=== PATIENT | female | born 1955 | race Caucasian/White ===

== ENCOUNTER 2018-02-22 13:10 | Outpatient (CLI) | payer BC ==
[~2018-02-22 13:10] MED LIST: ASPIRIN EC81 MG ORAL; LEVOTHYROXINE25 MCG ORAL; LEXAPRO20 MG ORAL; VALACYCLOVIR500 MG ORAL
--- NOTE | 2018-02-22 15:19 | GI Progress Note ---
Assessment/Plan Problems: (1) Colonoscopy planned SNOMED: 508074053 (2) Depression ICD Codes: F32.9 - Major depressive disorder, single episode, unspecified SNOMED: 74488098 (3) Hypothyroid ICD Codes: E03.9 - Hypothyroidism, unspecified SNOMED: 30585570 (4) Elevated cholesterol ICD Codes: E78.0 - Pure hypercholesterolemia SNOMED: 94922385 Status: stable Status Narrative Seen with Dr. Michael. Assessment/Plan Colonoscopy to be scheduled pending PA, will contact patient. - CLD & (Nulytely/Suprep/Movi-Prep) prep instructions given and acknowledged by patient. - NPO @ ND day prior procedure explained. The patient was seen and examined at bedside and all new and available data was reviewed in the patients chart. I agree with the above findings, impression and plan. (Patient seen earlier today. Signature stamp does not reflect patient encounter time.). - Malcom Michael MD Subjective Gastrointestinal/Abdominal: Reports: no symptoms Objective T 98.7 BP 118/76 P 75 95 RA General Appearance: WD/WN, no apparent distress, alert Cardiovascular: normal rate Respiratory/Chest: normal breath sounds, no respiratory distress Abdominal Exam: normal bowel sounds, non tender, soft Extremities: normal range of motion, non-tender Yoandy Haley [employer] Feb 22, 2018 15:19
== END 2018-02-22 13:40 | disposition home or self-care (01) ==
LOC: PAN 13:10
DX: F32.9 Major depressive disorder, single episode, unspecified (principal); E03.9 Hypothyroidism, unspecified; E78.00 Pure hypercholesterolemia, unspecified
CPT/HCPCS: G0463

== ENCOUNTER 2019-10-10 14:51 | Inpatient (IN) | payer BC ==
[~2019-10-10] VITALS: Ht 165.1 cm; Wt 59.0 kg
[2019-10-10 15:32] VITALS: BP 104/73
--- NOTE | 2019-10-10 15:36 | NUR ---
ED Nurse Note:pt. came with general weakness andm weight loss over last month, VSS, pt. is ambulatory, A/Ox4, seen by ER MD , placed on electronic device monitor
--- NOTE | 2019-10-10 15:42 | Emergency Room Report ---
History of Present Illness General Chief Complaint: Generalized Weakness Source: Patient Present Illness HPI Disclaimer: Please note that this report is being documented using [employer] technology. This can lead to erroneous entry secondary to incorrect interpretation by the dictating instrument. HPI: 64-year-old female history of hypothyroidism depression presents for evaluation of rapid weight loss. Patient states over the last 1.5 months she has lost approximately 50 to 60 pounds. Reports decrease in appetite, persistent nausea and intermittent vomiting. She feels very dehydrated and despite drinking water as much as she can. Denies any recent fever, chills, chest pain, shortness of breath but does feel some epigastric discomfort. Denies excessive alcohol use. Her team automobile assembler, Dr. Yepez, has performed an EGD and colonoscopy consistent with gastritis. Biopsies were taken and multiple CTs were taken today. CT of the chest abdomen and pelvis performed today shows a large left upper quadrant mass arising from the pancreas extension into the lesser sac and evidence of peritoneal carcinomatosis multiple metastases. She was sent for hospital admission given her rapid weight loss and CT findings. Patient is currently in no distress but does feel weak and dehydrated. PMH: Hypothyroidism, depression PSH: Gastric biopsy, breast augmentation Allergies: Denies Social Hx: Denies tobacco, alcohol or drug use Allergies: Coded Allergies: No Known Allergies (Unverified , 03/24/16) COVID-19 Screening Contact w/high risk pt: No Recent Travel to affected area: No Experienced COVID-19 symptoms?: No COVID-19 symptoms experienced: Fever (T>100.4F or >38C) COVID-19 Testing performed ELECTRIC LIFT TRUCK DRIVER: No Nursing Documentation-PMH Past Medical History: No History, Except For Hx Cancer: No Hx Gastrointestinal Problems: Yes Hx Neurological Problems: No Review of Systems All Other Systems: negative except mentioned in HPI Physical Exam Vital Signs Date Time Temp Pulse Resp B/P (MAP) Pulse Ox O2 Delivery O2 Flow Rate FiO2 10/10/19 15:24 98.4 104 16 104/73 (83) 97 Room Air General: Awake and alert, no acute distress HEENT: NC/AT. EOMI. Cardiovascular: Mildly tachycardic. S1 and S2 normal. No murmur appreciated Resp: Normal work of breathing. No cough, wheezing or crackles appreciated Abdomen: Abdomen is soft, nondistended. Nontender Skin: Intact. No abrasions, laceration or rash over the exposed skin MSK: Normal tone and bulk. Moving all extremities. No obvious deformity. Neuro: Awake and alert. Mentating appropriately. Medical Decision Making Diagnostic Impression: Primary Impression: Metastasis Additional Impressions: Dehydration Pancreatic cancer ER Course 64-year-old female presents for evaluation of rapid weight loss. CT performed today concerning for metastatic cancer with multiple metastatic sites. Will obtain broad labs and admit the patient for further work-up. Laboratory Tests Test 10/10/19 15:40 White Blood Count 10.9 K/UL (4.8-10.8) H Red Blood Count 4.55 M/UL (4.20-5.40) Hemoglobin 13.2 G/DL (12.0-16.0) Hematocrit 42.1 % (37.0-47.0) Mean Corpuscular Volume 92 FL (80-99) Mean Corpuscular Hemoglobin 29.0 PG (27.0-31.0) Mean Corpuscular Hemoglobin Concent 31.3 G/DL (32.0-36.0) L Red Cell Distribution Width 12.5 % (11.6-14.8) Platelet Count 303 K/UL (150-450) Mean Platelet Volume 7.9 FL (6.5-10.1) Neutrophils (%) (Auto) 72.1 % (45.0-75.0) Lymphocytes (%) (Auto) 16.9 % (20.0-45.0) L Monocytes (%) (Auto) 8.4 % (1.0-10.0) Eosinophils (%) (Auto) 1.7 % (0.0-3.0) Basophils (%) (Auto) 0.9 % (0.0-2.0) Urine Color Yellow Urine Appearance Slightly cloudy Urine pH 5 (4.5-8.0) Urine Specific [place] 1.010 (1.005-1.035) Urine Protein 2+ (NEGATIVE) H Urine Glucose (UA) Negative (NEGATIVE) Urine Ketones 3+ (NEGATIVE) H Urine Blood 2+ (NEGATIVE) H Urine Nitrite Negative (NEGATIVE) Urine Bilirubin Negative (NEGATIVE) Urine Urobilinogen 4 MG/DL (0.0-1.0) H Urine Leukocyte Esterase 1+ (NEGATIVE) H Urine RBC 0-2 /HPF (0 - 2) Urine WBC 2-4 /HPF (0 - 2) Urine Squamous Epithelial Cells Few /LPF (NONE/OCC) Urine Bacteria Moderate /HPF (NONE) H Sodium Level 137 MMOL/L (136-145) Potassium Level 3.6 MMOL/L (3.5-5.1) Chloride Level 98 MMOL/L (98-107) Carbon Dioxide Level 30 MMOL/L (21-32) Anion Gap 9 mmol/L (5-15) Blood Urea Nitrogen 3 mg/dL (7-18) L Creatinine 0.5 MG/DL (0.55-1.30) L Estimated Glomerular Filtration Rate > 60 mL/min (>60) Glucose Level 109 MG/DL (74-106) H Calcium Level 9.4 MG/DL (8.5-10.1) Phosphorus Level 3.5 MG/DL (2.5-4.9) Magnesium Level 2.2 MG/DL (1.8-2.4) Total Bilirubin 0.5 MG/DL (0.2-1.0) Aspartate Amino Transferase (AST) 28 U/L (15-37) Alanine Aminotransferase (ALT) 26 U/L (12-78) Alkaline Phosphatase 72 U/L (46-116) Total Protein 7.3 G/DL (6.4-8.2) Albumin 3.4 G/DL (3.4-5.0) Globulin 3.9 g/dL Albumin/Globulin Ratio 0.9 (1.0-2.7) L Lipase 55 U/L (73-393) L Thyroid Stimulating Hormone (TSH) 11.524 uiU/mL (0.358-3.740) Reevaluation Time: 18:33 Last Vital Signs Date Time Temp Pulse Resp B/P (MAP) Pulse Ox O2 Delivery O2 Flow Rate FiO2 10/10/19 15:32 98.4 102 16 104/73 97 Room Air Reevaluation Impression Labs have returned largely within normal limits. No significant electrolyte derangements. TSH is elevated consistent with the patient's history. There are moderate bacteria and 1+ leukocyte esterase but no white cells and no nitrites on urinalysis. Will await culture results with the patient has no symptoms of a urinary tract infection. She is receiving IV fluids. Attempted to reach her PMD multiple times regarding admission. Does not admit to this facility. Will admit to panel physician. Disposition: ADMITTED INPATIENT Condition: Stable Darling,Alex MD October 10, 2019 15:42
[2019-10-10 16:05] LABS: BASOPHILS % (AUTO) 0.9 % (0.0-2.0); EOSINOPHILS % (AUTO) 1.7 % (0.0-3.0); HEMATOCRIT 42.1 % (37.0-47.0); HEMOGLOBIN 13.2 G/DL (12.0-16.0); LYMPHOCYTES % (AUTO) 16.9 % (20.0-45.0); MEAN CORPUSCULAR VOLUME 92 FL (80-99); MONOCYTES % (AUTO) 8.4 % (1.0-10.0); NEUTROPHILS % (AUTO) 72.1 % (45.0-75.0); PLATELET COUNT 303 K/UL (150-450); RED BLOOD COUNT 4.55 M/UL (4.20-5.40); RED CELL DISTRIBUTION WIDTH 12.5 % (11.6-14.8); WHITE BLOOD COUNT 10.9 K/UL (4.8-10.8)
--- NOTE | 2019-10-10 16:07 | NUR ---
ED Nurse Note:blood and urine sent tto labs
[2019-10-10 16:25] LABS: APPEARANCE,URINE SLIGHTLY CLOUDY; BILIRUBIN, URINE NEGATIVE (NEGATIVE); COLOR,URINE YELLOW; GLUCOSE, URINE (UA) NEGATIVE (NEGATIVE); KETONES,URINE 3+ (NEGATIVE); LEUKOCYTE ESTERASE ,URINE 1+ (NEGATIVE); NITRITE,URINE NEGATIVE (NEGATIVE); PH,URINE 5 (4.5-8.0); PROTEIN,URINE 2+ (NEGATIVE); UROBILINOGEN,URINE 4 MG/DL (0.0-1.0)
[2019-10-10 16:36] LABS: ANION GAP 9 mmol/L (5-15); BLOOD UREA NITROGEN 3 mg/dL (7-18); CALCIUM 9.4 MG/DL (8.5-10.1); CARBON DIOXIDE 30 MMOL/L (21-32); CHLORIDE 98 MMOL/L (98-107); CREATININE 0.5 MG/DL (0.55-1.30); POTASSIUM 3.6 MMOL/L (3.5-5.1); SODIUM 137 MMOL/L (136-145)
[2019-10-10 16:48] LABS: ALANINE AMINOTRANSFERASE 26 U/L (12-78); ALBUMIN 3.4 G/DL (3.4-5.0); ALBUMIN/GLOBULIN RATIO 0.9 (1.0-2.7); ALKALINE PHOSPHATASE 72 U/L (46-116); ASPARTATE AMINO TRANSFERASE 28 U/L (15-37); BILIRUBIN,TOTAL 0.5 MG/DL (0.2-1.0); PHOSPHORUS 3.5 MG/DL (2.5-4.9)
--- NOTE | 2019-10-10 18:00 | NUR ---
ED Nurse Note:called [facility]-given report to Jaya RN, pt. taken up stairs
[2019-10-10 18:45] VITALS: BP 110/76
--- NOTE | 2019-10-10 19:10 | NUR ---
ED Nurse Note: Report received from TRACEY Liriano. pt in stable condition, vss. no ss of distress noted. Pt appears to be aao x 3-4. Pt able to ambulate with 1 person assist d/t weakness. Pt resting in bed. will continue to monitor.
[2019-10-10 20:10] VITALS: BP 114/79
--- NOTE | 2019-10-10 20:35 | NUR ---
ER DISCHARGE NOTE: Patient is cleared to be discharged to [facility] unit per ERMD, pt is aox4, 99% on room air, with stable vital signs. pt is able to ambulate with 1 person assist. pt took all belongings. Pt transferred up with 1 RN.
[2019-10-10 21:45] VITALS: BP 136/81
--- NOTE | 2019-10-10 21:45 | NUR ---
NURSE NOTES: Received pt from ED via gurney. Pt in bed, a&ox4, in room air. VSS. No s/s of acute distress & no c/o pain at this time. Skin assessment done with another RN. Oriented pt to facility, all questions answered. IV site intact & S/L'd. Bedside commode provided. Pt belongings signed & accounted for. Dr. Porter called & gave admission orders. Plan of care discussed.
[2019-10-11] VITALS: BP 111/72
[2019-10-11] MEDS: Zolpidem 5mg tab ORAL PRN ×2 (01:51→23:54)
[2019-10-11 04:00] VITALS: BP 118/74
[2019-10-11] MEDS: Levothyroxine 25mcg tab ORAL SCH (05:39)
--- NOTE | 2019-10-11 06:21 | NUR ---
NURSE NOTES: Dr. Porter is here to see patient; reviewed CT A/P.
[2019-10-11] MEDS ORDERED: Lidocaine 1% Plain 30 ml INJ PRN (06:30)
[2019-10-11 06:46] LABS: ANION GAP 11 mmol/L (5-15); BLOOD UREA NITROGEN 4 mg/dL (7-18); CALCIUM 8.6 MG/DL (8.5-10.1); CARBON DIOXIDE 27 MMOL/L (21-32); CHLORIDE 103 MMOL/L (98-107); CREATININE 0.6 MG/DL (0.55-1.30); SODIUM 141 MMOL/L (136-145)
--- NOTE | 2019-10-11 07:30 | NUR ---
NURSE NOTES:bedside rounds with night rn(suzy)pt.eating breakfast,verbally responsive,a/o x4,no c/o pain.will continue plan of care.
--- NOTE | 2019-10-11 07:30 | NUR ---
HAND-OFF: Report given to TRACEY Hughes. Pt in stable condition. Updated about pt's CT A/P results. Family also wants to be updated thorughout the day, endorsed to Ellen to upldate pt's family.
[2019-10-11 07:36] LABS: BASOPHILS % (AUTO) 0.8 % (0.0-2.0); EOSINOPHILS % (AUTO) 3.1 % (0.0-3.0); HEMATOCRIT 36.3 % (37.0-47.0); HEMOGLOBIN 12.1 G/DL (12.0-16.0); LYMPHOCYTES % (AUTO) 20.8 % (20.0-45.0); MEAN CORPUSCULAR VOLUME 86 FL (80-99); MONOCYTES % (AUTO) 8.7 % (1.0-10.0); NEUTROPHILS % (AUTO) 66.7 % (45.0-75.0); PLATELET COUNT 238 K/UL (150-450); RED BLOOD COUNT 4.21 M/UL (4.20-5.40); RED CELL DISTRIBUTION WIDTH 10.9 % (11.6-14.8); WHITE BLOOD COUNT 8.3 K/UL (4.8-10.8)
[2019-10-11 08:01] VITALS: BP 107/71
[2019-10-11] MEDS ORDERED: Enoxaparin 30mg Inj SUBQ SCH (09:00)
--- NOTE | 2019-10-11 10:37 | Consultation ---
History of Present Illness General Chief Complaint: Generalized Weakness Present Illness Allergies: Coded Allergies: No Known Allergies (Unverified , 03/24/16) Medication History Scheduled Levothyroxine Sodium* (Levothyroxine Sodium*), 25 MCG ORAL DAILY, (Reported) Discontinued Medications Escitalopram Oxalate* (Lexapro*), 20 MG ORAL DAILY, (Reported) Discontinued Reason: MD discontinued med Sucralfate* (Carafate*), 1 GM ORAL FOUR TIMES A DAY, (Reported) Discontinued Reason: MD discontinued med Valacyclovir Hcl* (Valtrex*), 500 MG ORAL DAILY, (Reported) Discontinued Reason: MD discontinued med Patient History Healthcare decision maker Resuscitation status Advanced Directive on File Physical Exam Last 24 Hour Vital Signs Date Time Temp Pulse Resp B/P (MAP) Pulse Ox O2 Delivery O2 Flow Rate FiO2 10/11/19 08:01 Room Air 10/11/19 08:01 97.9 74 19 107/71 (83) 97 10/11/19 04:00 98.8 98 18 118/74 (89) 97 10/11/19 00:00 99.2 96 17 111/72 (85) 97 10/10/19 22:01 Room Air 10/10/19 21:45 97.9 99 18 136/81 (99) 99 10/10/19 20:10 98.4 90 18 114/79 98 Room Air 10/10/19 18:45 95 16 110/76 98 Room Air 10/10/19 17:58 98.4 102 16 104/73 97 Room Air 10/10/19 15:32 98.4 102 16 104/73 97 Room Air 10/10/19 15:32 104 16 Room Air 10/10/19 15:24 98.4 104 16 104/73 (83) 97 Room Air Intake and Output 10/10/19 10/11/19 19:00 07:00 Intake Total 720 ml Balance 720 ml Intake IV Total 720 ml # Voids 1 3 Laboratory Tests Test 10/10/19 15:40 10/11/19 05:10 White Blood Count 10.9 K/UL (4.8-10.8) H 8.3 K/UL (4.8-10.8) Red Blood Count 4.55 M/UL (4.20-5.40) 4.21 M/UL (4.20-5.40) Hemoglobin 13.2 G/DL (12.0-16.0) 12.1 G/DL (12.0-16.0) Hematocrit 42.1 % (37.0-47.0) 36.3 % (37.0-47.0) L Mean Corpuscular Volume 92 FL (80-99) 86 FL (80-99) Mean Corpuscular Hemoglobin 29.0 PG (27.0-31.0) 28.7 PG (27.0-31.0) Mean Corpuscular Hemoglobin Concent 31.3 G/DL (32.0-36.0) L 33.3 G/DL (32.0-36.0) Red Cell Distribution Width 12.5 % (11.6-14.8) 10.9 % (11.6-14.8) L Platelet Count 303 K/UL (150-450) 238 K/UL (150-450) Mean Platelet Volume 7.9 FL (6.5-10.1) 6.7 FL (6.5-10.1) Neutrophils (%) (Auto) 72.1 % (45.0-75.0) 66.7 % (45.0-75.0) Lymphocytes (%) (Auto) 16.9 % (20.0-45.0) L 20.8 % (20.0-45.0) Monocytes (%) (Auto) 8.4 % (1.0-10.0) 8.7 % (1.0-10.0) Eosinophils (%) (Auto) 1.7 % (0.0-3.0) 3.1 % (0.0-3.0) H Basophils (%) (Auto) 0.9 % (0.0-2.0) 0.8 % (0.0-2.0) Urine Color Yellow Urine Appearance Slightly cloudy Urine pH 5 (4.5-8.0) Urine Specific [place] 1.010 (1.005-1.035) Urine Protein 2+ (NEGATIVE) H Urine Glucose (UA) Negative (NEGATIVE) Urine Ketones 3+ (NEGATIVE) H Urine Blood 2+ (NEGATIVE) H Urine Nitrite Negative (NEGATIVE) Urine Bilirubin Negative (NEGATIVE) Urine Urobilinogen 4 MG/DL (0.0-1.0) H Urine Leukocyte Esterase 1+ (NEGATIVE) H Urine RBC 0-2 /HPF (0 - 2) Urine WBC 2-4 /HPF (0 - 2) Urine Squamous Epithelial Cells Few /LPF (NONE/OCC) Urine Bacteria Moderate /HPF (NONE) H Sodium Level 137 MMOL/L (136-145) 141 MMOL/L (136-145) Potassium Level 3.6 MMOL/L (3.5-5.1) 3.0 MMOL/L (3.5-5.1) L Chloride Level 98 MMOL/L (98-107) 103 MMOL/L (98-107) Carbon Dioxide Level 30 MMOL/L (21-32) 27 MMOL/L (21-32) Anion Gap 9 mmol/L (5-15) 11 mmol/L (5-15) Blood Urea Nitrogen 3 mg/dL (7-18) L 4 mg/dL (7-18) L Creatinine 0.5 MG/DL (0.55-1.30) L 0.6 MG/DL (0.55-1.30) Estimat Glomerular Filtration Rate > 60 mL/min (>60) > 60 mL/min (>60) Glucose Level 109 MG/DL (74-106) H 103 MG/DL (74-106) Calcium Level 9.4 MG/DL (8.5-10.1) 8.6 MG/DL (8.5-10.1) Phosphorus Level 3.5 MG/DL (2.5-4.9) Magnesium Level 2.2 MG/DL (1.8-2.4) Total Bilirubin 0.5 MG/DL (0.2-1.0) Aspartate Amino Transf (AST/SGOT) 28 U/L (15-37) Alanine Aminotransferase (ALT/SGPT) 26 U/L (12-78) Alkaline Phosphatase 72 U/L (46-116) Total Protein 7.3 G/DL (6.4-8.2) Albumin 3.4 G/DL (3.4-5.0) Globulin 3.9 g/dL Albumin/Globulin Ratio 0.9 (1.0-2.7) L Lipase 55 U/L (73-393) L Thyroid Stimulating Hormone (TSH) 11.524 uiU/mL (0.358-3.740) Height (Feet): 5 Height (Inches): 4.00 Weight (Pounds): 110 Medications Current Medications Medications (Trade) Dose Ordered Sig/Tiago Route PRN Reason Start Time Stop Time Status Last Admin Dose Admin Acetaminophen (Tylenol) 650 mg Q6H PRN ORAL 1-3 mild pain/fever > 100.4 10/10/19 21:00 11/09/19 20:59 Enoxaparin Sodium (Lovenox) 30 mg DAILY SUBQ 10/11/19 09:00 01/09/20 08:59 10/11/19 08:16 Levothyroxine Sodium (Synthroid) 25 mcg ACBREAKFAST ORAL 10/11/19 06:30 11/10/19 06:29 10/11/19 05:39 Lidocaine HCl (Xylocaine 1% 30ml) 30 ml NOW PRN INJ Radiology Procedure 10/11/19 06:30 10/13/19 06:30 Ondansetron HCl (Zofran) 4 mg Q4H PRN IVP Nausea & Vomiting 10/11/19 05:45 11/10/19 05:44 Sodium Chloride 1,000 ml @ 80 mls/hr [id number] IV 10/10/19 21:00 10/11/19 21:59 10/10/19 21:50 Zolpidem Tartrate (Ambien) 5 mg HSPRN PRN ORAL Insomnia 10/10/19 21:00 10/17/19 20:59 10/11/19 01:51 Assessment/Plan Assessment/Plan: Oncology Consultation note REQ MD Barry Olmedo C Pancreatic mass eval DOS 10/11/2019 HPI: 64-year-old female history of hypothyroidism depression presents for evaluation of rapid weight loss. Patient states over the last 1.5 months she has lost approximately 50 to 60 pounds. Reports decrease in appetite, persistent nausea and intermittent vomiting. She feels very dehydrated and despite drinking water as much as she can. Denies any recent fever, chills, chest pain, shortness of breath but does feel some epigastric discomfort. Denies excessive alcohol use. Her disability services coordinator, Dr. Yepez, has performed an EGD and colonoscopy consistent with gastritis. Biopsies were taken and multiple CTs were taken today. CT of the chest abdomen and pelvis performed today shows a large left upper quadrant mass arising from the pancreas extension into the lesser sac and evidence of peritoneal carcinomatosis multiple metastases. She was sent for hospital admission given her rapid weight loss and CT findings. Patient is currently in no distress but does feel weak and dehydrated. I talked to her at the bedside and she is aware the next step is to do a ct fuided biopsy. PMHx: Hypothyroidism, depression PSHx: Gastric biopsy, breast augmentation Allergies: Denies Social Hx: Denies tobacco, alcohol or drug use Allergies: No Known Allergies (Unverified , 03/24/16) COVID-19 Screening Contact w/high risk pt: No Recent Travel to affected area: No Experienced COVID-19 symptoms?: No COVID-19 symptoms experienced: Fever (T>100.4F or >38C) COVID-19 Testing performed CLOTHES DRIER REPAIRER: No Nursing Documentation-PM Past Medical History: No History, Except For Hx Cancer: No Hx Gastrointestinal Problems: Yes Hx Neurological Problems: No ROS (review of systems): Constitutional: ++ weght loss 60lbs Skin: No rashes, lumps, itchiness, dryness HEENT: No HUNTER, ear ache, visual changes, double vision, nosebleeds Breasts: No lumps, pain, discharge Pulmonary: No cough, sputum, shortness of breath, coughing up blood Cardiovascular: No chest pain, tightness, palpitations, syncope, PND GI: No nausea, vomiting, diarrhea, melena, hematochezia, change in appetite, : No dysuria, frequency, urgency, urinary incontinence, foamy urine Musculoskeletal: No joint swelling or muscle pain, trauma, back pain Neurologic: No dizziness, fainting, seizures, changes in smell or taste Psychiatric: No nervousness, stress, or depression, anxiety Endocrine: No weight change Physical Exam: Vitals: reviewed General: NAD HEENT: nc, at Neck: supple Chest: clear breath sounds bilaterally Cardiovascular: RRR, no s3, s4 Abdomen: soft, nontender, nd ++ abd pain Extremities: no cce, normal range of motion Back: back pain ttp Neuro: alert and oriented Labs: noted Assessment/Recs # Pancreatic mass with likely mets -- LARGE LEFT UPPER QUADRANT MASS LIKELY ARISING FROM THE PANCREAS WITH EXTENSION INTO THE LESSER SAC. 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 RETROPERITONEAL ADENOPATHY ENCASING THE SMA ARTERY AND ALONG THE LEFT PARA-AORTIC SPACE. LEFT ADRENAL METASTASIS. --> ct guided biopsy has been ordered --> ca 19.9, ca 125, cea all ordered --> weight loss noted --> consider mirtazpaine --> as per gi care, they are aware # Dehydration --> on ivfs as needed # LEFT ADRENAL METASTASIS. --> likely c/w panc primary cancer # Leukocytosis --> mild has improved # Weight loss --> related to ca The timing of this note does not necessarily reflect the time of the patient was seen. Greatly appreciate consultation. Ortiz Porter MD October 11, 2019 10:37
--- NOTE | 2019-10-11 10:48 | NUR ---
*-* NO INSURANCE INFORMATION IN THE BAR UNABLE TO SEND CLINICALS OR REVIEWS *-*
[2019-10-11 11:29] VITALS: BP 107/73
--- NOTE | 2019-10-11 11:30 | NUR ---
NURSE NOTES:DR. MARQUEZ NOTIFIED RE:K:3,ORDERS CARRIED OUT.
--- NOTE | 2019-10-11 12:19 | General Progress Note ---
Assessment/Plan Problem List: (1) Pancreatic cancer ICD Codes: C25.9 - Malignant neoplasm of pancreas, unspecified SNOMED: 777777993 (2) Elevated cholesterol ICD Codes: E78.0 - Pure hypercholesterolemia SNOMED: 07001988 (3) Hypothyroid ICD Codes: E03.9 - Hypothyroidism, unspecified SNOMED: 84798170 (4) Depression ICD Codes: F32.9 - Major depressive disorder, single episode, unspecified SNOMED: 61137976 Assessment/Plan: pending CT guided biopsy fu oncology plan EUS if CT guided biopsy is neg ivf pain control zofran prn Subjective ROS Limited/Unobtainable: Yes Allergies: Coded Allergies: No Known Allergies (Unverified , 03/24/16) Objective Last 24 Hour Vital Signs Date Time Temp Pulse Resp B/P (MAP) Pulse Ox O2 Delivery O2 Flow Rate FiO2 10/11/19 11:29 98.2 96 20 107/73 (84) 96 10/11/19 08:01 Room Air 10/11/19 08:01 97.9 74 19 107/71 (83) 97 10/11/19 04:00 98.8 98 18 118/74 (89) 97 10/11/19 00:00 99.2 96 17 111/72 (85) 97 10/10/19 22:01 Room Air 10/10/19 21:45 97.9 99 18 136/81 (99) 99 10/10/19 20:10 98.4 90 18 114/79 98 Room Air 10/10/19 18:45 95 16 110/76 98 Room Air 10/10/19 17:58 98.4 102 16 104/73 97 Room Air 10/10/19 15:32 98.4 102 16 104/73 97 Room Air 10/10/19 15:32 104 16 Room Air 10/10/19 15:24 98.4 104 16 104/73 (83) 97 Room Air Intake and Output 10/10/19 10/11/19 19:00 07:00 Intake Total 720 ml Balance 720 ml Intake IV Total 720 ml # Voids 1 3 Laboratory Tests 10/10/19 15:40: White Blood Count 10.9H, Red Blood Count 4.55, Hemoglobin 13.2, Hematocrit 42.1 , Mean Corpuscular Volume 92, Mean Corpuscular Hemoglobin 29.0, Mean Corpuscular Hemoglobin Concent 31.3L, Red Cell Distribution Width 12.5, Platelet Count 303, Mean Platelet Volume 7.9, Neutrophils (%) (Auto) 72.1, Lymphocytes (%) (Auto) 16.9L, Monocytes (%) (Auto) 8.4, Eosinophils (%) (Auto) 1.7, Basophils (%) (Auto) 0.9, Urine Color Yellow, Urine Appearance Slightly cloudy, Urine pH 5, Urine Specific [place] 1.010, Urine Protein 2+H, Urine Glucose (UA) Negative, Urine Ketones 3+H, Urine Blood 2+H, Urine Nitrite Negative, Urine Bilirubin Negative, Urine Urobilinogen 4H, Urine Leukocyte Esterase 1+H, Urine RBC 0-2, Urine WBC 2-4, Urine Squamous Epithelial Cells Few , Urine Bacteria ModerateH, Sodium Level 137, Potassium Level 3.6, Chloride Level 98, Carbon Dioxide Level 30, Anion Gap 9, Blood Urea Nitrogen 3L, Creatinine 0.5L, Estimat Glomerular Filtration Rate > 60, Glucose Level 109H, Calcium Level 9.4, Phosphorus Level 3.5, Magnesium Level 2.2, Total Bilirubin 0.5, Aspartate Amino Transf (AST/SGOT) 28, Alanine Aminotransferase (ALT/SGPT) 26, Alkaline Phosphatase 72, Total Protein 7.3, Albumin 3.4, Globulin 3.9, Albumin/Globulin Ratio 0.9L, Lipase 55L, Thyroid Stimulating Hormone (TSH) 11.524H 10/11/19 05:10: White Blood Count 8.3, Red Blood Count 4.21, Hemoglobin 12.1, Hematocrit 36.3L, Mean Corpuscular Volume 86, Mean Corpuscular Hemoglobin 28.7, Mean Corpuscular Hemoglobin Concent 33.3, Red Cell Distribution Width 10.9L, Platelet Count 238, Mean Platelet Volume 6.7, Neutrophils (%) (Auto) 66.7, Lymphocytes (%) (Auto) 20.8, Monocytes (%) (Auto) 8.7, Eosinophils (%) (Auto) 3.1H, Basophils (%) (Auto ) 0.8, Sodium Level 141, Potassium Level 3.0L, Chloride Level 103, Carbon Dioxide Level 27, Anion Gap 11, Blood Urea Nitrogen 4L, Creatinine 0.6, Estimat Glomerular Filtration Rate > 60, Glucose Level 103, Calcium Level 8.6 10/11/19 11:30: Carcinoembryonic Antigen [Pending], CA 15-3 Antigen [Pending], CA 19-9 Antigen [ Pending], CA 125 Antigen [Pending] Height (Feet): 5 Height (Inches): 4.00 Weight (Pounds): 110 General Appearance: no apparent distress EENT: normal ENT inspection Neck: supple Cardiovascular: normal rate Respiratory/Chest: decreased breath sounds Abdomen: normal bowel sounds, non tender, soft Extremities: non-tender Malcom Michael MD October 11, 2019 12:19
--- NOTE | 2019-10-11 13:07 | NUR ---
RD ASSESSMENT & RECOMMENDATIONS SEE CARE ACTIVITY FOR COMPLETE ASSESSMENT DAILY ESTIMATED NEEDS: Needs based on WT loss, CA 62.5kg 28-33 kcals/kg 0746-6311 total kcals 1-1.5 g protein/kg 63-94 g total protein 25-30 mL/kg 5959-3666 total fluid mLs NUTRITION DIAGNOSIS: Increase kcal needs r/t significant wt loss as evidenced by 22% wt change, w/ unintentional est 39 lbs wt loss in 7 weeks. CURRENT DIET: regular PO DIET RECOMMENDATIONS: Regular diet as tolerated ADDITIONAL RECOMMENDATIONS: 1) Weekly standing weights given wt loss on admission 2) Add snacks in b/w meal s 3) Add Ensure Enlive w/ meals; pt may have Ensure Clear if tolerated better 4) Replete lytes and monitor hydration
--- NOTE | 2019-10-11 13:38 | Consultation ---
History of Present Illness General Date patient seen: October 11, 2019 Chief Complaint: Generalized Weakness Present Illness HPI 64 y/o F with hx of hypothyroidism, MDD, sp breast augmentation presented to ED on 10/09 for evaluation of rapid weight loss; lost ~50-60 pounds in the last 1.5 months, decrease in appetite, persistent nausea, mild epigastric discomfort and intermittent vomiting. She feels thirsty despite adequate fluid intake. CT C/abd /p sowed large LUQ mass arising from pancreas and evidence of peritoneal carcinomatosis. Denied fever, chills, chest pain, SOB, dysuria, cough. Allergies: Coded Allergies: No Known Allergies (Unverified , 03/24/16) Medication History Scheduled Levothyroxine Sodium* (Levothyroxine Sodium*), 25 MCG ORAL DAILY, (Reported) Discontinued Medications Escitalopram Oxalate* (Lexapro*), 20 MG ORAL DAILY, (Reported) Discontinued Reason: MD discontinued med Sucralfate* (Carafate*), 1 GM ORAL FOUR TIMES A DAY, (Reported) Discontinued Reason: MD discontinued med Valacyclovir Hcl* (Valtrex*), 500 MG ORAL DAILY, (Reported) Discontinued Reason: MD discontinued med Patient History Healthcare decision maker Resuscitation status Advanced Directive on File Patient History Narrative Pmhx: as above SHx: Denies tobacco, alcohol or drug use Fhx: non contributory Review of Systems All Other Systems: negative except mentioned in HPI Physical Exam Physical Exam Narrative General: NAD HEENT: nc, at Neck: supple Chest: clear breath sounds bilaterally Cardiovascular: RRR, no s3, s4 Abdomen: soft, nontender, nd ++ abd pain Extremities: no cce, normal range of motion Back: back pain ttp Neuro: alert and oriented Last 24 Hour Vital Signs Date Time Temp Pulse Resp B/P (MAP) Pulse Ox O2 Delivery O2 Flow Rate FiO2 10/11/19 11:29 98.2 96 20 107/73 (84) 96 10/11/19 08:01 Room Air 10/11/19 08:01 97.9 74 19 107/71 (83) 97 10/11/19 04:00 98.8 98 18 118/74 (89) 97 10/11/19 00:00 99.2 96 17 111/72 (85) 97 10/10/19 22:01 Room Air 10/10/19 21:45 97.9 99 18 136/81 (99) 99 10/10/19 20:10 98.4 90 18 114/79 98 Room Air 10/10/19 18:45 95 16 110/76 98 Room Air 10/10/19 17:58 98.4 102 16 104/73 97 Room Air 10/10/19 15:32 98.4 102 16 104/73 97 Room Air 10/10/19 15:32 104 16 Room Air 10/10/19 15:24 98.4 104 16 104/73 (83) 97 Room Air Intake and Output 10/10/19 10/11/19 19:00 07:00 Intake Total 720 ml Balance 720 ml Intake IV Total 720 ml # Voids 1 3 Laboratory Tests Test 10/10/19 15:40 10/11/19 05:10 10/11/19 11:30 White Blood Count 10.9 K/UL (4.8-10.8) H 8.3 K/UL (4.8-10.8) Red Blood Count 4.55 M/UL (4.20-5.40) 4.21 M/UL (4.20-5.40) Hemoglobin 13.2 G/DL (12.0-16.0) 12.1 G/DL (12.0-16.0) Hematocrit 42.1 % (37.0-47.0) 36.3 % (37.0-47.0) L Mean Corpuscular Volume 92 FL (80-99) 86 FL (80-99) Mean Corpuscular Hemoglobin 29.0 PG (27.0-31.0) 28.7 PG (27.0-31.0) Mean Corpuscular Hemoglobin Concent 31.3 G/DL (32.0-36.0) L 33.3 G/DL (32.0-36.0) Red Cell Distribution Width 12.5 % (11.6-14.8) 10.9 % (11.6-14.8) L Platelet Count 303 K/UL (150-450) 238 K/UL (150-450) Mean Platelet Volume 7.9 FL (6.5-10.1) 6.7 FL (6.5-10.1) Neutrophils (%) (Auto) 72.1 % (45.0-75.0) 66.7 % (45.0-75.0) Lymphocytes (%) (Auto) 16.9 % (20.0-45.0) L 20.8 % (20.0-45.0) Monocytes (%) (Auto) 8.4 % (1.0-10.0) 8.7 % (1.0-10.0) Eosinophils (%) (Auto) 1.7 % (0.0-3.0) 3.1 % (0.0-3.0) H Basophils (%) (Auto) 0.9 % (0.0-2.0) 0.8 % (0.0-2.0) Urine Color Yellow Urine Appearance Slightly cloudy Urine pH 5 (4.5-8.0) Urine Specific [place] 1.010 (1.005-1.035) Urine Protein 2+ (NEGATIVE) H Urine Glucose (UA) Negative (NEGATIVE) Urine Ketones 3+ (NEGATIVE) H Urine Blood 2+ (NEGATIVE) H Urine Nitrite Negative (NEGATIVE) Urine Bilirubin Negative (NEGATIVE) Urine Urobilinogen 4 MG/DL (0.0-1.0) H Urine Leukocyte Esterase 1+ (NEGATIVE) H Urine RBC 0-2 /HPF (0 - 2) Urine WBC 2-4 /HPF (0 - 2) Urine Squamous Epithelial Cells Few /LPF (NONE/OCC) Urine Bacteria Moderate /HPF (NONE) H Sodium Level 137 MMOL/L (136-145) 141 MMOL/L (136-145) Potassium Level 3.6 MMOL/L (3.5-5.1) 3.0 MMOL/L (3.5-5.1) L Chloride Level 98 MMOL/L (98-107) 103 MMOL/L (98-107) Carbon Dioxide Level 30 MMOL/L (21-32) 27 MMOL/L (21-32) Anion Gap 9 mmol/L (5-15) 11 mmol/L (5-15) Blood Urea Nitrogen 3 mg/dL (7-18) L 4 mg/dL (7-18) L Creatinine 0.5 MG/DL (0.55-1.30) L 0.6 MG/DL (0.55-1.30) Estimat Glomerular Filtration Rate > 60 mL/min (>60) > 60 mL/min (>60) Glucose Level 109 MG/DL (74-106) H 103 MG/DL (74-106) Calcium Level 9.4 MG/DL (8.5-10.1) 8.6 MG/DL (8.5-10.1) Phosphorus Level 3.5 MG/DL (2.5-4.9) Magnesium Level 2.2 MG/DL (1.8-2.4) Total Bilirubin 0.5 MG/DL (0.2-1.0) Aspartate Amino Transf (AST/SGOT) 28 U/L (15-37) Alanine Aminotransferase (ALT/SGPT) 26 U/L (12-78) Alkaline Phosphatase 72 U/L (46-116) Total Protein 7.3 G/DL (6.4-8.2) Albumin 3.4 G/DL (3.4-5.0) Globulin 3.9 g/dL Albumin/Globulin Ratio 0.9 (1.0-2.7) L Lipase 55 U/L (73-393) L Thyroid Stimulating Hormone (TSH) 11.524 uiU/mL (0.358-3.740) Carcinoembryonic Antigen Pending CA 15-3 Antigen Pending CA 19-9 Antigen Pending CA 125 Antigen Pending Height (Feet): 5 Height (Inches): 4.00 Weight (Pounds): 110 Medications Current Medications Medications (Trade) Dose Ordered Sig/Tiago Route PRN Reason Start Time Stop Time Status Last Admin Dose Admin Acetaminophen (Tylenol) 650 mg Q6H PRN ORAL 1-3 mild pain/fever > 100.4 10/10/19 21:00 11/09/19 20:59 10/11/19 10:57 Enoxaparin Sodium (Lovenox) 40 mg DAILY SUBQ 10/12/19 09:00 01/10/20 08:59 Levothyroxine Sodium (Synthroid) 25 mcg ACBREAKFAST ORAL 10/11/19 06:30 11/10/19 06:29 10/11/19 05:39 Lidocaine HCl (Xylocaine 1% 30ml) 30 ml NOW PRN INJ Radiology Procedure 10/11/19 06:30 10/13/19 06:30 Ondansetron HCl (Zofran) 4 mg Q4H PRN IVP Nausea & Vomiting 10/11/19 05:45 11/10/19 05:44 Sodium Chloride 1,000 ml @ 80 mls/hr [id number] IV 10/10/19 21:00 10/11/19 21:59 10/10/19 21:50 Zolpidem Tartrate (Ambien) 5 mg HSPRN PRN ORAL Insomnia 10/10/19 21:00 10/17/19 20:59 10/11/19 01:51 Assessment/Plan Assessment/Plan: Abx: None Assessment: Unintentional weight loss Metastatic Pancreatic mass w/ peritoneal carcinomatosis (mets to adrenal, intraabdominal, lymph nodes) -10/09 CT abd/p: LARGE LEFT UPPER QUADRANT MASS LIKELY ARISING FROM THE PANCREAS WITH EXTENSION INTO THE LESSER SAC. 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 RETROPERITONEAL ADENOPATHY ENCASING THE SMA ARTERY AND ALONG THE LEFT PARA- AORTIC SPACE. LEFT ADRENAL METASTASIS. NO METASTATIC DISEASE TO THE CHEST PRESENTLY. INCIDENTAL FINDING OF BILATERAL MAMMARY PROSTHESIS IMPLANT INTRACAPSULAR RUPTURE. -10/02 SP EGD/COlo:: gastritis, hemorrhoids --of note, patient had negative COvid testing as an outpatient prior to the procedure Afebrile Mild leukocytosis, SP- -u/a no pyuria, nit neg, leuk +1- Patient with no UTI symptoms hypothyroidism MDD sp breast augmentation Plan: -Continue to monitor off abx -f/u cx -Monitor CBC/CMP, temperature -GI, heme/onc f/u- plan for CT guided biopsy Thank you for consulting [facility]. Will continue to follow along with you. Sabi Abbasi M.D. October 11, 2019 13:38
--- NOTE | 2019-10-11 14:36 | NUR ---
*-* INSURANCE *-* ALL AVAILABLE CLINICALS AND REVIEWS HAVE BEEN FAXED TO: [facility] [phone] ANTONIA Umana/ESTELLA Daigle HE PROVIDED REF#[id number] #[phone] FAX#[phone] REVIEWS/CLINICALS Addendum: 10/11/19 at 1437 by AUSTYN CARNES CM [facility] #[phone] FAX#[phone] REVIEWS/CLINICALS
[2019-10-11 16:00] VITALS: BP 100/70
--- NOTE | 2019-10-11 19:30 | NUR ---
NURSE NOTES: Received report & pt from TRACEY Hughes. pt lying in bed, a&ox4, in room air. No s/s of acute distress & no c/o pain at this time. IV site intact with IVF running as ordered. Plan of care discussed.
[2019-10-11 20:00] VITALS: BP 105/72
--- NOTE | 2019-10-11 21:30 | History and Physical Report ---
DATE OF ADMISSION: 10/10/2019 DATE AND TIME SEEN: 10/11/2019 at 1 p.m. CONSULTANTS: 1. Marcos Porter MD. 2. Malcom Micheal MD. 3. Chava Pepper MD. CHIEF COMPLAINT: Failure to thrive, pancreatic cancer with mets, UTI, dehydration. BRIEF HISTORY: This is a 64-year-old female, who lives at home, presented with increased lethargy and weakness. She was found to have failure to thrive, dehydration, UTI, and admitted to telemetry for further care. Currently, calm in bed, feeling little bit better. No complaints. REVIEW OF SYSTEMS: No chest pain. Slight short of breath. Slight nausea. No vomiting or diarrhea. PAST MEDICAL HISTORY: Includes pancreatic cancer with mets, hypothyroid. PAST SURGICAL HISTORY: None. MEDICATIONS: Include enoxaparin, potassium, levothyroxine, Zofran, zolpidem. ALLERGIES: Denies. SOCIAL HISTORY: No smoking. Occasional alcohol. No intravenous drug abuse. FAMILY HISTORY: Noncontributory. PHYSICAL EXAMINATION: GENERAL: Calm in bed, oriented x3, no acute distress. VITAL SIGNS: Temperature is 98 degrees, pulse 96, respirations 20, blood pressure 107/73. CARDIOVASCULAR: Distant without murmur. LUNGS: Distant and clear. ABDOMEN: Bowel sounds positive. Soft. No guarding. No rigidity. No rebound. EXTREMITIES: No cyanosis, clubbing, or edema. NEUROLOGIC: Patient moves all extremities, slightly weak. LABORATORY DATA: Show CBC is normal. BMP show potassium 3.0 and BUN 4, otherwise normal. Urinalysis is 1+ leukocyte esterase. ASSESSMENT: 1. Failure to thrive. 2. Pancreatic cancer with mets. 3. Dehydration. 4. UTI. 5. Hypothyroid. PLAN: 1. Resume home medications. 2. Pain control. 3. IV fluids. 4. Dietary followup. 5. Replace potassium. 6. CBC, BMP in the morning. Matt Olmedo D.O. DR: FRANCHESCA JOB#: [id number] CC:
[2019-10-12] VITALS: BP 108/74
[2019-10-12 04:00] VITALS: BP_SYST 109; BP_SYST 134; BP_DIAS 70; BP_DIAS 73
[2019-10-12] MEDS: Levothyroxine 25mcg tab ORAL SCH (05:44)
--- NOTE | 2019-10-12 06:00 | NUR ---
NURSE NOTES: Pt complaining of stomach acid. Left msg to Dr. Porter & received an order. Carried out.
[2019-10-12 06:02] LABS: HEMATOCRIT 34.6 % (37.0-47.0); HEMOGLOBIN 11.6 G/DL (12.0-16.0); LYMPHOCYTES % (AUTO) 21.3 % (20.0-45.0); MEAN CORPUSCULAR VOLUME 87 FL (80-99); MONOCYTES % (AUTO) 9.6 % (1.0-10.0); NEUTROPHILS % (AUTO) 64.2 % (45.0-75.0); PLATELET COUNT 224 K/UL (150-450); RED BLOOD COUNT 3.99 M/UL (4.20-5.40); RED CELL DISTRIBUTION WIDTH 11.3 % (11.6-14.8); WHITE BLOOD COUNT 8.7 K/UL (4.8-10.8)
--- NOTE | 2019-10-12 06:05 | NUR ---
NURSE NOTES: Dr. Porter seen the pt with new orders. Carried out.
[2019-10-12] MEDS ORDERED: LORazepam Inj 2mg/ml 1ml IV PRN (06:15)
[2019-10-12] MEDS: HYDROcodone/Acetamin 5/325 tab ORAL PRN ×3 (06:19→23:26)
[2019-10-12 06:48] LABS: ANION GAP 9 mmol/L (5-15); BLOOD UREA NITROGEN 6 mg/dL (7-18); CALCIUM 8.1 MG/DL (8.5-10.1); CARBON DIOXIDE 26 MMOL/L (21-32); CHLORIDE 107 MMOL/L (98-107); CREATININE 0.6 MG/DL (0.55-1.30); POTASSIUM 3.5 MMOL/L (3.5-5.1); SODIUM 141 MMOL/L (136-145)
--- NOTE | 2019-10-12 07:03 | NUR ---
HAND-OFF: Report given to TRACEY Wright. Pt in stable condition. Endorsed CT guided needle biopsy to be done today.
--- NOTE | 2019-10-12 07:40 | NUR ---
NURSE NOTES: PT AXOX4, CALM, RESTING IN BED. IN NO APPARENT DISTRESS AT THIS TIME. PT STATES HER PAIN IS 7/10 BUT MORE COMFORTABLE THAN LAST NIGHT. PT RECEIVED PRN NORCO 5/325MG AT 0620HRS. PT WAS EDUCATED ON PRN SCHEDULE OF NORCO AND VERBALIZED UNDERSTANDING. PT DENIES NAUSEA AT THIS TIME. PT EDUCATED ON PLAN FOR CT GUIDED BIOPSY TODAY AND FALL/SAFETY PRECAUTIONS. RN EDUCATED FOR PT TO CALL FOR ASSISTANCE BEFORE AMBULATING. PT VERBALIZED UNDERSTANDING. CALL LIGHT WITHIN REACH. WILL CONTINUE TO MONITOR.
[2019-10-12 08:00] VITALS: BP 104/71
--- NOTE | 2019-10-12 08:14 | General Progress Note ---
Assessment/Plan Problem List: (1) UTI (urinary tract infection) ICD Codes: N39.0 - Urinary tract infection, site not specified SNOMED: 86625658 (2) Dehydration ICD Codes: E86.0 - Dehydration SNOMED: 72703109 (3) Dehydration ICD Codes: E86.0 - Dehydration SNOMED: 14787010 (4) Pancreatic cancer ICD Codes: C25.9 - Malignant neoplasm of pancreas, unspecified SNOMED: 759595246 (5) Metastasis ICD Codes: C79.9 - Secondary malignant neoplasm of unspecified site SNOMED: 536469666 (6) Hypothyroid ICD Codes: E03.9 - Hypothyroidism, unspecified SNOMED: 71508628 Status: unchanged Assessment/Plan: pt diet abx iv fluid cbc bmp am Subjective Constitutional: Reports: weakness Allergies: Coded Allergies: No Known Allergies (Unverified , 03/24/16) All Systems: reviewed and negative except above Subjective sleepy calm Objective Last 24 Hour Vital Signs Date Time Temp Pulse Resp B/P (MAP) Pulse Ox O2 Delivery O2 Flow Rate FiO2 10/12/19 04:00 97.9 83 16 109/73 (85) 96 10/12/19 00:00 98.2 89 16 108/74 (85) 97 10/11/19 20:28 Room Air 10/11/19 20:00 97.9 90 18 105/72 (83) 96 10/11/19 16:00 97.7 98 20 100/70 (80) 97 10/11/19 11:29 98.2 96 20 107/73 (84) 96 Intake and Output 10/11/19 10/12/19 19:00 07:00 Intake Total 1000 ml 310 ml Output Total 500 ml Balance 1000 ml -190 ml Intake Oral 600 ml 150 ml IV Total 400 ml 160 ml Output Urine Total 500 ml # Voids 2 Laboratory Tests 10/11/19 11:30: Carcinoembryonic Antigen 741.0H, CA 15-3 Antigen 184.0H, CA 19-9 Antigen [ Pending], CA 125 Antigen 532.0H 10/12/19 04:40: White Blood Count 8.7, Red Blood Count 3.99L, Hemoglobin 11.6L, Hematocrit 34.6L , Mean Corpuscular Volume 87, Mean Corpuscular Hemoglobin 29.1, Mean Corpuscular Hemoglobin Concent 33.6, Red Cell Distribution Width 11.3L, Platelet Count 224, Mean Platelet Volume 6.7, Neutrophils (%) (Auto) 64.2, Lymphocytes (%) (Auto) 21.3, Monocytes (%) (Auto) 9.6, Eosinophils (%) (Auto) 4.0H, Basophils (%) (Auto) 1.0, Sodium Level 141, Potassium Level 3.5, Chloride Level 107, Carbon Dioxide Level 26, Anion Gap 9, Blood Urea Nitrogen 6L, Creatinine 0.6, Estimat Glomerular Filtration Rate > 60, Glucose Level 92, Calcium Level 8.1L Height (Feet): 5 Height (Inches): 4.00 Weight (Pounds): 108 General Appearance: lethargic EENT: normal ENT inspection Neck: normal alignment Cardiovascular: normal peripheral pulses, normal rate, regular rhythm Respiratory/Chest: chest wall non-tender, lungs clear, normal breath sounds Abdomen: normal bowel sounds, non tender, soft Extremities: normal inspection Edema: no edema noted Arm (L), no edema noted Arm (R), no edema noted Leg (L), no edema noted Leg (R), no edema noted Pedal (L), no edema noted Pedal (R), no edema noted Generalized Neurologic: motor weakness Skin: normal pigmentation, warm/dry Matt Olmedo DO October 12, 2019 08:14
[2019-10-12] MEDS: Enoxaparin 40mg Inj SUBQ SCH (08:15)
--- NOTE | 2019-10-12 08:31 | Hematology/Onc Progress Note ---
Assessment/Plan Assessment/Plan Assessment/Recs # Pancreatic mass with likely mets -- LARGE LEFT UPPER QUADRANT MASS LIKELY ARISING FROM THE PANCREAS WITH EXTENSION INTO THE LESSER SAC. 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 RETROPERITONEAL ADENOPATHY ENCASING THE SMA ARTERY AND ALONG THE LEFT PARA-AORTIC SPACE. LEFT ADRENAL METASTASIS. --> ct guided biopsy has been ordered --> ca 19.9, ca 125, cea all ordered --> weight loss noted --> consider mirtazpaine --> as per gi care, they are aware --> ct guided biop for 10/12/2019 # Dehydration --> on ivfs as needed # LEFT ADRENAL METASTASIS. --> likely c/w panc primary cancer # Leukocytosis --> mild has improved # Weight loss --> related to ca The timing of this note does not necessarily reflect the time of the patient was seen. Greatly appreciate consultation. Subjective Allergies: Coded Allergies: No Known Allergies (Unverified , 03/24/16) Subjective 10/11 med surg, awake and alert, ct guided biop for today Objective Objective Current Medications Medications (Trade) Dose Ordered Sig/Tiago Route PRN Reason Start Time Stop Time Status Last Admin Dose Admin Acetaminophen (Tylenol) 650 mg Q6H PRN ORAL 1-3 mild pain/fever > 100.4 10/10/19 21:00 11/09/19 20:59 10/12/19 03:23 Acetaminophen/ Hydrocodone Bitart ([place] 5/325) 1 tab Q4H PRN ORAL Pain (Pain Scale 4-10) 10/12/19 06:15 10/19/19 06:14 10/12/19 06:19 Enoxaparin Sodium (Lovenox) 40 mg DAILY SUBQ 10/12/19 09:00 01/10/20 08:59 Famotidine (Pepcid) 20 mg Q6H PRN ORAL acid reflux 10/12/19 06:03 01/10/20 06:02 10/12/19 06:18 Levothyroxine Sodium (Synthroid) 25 mcg ACBREAKFAST ORAL 10/11/19 06:30 11/10/19 06:29 10/12/19 05:44 Lidocaine HCl (Xylocaine 1% 30ml) 30 ml NOW PRN INJ Radiology Procedure 10/11/19 06:30 10/13/19 06:30 Lorazepam (Ativan 2mg/ml 1ml) 1 mg Q12HR PRN IV For Anxiety 10/12/19 06:15 10/19/19 06:14 Ondansetron HCl (Zofran) 4 mg Q4H PRN IVP Nausea & Vomiting 10/11/19 05:45 11/10/19 05:44 10/12/19 01:24 Zolpidem Tartrate (Ambien) 5 mg HSPRN PRN ORAL Insomnia 10/10/19 21:00 10/17/19 20:59 10/11/19 23:54 Last 24 Hour Vital Signs Date Time Temp Pulse Resp B/P (MAP) Pulse Ox O2 Delivery O2 Flow Rate FiO2 10/12/19 04:00 97.9 83 16 109/73 (85) 96 10/12/19 00:00 98.2 89 16 108/74 (85) 97 10/11/19 20:28 Room Air 10/11/19 20:00 97.9 90 18 105/72 (83) 96 10/11/19 16:00 97.7 98 20 100/70 (80) 97 10/11/19 11:29 98.2 96 20 107/73 (84) 96 10/11/19 08:01 Room Air 10/11/19 08:01 97.9 74 19 107/71 (83) 97 10/11/19 04:00 98.8 98 18 118/74 (89) 97 10/11/19 00:00 99.2 96 17 111/72 (85) 97 10/10/19 22:01 Room Air 10/10/19 21:45 97.9 99 18 136/81 (99) 99 10/10/19 20:10 98.4 90 18 114/79 98 Room Air 10/10/19 18:45 95 16 110/76 98 Room Air 10/10/19 17:58 98.4 102 16 104/73 97 Room Air 10/10/19 15:32 98.4 102 16 104/73 97 Room Air 10/10/19 15:32 104 16 Room Air 10/10/19 15:24 98.4 104 16 104/73 (83) 97 Room Air Intake and Output 10/11/19 10/12/19 19:00 07:00 Intake Total 1000 ml 310 ml Output Total 500 ml Balance 1000 ml -190 ml Intake Oral 600 ml 150 ml IV Total 400 ml 160 ml Output Urine Total 500 ml # Voids 2 Labs Test 10/10/19 15:40 10/11/19 05:10 10/11/19 11:30 10/12/19 04:40 White Blood Count 10.9 K/UL (4.8-10.8) 8.3 K/UL (4.8-10.8) 8.7 K/UL (4.8-10.8) Red Blood Count 4.55 M/UL (4.20-5.40) 4.21 M/UL (4.20-5.40) 3.99 M/UL (4.20-5.40) Hemoglobin 13.2 G/DL (12.0-16.0) 12.1 G/DL (12.0-16.0) 11.6 G/DL (12.0-16.0) Hematocrit 42.1 % (37.0-47.0) 36.3 % (37.0-47.0) 34.6 % (37.0-47.0) Mean Corpuscular Volume 92 FL (80-99) 86 FL (80-99) 87 FL (80-99) Mean Corpuscular Hemoglobin 29.0 PG (27.0-31.0) 28.7 PG (27.0-31.0) 29.1 PG (27.0-31.0) Mean Corpuscular Hemoglobin Concent 31.3 G/DL (32.0-36.0) 33.3 G/DL (32.0-36.0) 33.6 G/DL (32.0-36.0) Red Cell Distribution Width 12.5 % (11.6-14.8) 10.9 % (11.6-14.8) 11.3 % (11.6-14.8) Platelet Count 303 K/UL (150-450) 238 K/UL (150-450) 224 K/UL (150-450) Mean Platelet Volume 7.9 FL (6.5-10.1) 6.7 FL (6.5-10.1) 6.7 FL (6.5-10.1) Neutrophils (%) (Auto) 72.1 % (45.0-75.0) 66.7 % (45.0-75.0) 64.2 % (45.0-75.0) Lymphocytes (%) (Auto) 16.9 % (20.0-45.0) 20.8 % (20.0-45.0) 21.3 % (20.0-45.0) Monocytes (%) (Auto) 8.4 % (1.0-10.0) 8.7 % (1.0-10.0) 9.6 % (1.0-10.0) Eosinophils (%) (Auto) 1.7 % (0.0-3.0) 3.1 % (0.0-3.0) 4.0 % (0.0-3.0) Basophils (%) (Auto) 0.9 % (0.0-2.0) 0.8 % (0.0-2.0) 1.0 % (0.0-2.0) Urine Color Yellow Urine Appearance Slightly cloudy Urine pH 5 (4.5-8.0) Urine Specific [place] 1.010 (1.005-1.035) Urine Protein 2+ (NEGATIVE) Urine Glucose (UA) Negative (NEGATIVE) Urine Ketones 3+ (NEGATIVE) Urine Blood 2+ (NEGATIVE) Urine Nitrite Negative (NEGATIVE) Urine Bilirubin Negative (NEGATIVE) Urine Urobilinogen 4 MG/DL (0.0-1.0) Urine Leukocyte Esterase 1+ (NEGATIVE) Urine RBC 0-2 /HPF (0 - 2) Urine WBC 2-4 /HPF (0 - 2) Urine Squamous Epithelial Cells Few /LPF (NONE/OCC) Urine Bacteria Moderate /HPF (NONE) Sodium Level 137 MMOL/L (136-145) 141 MMOL/L (136-145) 141 MMOL/L (136-145) Potassium Level 3.6 MMOL/L (3.5-5.1) 3.0 MMOL/L (3.5-5.1) 3.5 MMOL/L (3.5-5.1) Chloride Level 98 MMOL/L (98-107) 103 MMOL/L (98-107) 107 MMOL/L (98-107) Carbon Dioxide Level 30 MMOL/L (21-32) 27 MMOL/L (21-32) 26 MMOL/L (21-32) Anion Gap 9 mmol/L (5-15) 11 mmol/L (5-15) 9 mmol/L (5-15) Blood Urea Nitrogen 3 mg/dL (7-18) 4 mg/dL (7-18) 6 mg/dL (7-18) Creatinine 0.5 MG/DL (0.55-1.30) 0.6 MG/DL (0.55-1.30) 0.6 MG/DL (0.55-1.30) Estimat Glomerular Filtration Rate > 60 mL/min (>60) > 60 mL/min (>60) > 60 mL/min (>60) Glucose Level 109 MG/DL (74-106) 103 MG/DL (74-106) 92 MG/DL (74-106) Calcium Level 9.4 MG/DL (8.5-10.1) 8.6 MG/DL (8.5-10.1) 8.1 MG/DL (8.5-10.1) Phosphorus Level 3.5 MG/DL (2.5-4.9) Magnesium Level 2.2 MG/DL (1.8-2.4) Total Bilirubin 0.5 MG/DL (0.2-1.0) Aspartate Amino Transf (AST/SGOT) 28 U/L (15-37) Alanine Aminotransferase (ALT/SGPT) 26 U/L (12-78) Alkaline Phosphatase 72 U/L (46-116) Total Protein 7.3 G/DL (6.4-8.2) Albumin 3.4 G/DL (3.4-5.0) Globulin 3.9 g/dL Albumin/Globulin Ratio 0.9 (1.0-2.7) Lipase 55 U/L (73-393) Thyroid Stimulating Hormone (TSH) 11.524 uiU/mL (0.358-3.740) Carcinoembryonic Antigen 741.0 ng/mL (0.0-4.7) CA 15-3 Antigen 184.0 U/mL (0.0-25.0) CA 125 Antigen 532.0 U/mL (0.0-38.1) Height (Feet): 5 Height (Inches): 4.00 Weight (Pounds): 108 Objective Physical Exam: Vitals: reviewed General: NAD HEENT: nc, at Neck: supple Chest: clear breath sounds bilaterally Cardiovascular: RRR, no s3, s4 Abdomen: soft, nontender, nd ++ abd pain Extremities: no cce, normal range of motion Back: back pain ttp Neuro: alert and oriented Ortiz Porter MD October 12, 2019 08:31
--- NOTE | 2019-10-12 09:51 | General Progress Note ---
Assessment/Plan Problem List: (1) Pancreatic cancer ICD Codes: C25.9 - Malignant neoplasm of pancreas, unspecified SNOMED: 748242505 (2) Elevated cholesterol ICD Codes: E78.0 - Pure hypercholesterolemia SNOMED: 97528164 (3) Hypothyroid ICD Codes: E03.9 - Hypothyroidism, unspecified SNOMED: 16817480 (4) Depression ICD Codes: F32.9 - Major depressive disorder, single episode, unspecified SNOMED: 14742009 Status: unchanged Assessment/Plan: pending CT guided biopsy fu oncology plan EUS if CT guided biopsy is neg ivf pain control zofran prn Subjective ROS Limited/Unobtainable: Yes Allergies: Coded Allergies: No Known Allergies (Unverified , 03/24/16) Objective Last 24 Hour Vital Signs Date Time Temp Pulse Resp B/P (MAP) Pulse Ox O2 Delivery O2 Flow Rate FiO2 10/12/19 09:00 Room Air 10/12/19 08:00 97.2 77 18 104/71 (82) 95 10/12/19 04:00 97.9 83 16 109/73 (85) 96 10/12/19 00:00 98.2 89 16 108/74 (85) 97 10/11/19 20:28 Room Air 10/11/19 20:00 97.9 90 18 105/72 (83) 96 10/11/19 16:00 97.7 98 20 100/70 (80) 97 10/11/19 11:29 98.2 96 20 107/73 (84) 96 Intake and Output 10/11/19 10/12/19 19:00 07:00 Intake Total 1000 ml 310 ml Output Total 500 ml Balance 1000 ml -190 ml Intake Oral 600 ml 150 ml IV Total 400 ml 160 ml Output Urine Total 500 ml # Voids 2 Laboratory Tests 10/11/19 11:30: Carcinoembryonic Antigen 741.0H, CA 15-3 Antigen 184.0H, CA 19-9 Antigen [ Pending], CA 125 Antigen 532.0H 10/12/19 04:40: White Blood Count 8.7, Red Blood Count 3.99L, Hemoglobin 11.6L, Hematocrit 34.6L , Mean Corpuscular Volume 87, Mean Corpuscular Hemoglobin 29.1, Mean Corpuscular Hemoglobin Concent 33.6, Red Cell Distribution Width 11.3L, Platelet Count 224, Mean Platelet Volume 6.7, Neutrophils (%) (Auto) 64.2, Lymphocytes (%) (Auto) 21.3, Monocytes (%) (Auto) 9.6, Eosinophils (%) (Auto) 4.0H, Basophils (%) (Auto) 1.0, Sodium Level 141, Potassium Level 3.5, Chloride Level 107, Carbon Dioxide Level 26, Anion Gap 9, Blood Urea Nitrogen 6L, Creatinine 0.6, Estimat Glomerular Filtration Rate > 60, Glucose Level 92, Calcium Level 8.1L Height (Feet): 5 Height (Inches): 4.00 Weight (Pounds): 108 General Appearance: no apparent distress EENT: normal ENT inspection Neck: supple Cardiovascular: normal rate Respiratory/Chest: decreased breath sounds Abdomen: normal bowel sounds, non tender, soft Extremities: non-tender Malcom Michael MD October 12, 2019 09:51
--- NOTE | 2019-10-12 10:50 | CDS Physician Query ---
Clarification is required for compliance, coding accuracy, and to reflect severity of illness for this patient Dear Dr. Matt Olmedo Date: 10/12/2019 [employer] Technician/CDS Name: Mignon Lo Clinical Documentation: CHIEF COMPLAINT: Failure to thrive, pancreatic cancer with mets, UTI, dehydration...BRIEF HISTORY: This is a 64-year-old female, who lives at home, presented with increased lethargy and weakness. RD note: Increase kcal needs r/t significant wt loss as evidenced by 22% wt change, w/ unintentional est 39 lbs wt loss in 7 weeks. BMI 18, Albumin: 3.4 Please select the most appropriate option: [] Protein/Calorie Malnutrition [] Mild [] Moderate [] Severe [] Hypoalbuminemia [] Cachexia [] Underweight [] Intestinal malabsorption [] Other [] Unable to determine [] Not Applicable Present on Admission: [] Yes [] No [] Clinically Undetermined Physician signature Date Please also document in your Progress Notes and/or Discharge Summary and indicate if the condition was present on admission. MTDD
--- NOTE | 2019-10-12 10:54 | NUR ---
CASE MANAGEMENT: INITIAL REVIEW 64YR OLD FEMALE FROM HOME CC: GENERALIZED WEAKNESS SI:METASTASIS . PANCREASE CANCER . DEHYDRATION 98.4 104 16 104/73 97% ON RA WBC 10.9 TSH 11.524 LIPASE 55 IS: IVF NS BOLUS X1 IV ZOFRAN CT ABD/PELV WITH CONTRAST- LARGE LEFT UPPER QUADRANT MASS LIKELY ARISING FROM THE PANCREAS WITH EXTENSION INTO THE LESSER SAC. 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 CASE MANAGEMENT:REVIEW 10/11/19 SI:METASTASIS . PANCREASE CANCER . DEHYDRATION 99.2 96 17 111/72 97% ON RA K+ 3.0 CEA 741.0 CA 15-3 184.0 CA 19-9 -PENDING CA 125 532.0 IS: IVF NS BOLUS X2 BAGS D-DUR PO X1 LOVENOX SQ QD SYNTHROID PO QAM \: 3E MED SURG UNIT DCP: HOME WHEN STABLE PLAN: NPO CT NEEDLE BIOPSY IN AM CASE MANAGEMENT:REVIEW 10/12/19 SI:METASTASIS . PANCREASE CANCER . DEHYDRATION 97.2 77 18 104/71 95% ON RA K+ 3.0 CEA 741.0 CA 15-3 184.0 CA 19-9 -PENDING CA 125 532.0 IS: SYNTHROID PO QAM NORCO PO Q4HR/PRN IV ZOFRAN Q4HR/PRN \: 3E MED SURG UNIT DCP: HOME WHEN STABLE PLAN: NPO CT NEEDLE BIOPSY THIS AFTERNOON CONTROL PAIN LABS IN AM
--- NOTE | 2019-10-12 10:58 | NUR ---
*-* INSURANCE *-* ALL AVAILABLE CLINICALS HAVE BEEN FAXED TO: [facility] P: [phone] F: [phone]
[2019-10-12 12:00] VITALS: BP 114/75
--- NOTE | 2019-10-12 15:27 | Infectious Diseases Prog Note ---
Assessment/Plan Assessment/Plan Assessment: Unintentional weight loss Metastatic Pancreatic mass w/ peritoneal carcinomatosis (mets to adrenal, intraabdominal, lymph nodes) -10/09 CT abd/p: LARGE LEFT UPPER QUADRANT MASS LIKELY ARISING FROM THE PANCREAS WITH EXTENSION INTO THE LESSER SAC. 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 RETROPERITONEAL ADENOPATHY ENCASING THE SMA ARTERY AND ALONG THE LEFT PARA- AORTIC SPACE. LEFT ADRENAL METASTASIS. NO METASTATIC DISEASE TO THE CHEST PRESENTLY. INCIDENTAL FINDING OF BILATERAL MAMMARY PROSTHESIS IMPLANT INTRACAPSULAR RUPTURE. -10/02 SP EGD/COlo:: gastritis, hemorrhoids --of note, patient had negative COvid testing as an outpatient prior to the procedure Afebrile Mild leukocytosis, SP- -u/a no pyuria, nit neg, leuk +1; ucx 40-50k mixed gram positive growth- Patient with no UTI symptoms hypothyroidism MDD sp breast augmentation Plan: -Continue to monitor off abx -f/u cx -Monitor CBC/CMP, temperature -GI, heme/onc f/u- plan for CT guided biopsy Thank you for consulting [facility]. Will continue to follow along with you. Subjective Allergies: Coded Allergies: No Known Allergies (Unverified , 03/24/16) Objective Vital Signs Last 24 Hour Vital Signs Date Time Temp Pulse Resp B/P (MAP) Pulse Ox O2 Delivery O2 Flow Rate FiO2 10/12/19 12:00 97.5 78 20 114/75 (88) 97 10/12/19 09:00 Room Air 10/12/19 08:00 97.2 77 18 104/71 (82) 95 10/12/19 04:00 97.9 83 16 109/73 (85) 96 10/12/19 00:00 98.2 89 16 108/74 (85) 97 10/11/19 20:28 Room Air 10/11/19 20:00 97.9 90 18 105/72 (83) 96 10/11/19 16:00 97.7 98 20 100/70 (80) 97 Height (Feet): 5 Height (Inches): 4.00 Weight (Pounds): 108 Objective General: NAD HEENT: nc, at Neck: supple Chest: clear breath sounds bilaterally Cardiovascular: RRR, no s3, s4 Abdomen: soft, nontender, nd ++ abd pain Extremities: no cce, normal range of motion Back: back pain ttp Neuro: alert and oriented Microbiology Date/Time Source Procedure Growth Status 10/10/19 15:40 Urine,Clean Catch Urine Culture - Preliminary Mixed Gram Positive Organism Resulted Laboratory Tests Test 10/12/19 04:40 10/12/19 12:20 White Blood Count 8.7 K/UL (4.8-10.8) Red Blood Count 3.99 M/UL (4.20-5.40) L Hemoglobin 11.6 G/DL (12.0-16.0) L Hematocrit 34.6 % (37.0-47.0) L Mean Corpuscular Volume 87 FL (80-99) Mean Corpuscular Hemoglobin 29.1 PG (27.0-31.0) Mean Corpuscular Hemoglobin Concent 33.6 G/DL (32.0-36.0) Red Cell Distribution Width 11.3 % (11.6-14.8) L Platelet Count 224 K/UL (150-450) Mean Platelet Volume 6.7 FL (6.5-10.1) Neutrophils (%) (Auto) 64.2 % (45.0-75.0) Lymphocytes (%) (Auto) 21.3 % (20.0-45.0) Monocytes (%) (Auto) 9.6 % (1.0-10.0) Eosinophils (%) (Auto) 4.0 % (0.0-3.0) H Basophils (%) (Auto) 1.0 % (0.0-2.0) Sodium Level 141 MMOL/L (136-145) Potassium Level 3.5 MMOL/L (3.5-5.1) Chloride Level 107 MMOL/L (98-107) Carbon Dioxide Level 26 MMOL/L (21-32) Anion Gap 9 mmol/L (5-15) Blood Urea Nitrogen 6 mg/dL (7-18) L Creatinine 0.6 MG/DL (0.55-1.30) Estimat Glomerular Filtration Rate > 60 mL/min (>60) Glucose Level 92 MG/DL (74-106) Calcium Level 8.1 MG/DL (8.5-10.1) L Prothrombin Time 11.5 SEC (9.30-11.50) Prothromb Time International Ratio 1.0 (0.9-1.1) Activated Partial Thromboplast Time 27 SEC (23-33) Current Medications Medications (Trade) Dose Ordered Sig/Tiago Route PRN Reason Start Time Stop Time Status Last Admin Dose Admin Acetaminophen (Tylenol) 650 mg Q6H PRN ORAL 1-3 mild pain/fever > 100.4 10/10/19 21:00 11/09/19 20:59 10/12/19 03:23 Acetaminophen/ Hydrocodone Bitart ([place] 5/325) 1 tab Q4H PRN ORAL Pain (Pain Scale 4-10) 10/12/19 06:15 10/19/19 06:14 10/12/19 06:19 Enoxaparin Sodium (Lovenox) 40 mg DAILY SUBQ 10/12/19 09:00 01/10/20 08:59 Famotidine (Pepcid) 20 mg Q6H PRN ORAL acid reflux 10/12/19 06:03 01/10/20 06:02 10/12/19 06:18 Levothyroxine Sodium (Synthroid) 25 mcg ACBREAKFAST ORAL 10/11/19 06:30 11/10/19 06:29 10/12/19 05:44 Lidocaine HCl (Xylocaine 1% 30ml) 30 ml NOW PRN INJ Radiology Procedure 10/11/19 06:30 10/13/19 06:30 Lorazepam (Ativan 2mg/ml 1ml) 1 mg Q12HR PRN IV For Anxiety 10/12/19 06:15 10/19/19 06:14 Ondansetron HCl (Zofran) 4 mg Q4H PRN IVP Nausea & Vomiting 10/11/19 05:45 11/10/19 05:44 10/12/19 01:24 Zolpidem Tartrate (Ambien) 5 mg HSPRN PRN ORAL Insomnia 10/10/19 21:00 10/17/19 20:59 10/11/19 23:54 Sabi Abbasi M.D. October 12, 2019 15:27
--- NOTE | 2019-10-12 15:52 | NUR ---
NURSE NOTES: PT BROUGHT BACK FROM RADIOLOGY. PER TECH, THEY DID NOT DO CT GUIDED BIOPSY. RN LEFT MESSAGE FOR DR BROWN.
[2019-10-12 16:00] VITALS: BP 110/74
--- NOTE | 2019-10-12 16:05 | Diagnostic Imaging Report ---
LIMITED NONCONTRAST CT SCAN OF THE ABDOMEN PERFORMED TO ASSESS FEASIBILITY OF PERCUTANEOUS BIOPSY OF PANCREATIC MASS. CT dose: Total DLP 82 mGycm; CTDI vol [address] scanner at [facility] is accredited by the [employer] and the scans are performed using protocols designed to limit radiation exposure to as low as reasonably achievable to attain images of sufficient resolution adequate for diagnostic evaluation. TECHNIQUE/FINDINGS: No suitable safe window for percutaneous biopsy of pancreatic mass identified. Cannot separate small bowel from inferior portions of the mass which were the planned biopsy target. The dominant mass is noted adherent to the posterior wall the stomach. Recommend EUS biopsy as this may provide a safer alternative. IMPRESSION: No safe window for percutaneous biopsy. Recommend EUS biopsy.
--- NOTE | 2019-10-12 18:30 | NUR ---
NURSE NOTES: PER DR BROWN, CONSULT DR JOLLEY FOR RECOMMENDATIONS. DR JOLLEY NOTIFIED, WITH NEW ORDER FOR ENDOSCOPIC ULTRASOUND. ORDER ENTERED AND PT SIGNED CONSENT. CONSENT PLACED IN PT'S CHART.
--- NOTE | 2019-10-12 19:23 | NUR ---
HAND-OFF: Report given to Arpita JEONG RN.
--- NOTE | 2019-10-12 19:47 | NUR ---
NURSE NOTES: Received patient awake, alert, verbal, complained of abdominal pain, subsequently given prn medication as ordered.
[2019-10-12 20:00] VITALS: BP 91/55
[2019-10-13 00:28] VITALS: BP 102/68
[2019-10-13 04:29] VITALS: BP 104/65
[2019-10-13 05:35] LABS: EOSINOPHILS % (AUTO) 3.6 % (0.0-3.0); HEMOGLOBIN 12.7 G/DL (12.0-16.0); LYMPHOCYTES % (AUTO) 23.5 % (20.0-45.0); MEAN CORPUSCULAR VOLUME 87 FL (80-99); MONOCYTES % (AUTO) 7.2 % (1.0-10.0); NEUTROPHILS % (AUTO) 64.7 % (45.0-75.0); PLATELET COUNT 230 K/UL (150-450); RED BLOOD COUNT 4.36 M/UL (4.20-5.40); RED CELL DISTRIBUTION WIDTH 11.3 % (11.6-14.8); WHITE BLOOD COUNT 7.8 K/UL (4.8-10.8)
[2019-10-13 05:56] LABS: ANION GAP 9 mmol/L (5-15); BLOOD UREA NITROGEN 7 mg/dL (7-18); CALCIUM 8.9 MG/DL (8.5-10.1); CARBON DIOXIDE 28 MMOL/L (21-32); CHLORIDE 104 MMOL/L (98-107); CREATININE 0.6 MG/DL (0.55-1.30); POTASSIUM 3.7 MMOL/L (3.5-5.1); SODIUM 141 MMOL/L (136-145)
[2019-10-13] MEDS: Levothyroxine 25mcg tab ORAL SCH (05:57)
--- NOTE | 2019-10-13 07:32 | NUR ---
HAND-OFF: Report given to Kamila Luna RN.
--- NOTE | 2019-10-13 07:45 | NUR ---
NURSE NOTES: Received report TRACEY Alvarez. pt lying in bed, a&ox4, in room air. No s/s of acute distress & no c/o pain at this time. IV site intact. Plan of care discussed.
--- NOTE | 2019-10-13 07:50 | Hematology/Onc Progress Note ---
Assessment/Plan Assessment/Plan Assessment/Recs # Pancreatic mass with likely mets -- LARGE LEFT UPPER QUADRANT MASS LIKELY ARISING FROM THE PANCREAS WITH EXTENSION INTO THE LESSER SAC. 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 RETROPERITONEAL ADENOPATHY ENCASING THE SMA ARTERY AND ALONG THE LEFT PARA-AORTIC SPACE. LEFT ADRENAL METASTASIS. --> ct guided biop for 10/12/2019 cancelled as could not get a good [place] --> endoscopic us ordered 10/12 --> ca 19.9, 39,393, ca 125 is 523, cea 731 --> weight loss noted --> consider mirtazpaine --> as per gi care, they are aware # Dehydration --> on ivfs as needed # LEFT ADRENAL METASTASIS. --> likely c/w panc primary cancer # Leukocytosis --> urine cx+ x2 --> wbc trend: 7.8 # Weight loss --> related to ca The timing of this note does not necessarily reflect the time of the patient was seen. Greatly appreciate consultation. Subjective Respiratory: Denies: no symptoms, cough, shortness of breath, SOB with excertion, SOB at rest, sputum, wheezing, other Gastrointestinal/Abdominal: Denies: no symptoms, abdomen distended, abdominal pain, black stools, tarry stools, blood in stool, constipated, diarrhea, difficulty swallowing, nausea, poor appetite, poor fluid intake, rectal bleeding , vomiting, other Genitourinary: Denies: no symptoms, burning, discharge, frequency, flank pain, hematuria, incontinence, pain, urgency, other Neurologic/Psychiatric: Denies: no symptoms, anxiety, depressed, emotional problems, headache, numbness, paresthesia, pre-existing deficit, seizure, tingling, tremors, weakness, other Endocrine: Denies: no symptoms, excessive sweating, flushing, intolerance to cold, intolerance to heat, increased hunger, increased thirst, increased urine, unexplained weight gain, unexplained weight loss, other Allergies: Coded Allergies: No Known Allergies (Unverified , 03/24/16) Subjective 10/11 med surg, awake and alert, ct guided biop for today 10/[address] guided needle, endoscopic us ordered Objective Objective Current Medications Medications (Trade) Dose Ordered Sig/Tiago Route PRN Reason Start Time Stop Time Status Last Admin Dose Admin Acetaminophen (Tylenol) 650 mg Q6H PRN ORAL 1-3 mild pain/fever > 100.4 10/10/19 21:00 11/09/19 20:59 10/12/19 03:23 Acetaminophen/ Hydrocodone Bitart ([place] 5/325) 1 tab Q4H PRN ORAL Pain (Pain Scale 4-10) 10/12/19 06:15 10/19/19 06:14 10/12/19 23:26 Enoxaparin Sodium (Lovenox) 40 mg DAILY SUBQ 10/12/19 09:00 01/10/20 08:59 Famotidine (Pepcid) 20 mg Q6H PRN ORAL acid reflux 10/12/19 06:03 01/10/20 06:02 10/12/19 06:18 Levothyroxine Sodium (Synthroid) 25 mcg ACBREAKFAST ORAL 10/11/19 06:30 11/10/19 06:29 10/13/19 05:57 Lorazepam (Ativan 2mg/ml 1ml) 1 mg Q12HR PRN IV For Anxiety 10/12/19 06:15 10/19/19 06:14 Ondansetron HCl (Zofran) 4 mg Q4H PRN IVP Nausea & Vomiting 10/11/19 05:45 11/10/19 05:44 10/12/19 01:24 Zolpidem Tartrate (Ambien) 5 mg HSPRN PRN ORAL Insomnia 10/10/19 21:00 10/17/19 20:59 10/11/19 23:54 Last 24 Hour Vital Signs Date Time Temp Pulse Resp B/P (MAP) Pulse Ox O2 Delivery O2 Flow Rate FiO2 10/13/19 04:29 97.8 93 17 104/65 (78) 96 10/13/19 00:28 98.1 86 17 102/68 (79) 96 10/13/19 00:00 97.7 10/12/19 20:24 Room Air 10/12/19 20:00 97.3 91 18 91/55 (67) 97 10/12/19 16:00 97.7 99 18 110/74 (86) 97 10/12/19 12:00 97.5 78 20 114/75 (88) 97 10/12/19 09:00 Room Air 10/12/19 08:00 97.2 77 18 104/71 (82) 95 10/12/19 04:00 97.9 83 16 109/73 (85) 96 10/12/19 00:00 98.2 89 16 108/74 (85) 97 10/11/19 20:28 Room Air 10/11/19 20:00 97.9 90 18 105/72 (83) 96 10/11/19 16:00 97.7 98 20 100/70 (80) 97 10/11/19 11:29 98.2 96 20 107/73 (84) 96 10/11/19 08:01 Room Air 10/11/19 08:01 97.9 74 19 107/71 (83) 97 Intake and Output 10/12/19 10/13/19 19:00 07:00 # Voids 2 4 # Bowel Movements 1 Labs Test 10/10/19 15:40 10/11/19 05:10 10/11/19 11:30 10/12/19 04:40 White Blood Count 10.9 K/UL (4.8-10.8) 8.3 K/UL (4.8-10.8) 8.7 K/UL (4.8-10.8) Red Blood Count 4.55 M/UL (4.20-5.40) 4.21 M/UL (4.20-5.40) 3.99 M/UL (4.20-5.40) Hemoglobin 13.2 G/DL (12.0-16.0) 12.1 G/DL (12.0-16.0) 11.6 G/DL (12.0-16.0) Hematocrit 42.1 % (37.0-47.0) 36.3 % (37.0-47.0) 34.6 % (37.0-47.0) Mean Corpuscular Volume 92 FL (80-99) 86 FL (80-99) 87 FL (80-99) Mean Corpuscular Hemoglobin 29.0 PG (27.0-31.0) 28.7 PG (27.0-31.0) 29.1 PG (27.0-31.0) Mean Corpuscular Hemoglobin Concent 31.3 G/DL (32.0-36.0) 33.3 G/DL (32.0-36.0) 33.6 G/DL (32.0-36.0) Red Cell Distribution Width 12.5 % (11.6-14.8) 10.9 % (11.6-14.8) 11.3 % (11.6-14.8) Platelet Count 303 K/UL (150-450) 238 K/UL (150-450) 224 K/UL (150-450) Mean Platelet Volume 7.9 FL (6.5-10.1) 6.7 FL (6.5-10.1) 6.7 FL (6.5-10.1) Neutrophils (%) (Auto) 72.1 % (45.0-75.0) 66.7 % (45.0-75.0) 64.2 % (45.0-75.0) Lymphocytes (%) (Auto) 16.9 % (20.0-45.0) 20.8 % (20.0-45.0) 21.3 % (20.0-45.0) Monocytes (%) (Auto) 8.4 % (1.0-10.0) 8.7 % (1.0-10.0) 9.6 % (1.0-10.0) Eosinophils (%) (Auto) 1.7 % (0.0-3.0) 3.1 % (0.0-3.0) 4.0 % (0.0-3.0) Basophils (%) (Auto) 0.9 % (0.0-2.0) 0.8 % (0.0-2.0) 1.0 % (0.0-2.0) Urine Color Yellow Urine Appearance Slightly cloudy Urine pH 5 (4.5-8.0) Urine Specific [place] 1.010 (1.005-1.035) Urine Protein 2+ (NEGATIVE) Urine Glucose (UA) Negative (NEGATIVE) Urine Ketones 3+ (NEGATIVE) Urine Blood 2+ (NEGATIVE) Urine Nitrite Negative (NEGATIVE) Urine Bilirubin Negative (NEGATIVE) Urine Urobilinogen 4 MG/DL (0.0-1.0) Urine Leukocyte Esterase 1+ (NEGATIVE) Urine RBC 0-2 /HPF (0 - 2) Urine WBC 2-4 /HPF (0 - 2) Urine Squamous Epithelial Cells Few /LPF (NONE/OCC) Urine Bacteria Moderate /HPF (NONE) Sodium Level 137 MMOL/L (136-145) 141 MMOL/L (136-145) 141 MMOL/L (136-145) Potassium Level 3.6 MMOL/L (3.5-5.1) 3.0 MMOL/L (3.5-5.1) 3.5 MMOL/L (3.5-5.1) Chloride Level 98 MMOL/L (98-107) 103 MMOL/L (98-107) 107 MMOL/L (98-107) Carbon Dioxide Level 30 MMOL/L (21-32) 27 MMOL/L (21-32) 26 MMOL/L (21-32) Anion Gap 9 mmol/L (5-15) 11 mmol/L (5-15) 9 mmol/L (5-15) Blood Urea Nitrogen 3 mg/dL (7-18) 4 mg/dL (7-18) 6 mg/dL (7-18) Creatinine 0.5 MG/DL (0.55-1.30) 0.6 MG/DL (0.55-1.30) 0.6 MG/DL (0.55-1.30) Estimat Glomerular Filtration Rate > 60 mL/min (>60) > 60 mL/min (>60) > 60 mL/min (>60) Glucose Level 109 MG/DL (74-106) 103 MG/DL (74-106) 92 MG/DL (74-106) Calcium Level 9.4 MG/DL (8.5-10.1) 8.6 MG/DL (8.5-10.1) 8.1 MG/DL (8.5-10.1) Phosphorus Level 3.5 MG/DL (2.5-4.9) Magnesium Level 2.2 MG/DL (1.8-2.4) Total Bilirubin 0.5 MG/DL (0.2-1.0) Aspartate Amino Transf (AST/SGOT) 28 U/L (15-37) Alanine Aminotransferase (ALT/SGPT) 26 U/L (12-78) Alkaline Phosphatase 72 U/L (46-116) Total Protein 7.3 G/DL (6.4-8.2) Albumin 3.4 G/DL (3.4-5.0) Globulin 3.9 g/dL Albumin/Globulin Ratio 0.9 (1.0-2.7) Lipase 55 U/L (73-393) Thyroid Stimulating Hormone (TSH) 11.524 uiU/mL (0.358-3.740) Carcinoembryonic Antigen 741.0 ng/mL (0.0-4.7) CA 15-3 Antigen 184.0 U/mL (0.0-25.0) CA 19-9 Antigen 55789 U/mL (0-35) CA 125 Antigen 532.0 U/mL (0.0-38.1) Test 10/12/19 12:20 10/13/19 04:40 Prothrombin Time 11.5 SEC (9.30-11.50) Prothromb Time International Ratio 1.0 (0.9-1.1) Activated Partial Thromboplast Time 27 SEC (23-33) White Blood Count 7.8 K/UL (4.8-10.8) Red Blood Count 4.36 M/UL (4.20-5.40) Hemoglobin 12.7 G/DL (12.0-16.0) Hematocrit 38.0 % (37.0-47.0) Mean Corpuscular Volume 87 FL (80-99) Mean Corpuscular Hemoglobin 29.1 PG (27.0-31.0) Mean Corpuscular Hemoglobin Concent 33.3 G/DL (32.0-36.0) Red Cell Distribution Width 11.3 % (11.6-14.8) Platelet Count 230 K/UL (150-450) Mean Platelet Volume 6.3 FL (6.5-10.1) Neutrophils (%) (Auto) 64.7 % (45.0-75.0) Lymphocytes (%) (Auto) 23.5 % (20.0-45.0) Monocytes (%) (Auto) 7.2 % (1.0-10.0) Eosinophils (%) (Auto) 3.6 % (0.0-3.0) Basophils (%) (Auto) 1.0 % (0.0-2.0) Sodium Level 141 MMOL/L (136-145) Potassium Level 3.7 MMOL/L (3.5-5.1) Chloride Level 104 MMOL/L (98-107) Carbon Dioxide Level 28 MMOL/L (21-32) Anion Gap 9 mmol/L (5-15) Blood Urea Nitrogen 7 mg/dL (7-18) Creatinine 0.6 MG/DL (0.55-1.30) Estimat Glomerular Filtration Rate > 60 mL/min (>60) Glucose Level 80 MG/DL (74-106) Calcium Level 8.9 MG/DL (8.5-10.1) Height (Feet): 5 Height (Inches): 4.00 Weight (Pounds): 108 Objective Physical Exam: Vitals: reviewed General: NAD HEENT: nc, at Neck: supple Chest: clear breath sounds bilaterally Cardiovascular: RRR, no s3, s4 Abdomen: soft, nontender, nd ++ abd pain Extremities: no cce, normal range of motion Back: back pain ttp Neuro: alert and oriented Ortiz Porter MD October 13, 2019 07:50
[2019-10-13 08:00] VITALS: BP 85/57
--- NOTE | 2019-10-13 08:50 | NUR ---
NURSE NOTES: Noted bp is 85/57. Pt denies dizziness but feels tired and weakness. Dr. Olmedo and Dr. Godoy aware. Pt has Cardio consult with Dr. Godoy.
--- NOTE | 2019-10-13 09:57 | Diagnostic Imaging Report ---
EXAM: US Pelvic Transabdominal CLINICAL HISTORY: Pelvic pain. COMPARISON: None TECHNIQUE: Ultrasound examination of the pelvis includes grayscale images, and color and spectral doppler analysis. FINDINGS: Transabdominal and transvaginal technique utilized. There is a small uterus estimated at 4.4 x 2.2 x 1.8 cm. Myometrium is heterogeneous. Endometrial stripe is poorly defined. The ovaries are not visualized bilaterally. There is moderate amount of free fluid in the pelvis. Note is made of an amorphous hypoechoic masslike structure identified adjacent to the urinary bladder with some peripheral vascularity. Exact etiology is undetermined but a focal mass needs to be excluded. Size is estimated at 6 x 2.9 cm. IMPRESSION: SMALL POSTMENOPAUSAL UTERUS. ENDOMETRIAL STRIPE NOT WELL SEEN. OVARIES ALSO NOT VISUALIZED. APPARENT AMORPHOUS HYPOECHOIC MASSLIKE STRUCTURE SEEN ADJACENT TO THE URINARY BLADDER OF UNDETERMINED ORIGIN. SINCE THE OVARIES ARE NOT DISTINCTLY SEEN, AN OVARIAN MASS IS CONSIDERED.
--- NOTE | 2019-10-13 10:08 | General Progress Note ---
Assessment/Plan Problem List: (1) Pancreatic cancer ICD Codes: C25.9 - Malignant neoplasm of pancreas, unspecified SNOMED: 640303231 (2) Elevated cholesterol ICD Codes: E78.0 - Pure hypercholesterolemia SNOMED: 32488335 (3) Hypothyroid ICD Codes: E03.9 - Hypothyroidism, unspecified SNOMED: 14182982 (4) Depression ICD Codes: F32.9 - Major depressive disorder, single episode, unspecified SNOMED: 74362738 Status: unchanged Assessment/Plan: fu oncology plan EUS and biopsy tomorrow ivf pain control zofran prn Subjective ROS Limited/Unobtainable: No Allergies: Coded Allergies: No Known Allergies (Unverified , 03/24/16) Objective Last 24 Hour Vital Signs Date Time Temp Pulse Resp B/P (MAP) Pulse Ox O2 Delivery O2 Flow Rate FiO2 10/13/19 08:00 98.6 99 20 85/57 (66) 95 10/13/19 04:29 97.8 93 17 104/65 (78) 96 10/13/19 00:28 98.1 86 17 102/68 (79) 96 10/13/19 00:00 97.7 10/12/19 20:24 Room Air 10/12/19 20:00 97.3 91 18 91/55 (67) 97 10/12/19 16:00 97.7 99 18 110/74 (86) 97 10/12/19 12:00 97.5 78 20 114/75 (88) 97 Intake and Output 10/12/19 10/13/19 19:00 07:00 # Voids 2 4 # Bowel Movements 1 Laboratory Tests 10/12/19 12:20: Prothrombin Time 11.5, Prothromb Time International Ratio 1.0, Activated Partial Thromboplast Time 27 10/13/19 04:40: White Blood Count 7.8, Red Blood Count 4.36, Hemoglobin 12.7, Hematocrit 38.0, Mean Corpuscular Volume 87, Mean Corpuscular Hemoglobin 29.1, Mean Corpuscular Hemoglobin Concent 33.3, Red Cell Distribution Width 11.3L, Platelet Count 230, Mean Platelet Volume 6.3L, Neutrophils (%) (Auto) 64.7, Lymphocytes (%) (Auto) 23.5, Monocytes (%) (Auto) 7.2, Eosinophils (%) (Auto) 3.6H, Basophils (%) (Auto ) 1.0, Sodium Level 141, Potassium Level 3.7, Chloride Level 104, Carbon Dioxide Level 28, Anion Gap 9, Blood Urea Nitrogen 7, Creatinine 0.6, Estimat Glomerular Filtration Rate > 60, Glucose Level 80, Calcium Level 8.9 Height (Feet): 5 Height (Inches): 4.00 Weight (Pounds): 108 General Appearance: no apparent distress EENT: PERRL/EOMI Neck: normal alignment Cardiovascular: normal rate Respiratory/Chest: decreased breath sounds Abdomen: normal bowel sounds, non tender, soft Extremities: non-tender Malcom Michael MD October 13, 2019 10:08
[2019-10-13] MEDS: Enoxaparin 40mg Inj SUBQ SCH (10:28)
--- NOTE | 2019-10-13 10:51 | NUR ---
*-* INSURANCE *-* UPDATED CLINICALS HAVE BEEN FAXED TO: [facility] P: [phone] F: [phone]
[2019-10-13 12:00] VITALS: BP 108/74
--- NOTE | 2019-10-13 12:12 | General Progress Note ---
Assessment/Plan Problem List: (1) UTI (urinary tract infection) ICD Codes: N39.0 - Urinary tract infection, site not specified SNOMED: 02820849 (2) Dehydration ICD Codes: E86.0 - Dehydration SNOMED: 72400974 (3) Dehydration ICD Codes: E86.0 - Dehydration SNOMED: 32425834 (4) Pancreatic cancer ICD Codes: C25.9 - Malignant neoplasm of pancreas, unspecified SNOMED: 459578831 (5) Metastasis ICD Codes: C79.9 - Secondary malignant neoplasm of unspecified site SNOMED: 804619253 (6) Hypothyroid ICD Codes: E03.9 - Hypothyroidism, unspecified SNOMED: 38485118 Status: stable, progressing Assessment/Plan: pt diet abx iv fluid cbc bmp am egd Subjective Constitutional: Reports: weakness Allergies: Coded Allergies: No Known Allergies (Unverified , 03/24/16) All Systems: reviewed and negative except above Subjective sleepy calm pending egd Objective Last 24 Hour Vital Signs Date Time Temp Pulse Resp B/P (MAP) Pulse Ox O2 Delivery O2 Flow Rate FiO2 10/13/19 08:00 98.6 99 20 85/57 (66) 95 10/13/19 04:29 97.8 93 17 104/65 (78) 96 10/13/19 00:28 98.1 86 17 102/68 (79) 96 10/13/19 00:00 97.7 10/12/19 20:24 Room Air 10/12/19 20:00 97.3 91 18 91/55 (67) 97 10/12/19 16:00 97.7 99 18 110/74 (86) 97 Intake and Output 10/12/19 10/13/19 19:00 07:00 # Voids 2 4 # Bowel Movements 1 Laboratory Tests 10/12/19 12:20: Prothrombin Time 11.5, Prothromb Time International Ratio 1.0, Activated Partial Thromboplast Time 27 10/13/19 04:40: White Blood Count 7.8, Red Blood Count 4.36, Hemoglobin 12.7, Hematocrit 38.0, Mean Corpuscular Volume 87, Mean Corpuscular Hemoglobin 29.1, Mean Corpuscular Hemoglobin Concent 33.3, Red Cell Distribution Width 11.3L, Platelet Count 230, Mean Platelet Volume 6.3L, Neutrophils (%) (Auto) 64.7, Lymphocytes (%) (Auto) 23.5, Monocytes (%) (Auto) 7.2, Eosinophils (%) (Auto) 3.6H, Basophils (%) (Auto ) 1.0, Sodium Level 141, Potassium Level 3.7, Chloride Level 104, Carbon Dioxide Level 28, Anion Gap 9, Blood Urea Nitrogen 7, Creatinine 0.6, Estimat Glomerular Filtration Rate > 60, Glucose Level 80, Calcium Level 8.9 Height (Feet): 5 Height (Inches): 4.00 Weight (Pounds): 108 General Appearance: lethargic EENT: normal ENT inspection Neck: normal alignment Cardiovascular: normal peripheral pulses, normal rate, regular rhythm Respiratory/Chest: chest wall non-tender, lungs clear, normal breath sounds Abdomen: normal bowel sounds, non tender, soft Extremities: normal inspection Edema: no edema noted Arm (L), no edema noted Arm (R), no edema noted Leg (L), no edema noted Leg (R), no edema noted Pedal (L), no edema noted Pedal (R), no edema noted Generalized Neurologic: responsive, motor weakness Skin: normal pigmentation, warm/dry Matt Olmedo DO October 13, 2019 12:12
--- NOTE | 2019-10-13 13:15 | Infectious Diseases Prog Note ---
Assessment/Plan Assessment/Plan Assessment: Unintentional weight loss Metastatic Pancreatic mass w/ peritoneal carcinomatosis (mets to adrenal, intraabdominal, lymph nodes) -Pelvic US: SMALL POSTMENOPAUSAL UTERUS. ENDOMETRIAL STRIPE NOT WELL SEEN. OVARIES ALSO NOT VISUALIZED. APPARENT AMORPHOUS HYPOECHOIC MASSLIKE STRUCTURE SEEN ADJACENT TO THE URINARY BLADDER OF UNDETERMINED ORIGIN. SINCE THE OVARIES ARE NOT DISTINCTLY SEEN, AN OVARIAN MASS ISCONSIDERED. -10/09 CT abd/p: LARGE LEFT UPPER QUADRANT MASS LIKELY ARISING FROM THE PANCREAS WITH EXTENSION INTO THE LESSER SAC. 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 RETROPERITONEAL ADENOPATHY ENCASING THE SMA ARTERY AND ALONG THE LEFT PARA- AORTIC SPACE. LEFT ADRENAL METASTASIS. NO METASTATIC DISEASE TO THE CHEST PRESENTLY. INCIDENTAL FINDING OF BILATERAL MAMMARY PROSTHESIS IMPLANT INTRACAPSULAR RUPTURE. -10/02 SP EGD/COlo:: gastritis, hemorrhoids --of note, patient had negative COvid testing as an outpatient prior to the procedure Afebrile Mild leukocytosis, SP- -u/a no pyuria, nit neg, leuk +1; ucx 40-50k mixed gram positive growth- Patient with no UTI symptoms hypothyroidism MDD sp breast augmentation Plan: -Continue to monitor off abx -f/u cx -Monitor CBC/CMP, temperature -GI, heme/onc f/u -CT guided biopsy not done as not safe window; was recommend EUS biopsy instead Thank you for consulting [facility]. Will continue to follow along with you. Subjective Allergies: Coded Allergies: No Known Allergies (Unverified , 03/24/16) Objective Vital Signs Last 24 Hour Vital Signs Date Time Temp Pulse Resp B/P (MAP) Pulse Ox O2 Delivery O2 Flow Rate FiO2 10/13/19 12:00 98.2 88 20 108/74 (85) 95 10/13/19 09:00 Room Air 10/13/19 08:00 98.6 99 20 85/57 (66) 95 10/13/19 04:29 97.8 93 17 104/65 (78) 96 10/13/19 00:28 98.1 86 17 102/68 (79) 96 10/13/19 00:00 97.7 10/12/19 20:24 Room Air 10/12/19 20:00 97.3 91 18 91/55 (67) 97 10/12/19 16:00 97.7 99 18 110/74 (86) 97 Height (Feet): 5 Height (Inches): 4.00 Weight (Pounds): 108 Objective General: NAD HEENT: nc, at Neck: supple Chest: clear breath sounds bilaterally Cardiovascular: RRR, no s3, s4 Abdomen: soft, nontender, nd ++ abd pain Extremities: no cce, normal range of motion Back: back pain ttp Neuro: alert and oriented Microbiology Date/Time Source Procedure Growth Status 10/10/19 15:40 Urine,Clean Catch Urine Culture - Final Mixed Gram Positive Organism Complete Laboratory Tests Test 10/13/19 04:40 White Blood Count 7.8 K/UL (4.8-10.8) Red Blood Count 4.36 M/UL (4.20-5.40) Hemoglobin 12.7 G/DL (12.0-16.0) Hematocrit 38.0 % (37.0-47.0) Mean Corpuscular Volume 87 FL (80-99) Mean Corpuscular Hemoglobin 29.1 PG (27.0-31.0) Mean Corpuscular Hemoglobin Concent 33.3 G/DL (32.0-36.0) Red Cell Distribution Width 11.3 % (11.6-14.8) L Platelet Count 230 K/UL (150-450) Mean Platelet Volume 6.3 FL (6.5-10.1) L Neutrophils (%) (Auto) 64.7 % (45.0-75.0) Lymphocytes (%) (Auto) 23.5 % (20.0-45.0) Monocytes (%) (Auto) 7.2 % (1.0-10.0) Eosinophils (%) (Auto) 3.6 % (0.0-3.0) H Basophils (%) (Auto) 1.0 % (0.0-2.0) Sodium Level 141 MMOL/L (136-145) Potassium Level 3.7 MMOL/L (3.5-5.1) Chloride Level 104 MMOL/L (98-107) Carbon Dioxide Level 28 MMOL/L (21-32) Anion Gap 9 mmol/L (5-15) Blood Urea Nitrogen 7 mg/dL (7-18) Creatinine 0.6 MG/DL (0.55-1.30) Estimat Glomerular Filtration Rate > 60 mL/min (>60) Glucose Level 80 MG/DL (74-106) Calcium Level 8.9 MG/DL (8.5-10.1) Current Medications Medications (Trade) Dose Ordered Sig/Tiago Route PRN Reason Start Time Stop Time Status Last Admin Dose Admin Acetaminophen (Tylenol) 650 mg Q6H PRN ORAL 1-3 mild pain/fever > 100.4 10/10/19 21:00 11/09/19 20:59 10/12/19 03:23 Acetaminophen/ Hydrocodone Bitart ([place] 5/325) 1 tab Q4H PRN ORAL Pain (Pain Scale 4-10) 10/12/19 06:15 10/19/19 06:14 10/12/19 23:26 Enoxaparin Sodium (Lovenox) 40 mg DAILY SUBQ 10/12/19 09:00 01/10/20 08:59 10/13/19 10:28 Famotidine (Pepcid) 20 mg Q6H PRN ORAL acid reflux 10/12/19 06:03 01/10/20 06:02 10/12/19 06:18 Levothyroxine Sodium (Synthroid) 25 mcg ACBREAKFAST ORAL 10/11/19 06:30 11/10/19 06:29 10/13/19 05:57 Lorazepam (Ativan 2mg/ml 1ml) 1 mg Q12HR PRN IV For Anxiety 10/12/19 06:15 10/19/19 06:14 Ondansetron HCl (Zofran) 4 mg Q4H PRN IVP Nausea & Vomiting 10/11/19 05:45 11/10/19 05:44 10/12/19 01:24 Zolpidem Tartrate (Ambien) 5 mg HSPRN PRN ORAL Insomnia 10/10/19 21:00 10/17/19 20:59 10/11/19 23:54 Sabi Abbasi M.D. October 13, 2019 13:15
--- NOTE | 2019-10-13 14:10 | NUR ---
CASE MANAGEMENT:REVIEW 10/13/19 SI:METASTASIS . PANCREASE CANCER . DEHYDRATION 98.6 99 20 85/57 95% ON RA CA 19-9 -[id number] IS: SYNTHROID PO QAM LOVENOX SQ QD NORCO PO Q4HR/PRN IV ZOFRAN Q4HR/PRN \: 3E MED SURG UNIT DCP: HOME WHEN STABLE PLAN: NPO CT NEEDLE BIOPSY NOT SUCCESSFUL US GUIDED NEEDLE BIOPSY IN AM AM LABS
[2019-10-13 16:00] VITALS: BP 101/65
--- NOTE | 2019-10-13 17:28 | Cardiac Electrophysiology PN ---
Subjective Subjective [id number] Objective Last 24 Hour Vital Signs Date Time Temp Pulse Resp B/P (MAP) Pulse Ox O2 Delivery O2 Flow Rate FiO2 10/13/19 16:00 98.5 83 19 101/65 (77) 95 10/13/19 12:00 98.2 88 20 108/74 (85) 95 10/13/19 09:00 Room Air 10/13/19 08:00 98.6 99 20 85/57 (66) 95 10/13/19 04:29 97.8 93 17 104/65 (78) 96 10/13/19 00:28 98.1 86 17 102/68 (79) 96 10/13/19 00:00 97.7 10/12/19 20:24 Room Air 10/12/19 20:00 97.3 91 18 91/55 (67) 97 Intake and Output 10/12/19 10/13/19 19:00 07:00 # Voids 2 4 # Bowel Movements 1 Laboratory Tests Test 10/13/19 04:40 White Blood Count 7.8 K/UL (4.8-10.8) Red Blood Count 4.36 M/UL (4.20-5.40) Hemoglobin 12.7 G/DL (12.0-16.0) Hematocrit 38.0 % (37.0-47.0) Mean Corpuscular Volume 87 FL (80-99) Mean Corpuscular Hemoglobin 29.1 PG (27.0-31.0) Mean Corpuscular Hemoglobin Concent 33.3 G/DL (32.0-36.0) Red Cell Distribution Width 11.3 % (11.6-14.8) L Platelet Count 230 K/UL (150-450) Mean Platelet Volume 6.3 FL (6.5-10.1) L Neutrophils (%) (Auto) 64.7 % (45.0-75.0) Lymphocytes (%) (Auto) 23.5 % (20.0-45.0) Monocytes (%) (Auto) 7.2 % (1.0-10.0) Eosinophils (%) (Auto) 3.6 % (0.0-3.0) H Basophils (%) (Auto) 1.0 % (0.0-2.0) Sodium Level 141 MMOL/L (136-145) Potassium Level 3.7 MMOL/L (3.5-5.1) Chloride Level 104 MMOL/L (98-107) Carbon Dioxide Level 28 MMOL/L (21-32) Anion Gap 9 mmol/L (5-15) Blood Urea Nitrogen 7 mg/dL (7-18) Creatinine 0.6 MG/DL (0.55-1.30) Estimat Glomerular Filtration Rate > 60 mL/min (>60) Glucose Level 80 MG/DL (74-106) Calcium Level 8.9 MG/DL (8.5-10.1) Trevor Bardales MD October 13, 2019 17:28
--- NOTE | 2019-10-13 19:40 | NUR ---
HAND-OFF: Report given to TRACEY Logan.
[2019-10-13 20:00] VITALS: BP 109/72
--- NOTE | 2019-10-13 20:00 | NUR ---
NURSE NOTES: Patient received in bed, aaox4, c/o pain 12/01 pain, offered pain medication but patient refused and stated that she will wait until later for the pain medication. Educated regarding medication, verbalized understanding. Patient aware of procedure tomorrow AM. Encouraged to ask for assistance and use call light. Will continue plan of care.
--- NOTE | 2019-10-13 23:45 | NUR ---
NURSE NOTES: Patient requested for zofran prior to norco. Patient was having dry heaving. Upon giving zofran, noted IV was leaking. Reinserted new IV access on left hand. zofran given as prescribed.
[2019-10-13] MEDS: HYDROcodone/Acetamin 5/325 tab ORAL PRN (23:58)
[2019-10-14] VITALS (10 sets, daily range): BP systolic 96–121; BP diastolic 63–85
--- NOTE | 2019-10-14 | Consultation ---
DATE OF CONSULTATION: 10/13/2019 CARDIOLOGY CONSULTATION CONSULTING PHYSICIAN: Trevor Bardales MD. REFERRING PHYSICIAN: Matt Olmedo DO. REASON FOR CONSULTATION: Hypotension and tachycardia. HISTORY OF PRESENT ILLNESS: Patient is a 64-year-old lady with history of hypothyroidism as well as history of breast augmentation and myelodysplastic syndrome who was brought to the emergency room on 10/10/2019 for evaluation of rapid weight loss of about 50 to 60 pounds in last 1-1/2 month. Patient has persistent nausea and epigastric discomfort. A CT of abdomen showed large left upper quadrant mass originating from pancreas and evidence for peritoneal carcinomatosis. Patient's blood pressure today was low in the 80s and 85/57. Patient was also tachycardic. A Cardiology consultation was obtained for further evaluation and management. REVIEW OF SYSTEMS: Negative other than what was mentioned in the history of present illness. PAST MEDICAL HISTORY: As mentioned above. FAMILY HISTORY: Noncontributory. SOCIAL HISTORY: She lives at home. Does not smoke or drink alcohol. PHYSICAL EXAMINATION: VITAL SIGNS: Blood pressure was 85/57, currently is 101/65, pulse 83, respirations 18, temperature 98.5. HEAD AND NECK: Showed no JVD. LUNGS: Clear. CARDIOVASCULAR: Shows regular S1 and S2 with no gallop or murmur. ABDOMEN: Soft. EXTREMITIES: No pitting edema. LABORATORY DATA: Labs show white count 7.9, hemoglobin 12.7, hematocrit of 38, and platelet count is 230. Sodium 141, potassium 3.7, BUN of 7, creatinine 0.6. CA-125 is 532, CA 19-9 is 39,000, CA 15-3 is 184, and CEA is 741. ASSESSMENT AND PLAN: 1. Hypotension. Blood pressure is improved. Patient is off any blood pressure lowering agent. I will start patient on midodrine 5 mg t.i.d. I will get an echocardiogram for further evaluation. 2. Hypothyroidism, on Synthroid. 3. Significant weight loss due to pancreatic cancer. Patient is going for EUS and biopsy tomorrow by Dr. Michael. Follow up Oncology. 4. Depression. Thank you very much for allowing me to participate in the care of this patient. Please do not hesitate to contact me for any questions regarding my evaluation. Trevor Bardales M.D. DR: MIRIAN JOB#: [id number] CC:
[2019-10-14] MEDS: Levothyroxine 25mcg tab ORAL SCH (05:06)
[2019-10-14 05:56] LABS: BASOPHILS % (AUTO) 0.7 % (0.0-2.0); EOSINOPHILS % (AUTO) 3.1 % (0.0-3.0); HEMATOCRIT 34.9 % (37.0-47.0); HEMOGLOBIN 11.6 G/DL (12.0-16.0); LYMPHOCYTES % (AUTO) 19.4 % (20.0-45.0); MEAN CORPUSCULAR VOLUME 87 FL (80-99); MONOCYTES % (AUTO) 8.4 % (1.0-10.0); NEUTROPHILS % (AUTO) 68.4 % (45.0-75.0); PLATELET COUNT 221 K/UL (150-450); RED BLOOD COUNT 4.01 M/UL (4.20-5.40); RED CELL DISTRIBUTION WIDTH 11.5 % (11.6-14.8); WHITE BLOOD COUNT 8.8 K/UL (4.8-10.8)
[2019-10-14 06:11] LABS: ANION GAP 9 mmol/L (5-15); BLOOD UREA NITROGEN 6 mg/dL (7-18); CALCIUM 8.1 MG/DL (8.5-10.1); CARBON DIOXIDE 26 MMOL/L (21-32); CHLORIDE 105 MMOL/L (98-107); CREATININE 0.6 MG/DL (0.55-1.30); POTASSIUM 3.7 MMOL/L (3.5-5.1); SODIUM 140 MMOL/L (136-145)
--- NOTE | 2019-10-14 06:33 | NUR ---
NURSE NOTES: Spoke with GI lab. patient will be picked up for procedure around [id number]. Patient aware.
[2019-10-14] MEDS ORDERED: Heplock Flush 100 units/ml 3 ml syr ONE (06:40)
--- NOTE | 2019-10-14 07:30 | NUR ---
HAND-OFF: Report given to Jeremy Bullock RN.
--- NOTE | 2019-10-14 07:43 | Anethesia Preoperative Eval ---
Anesthesia Pre-op PMH/ROS General Date of Evaluation: October 14, 2019 Time of Evaluation: 07:38 Anesthesiologist: Nicko ASA Score: ASA 4 Mallampati Score Class I : Soft palate, uvula, fauces, pillars visible Class II: Soft palate, uvula, fauces visible Class III: Soft palate, base of uvula visible Class IV: Only hard plate visible Mallampati Classification: Class II Surgeon: Fernanda Diagnosis: EUS Surgical Procedure: Pancreatic CA Anesthesia History: none Family History: no anesthesia problems Allergies: Coded Allergies: No Known Allergies (Unverified , 03/24/16) Medications: see eMAR Patient NPO?: Yes Past Medical History Cardiovascular: Denies: HTN, CAD, VA, valve dz, arrhythmia, other Pulmonary: Denies: asthma, COPD, [place], other Gastrointestinal/Genitourinary: Reports: GERD, other - Pancreatic CA; Denies: CRI, ESRD Neurologic/Psychiatric: Reports: depression/anxiety; Denies: dementia, CVA, TIA, other Endocrine: Reports: hypothyroidism HEENT: Denies: cataract (L), cataract (R), glaucoma, [place] (L), [place] (R), other Hematology/Immune: Reports: anemia - mild; Denies: DVT, bleeding disorder, other Musculoskeletal/Integumentary: Denies: OA, RA, DJD, DDD, edema, other Other: other - malnourished, recent weight loss Anesthesia Pre-op Phys. Exam Physician Exam Last Vital Signs Date Time Temp Pulse Resp B/P (MAP) Pulse Ox O2 Delivery O2 Flow Rate FiO2 10/14/19 04:00 97.2 79 19 98/66 (77) 95 10/13/19 23:02 Room Air Constitutional: NAD Neurologic: CN 2-12 intact Cardiovascular: RRR Respiratory: CTA Gastrointestinal: S/NT/ND Airway Exam Mallampati Score: Class II MO: limited Neck: stiff ROM: limited Teeth: missing Dentures: no upper, no lower Anesthesia Pre-op A/P Labs Hematology Test 10/14/19 05:20 White Blood Count 8.8 K/UL (4.8-10.8) Red Blood Count 4.01 M/UL (4.20-5.40) L Hemoglobin 11.6 G/DL (12.0-16.0) L Hematocrit 34.9 % (37.0-47.0) L Mean Corpuscular Volume 87 FL (80-99) Mean Corpuscular Hemoglobin 29.0 PG (27.0-31.0) Mean Corpuscular Hemoglobin Concent 33.4 G/DL (32.0-36.0) Red Cell Distribution Width 11.5 % (11.6-14.8) L Platelet Count 221 K/UL (150-450) Mean Platelet Volume 7.0 FL (6.5-10.1) Neutrophils (%) (Auto) 68.4 % (45.0-75.0) Lymphocytes (%) (Auto) 19.4 % (20.0-45.0) L Monocytes (%) (Auto) 8.4 % (1.0-10.0) Eosinophils (%) (Auto) 3.1 % (0.0-3.0) H Basophils (%) (Auto) 0.7 % (0.0-2.0) Chemistry Test 10/14/19 05:20 Sodium Level 140 MMOL/L (136-145) Potassium Level 3.7 MMOL/L (3.5-5.1) Chloride Level 105 MMOL/L (98-107) Carbon Dioxide Level 26 MMOL/L (21-32) Anion Gap 9 mmol/L (5-15) Blood Urea Nitrogen 6 mg/dL (7-18) L Creatinine 0.6 MG/DL (0.55-1.30) Estimat Glomerular Filtration Rate > 60 mL/min (>60) Glucose Level 93 MG/DL (74-106) Calcium Level 8.1 MG/DL (8.5-10.1) L Pro-B-Type Natriuretic Peptide 225 pg/mL (0-125) H Risk Assessment & Plan Assessment: ASA 4 Plan: MAC Status Change Before Surgery: Sim Mcginnis MD October 14, 2019 07:43
--- NOTE | 2019-10-14 08:20 | NUR ---
NURSE NOTES: Pt is off the unit for EUS with stable condition.
[2019-10-14] MEDS ORDERED: NS 500ML IVPB ONE (08:26)
--- NOTE | 2019-10-14 08:28 | Pre-Procedure Note/Attestation ---
Pre-Procedure Note/Attestation Complete Prior to Procedure Planned Procedure: not applicable Procedure Narrative: EUS Indications for Procedure Pre-Operative Diagnosis: pancreatic mass Attestation I attest that I discussed the nature of the procedure; its benefits; risks and complications; and alternatives (and the risks and benefits of such alternatives ), prior to the procedure, with the patient (or the patient's legal client care representative). I attest that, if there was a reasonable possibility of needing a blood transfusion, the patient (or the patient's legal client care representative) was given the [facility] standardized written summary, pursuant to the Issac Jessika Blood Safety Act ([place] Health and Safety Code # 1645, as amended). I attest that I re-evaluated the patient just prior to the surgery and that there has been no change in the patient's H&P, except as documented below: Malcom Michael MD October 14, 2019 08:28
[2019-10-14] MEDS: Enoxaparin 40mg Inj SUBQ SCH (08:29)
[2019-10-14] MEDS ORDERED: fentaNYL 100 mcg/2 mL IV ONE (08:30)
--- NOTE | 2019-10-14 08:51 | Hematology/Onc Progress Note ---
Assessment/Plan Assessment/Plan Assessment/Recs # Pancreatic mass with likely mets -- LARGE LEFT UPPER QUADRANT MASS LIKELY ARISING FROM THE PANCREAS WITH EXTENSION INTO THE LESSER SAC. 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 RETROPERITONEAL ADENOPATHY ENCASING THE SMA ARTERY AND ALONG THE LEFT PARA-AORTIC SPACE. LEFT ADRENAL METASTASIS. --> ct guided biop for 10/12/2019 cancelled as could not get a good [place] --> endoscopic us ordered 10/13-->pending --> us of the ovaries --> APPARENT AMORPHOUS HYPOECHOIC MASSLIKE STRUCTURE SEEN ADJACENT TO THE URINARY BLADDER OF UNDETERMINED ORIGIN. SINCE THE OVARIES ARE NOT DISTINCTLY SEEN, AN OVARIAN MASS IS CONSIDERED. --> ca 19.9, 39,393, ca 125 is 523, cea 731 --> weight loss noted --> consider mirtazpaine --> as per gi care, they are aware # Dehydration --> on ivfs as needed # LEFT ADRENAL METASTASIS. --> likely c/w panc primary cancer # Leukocytosis --> urine cx+ x2 --> wbc trend: 7.8-->11.6 # Weight loss --> related to ca The timing of this note does not necessarily reflect the time of the patient was seen. Greatly appreciate consultation. Subjective Allergies: Coded Allergies: No Known Allergies (Unverified , 03/24/16) Subjective 10/11 med surg, awake and alert, ct guided biop for today 10/[address] guided needle, endoscopic us ordered 10/13 us pelvis reviewed, no acute distress, room air Objective Objective Current Medications Medications (Trade) Dose Ordered Sig/Tiago Route PRN Reason Start Time Stop Time Status Last Admin Dose Admin Acetaminophen (Tylenol) 650 mg Q6H PRN ORAL 1-3 mild pain/fever > 100.4 10/10/19 21:00 11/09/19 20:59 10/12/19 03:23 Acetaminophen/ Hydrocodone Bitart ([place] 5/325) 1 tab Q4H PRN ORAL Pain (Pain Scale 4-10) 10/12/19 06:15 10/19/19 06:14 10/13/19 23:58 Enoxaparin Sodium (Lovenox) 40 mg DAILY SUBQ 10/12/19 09:00 01/10/20 08:59 10/13/19 10:28 Famotidine (Pepcid) 20 mg Q6H PRN ORAL acid reflux 10/12/19 06:03 01/10/20 06:02 10/12/19 06:18 Levothyroxine Sodium (Synthroid) 25 mcg ACBREAKFAST ORAL 10/11/19 06:30 11/10/19 06:29 10/13/19 05:57 Lorazepam (Ativan 2mg/ml 1ml) 1 mg Q12HR PRN IV For Anxiety 10/12/19 06:15 10/19/19 06:14 Midodrine (Pro-Amatine) 5 mg TID ORAL 10/13/19 18:00 01/11/20 17:59 10/13/19 18:13 Ondansetron HCl (Zofran) 4 mg Q4H PRN IVP Nausea & Vomiting 10/11/19 05:45 11/10/19 05:44 10/13/19 23:45 Zolpidem Tartrate (Ambien) 5 mg HSPRN PRN ORAL Insomnia 10/10/19 21:00 10/17/19 20:59 10/11/19 23:54 Last 24 Hour Vital Signs Date Time Temp Pulse Resp B/P (MAP) Pulse Ox O2 Delivery O2 Flow Rate FiO2 10/14/19 04:00 97.2 79 19 98/66 (77) 95 10/14/19 00:00 97.2 95 19 96/63 (74) 98 10/13/19 23:02 Room Air 10/13/19 20:00 99.0 85 19 109/72 (84) 97 10/13/19 16:00 98.5 83 19 101/65 (77) 95 10/13/19 12:00 98.2 88 20 108/74 (85) 95 10/13/19 09:00 Room Air 10/13/19 08:00 98.6 99 20 85/57 (66) 95 10/13/19 04:29 97.8 93 17 104/65 (78) 96 10/13/19 00:28 98.1 86 17 102/68 (79) 96 10/13/19 00:00 97.7 10/12/19 20:24 Room Air 10/12/19 20:00 97.3 91 18 91/55 (67) 97 10/12/19 16:00 97.7 99 18 110/74 (86) 97 10/12/19 12:00 97.5 78 20 114/75 (88) 97 10/12/19 09:00 Room Air Intake and Output 10/13/19 10/14/19 19:00 07:00 # Voids 3 3 Labs Test 10/11/19 11:30 10/12/19 04:40 10/12/19 12:20 10/13/19 04:40 Carcinoembryonic Antigen 741.0 ng/mL (0.0-4.7) CA 15-3 Antigen 184.0 U/mL (0.0-25.0) CA 19-9 Antigen 89539 U/mL (0-35) CA 125 Antigen 532.0 U/mL (0.0-38.1) White Blood Count 8.7 K/UL (4.8-10.8) 7.8 K/UL (4.8-10.8) Red Blood Count 3.99 M/UL (4.20-5.40) 4.36 M/UL (4.20-5.40) Hemoglobin 11.6 G/DL (12.0-16.0) 12.7 G/DL (12.0-16.0) Hematocrit 34.6 % (37.0-47.0) 38.0 % (37.0-47.0) Mean Corpuscular Volume 87 FL (80-99) 87 FL (80-99) Mean Corpuscular Hemoglobin 29.1 PG (27.0-31.0) 29.1 PG (27.0-31.0) Mean Corpuscular Hemoglobin Concent 33.6 G/DL (32.0-36.0) 33.3 G/DL (32.0-36.0) Red Cell Distribution Width 11.3 % (11.6-14.8) 11.3 % (11.6-14.8) Platelet Count 224 K/UL (150-450) 230 K/UL (150-450) Mean Platelet Volume 6.7 FL (6.5-10.1) 6.3 FL (6.5-10.1) Neutrophils (%) (Auto) 64.2 % (45.0-75.0) 64.7 % (45.0-75.0) Lymphocytes (%) (Auto) 21.3 % (20.0-45.0) 23.5 % (20.0-45.0) Monocytes (%) (Auto) 9.6 % (1.0-10.0) 7.2 % (1.0-10.0) Eosinophils (%) (Auto) 4.0 % (0.0-3.0) 3.6 % (0.0-3.0) Basophils (%) (Auto) 1.0 % (0.0-2.0) 1.0 % (0.0-2.0) Sodium Level 141 MMOL/L (136-145) 141 MMOL/L (136-145) Potassium Level 3.5 MMOL/L (3.5-5.1) 3.7 MMOL/L (3.5-5.1) Chloride Level 107 MMOL/L (98-107) 104 MMOL/L (98-107) Carbon Dioxide Level 26 MMOL/L (21-32) 28 MMOL/L (21-32) Anion Gap 9 mmol/L (5-15) 9 mmol/L (5-15) Blood Urea Nitrogen 6 mg/dL (7-18) 7 mg/dL (7-18) Creatinine 0.6 MG/DL (0.55-1.30) 0.6 MG/DL (0.55-1.30) Estimat Glomerular Filtration Rate > 60 mL/min (>60) > 60 mL/min (>60) Glucose Level 92 MG/DL (74-106) 80 MG/DL (74-106) Calcium Level 8.1 MG/DL (8.5-10.1) 8.9 MG/DL (8.5-10.1) Prothrombin Time 11.5 SEC (9.30-11.50) Prothromb Time International Ratio 1.0 (0.9-1.1) Activated Partial Thromboplast Time 27 SEC (23-33) Test 10/14/19 05:20 White Blood Count 8.8 K/UL (4.8-10.8) Red Blood Count 4.01 M/UL (4.20-5.40) Hemoglobin 11.6 G/DL (12.0-16.0) Hematocrit 34.9 % (37.0-47.0) Mean Corpuscular Volume 87 FL (80-99) Mean Corpuscular Hemoglobin 29.0 PG (27.0-31.0) Mean Corpuscular Hemoglobin Concent 33.4 G/DL (32.0-36.0) Red Cell Distribution Width 11.5 % (11.6-14.8) Platelet Count 221 K/UL (150-450) Mean Platelet Volume 7.0 FL (6.5-10.1) Neutrophils (%) (Auto) 68.4 % (45.0-75.0) Lymphocytes (%) (Auto) 19.4 % (20.0-45.0) Monocytes (%) (Auto) 8.4 % (1.0-10.0) Eosinophils (%) (Auto) 3.1 % (0.0-3.0) Basophils (%) (Auto) 0.7 % (0.0-2.0) Sodium Level 140 MMOL/L (136-145) Potassium Level 3.7 MMOL/L (3.5-5.1) Chloride Level 105 MMOL/L (98-107) Carbon Dioxide Level 26 MMOL/L (21-32) Anion Gap 9 mmol/L (5-15) Blood Urea Nitrogen 6 mg/dL (7-18) Creatinine 0.6 MG/DL (0.55-1.30) Estimat Glomerular Filtration Rate > 60 mL/min (>60) Glucose Level 93 MG/DL (74-106) Calcium Level 8.1 MG/DL (8.5-10.1) Pro-B-Type Natriuretic Peptide 225 pg/mL (0-125) Height (Feet): 5 Height (Inches): 5.00 Weight (Pounds): 108 Objective Physical Exam: Vitals: reviewed General: NAD HEENT: nc, at Neck: supple Chest: clear breath sounds bilaterally Cardiovascular: RRR, no s3, s4 Abdomen: soft, nontender, nd ++ abd pain Extremities: no cce, normal range of motion Back: back pain ttp Neuro: alert and oriented Ortiz Porter MD October 14, 2019 08:51
--- NOTE | 2019-10-14 09:12 | NUR ---
PT NOTE Received MD order for PT evaluation. Patient off floor for procedure. Will re-attempt later as schedule permits. Kamila WEBB notified.
--- NOTE | 2019-10-14 09:15 | Endoscopy Procedure Note ---
Endoscopy Procedure Note General Indication for Procedure: panc mass Procedures Performed: other - EUS Operative Findings/Diagnosis: same Specimen: yes Pt Tolerated Procedure Well: Yes Estimated Blood Loss: none Anesthesia Anesthesiologist: jordyn Anesthesia: MAC Inserted Devices Implant(s) used?: No GI Core Measures 50 yrs or older w/o bx or poly: Not Applicable 10yrs. F/U recommended: Not Applicable Malcom Michael MD October 14, 2019 09:15
--- NOTE | 2019-10-14 09:23 | Immediate Post-Op Evaluation ---
Immediate Post-Op Evalulation Immediate Post-Op Evalulation Procedure: EUD with pancreatic mass Bx Date of Evaluation: October 14, 2019 Time of Evaluation: 09:22 IV Fluids: 300 Blood Products: none Estimated Blood Loss: none Urinary Output: none Blood Pressure Systolic: 108 Blood Pressure Diastolic: 56 Pulse Rate: 72 Respiratory Rate: 20 O2 Sat by Pulse Oximetry: 97 Temperature (Fahrenheit): 97.5 Pain Score (1-10): 2 Nausea: No Vomiting: No Complications none Patient Status: reacts, patent, none Hydration Status: adequate Sim Maharaj MD October 14, 2019 09:23
[2019-10-14] MEDS ORDERED: fentaNYL 100 mcg/2 mL IV PRN (09:30)
--- NOTE | 2019-10-14 09:33 | Cardiac Electrophysiology PN ---
Assessment/Plan Assessment/Plan 1. Hypotension. Blood pressure is improved. Patient is off any blood pressure lowering agent. On midodrine 5 mg t.i.d. Echocardiogram pending 2. Hypothyroidism, on Synthroid. 3. Significant weight loss due to pancreatic cancer. Patient is going for EUS and biopsy by Dr. Michael. Follow up Oncology. 4. Depression. Subjective Subjective Alert in NAD.NPO for EUS today Objective Last 24 Hour Vital Signs Date Time Temp Pulse Resp B/P (MAP) Pulse Ox O2 Delivery O2 Flow Rate FiO2 10/14/19 09:25 80 15 103/69 96 Nasal Cannula 3 10/14/19 09:23 72 20 97 10/14/19 09:20 84 15 100/69 96 Nasal Cannula 3 10/14/19 09:15 97.5 82 16 102/70 94 Nasal Cannula 3 10/14/19 04:00 97.2 79 19 98/66 (77) 95 10/14/19 00:00 97.2 95 19 96/63 (74) 98 10/13/19 23:02 Room Air 10/13/19 20:00 99.0 85 19 109/72 (84) 97 10/13/19 16:00 98.5 83 19 101/65 (77) 95 10/13/19 12:00 98.2 88 20 108/74 (85) 95 Intake and Output 10/13/19 10/14/19 19:00 07:00 # Voids 3 3 Laboratory Tests Test 10/14/19 05:20 White Blood Count 8.8 K/UL (4.8-10.8) Red Blood Count 4.01 M/UL (4.20-5.40) L Hemoglobin 11.6 G/DL (12.0-16.0) L Hematocrit 34.9 % (37.0-47.0) L Mean Corpuscular Volume 87 FL (80-99) Mean Corpuscular Hemoglobin 29.0 PG (27.0-31.0) Mean Corpuscular Hemoglobin Concent 33.4 G/DL (32.0-36.0) Red Cell Distribution Width 11.5 % (11.6-14.8) L Platelet Count 221 K/UL (150-450) Mean Platelet Volume 7.0 FL (6.5-10.1) Neutrophils (%) (Auto) 68.4 % (45.0-75.0) Lymphocytes (%) (Auto) 19.4 % (20.0-45.0) L Monocytes (%) (Auto) 8.4 % (1.0-10.0) Eosinophils (%) (Auto) 3.1 % (0.0-3.0) H Basophils (%) (Auto) 0.7 % (0.0-2.0) Sodium Level 140 MMOL/L (136-145) Potassium Level 3.7 MMOL/L (3.5-5.1) Chloride Level 105 MMOL/L (98-107) Carbon Dioxide Level 26 MMOL/L (21-32) Anion Gap 9 mmol/L (5-15) Blood Urea Nitrogen 6 mg/dL (7-18) L Creatinine 0.6 MG/DL (0.55-1.30) Estimat Glomerular Filtration Rate > 60 mL/min (>60) Glucose Level 93 MG/DL (74-106) Calcium Level 8.1 MG/DL (8.5-10.1) L Pro-B-Type Natriuretic Peptide 225 pg/mL (0-125) H Objective HEAD AND NECK: No JVD. LUNGS: Clear. CARDIOVASCULAR: Regular S1 and S2 with no gallop or murmur. ABDOMEN: Soft. EXTREMITIES: No pitting edema. Trevor Bardales MD October 14, 2019 09:33
--- NOTE | 2019-10-14 09:56 | General Progress Note ---
Assessment/Plan Problem List: (1) UTI (urinary tract infection) ICD Codes: N39.0 - Urinary tract infection, site not specified SNOMED: 31480880 (2) Dehydration ICD Codes: E86.0 - Dehydration SNOMED: 14252825 (3) Dehydration ICD Codes: E86.0 - Dehydration SNOMED: 20575900 (4) Pancreatic cancer ICD Codes: C25.9 - Malignant neoplasm of pancreas, unspecified SNOMED: 681171854 (5) Metastasis ICD Codes: C79.9 - Secondary malignant neoplasm of unspecified site SNOMED: 035435593 (6) Hypothyroid ICD Codes: E03.9 - Hypothyroidism, unspecified SNOMED: 99833190 Status: stable, progressing Assessment/Plan: pt diet abx iv fluid cbc bmp am egd Subjective Constitutional: Reports: weakness Allergies: Coded Allergies: No Known Allergies (Unverified , 03/24/16) All Systems: reviewed and negative except above Subjective sleepy calm pending egd Objective Last 24 Hour Vital Signs Date Time Temp Pulse Resp B/P (MAP) Pulse Ox O2 Delivery O2 Flow Rate FiO2 10/14/19 09:25 80 15 103/69 96 Nasal Cannula 3 10/14/19 09:23 72 20 97 10/14/19 09:20 84 15 100/69 96 Nasal Cannula 3 10/14/19 09:15 97.5 82 16 102/70 94 Nasal Cannula 3 10/14/19 04:00 97.2 79 19 98/66 (77) 95 10/14/19 00:00 97.2 95 19 96/63 (74) 98 10/13/19 23:02 Room Air 10/13/19 20:00 99.0 85 19 109/72 (84) 97 10/13/19 16:00 98.5 83 19 101/65 (77) 95 10/13/19 12:00 98.2 88 20 108/74 (85) 95 Intake and Output 10/13/19 10/14/19 19:00 07:00 # Voids 3 3 Laboratory Tests 10/14/19 05:20: White Blood Count 8.8, Red Blood Count 4.01L, Hemoglobin 11.6L, Hematocrit 34.9L , Mean Corpuscular Volume 87, Mean Corpuscular Hemoglobin 29.0, Mean Corpuscular Hemoglobin Concent 33.4, Red Cell Distribution Width 11.5L, Platelet Count 221, Mean Platelet Volume 7.0, Neutrophils (%) (Auto) 68.4, Lymphocytes (%) (Auto) 19.4L, Monocytes (%) (Auto) 8.4, Eosinophils (%) (Auto) 3.1H, Basophils (%) (Auto) 0.7, Sodium Level 140, Potassium Level 3.7, Chloride Level 105, Carbon Dioxide Level 26, Anion Gap 9, Blood Urea Nitrogen 6L, Creatinine 0.6, Estimat Glomerular Filtration Rate > 60, Glucose Level 93, Calcium Level 8.1L, Pro-B-Type Natriuretic Peptide 225H Height (Feet): 5 Height (Inches): 5.00 Weight (Pounds): 108 General Appearance: lethargic EENT: normal ENT inspection Neck: normal alignment Cardiovascular: normal peripheral pulses, normal rate, regular rhythm Respiratory/Chest: chest wall non-tender, lungs clear, normal breath sounds Abdomen: soft, decreased bowel sounds Extremities: normal inspection Edema: no edema noted Arm (L), no edema noted Arm (R), no edema noted Leg (L), no edema noted Leg (R), no edema noted Pedal (L), no edema noted Pedal (R), no edema noted Generalized Neurologic: motor weakness Skin: normal pigmentation, warm/dry Matt Olmedo DO October 14, 2019 09:56
--- NOTE | 2019-10-14 11:44 | NUR ---
RD ASSESSMENT & RECOMMENDATIONS SEE CARE ACTIVITY FOR COMPLETE ASSESSMENT DAILY ESTIMATED NEEDS: Needs based on WT loss, CA 62.5kg 28-33 kcals/kg 8809-2131 total kcals 1-2 g protein/kg 63-125 g total protein 25-30 mL/kg 6286-6393 total fluid mLs NUTRITION DIAGNOSIS: Increase kcal needs r/t significant wt loss as evidenced by 22% wt change, w/ unintentional est 39 lbs wt loss in 7 weeks. PO DIET RECOMMENDATIONS: Regular diet as tolerated ADDITIONAL RECOMMENDATIONS: 1) Weekly standing weights given wt loss on admission 2) Add snacks in b/w meals 3) Add Ensure Enlive w/ meals; pt may have Ensure Clear if tolerated better 4) Replete lytes and monitor hydration
--- NOTE | 2019-10-14 12:32 | NUR ---
CASE MANAGEMENT:REVIEW 10/14/19 SI:METASTASIS . PANCREASE CANCER . DEHYDRATION 97.2 79 19 98/66 95% ON RA BNP 225 CA+ 8.1 BUN 6 IS: US GUIDED NEEDLE BIOPSY NOW SYNTHROID PO QAM NORCO PO Q4HR/PRN IV ZOFRAN Q4HR/PRN CHEST Z-ECN-ASTLYVF PENDING \: 3E MED SURG UNIT DCP: HOME WHEN STABLE PLAN: LABS IN AM
--- NOTE | 2019-10-14 12:34 | Infectious Diseases Prog Note ---
Assessment/Plan Assessment/Plan Assessment: Unintentional weight loss Metastatic Pancreatic mass w/ peritoneal carcinomatosis (mets to adrenal, intraabdominal, lymph nodes) -10/13 SP EUS with pancreatic mass Bx -Pelvic US: SMALL POSTMENOPAUSAL UTERUS. ENDOMETRIAL STRIPE NOT WELL SEEN. OVARIES ALSO NOT VISUALIZED. APPARENT AMORPHOUS HYPOECHOIC MASSLIKE STRUCTURE SEEN ADJACENT TO THE URINARY BLADDER OF UNDETERMINED ORIGIN. SINCE THE OVARIES ARE NOT DISTINCTLY SEEN, AN OVARIAN MASS ISCONSIDERED. -10/09 CT abd/p: LARGE LEFT UPPER QUADRANT MASS LIKELY ARISING FROM THE PANCREAS WITH EXTENSION INTO THE LESSER SAC. 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 RETROPERITONEAL ADENOPATHY ENCASING THE SMA ARTERY AND ALONG THE LEFT PARA- AORTIC SPACE. LEFT ADRENAL METASTASIS. NO METASTATIC DISEASE TO THE CHEST PRESENTLY. INCIDENTAL FINDING OF BILATERAL MAMMARY PROSTHESIS IMPLANT INTRACAPSULAR RUPTURE. -10/02 SP EGD/COlo:: gastritis, hemorrhoids --of note, patient had negative COvid testing as an outpatient prior to the procedure Afebrile Mild leukocytosis, SP- -u/a no pyuria, nit neg, leuk +1; ucx 40-50k mixed gram positive growth- Patient with no UTI symptoms hypothyroidism MDD sp breast augmentation Plan: -Continue to monitor off abx -f/u cx -Monitor CBC/CMP, temperature -GI, heme/onc f/u -f/u biopsy -CXR Thank you for consulting [facility]. Will continue to follow along with you. Subjective Allergies: Coded Allergies: No Known Allergies (Unverified , 03/24/16) Subjective afebrile no leukocytosis s/p EUS w biopsy this am, on 3L after procedure Objective Vital Signs Last 24 Hour Vital Signs Date Time Temp Pulse Resp B/P (MAP) Pulse Ox O2 Delivery O2 Flow Rate FiO2 10/14/19 09:45 97.9 75 19 105/72 96 Nasal Cannula 3 10/14/19 09:35 77 18 104/70 96 Nasal Cannula 3 10/14/19 09:25 80 15 103/69 96 Nasal Cannula 3 10/14/19 09:23 72 20 97 10/14/19 09:20 84 15 100/69 96 Nasal Cannula 3 10/14/19 09:15 97.5 82 16 102/70 94 Nasal Cannula 3 10/14/19 09:00 Room Air 10/14/19 04:00 97.2 79 19 98/66 (77) 95 10/14/19 00:00 97.2 95 19 96/63 (74) 98 10/13/19 23:02 Room Air 10/13/19 20:00 99.0 85 19 109/72 (84) 97 10/13/19 16:00 98.5 83 19 101/65 (77) 95 Height (Feet): 5 Height (Inches): 5.00 Weight (Pounds): 108 Objective General: NAD HEENT: nc, at Neck: supple Chest: clear breath sounds bilaterally Cardiovascular: RRR, no s3, s4 Abdomen: soft, nontender, nd ++ abd pain Extremities: no cce, normal range of motion Back: back pain ttp Neuro: alert and oriented Laboratory Tests Test 10/14/19 05:20 White Blood Count 8.8 K/UL (4.8-10.8) Red Blood Count 4.01 M/UL (4.20-5.40) L Hemoglobin 11.6 G/DL (12.0-16.0) L Hematocrit 34.9 % (37.0-47.0) L Mean Corpuscular Volume 87 FL (80-99) Mean Corpuscular Hemoglobin 29.0 PG (27.0-31.0) Mean Corpuscular Hemoglobin Concent 33.4 G/DL (32.0-36.0) Red Cell Distribution Width 11.5 % (11.6-14.8) L Platelet Count 221 K/UL (150-450) Mean Platelet Volume 7.0 FL (6.5-10.1) Neutrophils (%) (Auto) 68.4 % (45.0-75.0) Lymphocytes (%) (Auto) 19.4 % (20.0-45.0) L Monocytes (%) (Auto) 8.4 % (1.0-10.0) Eosinophils (%) (Auto) 3.1 % (0.0-3.0) H Basophils (%) (Auto) 0.7 % (0.0-2.0) Sodium Level 140 MMOL/L (136-145) Potassium Level 3.7 MMOL/L (3.5-5.1) Chloride Level 105 MMOL/L (98-107) Carbon Dioxide Level 26 MMOL/L (21-32) Anion Gap 9 mmol/L (5-15) Blood Urea Nitrogen 6 mg/dL (7-18) L Creatinine 0.6 MG/DL (0.55-1.30) Estimat Glomerular Filtration Rate > 60 mL/min (>60) Glucose Level 93 MG/DL (74-106) Calcium Level 8.1 MG/DL (8.5-10.1) L Pro-B-Type Natriuretic Peptide 225 pg/mL (0-125) H Current Medications Medications (Trade) Dose Ordered Sig/Tiago Route PRN Reason Start Time Stop Time Status Last Admin Dose Admin Acetaminophen (Tylenol) 650 mg Q6H PRN ORAL 1-3 mild pain/fever > 100.4 10/10/19 21:00 11/09/19 20:59 10/12/19 03:23 Acetaminophen/ Hydrocodone Bitart ([place] 5/325) 1 tab Q4H PRN ORAL Pain (Pain Scale 4-10) 10/12/19 06:15 10/19/19 06:14 10/13/19 23:58 Enoxaparin Sodium (Lovenox) 40 mg DAILY SUBQ 10/12/19 09:00 01/10/20 08:59 10/13/19 10:28 Famotidine (Pepcid) 20 mg Q6H PRN ORAL acid reflux 10/12/19 06:03 01/10/20 06:02 10/12/19 06:18 Levothyroxine Sodium (Synthroid) 25 mcg ACBREAKFAST ORAL 10/11/19 06:30 11/10/19 06:29 10/13/19 05:57 Lorazepam (Ativan 2mg/ml 1ml) 1 mg Q12HR PRN IV For Anxiety 10/12/19 06:15 10/19/19 06:14 Midodrine (Pro-Amatine) 5 mg TID ORAL 10/13/19 18:00 01/11/20 17:59 10/13/19 18:13 Ondansetron HCl (Zofran) 4 mg Q4H PRN IVP Nausea & Vomiting 10/11/19 05:45 11/10/19 05:44 10/13/19 23:45 Zolpidem Tartrate (Ambien) 5 mg HSPRN PRN ORAL Insomnia 10/10/19 21:00 10/17/19 20:59 10/11/19 23:54 Sabi Abbasi M.D. October 14, 2019 12:34
--- NOTE | 2019-10-14 12:47 | NUR ---
*-* INSURANCE *-* UPDATED CLINICALS HAVE BEEN FAXED TO: [facility] P: [phone] F: [phone]
--- NOTE | 2019-10-14 14:31 | Diagnostic Imaging Report ---
Indication: Cough Technique: XRAY Chest 1v Comparison: Correlation made to images of the lower chest on CT of the abdomen and pelvis 10/10/2019 Findings: There is been interval development of trace bilateral pleural effusions and streaky opacities in the bilateral bases favored to be related to subsegmental atelectasis. No evidence of pneumothorax. Heart size and mediastinal contours within normal limits. No acute osseous abnormality. IMPRESSION: Trace bilateral pleural effusions with adjacent streaky opacities in the lung bases which may be related to subsegmental atelectasis. Possibility of developing infiltrate however is not excluded given history of cough. Correlation with clinical findings and follow-up recommended.
--- NOTE | 2019-10-14 14:32 | 48 Hour Post Anesthesia Eval ---
Post Anesthesia Evaluation Procedure: EUD with pancreatic mass Bx Date of Evaluation: October 14, 2019 Time of Evaluation: 14:29 Blood Pressure Systolic: 108 0: 64 Pulse Rate: 68 Respiratory Rate: 20 Temperature (Fahrenheit): 97.4 O2 Sat by Pulse Oximetry: 98 Airway: patent Nausea: No Vomiting: No Pain Intensity: 2 Hydration Status: adequate Cardiopulmonary Status: stable Mental Status/LOC: patient returned to baseline Follow-up Care/Observations: n/a Post-Anesthesia Complications: none Follow-up care needed: N/A Sim Maharaj MD October 14, 2019 14:32
--- NOTE | 2019-10-14 19:20 | NUR ---
NURSE NOTES: Report received from Adri Luna RN. Patient in stable condition.
--- NOTE | 2019-10-14 19:30 | Procedure Note ---
DATE OF PROCEDURE: 10/14/2019 SURGEON: Malcom Michael MD PROCEDURE: EUS with FNA. ANESTHESIA: Dr. Sim Maharaj. INSTRUMENT: Olympus EUS scope. INDICATION: Pancreatic mass. REASON FOR PROCEDURE: The procedure, risks, benefits, and possible consequences, including hemorrhage, aspiration, perforation and infection, and alternative treatments, were explained to the patient/legal guardian by Dr. Malcom Michael and the patient/legal guardian understood and accepted these risks. PROCEDURE IN DETAIL: After informed consent was obtained and the patient was adequately sedated, the Olympus EUS scope was introduced. There was a large pancreatic mass starting below the GE junction. This tumor was large invading almost the adjacent organs. There were a lot of lymph nodes also around it, ascites with carcinomatosis. Then, we introduced the FNA scope. We did four passes of 22-gauge needle and adequate tissue was obtained. This tissue was sent to the pathology for evaluation. SUMMARY OF FINDINGS: Large pancreatic mass with carcinomatosis, ascites, lymphadenopathy, highly suspicious for malignancy, status post FNA x4. RECOMMENDATIONS: Follow FNA results and treat accordingly. Malcom Michael M.D. DR: BAILEY JOB#: [id number] CC: HERNANDEZ
--- NOTE | 2019-10-14 19:57 | NUR ---
HAND-OFF: Report given to TRACEY Guerra.
[2019-10-15] VITALS: BP 98/85
[2019-10-15] MEDS: Zolpidem 5mg tab ORAL PRN (02:33)
[2019-10-15 03:49] VITALS: BP 99/66
[2019-10-15] MEDS: Levothyroxine 25mcg tab ORAL SCH (05:49)
[2019-10-15 06:15] LABS: BASOPHILS % (AUTO) 0.6 % (0.0-2.0); EOSINOPHILS % (AUTO) 2.5 % (0.0-3.0); HEMATOCRIT 35.8 % (37.0-47.0); LYMPHOCYTES % (AUTO) 16.9 % (20.0-45.0); MEAN CORPUSCULAR VOLUME 87 FL (80-99); MONOCYTES % (AUTO) 7.5 % (1.0-10.0); NEUTROPHILS % (AUTO) 72.5 % (45.0-75.0); PLATELET COUNT 238 K/UL (150-450); RED BLOOD COUNT 4.13 M/UL (4.20-5.40); RED CELL DISTRIBUTION WIDTH 11.4 % (11.6-14.8); WHITE BLOOD COUNT 9.5 K/UL (4.8-10.8)
[2019-10-15 06:31] LABS: ANION GAP 8 mmol/L (5-15); BLOOD UREA NITROGEN 7 mg/dL (7-18); CALCIUM 8.1 MG/DL (8.5-10.1); CARBON DIOXIDE 28 MMOL/L (21-32); CHLORIDE 104 MMOL/L (98-107); CREATININE 0.4 MG/DL (0.55-1.30); POTASSIUM 3.7 MMOL/L (3.5-5.1); SODIUM 139 MMOL/L (136-145)
--- NOTE | 2019-10-15 06:39 | NUR ---
NURSE NOTES: Patient seen by Dr. Porter, Doctor said okay to discharge from a hematology standpoint. Patient will need to follow up as an outpatient in Dr. Porter's clinic.
--- NOTE | 2019-10-15 07:17 | NUR ---
HAND-OFF: Report given to TRACEY Marcano. Patient in stable condition. .
[2019-10-15 08:00] VITALS: BP 95/67
--- NOTE | 2019-10-15 08:00 | NUR ---
NURSE NOTES: received pt from TRACEY Mobley, pt was resting no acute distress, call light w/in reach
[2019-10-15] MEDS: Enoxaparin 40mg Inj SUBQ SCH (09:15)
--- NOTE | 2019-10-15 09:46 | General Progress Note ---
Assessment/Plan Problem List: (1) Dehydration ICD Codes: E86.0 - Dehydration SNOMED: 88807288 (2) Pancreatic cancer ICD Codes: C25.9 - Malignant neoplasm of pancreas, unspecified SNOMED: 793706211 (3) Metastasis ICD Codes: C79.9 - Secondary malignant neoplasm of unspecified site SNOMED: 674308627 (4) Depression ICD Codes: F32.9 - Major depressive disorder, single episode, unspecified SNOMED: 15607863 (5) Hypothyroid ICD Codes: E03.9 - Hypothyroidism, unspecified SNOMED: 98724047 (6) Elevated cholesterol ICD Codes: E78.0 - Pure hypercholesterolemia SNOMED: 92727783 (7) UTI (urinary tract infection) ICD Codes: N39.0 - Urinary tract infection, site not specified SNOMED: 55317105 (8) Dehydration ICD Codes: E86.0 - Dehydration SNOMED: 20608654 Status: stable, progressing Assessment/Plan: afebrile dehydration malnutrtion reviewed chart and labs Subjective ROS Limited/Unobtainable: Yes Allergies: Coded Allergies: No Known Allergies (Unverified , 03/24/16) Objective Last 24 Hour Vital Signs Date Time Temp Pulse Resp B/P (MAP) Pulse Ox O2 Delivery O2 Flow Rate FiO2 10/15/19 08:15 Room Air 10/15/19 08:00 98.0 99 18 95/67 (76) 97 10/15/19 03:49 98.1 84 99/66 (77) 19 10/15/19 00:00 98.4 90 98/85 (89) 20 10/14/19 21:00 Room Air 10/14/19 20:00 98.2 85 110/81 (91) 21 10/14/19 16:00 98.3 89 121/83 (96) 18 10/14/19 14:32 68 20 98 10/14/19 12:00 98.2 90 112/85 (94) 20 Intake and Output 10/14/19 10/15/19 19:00 07:00 Intake Total 400 ml 300 ml Balance 400 ml 300 ml Intake Oral 300 ml IV Total 400 ml # Voids 4 3 Laboratory Tests 10/15/19 05:35: White Blood Count 9.5, Red Blood Count 4.13L, Hemoglobin 12.0, Hematocrit 35.8L , Mean Corpuscular Volume 87, Mean Corpuscular Hemoglobin 29.0, Mean Corpuscular Hemoglobin Concent 33.4, Red Cell Distribution Width 11.4L, Platelet Count 238, Mean Platelet Volume 6.7, Neutrophils (%) (Auto) 72.5, Lymphocytes (%) (Auto) 16.9L, Monocytes (%) (Auto) 7.5, Eosinophils (%) (Auto) 2.5, Basophils (%) (Auto) 0.6, Sodium Level 139, Potassium Level 3.7, Chloride Level 104, Carbon Dioxide Level 28, Anion Gap 8, Blood Urea Nitrogen 7, Creatinine 0.4L, Estimat Glomerular Filtration Rate > 60, Glucose Level 93, Calcium Level 8.1L Height (Feet): 5 Height (Inches): 5.00 Weight (Pounds): 108 Saeid Magallanes MD October 15, 2019 09:46
--- NOTE | 2019-10-15 10:12 | Hematology/Onc Progress Note ---
Assessment/Plan Assessment/Plan Assessment/Recs # Pancreatic mass with likely mets -- LARGE LEFT UPPER QUADRANT MASS LIKELY ARISING FROM THE PANCREAS WITH EXTENSION INTO THE LESSER SAC. 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 RETROPERITONEAL ADENOPATHY ENCASING THE SMA ARTERY AND ALONG THE LEFT PARA-AORTIC SPACE. LEFT ADRENAL METASTASIS. --> ct guided biop for 10/12/2019 cancelled as could not get a good [place] --> endoscopic us ordered 10/13-->pending --> us of the ovaries --> APPARENT AMORPHOUS HYPOECHOIC MASSLIKE STRUCTURE SEEN ADJACENT TO THE URINARY BLADDER OF UNDETERMINED ORIGIN. SINCE THE OVARIES ARE NOT DISTINCTLY SEEN, AN OVARIAN MASS IS CONSIDERED. --> ca 19.9, 39,393, ca 125 is 523, cea 731 --> weight loss noted --> consider mirtazpaine --> as per gi care, they are aware --> to f/u as outpatient # Dehydration --> on ivfs as needed # LEFT ADRENAL METASTASIS. --> likely c/w panc primary cancer # Leukocytosis --> urine cx+ x2 --> wbc trend: 7.8-->11.6 -->9.5 --> 10/13 cxr: Trace bilateral pleural effusions # Weight loss --> related to ca The timing of this note does not necessarily reflect the time of the patient was seen. Greatly appreciate consultation. Subjective Allergies: Coded Allergies: No Known Allergies (Unverified , 03/24/16) Subjective 10/11 med surg, awake and alert, ct guided biop for today 10/[address] guided needle, endoscopic us ordered 10/13 us pelvis reviewed, no acute distress, room air 10/14 cxr abd labs reviewed, stable for dc Objective Objective Current Medications Medications (Trade) Dose Ordered Sig/Tiago Route PRN Reason Start Time Stop Time Status Last Admin Dose Admin Acetaminophen (Tylenol) 650 mg Q6H PRN ORAL 1-3 mild pain/fever > 100.4 10/10/19 21:00 11/09/19 20:59 10/12/19 03:23 Acetaminophen/ Hydrocodone Bitart ([place] 5/325) 1 tab Q4H PRN ORAL Pain (Pain Scale 4-10) 10/12/19 06:15 10/19/19 06:14 10/13/19 23:58 Enoxaparin Sodium (Lovenox) 40 mg DAILY SUBQ 10/12/19 09:00 01/10/20 08:59 10/15/19 09:15 Famotidine (Pepcid) 20 mg Q6H PRN ORAL acid reflux 10/12/19 06:03 01/10/20 06:02 10/12/19 06:18 Levothyroxine Sodium (Synthroid) 25 mcg ACBREAKFAST ORAL 10/11/19 06:30 11/10/19 06:29 10/15/19 05:49 Lorazepam (Ativan 2mg/ml 1ml) 1 mg Q12HR PRN IV For Anxiety 10/12/19 06:15 10/19/19 06:14 Midodrine (Pro-Amatine) 5 mg TID ORAL 10/13/19 18:00 01/11/20 17:59 10/15/19 09:15 Ondansetron HCl (Zofran) 4 mg Q4H PRN IVP Nausea & Vomiting 10/11/19 05:45 11/10/19 05:44 10/13/19 23:45 Zolpidem Tartrate (Ambien) 5 mg HSPRN PRN ORAL Insomnia 10/10/19 21:00 10/17/19 20:59 10/15/19 02:33 Last 24 Hour Vital Signs Date Time Temp Pulse Resp B/P (MAP) Pulse Ox O2 Delivery O2 Flow Rate FiO2 10/15/19 08:15 Room Air 10/15/19 08:00 98.0 99 18 95/67 (76) 97 10/15/19 03:49 98.1 84 99/66 (77) 10/15/19 00:00 98.4 90 98/85 (89) 20 10/14/19 21:00 Room Air 10/14/19 20:00 98.2 85 110/81 (91) 10/14/19 16:00 98.3 89 121/83 (96) 18 10/14/19 14:32 68 20 98 10/14/19 12:00 98.2 90 112/85 (94) 10/14/19 09:45 97.9 75 19 105/72 96 Nasal Cannula 3 10/14/19 09:35 77 18 104/70 96 Nasal Cannula 3 10/14/19 09:25 80 15 103/69 96 Nasal Cannula 3 10/14/19 09:23 72 20 97 10/14/19 09:20 84 15 100/69 96 Nasal Cannula 3 10/14/19 09:15 97.5 82 16 102/70 94 Nasal Cannula 3 10/14/19 09:00 Room Air 10/14/19 04:00 97.2 79 19 98/66 (77) 95 10/14/19 00:00 97.2 95 19 96/63 (74) 98 10/13/19 23:02 Room Air 10/13/19 20:00 99.0 85 19 109/72 (84) 97 10/13/19 16:00 98.5 83 19 101/65 (77) 95 10/13/19 12:00 98.2 88 20 108/74 (85) 95 Intake and Output 10/14/19 10/15/19 19:00 07:00 Intake Total 400 ml 300 ml Balance 400 ml 300 ml Intake Oral 300 ml IV Total 400 ml # Voids 4 3 Labs Test 10/12/19 12:20 10/13/19 04:40 10/14/19 05:20 10/15/19 05:35 Prothrombin Time 11.5 SEC (9.30-11.50) Prothromb Time International Ratio 1.0 (0.9-1.1) Activated Partial Thromboplast Time 27 SEC (23-33) White Blood Count 7.8 K/UL (4.8-10.8) 8.8 K/UL (4.8-10.8) 9.5 K/UL (4.8-10.8) Red Blood Count 4.36 M/UL (4.20-5.40) 4.01 M/UL (4.20-5.40) 4.13 M/UL (4.20-5.40) Hemoglobin 12.7 G/DL (12.0-16.0) 11.6 G/DL (12.0-16.0) 12.0 G/DL (12.0-16.0) Hematocrit 38.0 % (37.0-47.0) 34.9 % (37.0-47.0) 35.8 % (37.0-47.0) Mean Corpuscular Volume 87 FL (80-99) 87 FL (80-99) 87 FL (80-99) Mean Corpuscular Hemoglobin 29.1 PG (27.0-31.0) 29.0 PG (27.0-31.0) 29.0 PG (27.0-31.0) Mean Corpuscular Hemoglobin Concent 33.3 G/DL (32.0-36.0) 33.4 G/DL (32.0-36.0) 33.4 G/DL (32.0-36.0) Red Cell Distribution Width 11.3 % (11.6-14.8) 11.5 % (11.6-14.8) 11.4 % (11.6-14.8) Platelet Count 230 K/UL (150-450) 221 K/UL (150-450) 238 K/UL (150-450) Mean Platelet Volume 6.3 FL (6.5-10.1) 7.0 FL (6.5-10.1) 6.7 FL (6.5-10.1) Neutrophils (%) (Auto) 64.7 % (45.0-75.0) 68.4 % (45.0-75.0) 72.5 % (45.0-75.0) Lymphocytes (%) (Auto) 23.5 % (20.0-45.0) 19.4 % (20.0-45.0) 16.9 % (20.0-45.0) Monocytes (%) (Auto) 7.2 % (1.0-10.0) 8.4 % (1.0-10.0) 7.5 % (1.0-10.0) Eosinophils (%) (Auto) 3.6 % (0.0-3.0) 3.1 % (0.0-3.0) 2.5 % (0.0-3.0) Basophils (%) (Auto) 1.0 % (0.0-2.0) 0.7 % (0.0-2.0) 0.6 % (0.0-2.0) Sodium Level 141 MMOL/L (136-145) 140 MMOL/L (136-145) 139 MMOL/L (136-145) Potassium Level 3.7 MMOL/L (3.5-5.1) 3.7 MMOL/L (3.5-5.1) 3.7 MMOL/L (3.5-5.1) Chloride Level 104 MMOL/L (98-107) 105 MMOL/L (98-107) 104 MMOL/L (98-107) Carbon Dioxide Level 28 MMOL/L (21-32) 26 MMOL/L (21-32) 28 MMOL/L (21-32) Anion Gap 9 mmol/L (5-15) 9 mmol/L (5-15) 8 mmol/L (5-15) Blood Urea Nitrogen 7 mg/dL (7-18) 6 mg/dL (7-18) 7 mg/dL (7-18) Creatinine 0.6 MG/DL (0.55-1.30) 0.6 MG/DL (0.55-1.30) 0.4 MG/DL (0.55-1.30) Estimat Glomerular Filtration Rate > 60 mL/min (>60) > 60 mL/min (>60) > 60 mL/min (>60) Glucose Level 80 MG/DL (74-106) 93 MG/DL (74-106) 93 MG/DL (74-106) Calcium Level 8.9 MG/DL (8.5-10.1) 8.1 MG/DL (8.5-10.1) 8.1 MG/DL (8.5-10.1) Pro-B-Type Natriuretic Peptide 225 pg/mL (0-125) Height (Feet): 5 Height (Inches): 5.00 Weight (Pounds): 108 Objective Physical Exam: Vitals: reviewed General: NAD HEENT: nc, at Neck: supple Chest: clear breath sounds bilaterally Cardiovascular: RRR, no s3, s4 Abdomen: soft, nontender, nd ++ abd pain Extremities: no cce, normal range of motion Back: back pain ttp Neuro: alert and oriented Ortiz Porter MD October 15, 2019 10:12
[2019-10-15 12:05] VITALS: BP 92/63
[2019-10-15] MEDS: Docusate 100mg cap ORAL SCH ×2 (12:27→17:32)
[2019-10-15] MEDS: HYDROcodone/Acetamin 5/325 tab ORAL PRN ×2 (12:30→20:50)
--- NOTE | 2019-10-15 13:22 | NUR ---
CASE MANAGEMENT:REVIEW 10/15/19 SI:S/P EUS WITH BIOPSY METASTASIS . PANCREASE CANCER . DEHYDRATION 98.2 101 20 92/63 95% ON RA BNP 225 CA+ 8.1 BUN 6 IS: SYNTHROID PO QAM NORCO PO Q4HR/PRN IV ZOFRAN Q4HR/PRN CHEST X-RAY-Trace bilateral pleural effusions with adjacent streaky opacities in the lung bases which may be related to subsegmental atelectasis. Possibility of developing infiltrate however is not excluded given history of cough. Correlation with clinical findings and follow-up recommended. \: 3E MED SURG UNIT DCP: HOME WHEN STABLE PLAN: MONITOR LOW BP
--- NOTE | 2019-10-15 13:57 | Cardiac Electrophysiology PN ---
Assessment/Plan Assessment/Plan 1. Hypotension. Blood pressure is improved. Patient is off any blood pressure lowering agent. On midodrine 5 mg t.i.d. Echocardiogram pending 2. Hypothyroidism, on Synthroid. 3. Significant weight loss due to pancreatic cancer. S/P EUS and biopsy by Dr. Michael. Follow up Oncology. 4. Depression. Subjective Subjective Alert in NAD.S/P EUS yesterday. Knows that has pancreatic ca. Objective Last 24 Hour Vital Signs Date Time Temp Pulse Resp B/P (MAP) Pulse Ox O2 Delivery O2 Flow Rate FiO2 10/15/19 12:05 98.2 101 20 92/63 (73) 95 10/15/19 08:15 Room Air 10/15/19 08:00 98.0 99 18 95/67 (76) 97 10/15/19 03:49 98.1 84 99/66 (77) 19 10/15/19 00:00 98.4 90 98/85 (89) 20 10/14/19 21:00 Room Air 10/14/19 20:00 98.2 85 110/81 (91) 21 10/14/19 16:00 98.3 89 121/83 (96) 18 10/14/19 14:32 68 20 98 Intake and Output 10/14/19 10/15/19 19:00 07:00 Intake Total 400 ml 300 ml Balance 400 ml 300 ml Intake Oral 300 ml IV Total 400 ml # Voids 4 3 Laboratory Tests Test 10/15/19 05:35 White Blood Count 9.5 K/UL (4.8-10.8) Red Blood Count 4.13 M/UL (4.20-5.40) L Hemoglobin 12.0 G/DL (12.0-16.0) Hematocrit 35.8 % (37.0-47.0) L Mean Corpuscular Volume 87 FL (80-99) Mean Corpuscular Hemoglobin 29.0 PG (27.0-31.0) Mean Corpuscular Hemoglobin Concent 33.4 G/DL (32.0-36.0) Red Cell Distribution Width 11.4 % (11.6-14.8) L Platelet Count 238 K/UL (150-450) Mean Platelet Volume 6.7 FL (6.5-10.1) Neutrophils (%) (Auto) 72.5 % (45.0-75.0) Lymphocytes (%) (Auto) 16.9 % (20.0-45.0) L Monocytes (%) (Auto) 7.5 % (1.0-10.0) Eosinophils (%) (Auto) 2.5 % (0.0-3.0) Basophils (%) (Auto) 0.6 % (0.0-2.0) Sodium Level 139 MMOL/L (136-145) Potassium Level 3.7 MMOL/L (3.5-5.1) Chloride Level 104 MMOL/L (98-107) Carbon Dioxide Level 28 MMOL/L (21-32) Anion Gap 8 mmol/L (5-15) Blood Urea Nitrogen 7 mg/dL (7-18) Creatinine 0.4 MG/DL (0.55-1.30) L Estimat Glomerular Filtration Rate > 60 mL/min (>60) Glucose Level 93 MG/DL (74-106) Calcium Level 8.1 MG/DL (8.5-10.1) L Objective HEAD AND NECK: No JVD. LUNGS: Clear. CARDIOVASCULAR: Regular S1 and S2 with no gallop or murmur. ABDOMEN: Soft. EXTREMITIES: No pitting edema. Trevor Bardales MD October 15, 2019 13:57
--- NOTE | 2019-10-15 14:48 | Infectious Diseases Prog Note ---
Assessment/Plan Assessment/Plan Assessment: Unintentional weight loss Metastatic Pancreatic mass w/ peritoneal carcinomatosis (mets to adrenal, intraabdominal, lymph nodes) -10/13 SP EUS with pancreatic mass Bx -Pelvic US: SMALL POSTMENOPAUSAL UTERUS. ENDOMETRIAL STRIPE NOT WELL SEEN. OVARIES ALSO NOT VISUALIZED. APPARENT AMORPHOUS HYPOECHOIC MASSLIKE STRUCTURE SEEN ADJACENT TO THE URINARY BLADDER OF UNDETERMINED ORIGIN. SINCE THE OVARIES ARE NOT DISTINCTLY SEEN, AN OVARIAN MASS ISCONSIDERED. -10/09 CT abd/p: LARGE LEFT UPPER QUADRANT MASS LIKELY ARISING FROM THE PANCREAS WITH EXTENSION INTO THE LESSER SAC. 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 RETROPERITONEAL ADENOPATHY ENCASING THE SMA ARTERY AND ALONG THE LEFT PARA- AORTIC SPACE. LEFT ADRENAL METASTASIS. NO METASTATIC DISEASE TO THE CHEST PRESENTLY. INCIDENTAL FINDING OF BILATERAL MAMMARY PROSTHESIS IMPLANT INTRACAPSULAR RUPTURE. -10/02 SP EGD/COlo:: gastritis, hemorrhoids --of note, patient had negative COvid testing as an outpatient prior to the procedure Afebrile Mild leukocytosis, SP- -10/13 CXR: Trace bilateral pleural effusions with adjacent streaky opacities in the lung bases which may be related to subsegmental atelectasis. Possibility of developing infiltrate however is not excluded given history of cough. Correlation with clinical findings and follow-up recommended. -u/a no pyuria, nit neg, leuk +1; ucx 40-50k mixed gram positive growth- Patient with no UTI symptoms hypothyroidism MDD sp breast augmentation Plan: -Continue to monitor off abx -f/u cx -Monitor CBC/CMP, temperature -GI, heme/onc f/u -f/u biopsy Thank you for consulting [facility]. Will continue to follow along with you. Subjective Allergies: Coded Allergies: No Known Allergies (Unverified , 03/24/16) Subjective afebrile no leukocytosis at RA Objective Vital Signs Last 24 Hour Vital Signs Date Time Temp Pulse Resp B/P (MAP) Pulse Ox O2 Delivery O2 Flow Rate FiO2 10/15/19 12:05 98.2 101 20 92/63 (73) 95 10/15/19 08:15 Room Air 10/15/19 08:00 98.0 99 18 95/67 (76) 97 10/15/19 03:49 98.1 84 99/66 (77) 19 10/15/19 00:00 98.4 90 98/85 (89) 20 10/14/19 21:00 Room Air 10/14/19 20:00 98.2 85 110/81 (91) 21 10/14/19 16:00 98.3 89 121/83 (96) 18 Height (Feet): 5 Height (Inches): 5.00 Weight (Pounds): 108 Objective General: NAD HEENT: nc, at Neck: supple Chest: clear breath sounds bilaterally Cardiovascular: RRR, no s3, s4 Abdomen: soft, nontender, nd ++ abd pain Extremities: no cce, normal range of motion Back: back pain ttp Neuro: alert and oriented Laboratory Tests Test 10/15/19 05:35 White Blood Count 9.5 K/UL (4.8-10.8) Red Blood Count 4.13 M/UL (4.20-5.40) L Hemoglobin 12.0 G/DL (12.0-16.0) Hematocrit 35.8 % (37.0-47.0) L Mean Corpuscular Volume 87 FL (80-99) Mean Corpuscular Hemoglobin 29.0 PG (27.0-31.0) Mean Corpuscular Hemoglobin Concent 33.4 G/DL (32.0-36.0) Red Cell Distribution Width 11.4 % (11.6-14.8) L Platelet Count 238 K/UL (150-450) Mean Platelet Volume 6.7 FL (6.5-10.1) Neutrophils (%) (Auto) 72.5 % (45.0-75.0) Lymphocytes (%) (Auto) 16.9 % (20.0-45.0) L Monocytes (%) (Auto) 7.5 % (1.0-10.0) Eosinophils (%) (Auto) 2.5 % (0.0-3.0) Basophils (%) (Auto) 0.6 % (0.0-2.0) Sodium Level 139 MMOL/L (136-145) Potassium Level 3.7 MMOL/L (3.5-5.1) Chloride Level 104 MMOL/L (98-107) Carbon Dioxide Level 28 MMOL/L (21-32) Anion Gap 8 mmol/L (5-15) Blood Urea Nitrogen 7 mg/dL (7-18) Creatinine 0.4 MG/DL (0.55-1.30) L Estimat Glomerular Filtration Rate > 60 mL/min (>60) Glucose Level 93 MG/DL (74-106) Calcium Level 8.1 MG/DL (8.5-10.1) L Current Medications Medications (Trade) Dose Ordered Sig/Tiaog Route PRN Reason Start Time Stop Time Status Last Admin Dose Admin Acetaminophen (Tylenol) 650 mg Q6H PRN ORAL 1-3 mild pain/fever > 100.4 10/10/19 21:00 11/09/19 20:59 10/12/19 03:23 Acetaminophen/ Hydrocodone Bitart ([place] 5/325) 1 tab Q4H PRN ORAL Pain (Pain Scale 4-10) 10/12/19 06:15 10/19/19 06:14 10/15/19 12:30 Docusate Sodium (Colace) 100 mg TID ORAL 10/15/19 13:00 11/14/19 12:59 10/15/19 12:27 Enoxaparin Sodium (Lovenox) 40 mg DAILY SUBQ 10/12/19 09:00 01/10/20 08:59 10/15/19 09:15 Famotidine (Pepcid) 20 mg Q6H PRN ORAL acid reflux 10/12/19 06:03 01/10/20 06:02 10/12/19 06:18 Levothyroxine Sodium (Synthroid) 25 mcg ACBREAKFAST ORAL 10/11/19 06:30 11/10/19 06:29 10/15/19 05:49 Lorazepam (Ativan 2mg/ml 1ml) 1 mg Q12HR PRN IV For Anxiety 10/12/19 06:15 10/19/19 06:14 Midodrine (Pro-Amatine) 5 mg TID ORAL 10/13/19 18:00 01/11/20 17:59 10/15/19 12:28 Ondansetron HCl (Zofran) 4 mg Q4H PRN IVP Nausea & Vomiting 10/11/19 05:45 11/10/19 05:44 10/13/19 23:45 Pantoprazole (Protonix) 40 mg DAILY ORAL 10/15/19 11:45 11/14/19 11:44 10/15/19 12:27 Zolpidem Tartrate (Ambien) 5 mg HSPRN PRN ORAL Insomnia 10/10/19 21:00 10/17/19 20:59 10/15/19 02:33 Sabi Abbasi M.D. October 15, 2019 14:48
[2019-10-15 16:00] VITALS: BP 94/66
--- NOTE | 2019-10-15 16:32 | NUR ---
PT Note PT rosanne completed, treatment initiated. Patient has muscle weakness, decreased balance, pain on the left knee and abdominal area with c/o dizziness during gait training. Patient needs PT to increase her muscle strength and balance and decrease pain to improve her safety in mobility and gait to enable her to return home. Addendum: 10/15/19 at 1633 by FABIENNE ROYAL PT Amended: Links added.
--- NOTE | 2019-10-15 18:25 | NUR ---
HAND-OFF: Report given to TRACEY Hutchins. pt is in stable condition.
--- NOTE | 2019-10-15 19:53 | NUR ---
NURSE NOTES: RECEIVED PATIENT LYING IN BED, AWAKE, ALERT/ORIENTED X4, DENIES PAIN, NO SIGNS AND SYMPTOMS OF ACUTE CARDIO RESPIRATORY DISTRESS/SHORTNESS OF BREATH, DENIES CHEST PAIN, NO PERIPHERAL EDEMA NOTED. ABDOMEN SOFT/NON DISTENDED/NON TENDER, AUDIBLE BOWEL SOUNDS, NOTED WITH POOR APPETITE, NO REPORT OF N/V/D, REQUIRE ASSISTANCE TO BEDSIDE COMMODE SECONDARY TO WEAKNESS. SIDE RAILS UP X2 FOR MOBILITY, BED IN LOWEST POSITION FOR SAFETY, ENCOURAGED PATIENT TO UTILIZE CALL LIGHT FOR ASSISTANCE, VERBALIZED UNDERSTANDING. CONTINUE WITH CURRENT PLAN OF CARE. NAD.
[2019-10-15 20:00] VITALS: BP 104/70
--- NOTE | 2019-10-15 20:08 | General Progress Note ---
Assessment/Plan Status: stable, progressing Assessment/Plan: Assessment - pancreatic CA - constipation - weight loss - hypothyroid - Depression Recommendations - laxative - push po - f/u path from EUS / FNA Dk Martinez Subjective Allergies: Coded Allergies: No Known Allergies (Unverified , 03/24/16) Subjective Above noted called by RN re abd pain c/o constipation s/p EUS and FNA for panc mass Objective Last 24 Hour Vital Signs Date Time Temp Pulse Resp B/P (MAP) Pulse Ox O2 Delivery O2 Flow Rate FiO2 10/15/19 16:00 98.1 80 18 94/66 (75) 97 10/15/19 12:05 98.2 101 20 92/63 (73) 95 10/15/19 08:15 Room Air 10/15/19 08:00 98.0 99 18 95/67 (76) 97 10/15/19 03:49 98.1 84 99/66 (77) 19 10/15/19 00:00 98.4 90 98/85 (89) 20 10/14/19 21:00 Room Air Intake and Output 10/14/19 10/15/19 19:00 07:00 Intake Total 400 ml 300 ml Balance 400 ml 300 ml Intake Oral 300 ml IV Total 400 ml # Voids 4 3 Laboratory Tests 10/15/19 05:35: White Blood Count 9.5, Red Blood Count 4.13L, Hemoglobin 12.0, Hematocrit 35.8L , Mean Corpuscular Volume 87, Mean Corpuscular Hemoglobin 29.0, Mean Corpuscular Hemoglobin Concent 33.4, Red Cell Distribution Width 11.4L, Platelet Count 238, Mean Platelet Volume 6.7, Neutrophils (%) (Auto) 72.5, Lymphocytes (%) (Auto) 16.9L, Monocytes (%) (Auto) 7.5, Eosinophils (%) (Auto) 2.5, Basophils (%) (Auto) 0.6, Sodium Level 139, Potassium Level 3.7, Chloride Level 104, Carbon Dioxide Level 28, Anion Gap 8, Blood Urea Nitrogen 7, Creatinine 0.4L, Estimat Glomerular Filtration Rate > 60, Glucose Level 93, Calcium Level 8.1L Height (Feet): 5 Height (Inches): 5.00 Weight (Pounds): 108 Objective Thin WW NCAT supple CTA RRR abd firm , mildly distended, mild TTP no edema Dk Contreras MD October 15, 2019 20:08
[2019-10-16] VITALS (7 sets, daily range): BP systolic 84–115; BP diastolic 58–76
[2019-10-16] MEDS: Zolpidem 5mg tab ORAL PRN ×2 (00:21→22:16)
--- NOTE | 2019-10-16 00:32 | NUR ---
NURSE NOTES: RESTING WELL ON ROUNDS. NAD.
[2019-10-16] MEDS: Levothyroxine 25mcg tab ORAL SCH (05:43)
--- NOTE | 2019-10-16 06:04 | NUR ---
NURSE NOTES: RESTED WELL, NO SIGNIFICANT CHANGE OF CONDITION NOTED THROUGHOUT THE NIGHT. SAFETY MAINTAINED. NAD.
--- NOTE | 2019-10-16 07:25 | NUR ---
HAND-OFF: Report given to TRACEY MCHUGH.
--- NOTE | 2019-10-16 08:15 | NUR ---
NURSE NOTES: Received patient in bed, in room air, no sign of respiratory distress, complains of abdominal pain 09/01, nurse will give pain medication on due time. Bedside commode by patient's bedside, right hand IV access saline locked. Call light within easy reach, siderails up x3, bed locked at the lowest position possible. Will continue to monitor patient and follow up with the plan of care.
[2019-10-16] MEDS: Docusate 100mg cap ORAL SCH ×3 (09:07→19:09)
[2019-10-16] MEDS: Sorbitol Solution UD 30ml ORAL PRN (09:08)
[2019-10-16] MEDS: HYDROcodone/Acetamin 5/325 tab ORAL PRN (09:08)
[2019-10-16] MEDS: Enoxaparin 40mg Inj SUBQ SCH (09:15)
--- NOTE | 2019-10-16 10:38 | Hematology/Onc Progress Note ---
Assessment/Plan Assessment/Plan Assessment/Recs # Pancreatic mass with likely mets -- LARGE LEFT UPPER QUADRANT MASS LIKELY ARISING FROM THE PANCREAS WITH EXTENSION INTO THE LESSER SAC. 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 RETROPERITONEAL ADENOPATHY ENCASING THE SMA ARTERY AND ALONG THE LEFT PARA-AORTIC SPACE. LEFT ADRENAL METASTASIS. --> ct guided biop for 10/12/2019 cancelled as could not get a good [place] --> endoscopic us ordered 10/13-->pending --> us of the ovaries --> APPARENT AMORPHOUS HYPOECHOIC MASSLIKE STRUCTURE SEEN ADJACENT TO THE URINARY BLADDER OF UNDETERMINED ORIGIN. SINCE THE OVARIES ARE NOT DISTINCTLY SEEN, AN OVARIAN MASS IS CONSIDERED. --> ca 19.9, 39,393, ca 125 is 523, cea 731 --> weight loss noted --> consider mirtazpaine --> as per gi care, they are aware --> to f/u as outpatient --> at this time very depressed, will consider psych eval # Dehydration --> on ivfs as needed # LEFT ADRENAL METASTASIS. --> likely c/w panc primary cancer # Leukocytosis --> urine cx+ x2 --> wbc trend: 7.8-->11.6 -->9.5 --> 10/13 cxr: Trace bilateral pleural effusions # Weight loss --> related to ca # Dvt ppx ambulation The timing of this note does not necessarily reflect the time of the patient was seen. Greatly appreciate consultation. Subjective Constitutional: Denies: no symptoms, chills, fever, malaise, weakness, other HEENT: Denies: no symptoms, eye pain, blurred vision, tearing, double vision, ear pain, ear discharge, nose pain, nose congestion, throat pain, throat swelling, mouth pain, mouth swelling, other Cardiovascular: Denies: no symptoms, chest pain, edema, irregular heart rate, lightheadedness, palpitations, syncope, other Respiratory: Denies: no symptoms, cough, shortness of breath, SOB with excertion, SOB at rest, sputum, wheezing, other Genitourinary: Denies: no symptoms, burning, discharge, frequency, flank pain, hematuria, incontinence, pain, urgency, other Neurologic/Psychiatric: Denies: no symptoms, anxiety, depressed, emotional problems, headache, numbness, paresthesia, pre-existing deficit, seizure, tingling, tremors, weakness, other Endocrine: Denies: no symptoms, excessive sweating, flushing, intolerance to cold, intolerance to heat, increased hunger, increased thirst, increased urine, unexplained weight gain, unexplained weight loss, other Allergies: Coded Allergies: No Known Allergies (Unverified , 03/24/16) Subjective 10/11 med surg, awake and alert, ct guided biop for today 10/[address] guided needle, endoscopic us ordered 10/13 us pelvis reviewed, no acute distress, room air 10/14 cxr abd labs reviewed, stable for dc 10/15 long discussion, feels depressed, no bleeding, meds noted Objective Objective Current Medications Medications (Trade) Dose Ordered Sig/Tiago Route PRN Reason Start Time Stop Time Status Last Admin Dose Admin Acetaminophen (Tylenol) 650 mg Q6H PRN ORAL 1-3 mild pain/fever > 100.4 10/10/19 21:00 11/09/19 20:59 10/12/19 03:23 Acetaminophen/ Hydrocodone Bitart ([place] 5/325) 1 tab Q4H PRN ORAL Pain (Pain Scale 4-10) 10/12/19 06:15 10/19/19 06:14 10/16/19 09:08 Docusate Sodium (Colace) 100 mg TID ORAL 10/15/19 13:00 11/14/19 12:59 10/16/19 09:07 Enoxaparin Sodium (Lovenox) 40 mg DAILY SUBQ 10/12/19 09:00 01/10/20 08:59 10/16/19 09:15 Famotidine (Pepcid) 20 mg Q6H PRN ORAL acid reflux 10/12/19 06:03 01/10/20 06:02 10/12/19 06:18 Levothyroxine Sodium (Synthroid) 25 mcg ACBREAKFAST ORAL 10/11/19 06:30 11/10/19 06:29 10/16/19 05:43 Lorazepam (Ativan 2mg/ml 1ml) 1 mg Q12HR PRN IV For Anxiety 10/12/19 06:15 10/19/19 06:14 Midodrine (Pro-Amatine) 5 mg TID ORAL 10/13/19 18:00 01/11/20 17:59 10/16/19 09:08 Ondansetron HCl (Zofran) 4 mg Q4H PRN IVP Nausea & Vomiting 10/11/19 05:45 11/10/19 05:44 10/16/19 09:28 Pantoprazole (Protonix) 40 mg DAILY ORAL 10/15/19 11:45 11/14/19 11:44 10/16/19 09:07 Sorbitol (sorbitoL) 45 ml BIDPRN PRN ORAL Constipation 10/15/19 20:15 11/14/19 20:14 10/16/19 09:08 Zolpidem Tartrate (Ambien) 5 mg HSPRN PRN ORAL Insomnia 10/10/19 21:00 10/17/19 20:59 10/16/19 00:21 Last 24 Hour Vital Signs Date Time Temp Pulse Resp B/P (MAP) Pulse Ox O2 Delivery O2 Flow Rate FiO2 10/16/19 09:38 98.4 10/16/19 08:00 98.4 65 18 84/58 (67) 100 10/16/19 04:00 98.3 77 18 97/67 (77) 95 10/16/19 00:00 98.9 70 18 99/62 (74) 95 10/15/19 21:00 Room Air 10/15/19 20:00 98.5 74 18 104/70 (81) 94 10/15/19 16:00 98.1 80 18 94/66 (75) 97 10/15/19 12:05 98.2 101 20 92/63 (73) 95 10/15/19 08:15 Room Air 10/15/19 08:00 98.0 99 18 95/67 (76) 97 10/15/19 03:49 98.1 84 99/66 (77) 19 10/15/19 00:00 98.4 90 98/85 (89) 20 10/14/19 21:00 Room Air 10/14/19 20:00 98.2 85 110/81 (91) 21 10/14/19 16:00 98.3 89 121/83 (96) 18 10/14/19 14:32 68 20 98 10/14/19 12:00 98.2 90 112/85 (94) 20 Intake and Output 10/15/19 10/16/19 19:00 07:00 Intake Total 700 ml 300 ml Balance 700 ml 300 ml Intake Oral 700 ml 300 ml # Voids 3 2 Labs Test 10/14/19 05:20 10/15/19 05:35 White Blood Count 8.8 K/UL (4.8-10.8) 9.5 K/UL (4.8-10.8) Red Blood Count 4.01 M/UL (4.20-5.40) 4.13 M/UL (4.20-5.40) Hemoglobin 11.6 G/DL (12.0-16.0) 12.0 G/DL (12.0-16.0) Hematocrit 34.9 % (37.0-47.0) 35.8 % (37.0-47.0) Mean Corpuscular Volume 87 FL (80-99) 87 FL (80-99) Mean Corpuscular Hemoglobin 29.0 PG (27.0-31.0) 29.0 PG (27.0-31.0) Mean Corpuscular Hemoglobin Concent 33.4 G/DL (32.0-36.0) 33.4 G/DL (32.0-36.0) Red Cell Distribution Width 11.5 % (11.6-14.8) 11.4 % (11.6-14.8) Platelet Count 221 K/UL (150-450) 238 K/UL (150-450) Mean Platelet Volume 7.0 FL (6.5-10.1) 6.7 FL (6.5-10.1) Neutrophils (%) (Auto) 68.4 % (45.0-75.0) 72.5 % (45.0-75.0) Lymphocytes (%) (Auto) 19.4 % (20.0-45.0) 16.9 % (20.0-45.0) Monocytes (%) (Auto) 8.4 % (1.0-10.0) 7.5 % (1.0-10.0) Eosinophils (%) (Auto) 3.1 % (0.0-3.0) 2.5 % (0.0-3.0) Basophils (%) (Auto) 0.7 % (0.0-2.0) 0.6 % (0.0-2.0) Sodium Level 140 MMOL/L (136-145) 139 MMOL/L (136-145) Potassium Level 3.7 MMOL/L (3.5-5.1) 3.7 MMOL/L (3.5-5.1) Chloride Level 105 MMOL/L (98-107) 104 MMOL/L (98-107) Carbon Dioxide Level 26 MMOL/L (21-32) 28 MMOL/L (21-32) Anion Gap 9 mmol/L (5-15) 8 mmol/L (5-15) Blood Urea Nitrogen 6 mg/dL (7-18) 7 mg/dL (7-18) Creatinine 0.6 MG/DL (0.55-1.30) 0.4 MG/DL (0.55-1.30) Estimat Glomerular Filtration Rate > 60 mL/min (>60) > 60 mL/min (>60) Glucose Level 93 MG/DL (74-106) 93 MG/DL (74-106) Calcium Level 8.1 MG/DL (8.5-10.1) 8.1 MG/DL (8.5-10.1) Pro-B-Type Natriuretic Peptide 225 pg/mL (0-125) Height (Feet): 5 Height (Inches): 5.00 Weight (Pounds): 108 Objective Physical Exam: Vitals: reviewed General: NAD HEENT: nc, at Neck: supple Chest: clear breath sounds bilaterally Cardiovascular: RRR, no s3, s4 Abdomen: soft, nontender, nd ++ abd pain Extremities: no cce, normal range of motion Back: back pain ttp Neuro: alert and oriented Ortiz Porter MD October 16, 2019 10:38
--- NOTE | 2019-10-16 15:35 | General Progress Note ---
Assessment/Plan Problem List: (1) Dehydration ICD Codes: E86.0 - Dehydration SNOMED: 99952118 (2) Pancreatic cancer ICD Codes: C25.9 - Malignant neoplasm of pancreas, unspecified SNOMED: 010827303 (3) Metastasis ICD Codes: C79.9 - Secondary malignant neoplasm of unspecified site SNOMED: 834182520 (4) Depression ICD Codes: F32.9 - Major depressive disorder, single episode, unspecified SNOMED: 98186976 (5) Hypothyroid ICD Codes: E03.9 - Hypothyroidism, unspecified SNOMED: 80799150 (6) Elevated cholesterol ICD Codes: E78.0 - Pure hypercholesterolemia SNOMED: 73802390 (7) UTI (urinary tract infection) ICD Codes: N39.0 - Urinary tract infection, site not specified SNOMED: 42040254 (8) Dehydration ICD Codes: E86.0 - Dehydration SNOMED: 32185974 Status: stable, progressing Assessment/Plan: resp insuff supportive therapy dehydration malnutrtion Subjective ROS Limited/Unobtainable: Yes Allergies: Coded Allergies: No Known Allergies (Unverified , 03/24/16) Objective Last 24 Hour Vital Signs Date Time Temp Pulse Resp B/P (MAP) Pulse Ox O2 Delivery O2 Flow Rate FiO2 10/16/19 12:00 98.2 85 18 97/69 (78) 96 10/16/19 09:38 98.4 10/16/19 09:00 Room Air 10/16/19 08:00 98.4 65 18 84/58 (67) 100 10/16/19 04:00 98.3 77 18 97/67 (77) 95 10/16/19 00:00 98.9 70 18 99/62 (74) 95 10/15/19 21:00 Room Air 10/15/19 20:00 98.5 74 18 104/70 (81) 94 10/15/19 16:00 98.1 80 18 94/66 (75) 97 Intake and Output 10/15/19 10/16/19 19:00 07:00 Intake Total 700 ml 300 ml Balance 700 ml 300 ml Intake Oral 700 ml 300 ml # Voids 3 2 Height (Feet): 5 Height (Inches): 5.00 Weight (Pounds): 108 Saeid Magallanes MD October 16, 2019 15:35
--- NOTE | 2019-10-16 16:45 | Cardiac Electrophysiology PN ---
Assessment/Plan Assessment/Plan 1. Hypotension. Blood pressure is improved off any blood pressure lowering agent. On midodrine 5 mg t.i.d. Echocardiogram pending 2. Hypothyroidism, on Synthroid. 3. Significant weight loss due to pancreatic cancer. S/P EUS and biopsy by Dr. Michael. Follow up Oncology. 4. Depression. Subjective Subjective Alert in NAD. No CP or SOB. Objective Last 24 Hour Vital Signs Date Time Temp Pulse Resp B/P (MAP) Pulse Ox O2 Delivery O2 Flow Rate FiO2 10/16/19 12:00 98.2 85 18 97/69 (78) 96 10/16/19 09:38 98.4 10/16/19 09:00 Room Air 10/16/19 08:00 98.4 65 18 84/58 (67) 100 10/16/19 04:00 98.3 77 18 97/67 (77) 95 10/16/19 00:00 98.9 70 18 99/62 (74) 95 10/15/19 21:00 Room Air 10/15/19 20:00 98.5 74 18 104/70 (81) 94 Intake and Output 10/15/19 10/16/19 19:00 07:00 Intake Total 700 ml 300 ml Balance 700 ml 300 ml Intake Oral 700 ml 300 ml # Voids 3 2 Objective HEAD AND NECK: No JVD. LUNGS: Clear. CARDIOVASCULAR: Regular S1 and S2 with no gallop or murmur. ABDOMEN: Soft. EXTREMITIES: No pitting edema. Trevor Bardales MD October 16, 2019 16:45
--- NOTE | 2019-10-16 19:23 | General Progress Note ---
Assessment/Plan Status: stable, progressing Assessment/Plan: Assessment - pancreatic CA - constipation - weight loss - hypothyroid - Depression Recommendations - laxative - push po - f/u path from EUS / FNA Subjective Allergies: Coded Allergies: No Known Allergies (Unverified , 03/24/16) Subjective Above noted just took laxative no BM yet Objective Last 24 Hour Vital Signs Date Time Temp Pulse Resp B/P (MAP) Pulse Ox O2 Delivery O2 Flow Rate FiO2 10/16/19 16:00 98.3 85 18 111/76 (88) 97 10/16/19 12:00 98.2 85 18 97/69 (78) 96 10/16/19 09:38 98.4 10/16/19 09:00 Room Air 10/16/19 08:00 98.4 65 18 84/58 (67) 100 10/16/19 04:00 98.3 77 18 97/67 (77) 95 10/16/19 00:00 98.9 70 18 99/62 (74) 95 10/15/19 21:00 Room Air 10/15/19 20:00 98.5 74 18 104/70 (81) 94 Intake and Output 10/15/19 10/16/19 19:00 07:00 Intake Total 700 ml 300 ml Balance 700 ml 300 ml Intake Oral 700 ml 300 ml # Voids 3 2 Height (Feet): 5 Height (Inches): 5.00 Weight (Pounds): 108 Objective Thin WW NCAT supple CTA RRR abd firm , mildly distended, mild TTP no edema Dk Contreras MD October 16, 2019 19:23
--- NOTE | 2019-10-16 19:41 | NUR ---
HAND-OFF: Report given to TRACEY Shi.
--- NOTE | 2019-10-16 19:42 | NUR ---
NURSE NOTES: Received report from TRACEY Khoury. Pt is awake, lying semi-sesay's; comfortably resting. No signs of acute distress noted. Pt denies any pain at this time. AOx4; able to make needs known. Checked IV site; patent and flushed. No erythema, bleeding, or infiltration noted. Bed at lowest position. Brakes on. Siderails up x3. Call light within reach. Will continue to monitor.
[2019-10-17 03:51] VITALS: BP 99/68
[2019-10-17] MEDS: Levothyroxine 25mcg tab ORAL SCH (05:46)
--- NOTE | 2019-10-17 07:16 | NUR ---
HAND-OFF: Report given to TRACEY Griffith. Pt is awake and in stable condition. Plan of care endorsed.
--- NOTE | 2019-10-17 07:24 | NUR ---
NURSE NOTES: WALKING ROUNDS DONE WITH OUTGOING RN. PATIENT AWAKE IN BED HAVING BREAKFAST. QUESTIONS ANSWERED NEEDS MET AT THIS TIME. DISCUSSED PLAN OF CARE FOR THE DAY. VERBALIZED UNDERSTANDING. BED IN LOW AND LOCKED POSITION.
--- NOTE | 2019-10-17 07:27 | General Progress Note ---
Assessment/Plan Problem List: (1) Pancreatic cancer ICD Codes: C25.9 - Malignant neoplasm of pancreas, unspecified SNOMED: 451874515 (2) Elevated cholesterol ICD Codes: E78.0 - Pure hypercholesterolemia SNOMED: 47474482 (3) Hypothyroid ICD Codes: E03.9 - Hypothyroidism, unspecified SNOMED: 16028076 (4) Depression ICD Codes: F32.9 - Major depressive disorder, single episode, unspecified SNOMED: 97607833 Status: stable, progressing Assessment/Plan: fu oncology s/p EUS and biopsy fu path ivf pain control zofran prn Subjective ROS Limited/Unobtainable: Yes Allergies: Coded Allergies: No Known Allergies (Unverified , 03/24/16) Objective Last 24 Hour Vital Signs Date Time Temp Pulse Resp B/P (MAP) Pulse Ox O2 Delivery O2 Flow Rate FiO2 10/17/19 03:51 98.7 96 20 99/68 (78) 96 10/16/19 21:00 Room Air 10/16/19 20:00 98.8 90 18 115/76 (89) 94 10/16/19 16:00 98.3 85 18 111/76 (88) 97 10/16/19 12:00 98.2 85 18 97/69 (78) 96 10/16/19 09:38 98.4 10/16/19 09:00 Room Air 10/16/19 08:00 98.4 65 18 84/58 (67) 100 Intake and Output 10/16/19 10/17/19 19:00 07:00 Intake Total 100 ml 300 ml Balance 100 ml 300 ml Intake Oral 100 ml 300 ml # Voids 2 4 # Bowel Movements 1 Height (Feet): 5 Height (Inches): 5.00 Weight (Pounds): 108 General Appearance: no apparent distress EENT: normal ENT inspection Neck: supple Cardiovascular: normal rate Respiratory/Chest: decreased breath sounds Abdomen: normal bowel sounds, non tender, soft Extremities: non-tender Malcom Michael MD October 17, 2019 07:27
[2019-10-17 08:00] VITALS: BP 90/61
[2019-10-17] MEDS: Docusate 100mg cap ORAL SCH ×3 (08:56→17:43)
[2019-10-17] MEDS: Sorbitol Solution UD 30ml ORAL PRN ×2 (08:56→22:37)
[2019-10-17] MEDS: Enoxaparin 40mg Inj SUBQ SCH (09:00)
--- NOTE | 2019-10-17 09:59 | Hematology/Onc Progress Note ---
Assessment/Plan Assessment/Plan Assessment/Recs # Pancreatic mass with likely mets -- LARGE LEFT UPPER QUADRANT MASS LIKELY ARISING FROM THE PANCREAS WITH EXTENSION INTO THE LESSER SAC. 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 RETROPERITONEAL ADENOPATHY ENCASING THE SMA ARTERY AND ALONG THE LEFT PARA-AORTIC SPACE. LEFT ADRENAL METASTASIS. --> ct guided biop for 10/12/2019 cancelled as could not get a good [place] --> endoscopic us ordered 10/13-->RESULTS pending --> us of the ovaries --> APPARENT AMORPHOUS HYPOECHOIC MASSLIKE STRUCTURE SEEN ADJACENT TO THE URINARY BLADDER OF UNDETERMINED ORIGIN. SINCE THE OVARIES ARE NOT DISTINCTLY SEEN, AN OVARIAN MASS IS CONSIDERED. --> ca 19.9, 39,393, ca 125 is 523, cea 731 --> weight loss noted --> consider mirtazpaine --> as per gi care, they are aware --> to f/u as outpatient --> at this time very depressed, may consider psych eval # Dehydration --> on ivfs as needed # LEFT ADRENAL METASTASIS. --> likely c/w panc primary cancer # Leukocytosis --> urine cx+ x2 --> wbc trend: 7.8-->11.6 -->9.5 --> 10/13 cxr: Trace bilateral pleural effusions # Weight loss --> related to ca # Dvt ppx ambulation The timing of this note does not necessarily reflect the time of the patient was seen. Greatly appreciate consultation. Subjective Constitutional: Denies: no symptoms, chills, fever, malaise, weakness, other HEENT: Denies: no symptoms, eye pain, blurred vision, tearing, double vision, ear pain, ear discharge, nose pain, nose congestion, throat pain, throat swelling, mouth pain, mouth swelling, other Respiratory: Denies: no symptoms, cough, shortness of breath, SOB with excertion, SOB at rest, sputum, wheezing, other Genitourinary: Denies: no symptoms, burning, discharge, frequency, flank pain, hematuria, incontinence, pain, urgency, other Neurologic/Psychiatric: Denies: no symptoms, anxiety, depressed, emotional problems, headache, numbness, paresthesia, pre-existing deficit, seizure, tingling, tremors, weakness, other Endocrine: Denies: no symptoms, excessive sweating, flushing, intolerance to cold, intolerance to heat, increased hunger, increased thirst, increased urine, unexplained weight gain, unexplained weight loss, other Allergies: Coded Allergies: No Known Allergies (Unverified , 03/24/16) Subjective 10/11 med surg, awake and alert, ct guided biop for today 10/[address] guided needle, endoscopic us ordered 10/13 us pelvis reviewed, no acute distress, room air 10/14 cxr abd labs reviewed, stable for dc 10/15 long discussion, feels depressed, no bleeding, meds noted 10/16 pending pathology report, no bleeding, meds reviewed Objective Objective Current Medications Medications (Trade) Dose Ordered Sig/Tiago Route PRN Reason Start Time Stop Time Status Last Admin Dose Admin Acetaminophen (Tylenol) 650 mg Q6H PRN ORAL 1-3 mild pain/fever > 100.4 10/10/19 21:00 11/09/19 20:59 10/17/19 04:24 Acetaminophen/ Hydrocodone Bitart ([place] 5/325) 1 tab Q4H PRN ORAL Pain (Pain Scale 4-10) 10/12/19 06:15 10/19/19 06:14 10/16/19 09:08 Docusate Sodium (Colace) 100 mg TID ORAL 10/15/19 13:00 11/14/19 12:59 10/17/19 08:56 Enoxaparin Sodium (Lovenox) 40 mg DAILY SUBQ 10/12/19 09:00 01/10/20 08:59 10/17/19 09:00 Famotidine (Pepcid) 20 mg Q6H PRN ORAL acid reflux 10/12/19 06:03 01/10/20 06:02 10/12/19 06:18 Levothyroxine Sodium (Synthroid) 25 mcg ACBREAKFAST ORAL 10/11/19 06:30 11/10/19 06:29 10/17/19 05:46 Lorazepam (Ativan 2mg/ml 1ml) 1 mg Q12HR PRN IV For Anxiety 10/12/19 06:15 10/19/19 06:14 Midodrine (Pro-Amatine) 5 mg TID ORAL 10/13/19 18:00 01/11/20 17:59 10/17/19 08:56 Ondansetron HCl (Zofran) 4 mg Q4H PRN IVP Nausea & Vomiting 10/11/19 05:45 11/10/19 05:44 10/17/19 09:35 Pantoprazole (Protonix) 40 mg DAILY ORAL 10/15/19 11:45 11/14/19 11:44 10/17/19 08:56 Sorbitol (sorbitoL) 45 ml BIDPRN PRN ORAL Constipation 10/15/19 20:15 11/14/19 20:14 10/17/19 08:56 Zolpidem Tartrate (Ambien) 5 mg HSPRN PRN ORAL Insomnia 10/10/19 21:00 10/17/19 20:59 10/16/19 22:16 Last 24 Hour Vital Signs Date Time Temp Pulse Resp B/P (MAP) Pulse Ox O2 Delivery O2 Flow Rate FiO2 10/17/19 08:00 98.0 90 20 90/61 (71) 98 10/17/19 03:51 98.7 96 20 99/68 (78) 96 10/16/19 21:00 Room Air 10/16/19 20:00 98.8 90 18 115/76 (89) 94 10/16/19 16:00 98.3 85 18 111/76 (88) 97 10/16/19 12:00 98.2 85 18 97/69 (78) 96 10/16/19 09:38 98.4 10/16/19 09:00 Room Air 10/16/19 08:00 98.4 65 18 84/58 (67) 100 10/16/19 04:00 98.3 77 18 97/67 (77) 95 10/16/19 00:00 98.9 70 18 99/62 (74) 95 10/15/19 21:00 Room Air 10/15/19 20:00 98.5 74 18 104/70 (81) 94 10/15/19 16:00 98.1 80 18 94/66 (75) 97 10/15/19 12:05 98.2 101 20 92/63 (73) 95 Intake and Output 10/16/19 10/17/19 19:00 07:00 Intake Total 100 ml 300 ml Balance 100 ml 300 ml Intake Oral 100 ml 300 ml # Voids 2 4 # Bowel Movements 1 Labs Test 10/15/19 05:35 White Blood Count 9.5 K/UL (4.8-10.8) Red Blood Count 4.13 M/UL (4.20-5.40) Hemoglobin 12.0 G/DL (12.0-16.0) Hematocrit 35.8 % (37.0-47.0) Mean Corpuscular Volume 87 FL (80-99) Mean Corpuscular Hemoglobin 29.0 PG (27.0-31.0) Mean Corpuscular Hemoglobin Concent 33.4 G/DL (32.0-36.0) Red Cell Distribution Width 11.4 % (11.6-14.8) Platelet Count 238 K/UL (150-450) Mean Platelet Volume 6.7 FL (6.5-10.1) Neutrophils (%) (Auto) 72.5 % (45.0-75.0) Lymphocytes (%) (Auto) 16.9 % (20.0-45.0) Monocytes (%) (Auto) 7.5 % (1.0-10.0) Eosinophils (%) (Auto) 2.5 % (0.0-3.0) Basophils (%) (Auto) 0.6 % (0.0-2.0) Sodium Level 139 MMOL/L (136-145) Potassium Level 3.7 MMOL/L (3.5-5.1) Chloride Level 104 MMOL/L (98-107) Carbon Dioxide Level 28 MMOL/L (21-32) Anion Gap 8 mmol/L (5-15) Blood Urea Nitrogen 7 mg/dL (7-18) Creatinine 0.4 MG/DL (0.55-1.30) Estimat Glomerular Filtration Rate > 60 mL/min (>60) Glucose Level 93 MG/DL (74-106) Calcium Level 8.1 MG/DL (8.5-10.1) Height (Feet): 5 Height (Inches): 5.00 Weight (Pounds): 108 Objective Physical Exam: Vitals: reviewed General: NAD HEENT: nc, at Neck: supple Chest: clear breath sounds bilaterally Cardiovascular: RRR, no s3, s4 Abdomen: soft, nontender, nd ++ abd pain Extremities: no cce, normal range of motion Back: back pain ttp Neuro: alert and oriented Ortiz Porter MD October 17, 2019 09:59
[2019-10-17 12:00] VITALS: BP 99/68
--- NOTE | 2019-10-17 13:37 | Cardiac Electrophysiology PN ---
Assessment/Plan Assessment/Plan 1. Hypotension. On midodrine 5 mg t.i.d. Echocardiogram pending 2. Hypothyroidism, on Synthroid. 3. Significant weight loss due to pancreatic cancer. S/P EUS and biopsy by Dr. Michael. Follow up Oncology. 4. Depression. Subjective Subjective Alert in NAD. No CP or SOB.BP and HR stable Objective Last 24 Hour Vital Signs Date Time Temp Pulse Resp B/P (MAP) Pulse Ox O2 Delivery O2 Flow Rate FiO2 10/17/19 12:00 98.5 82 20 99/68 (78) 95 10/17/19 09:00 Room Air 10/17/19 08:00 98.0 90 20 90/61 (71) 98 10/17/19 03:51 98.7 96 20 99/68 (78) 96 10/16/19 21:00 Room Air 10/16/19 20:00 98.8 90 18 115/76 (89) 94 10/16/19 16:00 98.3 85 18 111/76 (88) 97 Intake and Output 10/16/19 10/17/19 19:00 07:00 Intake Total 100 ml 300 ml Balance 100 ml 300 ml Intake Oral 100 ml 300 ml # Voids 2 4 # Bowel Movements 1 Objective HEAD AND NECK: No JVD. LUNGS: Clear. CARDIOVASCULAR: Regular S1 and S2 with no gallop or murmur. ABDOMEN: Soft. EXTREMITIES: No pitting edema. Trevor Bardales MD October 17, 2019 13:37
--- NOTE | 2019-10-17 15:36 | General Progress Note ---
Assessment/Plan Problem List: (1) UTI (urinary tract infection) ICD Codes: N39.0 - Urinary tract infection, site not specified SNOMED: 99753526 (2) Dehydration ICD Codes: E86.0 - Dehydration SNOMED: 61137722 (3) Dehydration ICD Codes: E86.0 - Dehydration SNOMED: 95787822 (4) Pancreatic cancer ICD Codes: C25.9 - Malignant neoplasm of pancreas, unspecified SNOMED: 310509944 (5) Metastasis ICD Codes: C79.9 - Secondary malignant neoplasm of unspecified site SNOMED: 920742929 (6) Hypothyroid ICD Codes: E03.9 - Hypothyroidism, unspecified SNOMED: 00545997 Status: stable, progressing Assessment/Plan: pt diet abx iv fluid cbc bmp am aru eval Subjective Constitutional: Reports: weakness Allergies: Coded Allergies: No Known Allergies (Unverified , 03/24/16) All Systems: reviewed and negative except above Subjective sleepy calm Objective Last 24 Hour Vital Signs Date Time Temp Pulse Resp B/P (MAP) Pulse Ox O2 Delivery O2 Flow Rate FiO2 10/17/19 12:00 98.5 82 20 99/68 (78) 95 10/17/19 09:00 Room Air 10/17/19 08:00 98.0 90 20 90/61 (71) 98 10/17/19 03:51 98.7 96 20 99/68 (78) 96 10/16/19 21:00 Room Air 10/16/19 20:00 98.8 90 18 115/76 (89) 94 10/16/19 16:00 98.3 85 18 111/76 (88) 97 Intake and Output 10/16/19 10/17/19 18:59 06:59 Intake Total 100 ml 300 ml Balance 100 ml 300 ml Intake Oral 100 ml 300 ml # Voids 2 4 # Bowel Movements 1 Height (Feet): 5 Height (Inches): 5.00 Weight (Pounds): 108 General Appearance: lethargic EENT: normal ENT inspection Neck: normal alignment Cardiovascular: normal peripheral pulses, normal rate, regular rhythm Respiratory/Chest: chest wall non-tender, lungs clear, normal breath sounds Abdomen: non tender, soft, hypoactive bowel sounds Extremities: normal inspection Edema: no edema noted Arm (L), no edema noted Arm (R), no edema noted Leg (L), no edema noted Leg (R), no edema noted Pedal (L), no edema noted Pedal (R), no edema noted Generalized Neurologic: responsive, motor weakness Skin: normal pigmentation, warm/dry Matt Olmedo October 17, 2019 15:36
[2019-10-17 15:48] VITALS: BP 104/70
--- NOTE | 2019-10-17 16:53 | Infectious Diseases Prog Note ---
Assessment/Plan Assessment/Plan Assessment: Unintentional weight loss Metastatic Pancreatic mass w/ peritoneal carcinomatosis (mets to adrenal, intraabdominal, lymph nodes) -10/13 SP EUS with pancreatic mass Bx -Pelvic US: SMALL POSTMENOPAUSAL UTERUS. ENDOMETRIAL STRIPE NOT WELL SEEN. OVARIES ALSO NOT VISUALIZED. APPARENT AMORPHOUS HYPOECHOIC MASSLIKE STRUCTURE SEEN ADJACENT TO THE URINARY BLADDER OF UNDETERMINED ORIGIN. SINCE THE OVARIES ARE NOT DISTINCTLY SEEN, AN OVARIAN MASS ISCONSIDERED. -10/09 CT abd/p: LARGE LEFT UPPER QUADRANT MASS LIKELY ARISING FROM THE PANCREAS WITH EXTENSION INTO THE LESSER SAC. 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 RETROPERITONEAL ADENOPATHY ENCASING THE SMA ARTERY AND ALONG THE LEFT PARA- AORTIC SPACE. LEFT ADRENAL METASTASIS. NO METASTATIC DISEASE TO THE CHEST PRESENTLY. INCIDENTAL FINDING OF BILATERAL MAMMARY PROSTHESIS IMPLANT INTRACAPSULAR RUPTURE. -10/02 SP EGD/COlo:: gastritis, hemorrhoids --of note, patient had negative COvid testing as an outpatient prior to the procedure Afebrile Mild leukocytosis, SP- -10/13 CXR: Trace bilateral pleural effusions with adjacent streaky opacities in the lung bases which may be related to subsegmental atelectasis. Possibility of developing infiltrate however is not excluded given history of cough. Correlation with clinical findings and follow-up recommended. -u/a no pyuria, nit neg, leuk +1; ucx 40-50k mixed gram positive growth- Patient with no UTI symptoms hypothyroidism MDD sp breast augmentation Plan: -Continue to monitor off abx -f/u cx -Monitor CBC/CMP, temperature -GI, heme/onc f/u -f/u biopsy Thank you for consulting [facility]. Will continue to follow along with you. Subjective Allergies: Coded Allergies: No Known Allergies (Unverified , 03/24/16) Subjective afebrile no leukocytosis at RA Objective Vital Signs Last 24 Hour Vital Signs Date Time Temp Pulse Resp B/P (MAP) Pulse Ox O2 Delivery O2 Flow Rate FiO2 10/17/19 15:48 98.9 82 20 104/70 (81) 96 10/17/19 12:00 98.5 82 20 99/68 (78) 95 10/17/19 09:00 Room Air 10/17/19 08:00 98.0 90 20 90/61 (71) 98 10/17/19 03:51 98.7 96 20 99/68 (78) 96 10/16/19 21:00 Room Air 10/16/19 20:00 98.8 90 18 115/76 (89) 94 Height (Feet): 5 Height (Inches): 5.00 Weight (Pounds): 108 Objective General: NAD HEENT: nc, at Neck: supple Chest: clear breath sounds bilaterally Cardiovascular: RRR, no s3, s4 Abdomen: soft, nontender, nd ++ abd pain Extremities: no cce, normal range of motion Back: back pain ttp Neuro: alert and oriented Current Medications Medications (Trade) Dose Ordered Sig/Tiago Route PRN Reason Start Time Stop Time Status Last Admin Dose Admin Acetaminophen (Tylenol) 650 mg Q6H PRN ORAL 1-3 mild pain/fever > 100.4 10/10/19 21:00 11/09/19 20:59 10/17/19 04:24 Acetaminophen/ Hydrocodone Bitart ([place] 5/325) 1 tab Q4H PRN ORAL Pain (Pain Scale 4-10) 10/12/19 06:15 10/19/19 06:14 10/16/19 09:08 Docusate Sodium (Colace) 100 mg TID ORAL 10/15/19 13:00 11/14/19 12:59 10/17/19 13:14 Enoxaparin Sodium (Lovenox) 40 mg DAILY SUBQ 10/12/19 09:00 01/10/20 08:59 10/17/19 09:00 Famotidine (Pepcid) 20 mg Q6H PRN ORAL acid reflux 10/12/19 06:03 01/10/20 06:02 10/12/19 06:18 Levothyroxine Sodium (Synthroid) 25 mcg ACBREAKFAST ORAL 10/11/19 06:30 11/10/19 06:29 10/17/19 05:46 Lorazepam (Ativan 2mg/ml 1ml) 1 mg Q12HR PRN IV For Anxiety 10/12/19 06:15 10/19/19 06:14 Midodrine (Pro-Amatine) 5 mg TID ORAL 10/13/19 18:00 01/11/20 17:59 10/17/19 13:14 Ondansetron HCl (Zofran) 4 mg Q4H PRN IVP Nausea & Vomiting 10/11/19 05:45 11/10/19 05:44 10/17/19 09:35 Pantoprazole (Protonix) 40 mg DAILY ORAL 10/15/19 11:45 11/14/19 11:44 10/17/19 08:56 Sorbitol (sorbitoL) 45 ml BIDPRN PRN ORAL Constipation 10/15/19 20:15 11/14/19 20:14 10/17/19 08:56 Zolpidem Tartrate (Ambien) 5 mg HSPRN PRN ORAL Insomnia 10/17/19 21:00 10/24/19 20:59 Sabi Abbasi M.D. October 17, 2019 16:53
--- NOTE | 2019-10-17 18:00 | NUR ---
NURSE NOTES: PATIENT HAD LARGE BROWN BM AFTER TAKING PO LAXATIVE PRN. APPETITE SLIGHTLY IMPROVED. ENCOURAGED TO DRINK MORE WATER.BP IMPROVING WITH MIDODRINE MEDICATION. UP TO BATHROOM AND CHAIR USING WALKER. GAIT MOBILITY IMPROVED.
--- NOTE | 2019-10-17 19:57 | NUR ---
HAND-OFF: Report given to GILBERT WEBB.
--- NOTE | 2019-10-17 19:58 | NUR ---
NURSE NOTES: Received report from Gladis WEBB. Rounding is done with outgoing nurse. Patient a/ox4. Denied any pain or distress at this time. IV site is intact and patient. Bed is on alarm, locked, and lowest position. Call light within reach. Will continue to monitor.
[2019-10-17 20:00] VITALS: BP_SYST 102; BP_SYST 95; BP_DIAS 66; BP_DIAS 68
[2019-10-17] MEDS: Zolpidem 5mg tab ORAL PRN (22:42)
[2019-10-18] VITALS: BP 95/66
[2019-10-18 04:00] VITALS: BP 101/64
[2019-10-18 05:18] LABS: BASOPHILS % (AUTO) 0.4 % (0.0-2.0); EOSINOPHILS % (AUTO) 2.7 % (0.0-3.0); HEMATOCRIT 35.7 % (37.0-47.0); LYMPHOCYTES % (AUTO) 14.9 % (20.0-45.0); MEAN CORPUSCULAR VOLUME 87 FL (80-99); MONOCYTES % (AUTO) 6.8 % (1.0-10.0); NEUTROPHILS % (AUTO) 75.2 % (45.0-75.0); PLATELET COUNT 312 K/UL (150-450); RED BLOOD COUNT 4.12 M/UL (4.20-5.40); RED CELL DISTRIBUTION WIDTH 11.7 % (11.6-14.8)
[2019-10-18 05:46] LABS: ANION GAP 9 mmol/L (5-15); BLOOD UREA NITROGEN 4 mg/dL (7-18); CALCIUM 8.4 MG/DL (8.5-10.1); CARBON DIOXIDE 27 MMOL/L (21-32); CHLORIDE 103 MMOL/L (98-107); CREATININE 0.7 MG/DL (0.55-1.30); POTASSIUM 3.5 MMOL/L (3.5-5.1); SODIUM 139 MMOL/L (136-145)
[2019-10-18] MEDS: Levothyroxine 25mcg tab ORAL SCH (06:03)
--- NOTE | 2019-10-18 06:30 | NUR ---
NURSE NOTES: Receive a report from TRACEY Torres. Pt is awake and alert. No acute distress noted. Abdominal pain is tolerating and does not want to take pain medication. No BM overnight. Still noted general weakness. Using BSC with assist. Call light within reach. Will continue to monitor.
--- NOTE | 2019-10-18 07:15 | NUR ---
HAND-OFF: Report given to TRACEY Griffith.
[2019-10-18 08:00] VITALS: BP 99/69
[2019-10-18] MEDS: Docusate 100mg cap ORAL SCH ×3 (09:10→17:54)
[2019-10-18] MEDS: Enoxaparin 40mg Inj SUBQ SCH (09:13)
--- NOTE | 2019-10-18 09:52 | General Progress Note ---
Assessment/Plan Problem List: (1) Pancreatic cancer ICD Codes: C25.9 - Malignant neoplasm of pancreas, unspecified SNOMED: 553463948 (2) Elevated cholesterol ICD Codes: E78.0 - Pure hypercholesterolemia SNOMED: 70753826 (3) Hypothyroid ICD Codes: E03.9 - Hypothyroidism, unspecified SNOMED: 66138333 (4) Depression ICD Codes: F32.9 - Major depressive disorder, single episode, unspecified SNOMED: 80754775 Status: stable, progressing Assessment/Plan: fu oncology s/p EUS and biopsy fu path ivf pain control zofran prn push po's Subjective ROS Limited/Unobtainable: Yes Allergies: Coded Allergies: No Known Allergies (Unverified , 03/24/16) Objective Last 24 Hour Vital Signs Date Time Temp Pulse Resp B/P (MAP) Pulse Ox O2 Delivery O2 Flow Rate FiO2 10/18/19 08:00 97.9 84 18 99/69 (79) 98 10/18/19 04:00 98.6 77 18 101/64 (76) 95 10/18/19 00:00 99.0 91 18 95/66 (76) 95 10/17/19 21:00 Room Air 10/17/19 20:00 99.1 82 18 102/68 (79) 96 10/17/19 15:48 98.9 82 20 104/70 (81) 96 10/17/19 12:00 98.5 82 20 99/68 (78) 95 Intake and Output 10/17/19 10/18/19 18:59 06:59 Intake Total 480 ml 240 ml Balance 480 ml 240 ml Intake Oral 480 ml 240 ml # Voids 3 3 # Bowel Movements 1 Laboratory Tests 10/18/19 04:40: White Blood Count 11.0H, Red Blood Count 4.12L, Hemoglobin 12.0, Hematocrit 35.7L, Mean Corpuscular Volume 87, Mean Corpuscular Hemoglobin 29.0, Mean Corpuscular Hemoglobin Concent 33.5, Red Cell Distribution Width 11.7, Platelet Count 312, Mean Platelet Volume 6.1L, Neutrophils (%) (Auto) 75.2H, Lymphocytes (%) (Auto) 14.9L, Monocytes (%) (Auto) 6.8, Eosinophils (%) (Auto) 2.7, Basophils (%) (Auto) 0.4, Sodium Level 139, Potassium Level 3.5, Chloride Level 103, Carbon Dioxide Level 27, Anion Gap 9, Blood Urea Nitrogen 4L, Creatinine 0.7, Estimat Glomerular Filtration Rate > 60, Glucose Level 105, Calcium Level 8.4L Height (Feet): 5 Height (Inches): 5.00 Weight (Pounds): 108 General Appearance: alert EENT: normal ENT inspection Neck: supple Cardiovascular: normal rate Respiratory/Chest: decreased breath sounds Abdomen: soft, hypoactive bowel sounds Extremities: non-tender Malcom Michael MD October 18, 2019 09:52
--- NOTE | 2019-10-18 10:29 | NUR ---
RD ASSESSMENT & RECOMMENDATIONS SEE CARE ACTIVITY FOR COMPLETE ASSESSMENT DAILY ESTIMATED NEEDS: Needs based on WT loss, CA 62.5kg 28-33 kcals/kg 2280-4925 total kcals 1-2 g protein/kg 63-125 g total protein 25-30 mL/kg 5278-1704 total fluid mLs NUTRITION DIAGNOSIS: Increase kcal needs r/t significant wt loss as evidenced by 22% wt change, w/ unintentional est 39 lbs wt loss in 7 weeks, w/ poor and variable intake at this time. CURRENT DIET: regular PO DIET RECOMMENDATIONS: Regular diet as tolerated ADDITIONAL RECOMMENDATIONS: 1) Weekly standing weights given wt loss on admission 2) Add snacks in b/w meals 3) Add Ensure Enlive w/ meals; pt may have Ensure Clear if tolerated better 4) Replete lytes and monitor hydration 5) Consider appetite stimulant w/ continued poor and variable PO
--- NOTE | 2019-10-18 10:45 | Hematology/Onc Progress Note ---
Assessment/Plan Assessment/Plan Assessment/Recs # Pancreatic mass with likely mets -- LARGE LEFT UPPER QUADRANT MASS LIKELY ARISING FROM THE PANCREAS WITH EXTENSION INTO THE LESSER SAC. 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 RETROPERITONEAL ADENOPATHY ENCASING THE SMA ARTERY AND ALONG THE LEFT PARA-AORTIC SPACE. LEFT ADRENAL METASTASIS. --> ct guided biop for 10/12/2019 cancelled as could not get a good [place] --> endoscopic us ordered 10/13-->RESULTS pending --> us of the ovaries --> APPARENT AMORPHOUS HYPOECHOIC MASSLIKE STRUCTURE SEEN ADJACENT TO THE URINARY BLADDER OF UNDETERMINED ORIGIN. SINCE THE OVARIES ARE NOT DISTINCTLY SEEN, AN OVARIAN MASS IS CONSIDERED. --> ca 19.9, 39,393, ca 125 is 523, cea 731 --> weight loss noted --> consider mirtazpaine --> as per gi care, they are aware --> to f/u as outpatient --> at this time very depressed, may consider psych eval # Dehydration --> on ivfs as needed # LEFT ADRENAL METASTASIS. --> likely c/w panc primary cancer # Leukocytosis --> urine cx+ x2 --> wbc trend: 7.8-->11.6 -->9.5 --> 10/13 cxr: Trace bilateral pleural effusions # Weight loss --> related to ca # Dvt ppx ambulation The timing of this note does not necessarily reflect the time of the patient was seen. Greatly appreciate consultation. Subjective Constitutional: Denies: no symptoms, chills, fever, malaise, weakness, other HEENT: Denies: no symptoms, eye pain, blurred vision, tearing, double vision, ear pain, ear discharge, nose pain, nose congestion, throat pain, throat swelling, mouth pain, mouth swelling, other Gastrointestinal/Abdominal: Denies: no symptoms, abdomen distended, abdominal pain, black stools, tarry stools, blood in stool, constipated, diarrhea, difficulty swallowing, nausea, poor appetite, poor fluid intake, rectal bleeding , vomiting, other Genitourinary: Denies: no symptoms, burning, discharge, frequency, flank pain, hematuria, incontinence, pain, urgency, other Hematologic/Lymphatic: Denies: no symptoms, anemia, easy bleeding, easy bruising, adenopathy, other Allergies: Coded Allergies: No Known Allergies (Unverified , 03/24/16) Subjective 10/11 med surg, awake and alert, ct guided biop for today 10/[address] guided needle, endoscopic us ordered 10/13 us pelvis reviewed, no acute distress, room air 10/14 cxr abd labs reviewed, stable for dc 10/15 long discussion, feels depressed, no bleeding, meds noted 10/16 pending pathology report, no bleeding, meds reviewed 10/17 s/p eus with biopsy, report pending, dw gi Objective Objective Current Medications Medications (Trade) Dose Ordered Sig/Tiago Route PRN Reason Start Time Stop Time Status Last Admin Dose Admin Acetaminophen (Tylenol) 650 mg Q6H PRN ORAL 1-3 mild pain/fever > 100.4 10/10/19 21:00 11/09/19 20:59 10/17/19 22:42 Acetaminophen/ Hydrocodone Bitart ([place] 5/325) 1 tab Q4H PRN ORAL Pain (Pain Scale 4-10) 10/12/19 06:15 10/19/19 06:14 10/16/19 09:08 Docusate Sodium (Colace) 100 mg TID ORAL 10/15/19 13:00 11/14/19 12:59 10/18/19 09:10 Enoxaparin Sodium (Lovenox) 40 mg DAILY SUBQ 10/12/19 09:00 01/10/20 08:59 10/18/19 09:13 Famotidine (Pepcid) 20 mg Q6H PRN ORAL acid reflux 10/12/19 06:03 01/10/20 06:02 10/12/19 06:18 Levothyroxine Sodium (Synthroid) 25 mcg ACBREAKFAST ORAL 10/11/19 06:30 11/10/19 06:29 10/18/19 06:03 Lorazepam (Ativan 2mg/ml 1ml) 1 mg Q12HR PRN IV For Anxiety 10/12/19 06:15 10/19/19 06:14 Midodrine (Pro-Amatine) 5 mg TID ORAL 10/13/19 18:00 01/11/20 17:59 10/18/19 09:10 Ondansetron HCl (Zofran) 4 mg Q4H PRN IVP Nausea & Vomiting 10/11/19 05:45 11/10/19 05:44 10/17/19 09:35 Pantoprazole (Protonix) 40 mg DAILY ORAL 10/15/19 11:45 11/14/19 11:44 10/18/19 09:10 Sorbitol (sorbitoL) 45 ml BIDPRN PRN ORAL Constipation 10/15/19 20:15 11/14/19 20:14 10/17/19 22:37 Zolpidem Tartrate (Ambien) 5 mg HSPRN PRN ORAL Insomnia 10/17/19 21:00 10/24/19 20:59 10/17/19 22:42 Last 24 Hour Vital Signs Date Time Temp Pulse Resp B/P (MAP) Pulse Ox O2 Delivery O2 Flow Rate FiO2 10/18/19 08:00 97.9 84 18 99/69 (79) 98 10/18/19 04:00 98.6 77 18 101/64 (76) 95 10/18/19 00:00 99.0 91 18 95/66 (76) 95 10/17/19 21:00 Room Air 10/17/19 20:00 99.1 82 18 102/68 (79) 96 10/17/19 15:48 98.9 82 20 104/70 (81) 96 10/17/19 12:00 98.5 82 20 99/68 (78) 95 10/17/19 09:00 Room Air 10/17/19 08:00 98.0 90 20 90/61 (71) 98 10/17/19 03:51 98.7 96 20 99/68 (78) 96 10/16/19 21:00 Room Air 10/16/19 20:00 98.8 90 18 115/76 (89) 94 10/16/19 16:00 98.3 85 18 111/76 (88) 97 10/16/19 12:00 98.2 85 18 97/69 (78) 96 Intake and Output 10/17/19 10/18/19 19:00 07:00 Intake Total 480 ml 240 ml Balance 480 ml 240 ml Intake Oral 480 ml 240 ml # Voids 3 3 # Bowel Movements 1 Labs Test 10/18/19 04:40 White Blood Count 11.0 K/UL (4.8-10.8) Red Blood Count 4.12 M/UL (4.20-5.40) Hemoglobin 12.0 G/DL (12.0-16.0) Hematocrit 35.7 % (37.0-47.0) Mean Corpuscular Volume 87 FL (80-99) Mean Corpuscular Hemoglobin 29.0 PG (27.0-31.0) Mean Corpuscular Hemoglobin Concent 33.5 G/DL (32.0-36.0) Red Cell Distribution Width 11.7 % (11.6-14.8) Platelet Count 312 K/UL (150-450) Mean Platelet Volume 6.1 FL (6.5-10.1) Neutrophils (%) (Auto) 75.2 % (45.0-75.0) Lymphocytes (%) (Auto) 14.9 % (20.0-45.0) Monocytes (%) (Auto) 6.8 % (1.0-10.0) Eosinophils (%) (Auto) 2.7 % (0.0-3.0) Basophils (%) (Auto) 0.4 % (0.0-2.0) Sodium Level 139 MMOL/L (136-145) Potassium Level 3.5 MMOL/L (3.5-5.1) Chloride Level 103 MMOL/L (98-107) Carbon Dioxide Level 27 MMOL/L (21-32) Anion Gap 9 mmol/L (5-15) Blood Urea Nitrogen 4 mg/dL (7-18) Creatinine 0.7 MG/DL (0.55-1.30) Estimat Glomerular Filtration Rate > 60 mL/min (>60) Glucose Level 105 MG/DL (74-106) Calcium Level 8.4 MG/DL (8.5-10.1) Height (Feet): 5 Height (Inches): 5.00 Weight (Pounds): 108 Objective Physical Exam: Vitals: reviewed General: NAD HEENT: nc, at Neck: supple Chest: clear breath sounds bilaterally Cardiovascular: RRR, no s3, s4 Abdomen: soft, nontender, nd ++ abd pain Extremities: no cce, normal range of motion Back: back pain ttp Neuro: alert and oriented Ortiz Porter MD October 18, 2019 10:45
--- NOTE | 2019-10-18 10:53 | NUR ---
DISCHARGE PLANNING: PATIENT IS FROM HOME PER DR MARQUEZ REFERRED TO : BEV WAGNER NEED COVID PRIOR TO ADMISSION PRIMARY MD ASK CM TO ASK ID FOR COVID ORDER CM ASKED DR TONG
[2019-10-18 11:54] VITALS: BP 96/66
--- NOTE | 2019-10-18 13:18 | General Progress Note ---
Assessment/Plan Problem List: (1) UTI (urinary tract infection) ICD Codes: N39.0 - Urinary tract infection, site not specified SNOMED: 24039656 (2) Dehydration ICD Codes: E86.0 - Dehydration SNOMED: 70857204 (3) Dehydration ICD Codes: E86.0 - Dehydration SNOMED: 27415842 (4) Pancreatic cancer ICD Codes: C25.9 - Malignant neoplasm of pancreas, unspecified SNOMED: 160462334 (5) Metastasis ICD Codes: C79.9 - Secondary malignant neoplasm of unspecified site SNOMED: 176419415 (6) Hypothyroid ICD Codes: E03.9 - Hypothyroidism, unspecified SNOMED: 02440220 Status: stable, progressing Assessment/Plan: pt diet abx iv fluid cbc bmp am aru eval Subjective Constitutional: Reports: weakness Allergies: Coded Allergies: No Known Allergies (Unverified , 03/24/16) All Systems: reviewed and negative except above Subjective slightly nauseaus Objective Last 24 Hour Vital Signs Date Time Temp Pulse Resp B/P (MAP) Pulse Ox O2 Delivery O2 Flow Rate FiO2 10/18/19 11:54 97.9 81 19 96/66 (76) 99 10/18/19 09:00 Room Air 10/18/19 08:00 97.9 84 18 99/69 (79) 98 10/18/19 04:00 98.6 77 18 101/64 (76) 95 10/18/19 00:00 99.0 91 18 95/66 (76) 95 10/17/19 21:00 Room Air 10/17/19 20:00 99.1 82 18 102/68 (79) 96 10/17/19 15:48 98.9 82 20 104/70 (81) 96 Intake and Output 10/17/19 10/18/19 19:00 07:00 Intake Total 480 ml 240 ml Balance 480 ml 240 ml Intake Oral 480 ml 240 ml # Voids 3 3 # Bowel Movements 1 Laboratory Tests 10/18/19 04:40: White Blood Count 11.0H, Red Blood Count 4.12L, Hemoglobin 12.0, Hematocrit 35.7L, Mean Corpuscular Volume 87, Mean Corpuscular Hemoglobin 29.0, Mean Corpuscular Hemoglobin Concent 33.5, Red Cell Distribution Width 11.7, Platelet Count 312, Mean Platelet Volume 6.1L, Neutrophils (%) (Auto) 75.2H, Lymphocytes (%) (Auto) 14.9L, Monocytes (%) (Auto) 6.8, Eosinophils (%) (Auto) 2.7, Basophils (%) (Auto) 0.4, Sodium Level 139, Potassium Level 3.5, Chloride Level 103, Carbon Dioxide Level 27, Anion Gap 9, Blood Urea Nitrogen 4L, Creatinine 0.7, Estimat Glomerular Filtration Rate > 60, Glucose Level 105, Calcium Level 8.4L Height (Feet): 5 Height (Inches): 5.00 Weight (Pounds): 108 General Appearance: lethargic EENT: normal ENT inspection Neck: normal alignment Cardiovascular: normal rate, regular rhythm Respiratory/Chest: no respiratory distress, no accessory muscle use Abdomen: soft, hypoactive bowel sounds Extremities: normal inspection Edema: no edema noted Arm (L), no edema noted Arm (R), no edema noted Leg (L), no edema noted Leg (R), no edema noted Pedal (L), no edema noted Pedal (R), no edema noted Generalized Neurologic: responsive, motor weakness Skin: normal pigmentation, warm/dry Matt Olmedo DO October 18, 2019 13:18
--- NOTE | 2019-10-18 13:27 | Cardiac Electrophysiology PN ---
Assessment/Plan Assessment/Plan 1. Hypotension. On midodrine 5 mg t.i.d. Echocardiogram pending 2. Hypothyroidism, on Synthroid. 3. Significant weight loss due to pancreatic cancer. S/P EUS and biopsy by Dr. Michael. Follow up Oncology. 4. Depression. 5. Debility. ARU pending Subjective Subjective Alert in NAD. No CP or SOB.BP and HR stable. Awaiting Covid negativity anastasiya Esteban [facility]U Objective Last 24 Hour Vital Signs Date Time Temp Pulse Resp B/P (MAP) Pulse Ox O2 Delivery O2 Flow Rate FiO2 10/18/19 11:54 97.9 81 19 96/66 (76) 99 10/18/19 09:00 Room Air 10/18/19 08:00 97.9 84 18 99/69 (79) 98 10/18/19 04:00 98.6 77 18 101/64 (76) 95 10/18/19 00:00 99.0 91 18 95/66 (76) 95 10/17/19 21:00 Room Air 10/17/19 20:00 99.1 82 18 102/68 (79) 96 10/17/19 15:48 98.9 82 20 104/70 (81) 96 Intake and Output 10/17/19 10/18/19 19:00 07:00 Intake Total 480 ml 240 ml Balance 480 ml 240 ml Intake Oral 480 ml 240 ml # Voids 3 3 # Bowel Movements 1 Laboratory Tests Test 10/18/19 04:40 White Blood Count 11.0 K/UL (4.8-10.8) H Red Blood Count 4.12 M/UL (4.20-5.40) L Hemoglobin 12.0 G/DL (12.0-16.0) Hematocrit 35.7 % (37.0-47.0) L Mean Corpuscular Volume 87 FL (80-99) Mean Corpuscular Hemoglobin 29.0 PG (27.0-31.0) Mean Corpuscular Hemoglobin Concent 33.5 G/DL (32.0-36.0) Red Cell Distribution Width 11.7 % (11.6-14.8) Platelet Count 312 K/UL (150-450) Mean Platelet Volume 6.1 FL (6.5-10.1) L Neutrophils (%) (Auto) 75.2 % (45.0-75.0) H Lymphocytes (%) (Auto) 14.9 % (20.0-45.0) L Monocytes (%) (Auto) 6.8 % (1.0-10.0) Eosinophils (%) (Auto) 2.7 % (0.0-3.0) Basophils (%) (Auto) 0.4 % (0.0-2.0) Sodium Level 139 MMOL/L (136-145) Potassium Level 3.5 MMOL/L (3.5-5.1) Chloride Level 103 MMOL/L (98-107) Carbon Dioxide Level 27 MMOL/L (21-32) Anion Gap 9 mmol/L (5-15) Blood Urea Nitrogen 4 mg/dL (7-18) L Creatinine 0.7 MG/DL (0.55-1.30) Estimat Glomerular Filtration Rate > 60 mL/min (>60) Glucose Level 105 MG/DL (74-106) Calcium Level 8.4 MG/DL (8.5-10.1) L Objective HEAD AND NECK: No JVD. LUNGS: Clear. CARDIOVASCULAR: Regular S1 and S2 with no gallop or murmur. ABDOMEN: Soft. EXTREMITIES: No pitting edema. Trevor Bardales MD October 18, 2019 13:27
--- NOTE | 2019-10-18 13:40 | NUR ---
*-* INSURANCE *-* UPDATED CLINICALS AND REVIEWS HAVE BEEN FAXED TO: [facility] P: [phone] F: [phone]
--- NOTE | 2019-10-18 14:37 | NUR ---
CASE MANAGEMENT:REVIEW 10/16/19 SI:S/P EUS WITH BIOPSY . HYPOTENSIVE METASTASIS . PANCREASE CANCER . DEHYDRATION 98.4 65 18 84/58 100% ON RA IS: SYNTHROID PO QAM NORCO PO Q4HR/PRN IV ZOFRAN Q4HR/PRN PROTONIX PO QD PRO-AMATINE PO TID LOVENOX SQ QD \: 3E MED SURG UNIT DCP: HOME WHEN STABLE PLAN: MONITOR LOW BP CASE MANAGEMENT:REVIEW 10/17/19 SI:S/P EUS WITH BIOPSY . HYPOTENSIVE METASTASIS . PANCREASE CANCER . DEHYDRATION 99.1 82 18 102/68 96% ON RA IS: SYNTHROID PO QAM NORCO PO Q4HR/PRN IV ZOFRAN Q4HR/PRN PROTONIX PO QD PRO-AMATINE PO TID LOVENOX SQ QD \: 3E MED SURG UNIT DCP: HOME WHEN STABLE PLAN: MONITOR LOW BP NO BM- GIVE LAXATIVE CASE MANAGEMENT:REVIEW 10/18/19 SI:S/P EUS WITH BIOPSY . HYPOTENSIVE METASTASIS . PANCREASE CANCER . DEHYDRATION 97.9 81 19 96/66 99% ON RA WBC 11.0 BUN 4 CA+8.4 IS: SYNTHROID PO QAM NORCO PO Q4HR/PRN IV ZOFRAN Q4HR/PRN PROTONIX PO QD PRO-AMATINE PO TID LOVENOX SQ QD \: 3E MED SURG UNIT DCP: HOME WHEN STABLE PLAN: BROPATRICAAN EVAL - NEED COVID CLEARANCE MONITOR LOW BP
--- NOTE | 2019-10-18 15:00 | NUR ---
NURSE NOTES: COVID SCREEN COVID SCREENING OBTAINED VIA LEFT NARE. TOLERATED WELL.WALKED DOWN TO LAB AND LOGGED IN.
[2019-10-18 16:00] VITALS: BP 108/73
--- NOTE | 2019-10-18 16:37 | NUR ---
NURSE NOTES: PATIENT REMAINS STABLE. ABDOMINAL AREA LESS FIRM BUT HAS DULL PAIN UPON PALPATION. BS HYPERACTIVE. NO BM TODAY THUS FAR. PASSING FLATUS.APPETITE POOR TODAY. BP IMPROVING. BED IN LOW AND LOCKED POSITION. CALL LIGHT WITHIN REACH.
--- NOTE | 2019-10-18 19:17 | NUR ---
HAND-OFF: Report given to CESIA BALL RN.
--- NOTE | 2019-10-18 19:20 | NUR ---
NURSE NOTES: Receive a report from TRACEY Griffith. Pt is awake and alert. No acute distress noted. Pain is tolerating at this time. Will be followed up. Still noted gas distension. Encourage for PRON in bed. Persist general weakness. Pt had PT. Call light within reach. Will continue to monitor.
[2019-10-18 20:00] VITALS: BP 110/57
--- NOTE | 2019-10-18 22:15 | NUR ---
NURSE NOTES: After drinking a sip of water, pt had about 50ml vomiting with nausea. Given Zofran IV. Will continue to monitor.
[2019-10-18] MEDS: Zolpidem 5mg tab ORAL PRN (22:19)
[2019-10-19 04:00] VITALS: BP 100/69
--- NOTE | 2019-10-19 06:00 | NUR ---
NURSE NOTES: Pt is asleep after Tylenol po without acute distress. Will continue to monitor.
[2019-10-19] MEDS: Levothyroxine 25mcg tab ORAL SCH (06:43)
[2019-10-19 06:56] LABS: BASOPHILS % (AUTO) 0.8 % (0.0-2.0); EOSINOPHILS % (AUTO) 3.6 % (0.0-3.0); HEMATOCRIT 35.8 % (37.0-47.0); LYMPHOCYTES % (AUTO) 20.5 % (20.0-45.0); MEAN CORPUSCULAR VOLUME 86 FL (80-99); MONOCYTES % (AUTO) 6.8 % (1.0-10.0); NEUTROPHILS % (AUTO) 68.2 % (45.0-75.0); PLATELET COUNT 324 K/UL (150-450); RED BLOOD COUNT 4.14 M/UL (4.20-5.40); RED CELL DISTRIBUTION WIDTH 11.7 % (11.6-14.8); WHITE BLOOD COUNT 10.2 K/UL (4.8-10.8)
[2019-10-19 07:19] LABS: ANION GAP 8 mmol/L (5-15); BLOOD UREA NITROGEN 5 mg/dL (7-18); CALCIUM 8.2 MG/DL (8.5-10.1); CARBON DIOXIDE 28 MMOL/L (21-32); CHLORIDE 103 MMOL/L (98-107); CREATININE 0.6 MG/DL (0.55-1.30); POTASSIUM 3.3 MMOL/L (3.5-5.1); SODIUM 139 MMOL/L (136-145)
--- NOTE | 2019-10-19 07:35 | NUR ---
NURSE NOTES: Received patient in bed. Awake, A/O x4. On room air, respirations unlabored. Patient denies pain at this time. IV in the Right hand, site intact. Call light within reach.
--- NOTE | 2019-10-19 07:40 | NUR ---
HAND-OFF: Report given to TRACEY Issa. Round is done.
[2019-10-19 08:00] VITALS: BP 97/66
[2019-10-19] MEDS: Docusate 100mg cap ORAL SCH ×3 (08:22→18:08)
[2019-10-19] MEDS: Enoxaparin 40mg Inj SUBQ SCH (08:27)
--- NOTE | 2019-10-19 08:46 | General Progress Note ---
Assessment/Plan Problem List: (1) UTI (urinary tract infection) ICD Codes: N39.0 - Urinary tract infection, site not specified SNOMED: 16724366 (2) Dehydration ICD Codes: E86.0 - Dehydration SNOMED: 94942411 (3) Dehydration ICD Codes: E86.0 - Dehydration SNOMED: 79193814 (4) Pancreatic cancer ICD Codes: C25.9 - Malignant neoplasm of pancreas, unspecified SNOMED: 856806157 (5) Metastasis ICD Codes: C79.9 - Secondary malignant neoplasm of unspecified site SNOMED: 240215561 (6) Hypothyroid ICD Codes: E03.9 - Hypothyroidism, unspecified SNOMED: 92175241 Status: stable, progressing Assessment/Plan: pt diet abx iv fluid cbc bmp am aru eval Subjective Constitutional: Reports: weakness Allergies: Coded Allergies: No Known Allergies (Unverified , 03/24/16) All Systems: reviewed and negative except above Subjective slightly nauseaus Objective Last 24 Hour Vital Signs Date Time Temp Pulse Resp B/P (MAP) Pulse Ox O2 Delivery O2 Flow Rate FiO2 10/19/19 04:00 98.6 80 18 100/69 (79) 95 10/18/19 21:00 Room Air 10/18/19 20:00 98.1 80 18 110/57 (74) 93 10/18/19 16:00 98.4 82 19 108/73 (85) 99 10/18/19 11:54 97.9 81 19 96/66 (76) 99 10/18/19 09:00 Room Air Intake and Output 10/18/19 10/19/19 19:00 07:00 Intake Total 480 ml 250 ml Balance 480 ml 250 ml Intake Oral 480 ml 250 ml # Voids 2 4 Laboratory Tests 10/19/19 05:40: White Blood Count 10.2, Red Blood Count 4.14L, Hemoglobin 12.0, Hematocrit 35.8L , Mean Corpuscular Volume 86, Mean Corpuscular Hemoglobin 28.9, Mean Corpuscular Hemoglobin Concent 33.4, Red Cell Distribution Width 11.7, Platelet Count 324, Mean Platelet Volume 6.0L, Neutrophils (%) (Auto) 68.2, Lymphocytes ( %) (Auto) 20.5, Monocytes (%) (Auto) 6.8, Eosinophils (%) (Auto) 3.6H, Basophils (%) (Auto) 0.8, Sodium Level 139, Potassium Level 3.3L, Chloride Level 103, Carbon Dioxide Level 28, Anion Gap 8, Blood Urea Nitrogen 5L, Creatinine 0.6, Estimat Glomerular Filtration Rate > 60, Glucose Level 90, Calcium Level 8.2L Height (Feet): 5 Height (Inches): 5.00 Weight (Pounds): 130 General Appearance: lethargic EENT: normal ENT inspection Neck: normal alignment Cardiovascular: normal peripheral pulses, normal rate, regular rhythm Respiratory/Chest: chest wall non-tender, lungs clear, normal breath sounds Abdomen: soft, hypoactive bowel sounds Extremities: normal inspection Edema: no edema noted Arm (L), no edema noted Arm (R), no edema noted Leg (L), no edema noted Leg (R), no edema noted Pedal (L), no edema noted Pedal (R), no edema noted Generalized Neurologic: motor weakness Skin: normal pigmentation, warm/dry Matt Olmedo DO October 19, 2019 08:45
--- NOTE | 2019-10-19 09:47 | General Progress Note ---
Assessment/Plan Problem List: (1) Pancreatic cancer ICD Codes: C25.9 - Malignant neoplasm of pancreas, unspecified SNOMED: 924211840 (2) Elevated cholesterol ICD Codes: E78.0 - Pure hypercholesterolemia SNOMED: 60199172 (3) Hypothyroid ICD Codes: E03.9 - Hypothyroidism, unspecified SNOMED: 35032163 (4) Depression ICD Codes: F32.9 - Major depressive disorder, single episode, unspecified SNOMED: 21849185 Status: stable, progressing Assessment/Plan: fu oncology s/p EUS and biopsy fu path ivf pain control zofran prn add marinol detitian consult push po's Subjective ROS Limited/Unobtainable: No Allergies: Coded Allergies: No Known Allergies (Unverified , 03/24/16) Objective Last 24 Hour Vital Signs Date Time Temp Pulse Resp B/P (MAP) Pulse Ox O2 Delivery O2 Flow Rate FiO2 10/19/19 04:00 98.6 80 18 100/69 (79) 95 10/18/19 21:00 Room Air 10/18/19 20:00 98.1 80 18 110/57 (74) 93 10/18/19 16:00 98.4 82 19 108/73 (85) 99 10/18/19 11:54 97.9 81 19 96/66 (76) 99 Intake and Output 10/18/19 10/19/19 19:00 07:00 Intake Total 480 ml 250 ml Balance 480 ml 250 ml Intake Oral 480 ml 250 ml # Voids 2 4 Laboratory Tests 10/19/19 05:40: White Blood Count 10.2, Red Blood Count 4.14L, Hemoglobin 12.0, Hematocrit 35.8L , Mean Corpuscular Volume 86, Mean Corpuscular Hemoglobin 28.9, Mean Corpuscular Hemoglobin Concent 33.4, Red Cell Distribution Width 11.7, Platelet Count 324, Mean Platelet Volume 6.0L, Neutrophils (%) (Auto) 68.2, Lymphocytes ( %) (Auto) 20.5, Monocytes (%) (Auto) 6.8, Eosinophils (%) (Auto) 3.6H, Basophils (%) (Auto) 0.8, Sodium Level 139, Potassium Level 3.3L, Chloride Level 103, Carbon Dioxide Level 28, Anion Gap 8, Blood Urea Nitrogen 5L, Creatinine 0.6, Estimat Glomerular Filtration Rate > 60, Glucose Level 90, Calcium Level 8.2L Height (Feet): 5 Height (Inches): 5.00 Weight (Pounds): 130 General Appearance: alert EENT: PERRL/EOMI Neck: normal alignment Cardiovascular: normal rate Respiratory/Chest: lungs clear Abdomen: soft, hypoactive bowel sounds, tender Extremities: non-tender Malcom Michael MD October 19, 2019 09:47
[2019-10-19] MEDS: Dronabinol 2.5mg Cap ORAL SCH ×2 (10:39→18:00)
[2019-10-19 12:00] VITALS: BP 105/68
--- NOTE | 2019-10-19 12:26 | NUR ---
CASE MANAGEMENT:REVIEW 10/19/19 SI:S/P EUS WITH BIOPSY . HYPOTENSIVE METASTASIS . PANCREASE CANCER . DEHYDRATION 98.1 77 19 97/66 97% ON RA K+3.3 BUN 45 IS: SYNTHROID PO QAM NORCO PO Q4HR/PRN IV ZOFRAN Q4HR/PRN PROTONIX PO QD PRO-AMATINE PO TID LOVENOX SQ QD MARINOL PO BID \: 3E MED SURG UNIT DCP: HOME WHEN STABLE PLAN: BEV EVAL - NEED COVID-19 CLEARANCE NUTRITION CONSULT PATIENT WANTS TO CONSULT FRIEND PRIOR TO TRANSFERRING TO [facility]
--- NOTE | 2019-10-19 13:03 | NUR ---
*-* INSURANCE *-* UPDATED AVAILABLE CLINICALS AND REVIEWS HAVE BEEN FAXED TO: [facility] tracking# [id number] ; Leona moses# [phone] ext [phone] fax# [phone] Addendum: 10/21/19 at 1450 by AUSTYN CARNES CM *-* DISREGARD THIS NOTE WRONG PATIENT *-*
--- NOTE | 2019-10-19 14:50 | NUR ---
*-* INSURANCE *-* UPDATED CLINICALS AND REVIEWS HAVE BEEN FAXED TO: [facility] P: [phone] F: [phone]
[2019-10-19 16:00] VITALS: BP 104/69
--- NOTE | 2019-10-19 16:21 | Cardiac Electrophysiology PN ---
Assessment/Plan Assessment/Plan 1. Hypotension. On midodrine 5 mg t.i.d. Echocardiogram pending 2. Hypothyroidism, on Synthroid. 3. Significant weight loss due to pancreatic cancer. S/P EUS and biopsy by Dr. Michael. Follow up Oncology. 4. Depression. 5. Debility. ARU pending Subjective Subjective Alert in NAD. No CP or SOB.BP and HR stable. [facility] Last 24 Hour Vital Signs Date Time Temp Pulse Resp B/P (MAP) Pulse Ox O2 Delivery O2 Flow Rate FiO2 10/19/19 12:00 98.0 73 20 105/68 (80) 98 10/19/19 09:00 Room Air 10/19/19 08:00 98.1 77 19 97/66 (76) 97 10/19/19 04:00 98.6 80 18 100/69 (79) 95 10/18/19 21:00 Room Air 10/18/19 20:00 98.1 80 18 110/57 (74) 93 Intake and Output 10/18/19 10/19/19 19:00 07:00 Intake Total 480 ml 250 ml Balance 480 ml 250 ml Intake Oral 480 ml 250 ml # Voids 2 4 Laboratory Tests Test 10/19/19 05:40 White Blood Count 10.2 K/UL (4.8-10.8) Red Blood Count 4.14 M/UL (4.20-5.40) L Hemoglobin 12.0 G/DL (12.0-16.0) Hematocrit 35.8 % (37.0-47.0) L Mean Corpuscular Volume 86 FL (80-99) Mean Corpuscular Hemoglobin 28.9 PG (27.0-31.0) Mean Corpuscular Hemoglobin Concent 33.4 G/DL (32.0-36.0) Red Cell Distribution Width 11.7 % (11.6-14.8) Platelet Count 324 K/UL (150-450) Mean Platelet Volume 6.0 FL (6.5-10.1) L Neutrophils (%) (Auto) 68.2 % (45.0-75.0) Lymphocytes (%) (Auto) 20.5 % (20.0-45.0) Monocytes (%) (Auto) 6.8 % (1.0-10.0) Eosinophils (%) (Auto) 3.6 % (0.0-3.0) H Basophils (%) (Auto) 0.8 % (0.0-2.0) Sodium Level 139 MMOL/L (136-145) Potassium Level 3.3 MMOL/L (3.5-5.1) L Chloride Level 103 MMOL/L (98-107) Carbon Dioxide Level 28 MMOL/L (21-32) Anion Gap 8 mmol/L (5-15) Blood Urea Nitrogen 5 mg/dL (7-18) L Creatinine 0.6 MG/DL (0.55-1.30) Estimat Glomerular Filtration Rate > 60 mL/min (>60) Glucose Level 90 MG/DL (74-106) Calcium Level 8.2 MG/DL (8.5-10.1) L Objective HEAD AND NECK: No JVD. LUNGS: Clear. CARDIOVASCULAR: Regular S1 and S2 with no gallop or murmur. ABDOMEN: Soft. EXTREMITIES: No pitting edema. Trevor Bardales MD October 19, 2019 16:21
--- NOTE | 2019-10-19 17:31 | Infectious Diseases Prog Note ---
Assessment/Plan Assessment/Plan Assessment: Unintentional weight loss Metastatic Pancreatic mass w/ peritoneal carcinomatosis (mets to adrenal, intraabdominal, lymph nodes) -10/13 SP EUS with pancreatic mass Bx -Pelvic US: SMALL POSTMENOPAUSAL UTERUS. ENDOMETRIAL STRIPE NOT WELL SEEN. OVARIES ALSO NOT VISUALIZED. APPARENT AMORPHOUS HYPOECHOIC MASSLIKE STRUCTURE SEEN ADJACENT TO THE URINARY BLADDER OF UNDETERMINED ORIGIN. SINCE THE OVARIES ARE NOT DISTINCTLY SEEN, AN OVARIAN MASS ISCONSIDERED. -10/09 CT abd/p: LARGE LEFT UPPER QUADRANT MASS LIKELY ARISING FROM THE PANCREAS WITH EXTENSION INTO THE LESSER SAC. 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 RETROPERITONEAL ADENOPATHY ENCASING THE SMA ARTERY AND ALONG THE LEFT PARA- AORTIC SPACE. LEFT ADRENAL METASTASIS. NO METASTATIC DISEASE TO THE CHEST PRESENTLY. INCIDENTAL FINDING OF BILATERAL MAMMARY PROSTHESIS IMPLANT INTRACAPSULAR RUPTURE. -10/02 SP EGD/COlo:: gastritis, hemorrhoids --of note, patient had negative COvid testing as an outpatient prior to the procedure Afebrile Mild leukocytosis, SP- -10/13 CXR: Trace bilateral pleural effusions with adjacent streaky opacities in the lung bases which may be related to subsegmental atelectasis. Possibility of developing infiltrate however is not excluded given history of cough. Correlation with clinical findings and follow-up recommended. -u/a no pyuria, nit neg, leuk +1; ucx 40-50k mixed gram positive growth- Patient with no UTI symptoms hypothyroidism MDD sp breast augmentation Plan: -Continue to monitor off abx -f/u cx -Monitor CBC/CMP, temperature -GI, heme/onc f/u -f/u biopsy Thank you for consulting [facility]. Will continue to follow along with you. Subjective Allergies: Coded Allergies: No Known Allergies (Unverified , 03/24/16) Subjective afebrile mild leukocytosis resolved at RA Objective Vital Signs Last 24 Hour Vital Signs Date Time Temp Pulse Resp B/P (MAP) Pulse Ox O2 Delivery O2 Flow Rate FiO2 10/19/19 16:00 98.0 75 19 104/69 (81) 97 10/19/19 12:00 98.0 73 20 105/68 (80) 98 10/19/19 09:00 Room Air 5/27/20 08:00 98.1 77 19 97/66 (76) 97 10/19/19 04:00 98.6 80 18 100/69 (79) 95 10/18/19 21:00 Room Air 10/18/19 20:00 98.1 80 18 110/57 (74) 93 Height (Feet): 5 Height (Inches): 5.00 Weight (Pounds): 130 Objective General: NAD HEENT: nc, at Neck: supple Chest: clear breath sounds bilaterally Cardiovascular: RRR, no s3, s4 Abdomen: soft, nontender, nd ++ abd pain Extremities: no cce, normal range of motion Back: back pain ttp Neuro: alert and oriented Laboratory Tests Test 10/19/19 05:40 White Blood Count 10.2 K/UL (4.8-10.8) Red Blood Count 4.14 M/UL (4.20-5.40) L Hemoglobin 12.0 G/DL (12.0-16.0) Hematocrit 35.8 % (37.0-47.0) L Mean Corpuscular Volume 86 FL (80-99) Mean Corpuscular Hemoglobin 28.9 PG (27.0-31.0) Mean Corpuscular Hemoglobin Concent 33.4 G/DL (32.0-36.0) Red Cell Distribution Width 11.7 % (11.6-14.8) Platelet Count 324 K/UL (150-450) Mean Platelet Volume 6.0 FL (6.5-10.1) L Neutrophils (%) (Auto) 68.2 % (45.0-75.0) Lymphocytes (%) (Auto) 20.5 % (20.0-45.0) Monocytes (%) (Auto) 6.8 % (1.0-10.0) Eosinophils (%) (Auto) 3.6 % (0.0-3.0) H Basophils (%) (Auto) 0.8 % (0.0-2.0) Sodium Level 139 MMOL/L (136-145) Potassium Level 3.3 MMOL/L (3.5-5.1) L Chloride Level 103 MMOL/L (98-107) Carbon Dioxide Level 28 MMOL/L (21-32) Anion Gap 8 mmol/L (5-15) Blood Urea Nitrogen 5 mg/dL (7-18) L Creatinine 0.6 MG/DL (0.55-1.30) Estimat Glomerular Filtration Rate > 60 mL/min (>60) Glucose Level 90 MG/DL (74-106) Calcium Level 8.2 MG/DL (8.5-10.1) L Current Medications Medications (Trade) Dose Ordered Sig/Tiago Route PRN Reason Start Time Stop Time Status Last Admin Dose Admin Acetaminophen (Tylenol) 650 mg Q6H PRN ORAL 1-3 mild pain/fever > 100.4 10/10/19 21:00 11/09/19 20:59 10/19/19 05:12 Docusate Sodium (Colace) 100 mg TID ORAL 10/15/19 13:00 11/14/19 12:59 10/19/19 13:20 Dronabinol (Marinol) 2.5 mg BID ORAL 10/19/19 10:00 01/17/20 09:59 10/19/19 10:39 Enoxaparin Sodium (Lovenox) 40 mg DAILY SUBQ 10/12/19 09:00 01/10/20 08:59 10/19/19 08:27 Famotidine (Pepcid) 20 mg Q6H PRN ORAL acid reflux 10/12/19 06:03 01/10/20 06:02 10/12/19 06:18 Levothyroxine Sodium (Synthroid) 25 mcg ACBREAKFAST ORAL 10/11/19 06:30 11/10/19 06:29 10/19/19 06:43 Midodrine (Pro-Amatine) 5 mg TID ORAL 10/13/19 18:00 01/11/20 17:59 10/19/19 13:20 Ondansetron HCl (Zofran) 4 mg Q4H PRN IVP Nausea & Vomiting 10/11/19 05:45 11/10/19 05:44 10/18/19 22:18 Pantoprazole (Protonix) 40 mg DAILY ORAL 10/15/19 11:45 11/14/19 11:44 10/19/19 08:22 Sorbitol (sorbitoL) 45 ml BIDPRN PRN ORAL Constipation 10/15/19 20:15 11/14/19 20:14 10/17/19 22:37 Zolpidem Tartrate (Ambien) 5 mg HSPRN PRN ORAL Insomnia 10/17/19 21:00 10/24/19 20:59 10/18/19 22:19 Sabi Abbasi M.D. October 19, 2019 17:31
--- NOTE | 2019-10-19 18:24 | NUR ---
NURSE NOTES: Patient refused PO marinol. Patient states it makes her feel loopy. Patient educated on use, risks and benefits. Refused x3.
--- NOTE | 2019-10-19 19:25 | NUR ---
HAND-OFF: Report given to Leandra WEBB.
--- NOTE | 2019-10-19 19:30 | NUR ---
NURSE NOTES: Report received from TRACEY Issa. Patient in stable condition. Seen in bed and in no apparent distress. Patient complaining of some discomfort around the abdomen and back pain, but refuses to take pain medication except Tylenol. Will continue to monitor patient.
[2019-10-19 20:00] VITALS: BP 92/66
[2019-10-20] VITALS (7 sets, daily range): BP systolic 99–113; BP diastolic 63–83
[2019-10-20] MEDS: Levothyroxine 25mcg tab ORAL SCH (06:27)
[2019-10-20 06:41] LABS: BASOPHILS % (AUTO) 0.8 % (0.0-2.0); EOSINOPHILS % (AUTO) 3.2 % (0.0-3.0); HEMATOCRIT 34.5 % (37.0-47.0); HEMOGLOBIN 11.6 G/DL (12.0-16.0); LYMPHOCYTES % (AUTO) 17.8 % (20.0-45.0); MEAN CORPUSCULAR VOLUME 87 FL (80-99); MONOCYTES % (AUTO) 6.1 % (1.0-10.0); NEUTROPHILS % (AUTO) 72.2 % (45.0-75.0); PLATELET COUNT 334 K/UL (150-450); RED BLOOD COUNT 3.97 M/UL (4.20-5.40); RED CELL DISTRIBUTION WIDTH 11.8 % (11.6-14.8); WHITE BLOOD COUNT 10.9 K/UL (4.8-10.8)
[2019-10-20 06:50] LABS: ANION GAP 10 mmol/L (5-15); BLOOD UREA NITROGEN 7 mg/dL (7-18); CALCIUM 8.5 MG/DL (8.5-10.1); CARBON DIOXIDE 28 MMOL/L (21-32); CHLORIDE 101 MMOL/L (98-107); CREATININE 0.7 MG/DL (0.55-1.30); POTASSIUM 3.4 MMOL/L (3.5-5.1); SODIUM 139 MMOL/L (136-145)
--- NOTE | 2019-10-20 07:40 | NUR ---
NURSE NOTES: Report received from Charlie WEBB, rounds made. Patient sleeping in semi-fowlers position in bed. RH heplock intact. Call light in reach, bed in lowest position, will continue to monitor.
--- NOTE | 2019-10-20 07:52 | NUR ---
HAND-OFF: Report given to TRACEY Jackson. Patient in stable condition. Seen sleeping in bed and in no apparent distress.
--- NOTE | 2019-10-20 08:51 | NUR ---
RD ASSESSMENT & RECOMMENDATIONS SEE CARE ACTIVITY FOR COMPLETE ASSESSMENT DAILY ESTIMATED NEEDS: Needs based on WT loss, CA 62.5kg 28-33 kcals/kg 9686-4416 total kcals 1-2 g protein/kg 63-125 g total protein 25-30 mL/kg 5803-3393 total fluid mLs NUTRITION DIAGNOSIS: Increase kcal needs r/t significant wt loss as evidenced by 22% wt change, w/ unintentional est 39 lbs wt loss in 7 weeks, w/ variable intake. CURRENT DIET: regular PO DIET RECOMMENDATIONS: Maintain liberalized REGULAR diet ADDITIONAL RECOMMENDATIONS: 1) Weekly standing or calibrated bedscale wts -> close wt monitoring given admitted w/ wt loss 2) Snacks in b/w meals as tolerated 3) Ensure Enlive added- chocolate flavor, BID per pt request -> refuses Ensure CLEAR: makes her "gag" 4) Allow outside foods of pt's preference: pt reports got [place] food delivered from friend on 10/18 for dinner, which she "ate a lot of". Pt states, "it was so good!" 5) Consider appetite stimulant: Marinol BID added 10/18
[2019-10-20] MEDS: Dronabinol 2.5mg Cap ORAL SCH ×2 (09:00→17:41)
[2019-10-20] MEDS: Docusate 100mg cap ORAL SCH ×4 (09:00→17:41)
--- NOTE | 2019-10-20 09:49 | General Progress Note ---
Assessment/Plan Problem List: (1) Pancreatic cancer ICD Codes: C25.9 - Malignant neoplasm of pancreas, unspecified SNOMED: 887764128 (2) Elevated cholesterol ICD Codes: E78.0 - Pure hypercholesterolemia SNOMED: 42291966 (3) Hypothyroid ICD Codes: E03.9 - Hypothyroidism, unspecified SNOMED: 69868158 (4) Depression ICD Codes: F32.9 - Major depressive disorder, single episode, unspecified SNOMED: 61729979 Status: stable, progressing Assessment/Plan: fu oncology s/p EUS and biopsy fu path>>> adeno ca ivf pain control zofran prn marinol add creon detitian consult push po's Subjective ROS Limited/Unobtainable: Yes Allergies: Coded Allergies: No Known Allergies (Unverified , 03/24/16) Objective Last 24 Hour Vital Signs Date Time Temp Pulse Resp B/P (MAP) Pulse Ox O2 Delivery O2 Flow Rate FiO2 10/20/19 04:00 97.9 81 18 108/70 (83) 94 10/20/19 00:00 97.4 84 20 113/73 (86) 99 10/19/19 21:00 Room Air 10/19/19 20:00 97.2 79 19 92/66 (75) 99 10/19/19 16:00 98.0 75 19 104/69 (81) 97 10/19/19 12:00 98.0 73 20 105/68 (80) 98 Intake and Output 10/19/19 10/20/19 19:00 07:00 # Voids 4 3 Laboratory Tests 10/20/19 05:40: White Blood Count 10.9H, Red Blood Count 3.97L, Hemoglobin 11.6L, Hematocrit 34.5L, Mean Corpuscular Volume 87, Mean Corpuscular Hemoglobin 29.3, Mean Corpuscular Hemoglobin Concent 33.6, Red Cell Distribution Width 11.8, Platelet Count 334, Mean Platelet Volume 5.9L, Neutrophils (%) (Auto) 72.2, Lymphocytes ( %) (Auto) 17.8L, Monocytes (%) (Auto) 6.1, Eosinophils (%) (Auto) 3.2H, Basophils (%) (Auto) 0.8, Sodium Level 139, Potassium Level 3.4L, Chloride Level 101, Carbon Dioxide Level 28, Anion Gap 10, Blood Urea Nitrogen 7, Creatinine 0.7, Estimat Glomerular Filtration Rate > 60, Glucose Level 94, Calcium Level 8.5 Height (Feet): 5 Height (Inches): 5.00 Weight (Pounds): 130 General Appearance: alert EENT: normal ENT inspection Neck: supple Cardiovascular: normal rate Respiratory/Chest: decreased breath sounds Abdomen: soft, hypoactive bowel sounds, tender Extremities: non-tender Malcom Michael MD October 20, 2019 09:49
[2019-10-20] MEDS: Enoxaparin 40mg Inj SUBQ SCH (10:22)
--- NOTE | 2019-10-20 10:45 | NUR ---
NURSE NOTES: Dr. Olmedo notified of K3.4, orders received for KCL 40 meq x1 and CBC/BMP in AM. Patient updated, verbalized understanding.
--- NOTE | 2019-10-20 12:26 | General Progress Note ---
Assessment/Plan Problem List: (1) UTI (urinary tract infection) ICD Codes: N39.0 - Urinary tract infection, site not specified SNOMED: 40403758 (2) Dehydration ICD Codes: E86.0 - Dehydration SNOMED: 68883963 (3) Dehydration ICD Codes: E86.0 - Dehydration SNOMED: 62615943 (4) Pancreatic cancer ICD Codes: C25.9 - Malignant neoplasm of pancreas, unspecified SNOMED: 114760373 (5) Metastasis ICD Codes: C79.9 - Secondary malignant neoplasm of unspecified site SNOMED: 270371410 (6) Hypothyroid ICD Codes: E03.9 - Hypothyroidism, unspecified SNOMED: 41124983 Status: stable, progressing Assessment/Plan: pt diet abx iv fluid cbc bmp am dc to [facility] if clear Subjective Constitutional: Reports: weakness Allergies: Coded Allergies: No Known Allergies (Unverified , 03/24/16) All Systems: reviewed and negative except above Subjective slightly nauseaus Objective Last 24 Hour Vital Signs Date Time Temp Pulse Resp B/P (MAP) Pulse Ox O2 Delivery O2 Flow Rate FiO2 10/20/19 08:00 98.7 82 19 99/68 (78) 95 10/20/19 04:00 97.9 81 18 108/70 (83) 94 10/20/19 00:00 97.4 84 20 113/73 (86) 99 10/19/19 21:00 Room Air 10/19/19 20:00 97.2 79 19 92/66 (75) 99 10/19/19 16:00 98.0 75 19 104/69 (81) 97 Intake and Output 10/19/19 10/20/19 19:00 07:00 # Voids 4 3 Laboratory Tests 10/20/19 05:40: White Blood Count 10.9H, Red Blood Count 3.97L, Hemoglobin 11.6L, Hematocrit 34.5L, Mean Corpuscular Volume 87, Mean Corpuscular Hemoglobin 29.3, Mean Corpuscular Hemoglobin Concent 33.6, Red Cell Distribution Width 11.8, Platelet Count 334, Mean Platelet Volume 5.9L, Neutrophils (%) (Auto) 72.2, Lymphocytes ( %) (Auto) 17.8L, Monocytes (%) (Auto) 6.1, Eosinophils (%) (Auto) 3.2H, Basophils (%) (Auto) 0.8, Sodium Level 139, Potassium Level 3.4L, Chloride Level 101, Carbon Dioxide Level 28, Anion Gap 10, Blood Urea Nitrogen 7, Creatinine 0.7, Estimat Glomerular Filtration Rate > 60, Glucose Level 94, Calcium Level 8.5 Height (Feet): 5 Height (Inches): 5.00 Weight (Pounds): 130 General Appearance: lethargic EENT: normal ENT inspection Neck: normal alignment Cardiovascular: normal peripheral pulses, normal rate, regular rhythm Respiratory/Chest: chest wall non-tender, lungs clear, normal breath sounds Abdomen: soft, hypoactive bowel sounds Extremities: normal inspection Edema: no edema noted Arm (L), no edema noted Arm (R), no edema noted Leg (L), no edema noted Leg (R), no edema noted Pedal (L), no edema noted Pedal (R), no edema noted Generalized Neurologic: responsive, motor weakness Skin: normal pigmentation, warm/dry Matt Olmedo DO October 20, 2019 12:26
[2019-10-20] MEDS: Pancrelipase Dr Cap ORAL SCH ×3 (13:12→20:48)
--- NOTE | 2019-10-20 14:51 | NUR ---
*-* INSURANCE *-* UPDATED CLINICALS AND REVIEWS HAVE BEEN FAXED TO: [facility] P: [phone] F: [phone]
--- NOTE | 2019-10-20 15:36 | Cardiac Electrophysiology PN ---
Assessment/Plan Assessment/Plan 1. Hypotension. On midodrine 5 mg t.i.d. Echo pending 2. Hypothyroidism, on Synthroid. 3. Significant weight loss due to pancreatic cancer. S/P EUS and biopsy by Dr. Michael. Oncology. 4. Depression. 5. Debility. ARU pending Subjective Subjective Alert in NAD. No CP or SOB. BP and HR stable. [facility] Objective Last 24 Hour Vital Signs Date Time Temp Pulse Resp B/P (MAP) Pulse Ox O2 Delivery O2 Flow Rate FiO2 10/20/19 12:00 98.4 90 19 102/83 (89) 95 10/20/19 08:00 98.7 82 19 99/68 (78) 95 10/20/19 04:00 97.9 81 18 108/70 (83) 94 10/20/19 00:00 97.4 84 20 113/73 (86) 99 10/19/19 21:00 Room Air 10/19/19 20:00 97.2 79 19 92/66 (75) 99 10/19/19 16:00 98.0 75 19 104/69 (81) 97 Intake and Output 10/19/19 10/20/19 19:00 07:00 # Voids 4 3 Laboratory Tests Test 10/20/19 05:40 White Blood Count 10.9 K/UL (4.8-10.8) H Red Blood Count 3.97 M/UL (4.20-5.40) L Hemoglobin 11.6 G/DL (12.0-16.0) L Hematocrit 34.5 % (37.0-47.0) L Mean Corpuscular Volume 87 FL (80-99) Mean Corpuscular Hemoglobin 29.3 PG (27.0-31.0) Mean Corpuscular Hemoglobin Concent 33.6 G/DL (32.0-36.0) Red Cell Distribution Width 11.8 % (11.6-14.8) Platelet Count 334 K/UL (150-450) Mean Platelet Volume 5.9 FL (6.5-10.1) L Neutrophils (%) (Auto) 72.2 % (45.0-75.0) Lymphocytes (%) (Auto) 17.8 % (20.0-45.0) L Monocytes (%) (Auto) 6.1 % (1.0-10.0) Eosinophils (%) (Auto) 3.2 % (0.0-3.0) H Basophils (%) (Auto) 0.8 % (0.0-2.0) Sodium Level 139 MMOL/L (136-145) Potassium Level 3.4 MMOL/L (3.5-5.1) L Chloride Level 101 MMOL/L (98-107) Carbon Dioxide Level 28 MMOL/L (21-32) Anion Gap 10 mmol/L (5-15) Blood Urea Nitrogen 7 mg/dL (7-18) Creatinine 0.7 MG/DL (0.55-1.30) Estimat Glomerular Filtration Rate > 60 mL/min (>60) Glucose Level 94 MG/DL (74-106) Calcium Level 8.5 MG/DL (8.5-10.1) Objective HEAD AND NECK: No JVD. LUNGS: Clear. CARDIOVASCULAR: Regular S1 and S2 with no gallop or murmur. ABDOMEN: Soft. EXTREMITIES: No pitting edema. Trevor Bardales MD October 20, 2019 15:36
--- NOTE | 2019-10-20 15:40 | NUR ---
NURSE NOTES: Dr. Olmedo notified that patient recently found out her biopsy results from Dr. Michael's office, patient states she has advanced cancer and will need to start chemotherapy with Dr. Cardenas as outpatient. Patient tearful. Requested medication to help patient keep calm/for anxiety. No orders. Dr. Roberts placed on consult.
--- NOTE | 2019-10-20 16:17 | NUR ---
*-* INSURANCE *-* UPDATED AVAILABLE CLINICALS AND REVIEWS HAVE BEEN FAXED TO: [facility] tracking# [id number] ; Leona # [phone] ext [phone] fax# [phone] Addendum: 10/21/19 at 1100 by AUSTYN CARNES CM TEJINDER F: [phone] (NEED DISCHARGE SUMMARY OR DISCHARGE DATE Addendum: 10/21/19 at 1450 by AUSTYN CARNES CM *-* DOCUMENTED IN WRONG INFORMATION
--- NOTE | 2019-10-20 16:20 | NUR ---
CASE MANAGEMENT:REVIEW 10/20/19 SI:S/P EUS WITH BIOPSY . HYPOTENSIVE METASTASIS . PANCREASE CANCER . DEHYDRATION 98.4 90 19 102/83 95% ON RA WBC 10.9 K+3.4 IS: SYNTHROID PO QAM NORCO PO Q4HR/PRN IV ZOFRAN Q4HR/PRN PROTONIX PO QD PRO-AMATINE PO TID LOVENOX SQ QD MARINOL PO BID \: 3E MED SURG UNIT DCP: HOME WHEN STABLE PLAN: [facility]S - NEED COVID-19 -STILL PENDING NUTRITION CONSULT PATIENT AGREEABLE TO [facility] WAGNER
--- NOTE | 2019-10-20 19:47 | NUR ---
HAND-OFF: Report given to Doretha WEBB, rounds made, patient stable.
--- NOTE | 2019-10-20 19:59 | NUR ---
NURSE NOTES: Patient is in bed, awake and alert x4. On room air with no signs of distress or SOB. Patient reports abdominal discomfort but refused pain med due to constipation. IV intact and patent. Bed locked and in lowest position. Instructed pt to call for assist when getting out of bed. Call light in easy reach. Will continue to follow plan of care.
[2019-10-20] MEDS: Zolpidem 5mg tab ORAL PRN (23:23)
[2019-10-20] MEDS ORDERED: LORazepam 0.5mg tab ORAL PRN (23:45)
--- NOTE | 2019-10-21 01:30 | Consultation ---
DATE OF CONSULTATION: 10/20/2019 HISTORY OF PRESENT ILLNESS: The patient is a 64-year-old female with a history of multiple medical issues including depression, pancreatic cancer, dehydration, urinary tract infection who has been admitted to the hospital for medical stabilization. The patient is presenting with depressed mood, anxiety, difficulty coping with her current stressors. The patient is in pain and has difficulty with side effects. The patient is not suicidal or homicidal, compliant with medication. PAST PSYCHIATRIC HISTORY: Significant for anxiety, depression. PAST MEDICAL HISTORY: As above. ALLERGIES: No known drug allergies. SUBSTANCE ABUSE HISTORY: No known history of illicit drug use or alcohol. MENTAL STATUS EXAMINATION: Alert and oriented times self, place, situation, and date. Mood is depressed. Affect is constricted. Congruent with mood. Thought process is concrete. Thought content, no suicidal or homicidal ideation. Cognition is intact. Insight and judgment is fair. ASSESSMENT: Jessie I Anxiety disorder. . Jessie II Deferred. Jessie III Pancreatic cancer. Jessie IV Low. Jessie V . PLAN: 1. Ativan as needed. 2. Discussed with primary care physician. Nelson Roberts M.D. DR: Shelly JOB#: [id number] CC:
[2019-10-21 04:00] VITALS: BP 107/72
[2019-10-21 06:00] LABS: BASOPHILS % (AUTO) 1.1 % (0.0-2.0); HEMOGLOBIN 12.2 G/DL (12.0-16.0); LYMPHOCYTES % (AUTO) 17.3 % (20.0-45.0); MEAN CORPUSCULAR VOLUME 87 FL (80-99); NEUTROPHILS % (AUTO) 71.6 % (45.0-75.0); PLATELET COUNT 353 K/UL (150-450); RED BLOOD COUNT 4.28 M/UL (4.20-5.40); RED CELL DISTRIBUTION WIDTH 11.8 % (11.6-14.8); WHITE BLOOD COUNT 10.7 K/UL (4.8-10.8)
[2019-10-21 06:27] LABS: ANION GAP 9 mmol/L (5-15); BLOOD UREA NITROGEN 6 mg/dL (7-18); CALCIUM 8.3 MG/DL (8.5-10.1); CARBON DIOXIDE 26 MMOL/L (21-32); CHLORIDE 102 MMOL/L (98-107); CREATININE 0.7 MG/DL (0.55-1.30); POTASSIUM 3.9 MMOL/L (3.5-5.1); SODIUM 137 MMOL/L (136-145)
[2019-10-21] MEDS: Levothyroxine 25mcg tab ORAL SCH (06:39)
[2019-10-21] MEDS: Pancrelipase Dr Cap ORAL SCH ×4 (06:40→20:49)
--- NOTE | 2019-10-21 07:27 | NUR ---
HAND-OFF: Report given to TRACEY Sagastume.
--- NOTE | 2019-10-21 07:45 | NUR ---
NURSE NOTES: Received report from TRACEY Coyne. Patient asleep in bed, with no signs of distress or SOB. IV intact and patent. Received result Covid negative. Bed locked and in lowest position. Call light within reach. Will continue to follow plan of care.
[2019-10-21 08:00] VITALS: BP 100/69
[2019-10-21] MEDS: Docusate 100mg cap ORAL SCH ×3 (08:33→18:22)
[2019-10-21] MEDS: Dronabinol 2.5mg Cap ORAL SCH ×2 (08:33→18:23)
[2019-10-21] MEDS: Enoxaparin 40mg Inj SUBQ SCH (08:40)
--- NOTE | 2019-10-21 09:04 | General Progress Note ---
Assessment/Plan Problem List: (1) Pancreatic cancer ICD Codes: C25.9 - Malignant neoplasm of pancreas, unspecified SNOMED: 537991136 (2) Elevated cholesterol ICD Codes: E78.0 - Pure hypercholesterolemia SNOMED: 62772491 (3) Hypothyroid ICD Codes: E03.9 - Hypothyroidism, unspecified SNOMED: 76815083 (4) Depression ICD Codes: F32.9 - Major depressive disorder, single episode, unspecified SNOMED: 41977334 Status: stable, progressing Assessment/Plan: fu oncology s/p EUS and biopsy fu path>>> adeno ca ivf pain control zofran prn marinol creon push po's dc planning per primary team Subjective ROS Limited/Unobtainable: Yes Allergies: Coded Allergies: No Known Allergies (Unverified , 03/24/16) Objective Last 24 Hour Vital Signs Date Time Temp Pulse Resp B/P (MAP) Pulse Ox O2 Delivery O2 Flow Rate FiO2 10/21/19 04:00 98.2 78 18 107/72 (84) 96 10/20/19 23:56 98.3 80 18 101/63 (76) 95 10/20/19 20:16 Room Air 10/20/19 20:00 98.6 76 18 113/72 (86) 94 10/20/19 16:00 98.4 94 20 106/78 (87) 95 10/20/19 12:45 Room Air 10/20/19 12:00 98.4 90 19 102/83 (89) 95 Intake and Output 10/20/19 10/21/19 19:00 07:00 Intake Total 400 ml 240 ml Balance 400 ml 240 ml Intake Oral 400 ml 240 ml # Voids 4 3 # Bowel Movements 4 1 Laboratory Tests 10/21/19 05:30: White Blood Count 10.7, Red Blood Count 4.28, Hemoglobin 12.2, Hematocrit 37.0, Mean Corpuscular Volume 87, Mean Corpuscular Hemoglobin 28.5, Mean Corpuscular Hemoglobin Concent 32.9, Red Cell Distribution Width 11.8, Platelet Count 353, Mean Platelet Volume 5.5L, Neutrophils (%) (Auto) 71.6, Lymphocytes (%) (Auto) 17.3L, Monocytes (%) (Auto) 7.0, Eosinophils (%) (Auto) 3.0, Basophils (%) (Auto ) 1.1, Sodium Level 137, Potassium Level 3.9, Chloride Level 102, Carbon Dioxide Level 26, Anion Gap 9, Blood Urea Nitrogen 6L, Creatinine 0.7, Estimat Glomerular Filtration Rate > 60, Glucose Level 85, Calcium Level 8.3L Height (Feet): 5 Height (Inches): 5.00 Weight (Pounds): 130 General Appearance: no apparent distress EENT: normal ENT inspection Neck: supple Cardiovascular: normal rate Respiratory/Chest: decreased breath sounds Abdomen: normal bowel sounds, non tender, soft Extremities: non-tender Malcom Michael MD October 21, 2019 09:04
--- NOTE | 2019-10-21 09:26 | General Progress Note ---
Assessment/Plan Problem List: (1) UTI (urinary tract infection) ICD Codes: N39.0 - Urinary tract infection, site not specified SNOMED: 74414103 (2) Dehydration ICD Codes: E86.0 - Dehydration SNOMED: 89642190 (3) Dehydration ICD Codes: E86.0 - Dehydration SNOMED: 30264203 (4) Pancreatic cancer ICD Codes: C25.9 - Malignant neoplasm of pancreas, unspecified SNOMED: 829961417 (5) Metastasis ICD Codes: C79.9 - Secondary malignant neoplasm of unspecified site SNOMED: 616926046 (6) Hypothyroid ICD Codes: E03.9 - Hypothyroidism, unspecified SNOMED: 53498240 Status: stable, progressing Assessment/Plan: pt diet abx iv fluid cbc bmp am dc to [facility] if clear Subjective Constitutional: Reports: weakness Allergies: Coded Allergies: No Known Allergies (Unverified , 03/24/16) All Systems: reviewed and negative except above Subjective sleepy calm Objective Last 24 Hour Vital Signs Date Time Temp Pulse Resp B/P (MAP) Pulse Ox O2 Delivery O2 Flow Rate FiO2 10/21/19 04:00 98.2 78 18 107/72 (84) 96 10/20/19 23:56 98.3 80 18 101/63 (76) 95 10/20/19 20:16 Room Air 10/20/19 20:00 98.6 76 18 113/72 (86) 94 10/20/19 16:00 98.4 94 20 106/78 (87) 95 10/20/19 12:45 Room Air 10/20/19 12:00 98.4 90 19 102/83 (89) 95 Intake and Output 10/20/19 10/21/19 19:00 07:00 Intake Total 400 ml 240 ml Balance 400 ml 240 ml Intake Oral 400 ml 240 ml # Voids 4 3 # Bowel Movements 4 1 Laboratory Tests 10/21/19 05:30: White Blood Count 10.7, Red Blood Count 4.28, Hemoglobin 12.2, Hematocrit 37.0, Mean Corpuscular Volume 87, Mean Corpuscular Hemoglobin 28.5, Mean Corpuscular Hemoglobin Concent 32.9, Red Cell Distribution Width 11.8, Platelet Count 353, Mean Platelet Volume 5.5L, Neutrophils (%) (Auto) 71.6, Lymphocytes (%) (Auto) 17.3L, Monocytes (%) (Auto) 7.0, Eosinophils (%) (Auto) 3.0, Basophils (%) (Auto ) 1.1, Sodium Level 137, Potassium Level 3.9, Chloride Level 102, Carbon Dioxide Level 26, Anion Gap 9, Blood Urea Nitrogen 6L, Creatinine 0.7, Estimat Glomerular Filtration Rate > 60, Glucose Level 85, Calcium Level 8.3L Height (Feet): 5 Height (Inches): 5.00 Weight (Pounds): 130 General Appearance: lethargic EENT: normal ENT inspection Neck: normal alignment, abnormal alignment Cardiovascular: normal peripheral pulses, regular rhythm Respiratory/Chest: chest wall non-tender, lungs clear, normal breath sounds Abdomen: soft, hypoactive bowel sounds Extremities: normal inspection Neurologic: motor weakness Skin: normal pigmentation, warm/dry Matt Olmedo October 21, 2019 09:26
--- NOTE | 2019-10-21 11:42 | NUR ---
CASE MANAGEMENT:REVIEW 10/21/19 SI:S/P EUS WITH BIOPSY . HYPOTENSIVE METASTASIS . PANCREASE CANCER . DEHYDRATION 98.6 82 20 100/69 96% ON RA CA+8.3 IS: SYNTHROID PO QAM NORCO PO Q4HR/PRN IV ZOFRAN Q4HR/PRN PROTONIX PO QD PRO-AMATINE PO TID LOVENOX SQ QD MARINOL PO BID \: 3E MED SURG UNIT DCP: HOME WHEN STABLE PLAN: FAXED COVID NEGATIVE TO [facility] WAGNER PATIENT AGREEABLE PER MD OLSON TO OBTAIN DC ORDER FROM PHOTOENGRAVER APPRENTICE
[2019-10-21 12:00] VITALS: BP 97/78
--- NOTE | 2019-10-21 12:12 | Hematology/Onc Progress Note ---
Assessment/Plan Assessment/Plan Assessment/Recs # Stage IV pancreatic cacner - LARGE LEFT UPPER QUADRANT MASS LIKELY ARISING FROM THE PANCREAS WITH EXTENSION INTO THE LESSER SAC. 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 RETROPERITONEAL ADENOPATHY ENCASING THE SMA ARTERY AND ALONG THE LEFT PARA- AORTIC SPACE. LEFT ADRENAL METASTASIS. --> ct guided biop for 10/12/2019 cancelled as could not get a good [place] --> endoscopic us ordered 10/13-->RESULTS pending --> us of the ovaries --> APPARENT AMORPHOUS HYPOECHOIC MASSLIKE STRUCTURE SEEN ADJACENT TO THE URINARY BLADDER OF UNDETERMINED ORIGIN. SINCE THE OVARIES ARE NOT DISTINCTLY SEEN, AN OVARIAN MASS IS CONSIDERED. --> ca 19.9, 39,393, ca 125 is 523, cea 731 --> weight loss noted --> started on marinol --> as per gi care, they are aware --> to f/u as outpatient --> at this time very depressed, may consider psych eval --> outpatient chemo to consider v transfer to rehab unit at this time # Dehydration --> on ivfs as needed --> per renal # LEFT ADRENAL METASTASIS. --> likely c/w panc primary cancer # Leukocytosis --> urine cx+ x2 --> wbc trend: 7.8-->11.6 -->9.5 --> 10/13 cxr: Trace bilateral pleural effusions # Weight loss --> related to ca # Dvt ppx ambulation The timing of this note does not necessarily reflect the time of the patient was seen. Greatly appreciate consultation. Subjective Cardiovascular: Denies: no symptoms, chest pain, edema, irregular heart rate, lightheadedness, palpitations, syncope, other Respiratory: Denies: no symptoms, cough, shortness of breath, SOB with excertion, SOB at rest, sputum, wheezing, other Gastrointestinal/Abdominal: Denies: no symptoms, abdomen distended, abdominal pain, black stools, tarry stools, blood in stool, constipated, diarrhea, difficulty swallowing, nausea, poor appetite, poor fluid intake, rectal bleeding , vomiting, other Genitourinary: Denies: no symptoms, burning, discharge, frequency, flank pain, hematuria, incontinence, pain, urgency, other Neurologic/Psychiatric: Denies: no symptoms, anxiety, depressed, emotional problems, headache, numbness, paresthesia, pre-existing deficit, seizure, tingling, tremors, weakness, other Allergies: Coded Allergies: No Known Allergies (Unverified , 03/24/16) Subjective 10/11 med surg, awake and alert, ct guided biop for today 10/[address] guided needle, endoscopic us ordered 10/13 us pelvis reviewed, no acute distress, room air 10/14 cxr abd labs reviewed, stable for dc 10/15 long discussion, feels depressed, no bleeding, meds noted 10/16 pending pathology report, no bleeding, meds reviewed 10/17 s/p eus with biopsy, report pending, dw gi 10/20 labs noted, no bleeding, with pancreatic cancer stage iv Objective Objective Current Medications Medications (Trade) Dose Ordered Sig/Tiago Route PRN Reason Start Time Stop Time Status Last Admin Dose Admin Acetaminophen (Tylenol) 650 mg Q6H PRN ORAL 1-3 mild pain/fever > 100.4 10/10/19 21:00 11/09/19 20:59 10/19/19 05:12 Amylase/Lipase/ Protease (Zenpep) 2 ea PCHS ORAL 10/20/19 12:30 01/18/20 12:29 10/21/19 11:58 Docusate Sodium (Colace) 100 mg TID ORAL 10/15/19 13:00 11/14/19 12:59 10/21/19 08:33 Dronabinol (Marinol) 2.5 mg BID ORAL 10/19/19 10:00 01/17/20 09:59 10/21/19 08:33 Enoxaparin Sodium (Lovenox) 40 mg DAILY SUBQ 10/12/19 09:00 01/10/20 08:59 10/21/19 08:40 Famotidine (Pepcid) 20 mg Q6H PRN ORAL acid reflux 10/12/19 06:03 01/10/20 06:02 10/12/19 06:18 Levothyroxine Sodium (Synthroid) 25 mcg ACBREAKFAST ORAL 10/11/19 06:30 11/10/19 06:29 10/21/19 06:39 Lorazepam (Ativan) 2 mg Q6H PRN ORAL For Anxiety 10/20/19 23:45 10/27/19 23:44 Midodrine (Pro-Amatine) 5 mg TID ORAL 10/13/19 18:00 01/11/20 17:59 10/21/19 08:33 Ondansetron HCl (Zofran) 4 mg Q4H PRN IVP Nausea & Vomiting 10/11/19 05:45 11/10/19 05:44 10/18/19 22:18 Pantoprazole (Protonix) 40 mg DAILY ORAL 10/15/19 11:45 11/14/19 11:44 10/21/19 08:33 Sorbitol (sorbitoL) 45 ml BIDPRN PRN ORAL Constipation 10/15/19 20:15 11/14/19 20:14 10/17/19 22:37 Zolpidem Tartrate (Ambien) 5 mg HSPRN PRN ORAL Insomnia 10/17/19 21:00 10/24/19 20:59 10/20/19 23:23 Last 24 Hour Vital Signs Date Time Temp Pulse Resp B/P (MAP) Pulse Ox O2 Delivery O2 Flow Rate FiO2 10/21/19 09:00 Room Air 10/21/19 08:00 98.6 82 20 100/69 (79) 96 10/21/19 04:00 98.2 78 18 107/72 (84) 96 10/20/19 23:56 98.3 80 18 101/63 (76) 95 10/20/19 20:16 Room Air 10/20/19 20:00 98.6 76 18 113/72 (86) 94 10/20/19 16:00 98.4 94 20 106/78 (87) 95 10/20/19 12:45 Room Air 10/20/19 12:00 98.4 90 19 102/83 (89) 95 10/20/19 09:00 Room Air 10/20/19 08:00 98.7 82 19 99/68 (78) 95 10/20/19 04:00 97.9 81 18 108/70 (83) 94 10/20/19 00:00 97.4 84 20 113/73 (86) 99 10/19/19 21:00 Room Air 10/19/19 20:00 97.2 79 19 92/66 (75) 99 10/19/19 16:00 98.0 75 19 104/69 (81) 97 Intake and Output 10/20/19 10/21/19 19:00 07:00 Intake Total 400 ml 240 ml Balance 400 ml 240 ml Intake Oral 400 ml 240 ml # Voids 4 3 # Bowel Movements 4 1 Labs Test 10/19/19 05:40 10/20/19 05:40 10/21/19 05:30 White Blood Count 10.2 K/UL (4.8-10.8) 10.9 K/UL (4.8-10.8) 10.7 K/UL (4.8-10.8) Red Blood Count 4.14 M/UL (4.20-5.40) 3.97 M/UL (4.20-5.40) 4.28 M/UL (4.20-5.40) Hemoglobin 12.0 G/DL (12.0-16.0) 11.6 G/DL (12.0-16.0) 12.2 G/DL (12.0-16.0) Hematocrit 35.8 % (37.0-47.0) 34.5 % (37.0-47.0) 37.0 % (37.0-47.0) Mean Corpuscular Volume 86 FL (80-99) 87 FL (80-99) 87 FL (80-99) Mean Corpuscular Hemoglobin 28.9 PG (27.0-31.0) 29.3 PG (27.0-31.0) 28.5 PG (27.0-31.0) Mean Corpuscular Hemoglobin Concent 33.4 G/DL (32.0-36.0) 33.6 G/DL (32.0-36.0) 32.9 G/DL (32.0-36.0) Red Cell Distribution Width 11.7 % (11.6-14.8) 11.8 % (11.6-14.8) 11.8 % (11.6-14.8) Platelet Count 324 K/UL (150-450) 334 K/UL (150-450) 353 K/UL (150-450) Mean Platelet Volume 6.0 FL (6.5-10.1) 5.9 FL (6.5-10.1) 5.5 FL (6.5-10.1) Neutrophils (%) (Auto) 68.2 % (45.0-75.0) 72.2 % (45.0-75.0) 71.6 % (45.0-75.0) Lymphocytes (%) (Auto) 20.5 % (20.0-45.0) 17.8 % (20.0-45.0) 17.3 % (20.0-45.0) Monocytes (%) (Auto) 6.8 % (1.0-10.0) 6.1 % (1.0-10.0) 7.0 % (1.0-10.0) Eosinophils (%) (Auto) 3.6 % (0.0-3.0) 3.2 % (0.0-3.0) 3.0 % (0.0-3.0) Basophils (%) (Auto) 0.8 % (0.0-2.0) 0.8 % (0.0-2.0) 1.1 % (0.0-2.0) Sodium Level 139 MMOL/L (136-145) 139 MMOL/L (136-145) 137 MMOL/L (136-145) Potassium Level 3.3 MMOL/L (3.5-5.1) 3.4 MMOL/L (3.5-5.1) 3.9 MMOL/L (3.5-5.1) Chloride Level 103 MMOL/L (98-107) 101 MMOL/L (98-107) 102 MMOL/L (98-107) Carbon Dioxide Level 28 MMOL/L (21-32) 28 MMOL/L (21-32) 26 MMOL/L (21-32) Anion Gap 8 mmol/L (5-15) 10 mmol/L (5-15) 9 mmol/L (5-15) Blood Urea Nitrogen 5 mg/dL (7-18) 7 mg/dL (7-18) 6 mg/dL (7-18) Creatinine 0.6 MG/DL (0.55-1.30) 0.7 MG/DL (0.55-1.30) 0.7 MG/DL (0.55-1.30) Estimat Glomerular Filtration Rate > 60 mL/min (>60) > 60 mL/min (>60) > 60 mL/min (>60) Glucose Level 90 MG/DL (74-106) 94 MG/DL (74-106) 85 MG/DL (74-106) Calcium Level 8.2 MG/DL (8.5-10.1) 8.5 MG/DL (8.5-10.1) 8.3 MG/DL (8.5-10.1) Height (Feet): 5 Height (Inches): 5.00 Weight (Pounds): 130 Objective Physical Exam: Vitals: reviewed General: NAD HEENT: nc, at Neck: supple Chest: clear breath sounds bilaterally Cardiovascular: RRR, no s3, s4 Abdomen: soft, nontender, nd ++ abd pain Extremities: no cce, normal range of motion Back: back pain ttp Neuro: alert and oriented Ortiz Porter MD October 21, 2019 12:12
--- NOTE | 2019-10-21 12:59 | Cardiac Electrophysiology PN ---
Assessment/Plan Assessment/Plan 1. Hypotension. On midodrine 5 mg t.i.d. Echo pending 2. Hypothyroidism, on Synthroid. 3. Significant weight loss due to pancreatic cancer. S/P EUS and biopsy by Dr. Michael. Oncology. 4. Depression. 5. Debility. ARU pending Subjective Subjective Alert in NAD. No CP or SOB. BP and HR stable. Covid now negative and awaiting transfer to [facility] ARU Objective Last 24 Hour Vital Signs Date Time Temp Pulse Resp B/P (MAP) Pulse Ox O2 Delivery O2 Flow Rate FiO2 10/21/19 09:00 Room Air 10/21/19 08:00 98.6 82 20 100/69 (79) 96 10/21/19 04:00 98.2 78 18 107/72 (84) 96 10/20/19 23:56 98.3 80 18 101/63 (76) 95 10/20/19 20:16 Room Air 10/20/19 20:00 98.6 76 18 113/72 (86) 94 10/20/19 16:00 98.4 94 20 106/78 (87) 95 Intake and Output 10/20/19 10/21/19 19:00 07:00 Intake Total 400 ml 240 ml Balance 400 ml 240 ml Intake Oral 400 ml 240 ml # Voids 4 3 # Bowel Movements 4 1 Laboratory Tests Test 10/21/19 05:30 White Blood Count 10.7 K/UL (4.8-10.8) Red Blood Count 4.28 M/UL (4.20-5.40) Hemoglobin 12.2 G/DL (12.0-16.0) Hematocrit 37.0 % (37.0-47.0) Mean Corpuscular Volume 87 FL (80-99) Mean Corpuscular Hemoglobin 28.5 PG (27.0-31.0) Mean Corpuscular Hemoglobin Concent 32.9 G/DL (32.0-36.0) Red Cell Distribution Width 11.8 % (11.6-14.8) Platelet Count 353 K/UL (150-450) Mean Platelet Volume 5.5 FL (6.5-10.1) L Neutrophils (%) (Auto) 71.6 % (45.0-75.0) Lymphocytes (%) (Auto) 17.3 % (20.0-45.0) L Monocytes (%) (Auto) 7.0 % (1.0-10.0) Eosinophils (%) (Auto) 3.0 % (0.0-3.0) Basophils (%) (Auto) 1.1 % (0.0-2.0) Sodium Level 137 MMOL/L (136-145) Potassium Level 3.9 MMOL/L (3.5-5.1) Chloride Level 102 MMOL/L (98-107) Carbon Dioxide Level 26 MMOL/L (21-32) Anion Gap 9 mmol/L (5-15) Blood Urea Nitrogen 6 mg/dL (7-18) L Creatinine 0.7 MG/DL (0.55-1.30) Estimat Glomerular Filtration Rate > 60 mL/min (>60) Glucose Level 85 MG/DL (74-106) Calcium Level 8.3 MG/DL (8.5-10.1) L Microbiology Date/Time Source Procedure Growth Status 10/18/19 13:59 Nasopharynx Coronavirus COVID-19 PCR ([facility]) - Final Complete Objective HEAD AND NECK: No JVD. LUNGS: Clear. CARDIOVASCULAR: Regular S1 and S2 with no gallop or murmur. ABDOMEN: Soft. EXTREMITIES: No pitting edema. Trevor Bardales MD October 21, 2019 12:58
--- NOTE | 2019-10-21 14:15 | NUR ---
*-* INSURANCE *-* UPDATED AVAILABLE CLINICALS AND REVIEWS HAVE BEEN FAXED TO: [facility] tracking# [id number] ; Leona # [phone] ext [phone] fax# [phone] & TEJINDER F: [phone] (NEED DISCHARGE SUMMARY OR DISCHARGE DATE
--- NOTE | 2019-10-21 14:50 | NUR ---
*-* INSURANCE *-* UPDATED CLINICALS AND REVIEWS HAVE BEEN FAXED TO: [facility] P: [phone] F: [phone]
[2019-10-21 16:00] VITALS: BP 117/67
--- NOTE | 2019-10-21 16:32 | NUR ---
DISCHARGE PLANNING: PATIENT HAS BEEN ACCEPTED TO [facility] AT THIS TIME AUTHORIZATION NEEDS TO BE OBTAINED FROM INSURANCE ACCORDING TO [facility] AUTHORIZATION WILL BE IN AM TRANSFER PATIENT WHEN AUTHORIZATION OBTAINED PLEASE COORDINATE WITH FACILITY T:[phone] F:[phone]
--- NOTE | 2019-10-21 17:48 | Infectious Diseases Prog Note ---
Assessment/Plan Assessment/Plan Assessment: Unintentional weight loss Metastatic Pancreatic mass w/ peritoneal carcinomatosis (mets to adrenal, intraabdominal, lymph nodes) -10/13 SP EUS with pancreatic mass Bx --pathology adenocarcinoma likely of pancreatic origin -Pelvic US: SMALL POSTMENOPAUSAL UTERUS. ENDOMETRIAL STRIPE NOT WELL SEEN. OVARIES ALSO NOT VISUALIZED. APPARENT AMORPHOUS HYPOECHOIC MASSLIKE STRUCTURE SEEN ADJACENT TO THE URINARY BLADDER OF UNDETERMINED ORIGIN. SINCE THE OVARIES ARE NOT DISTINCTLY SEEN, AN OVARIAN MASS ISCONSIDERED. -10/09 CT abd/p: LARGE LEFT UPPER QUADRANT MASS LIKELY ARISING FROM THE PANCREAS WITH EXTENSION INTO THE LESSER SAC. 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 RETROPERITONEAL ADENOPATHY ENCASING THE SMA ARTERY AND ALONG THE LEFT PARA- AORTIC SPACE. LEFT ADRENAL METASTASIS. NO METASTATIC DISEASE TO THE CHEST PRESENTLY. INCIDENTAL FINDING OF BILATERAL MAMMARY PROSTHESIS IMPLANT INTRACAPSULAR RUPTURE. -10/02 SP EGD/COlo:: gastritis, hemorrhoids --of note, patient had negative COvid testing as an outpatient prior to the procedure Afebrile Mild leukocytosis, SP- -10/13 CXR: Trace bilateral pleural effusions with adjacent streaky opacities in the lung bases which may be related to subsegmental atelectasis. Possibility of developing infiltrate however is not excluded given history of cough. Correlation with clinical findings and follow-up recommended. -u/a no pyuria, nit neg, leuk +1; ucx 40-50k mixed gram positive growth- Patient with no UTI symptoms hypothyroidism MDD sp breast augmentation Plan: -Continue to monitor off abx -f/u cx -Monitor CBC/CMP, temperature -GI, heme/onc f/u -COVID neg x1 -discharge planning to Rehab Thank you for consulting [facility]. Will continue to follow along with you. Subjective Allergies: Coded Allergies: No Known Allergies (Unverified , 03/24/16) Subjective afebrile no leukocytosis at RA discharge planning COVID neg Objective Vital Signs Last 24 Hour Vital Signs Date Time Temp Pulse Resp B/P (MAP) Pulse Ox O2 Delivery O2 Flow Rate FiO2 10/21/19 16:00 98.9 87 20 117/67 (84) 98 10/21/19 12:00 98.5 90 20 97/78 (84) 98 10/21/19 09:00 Room Air 10/21/19 08:00 98.6 82 20 100/69 (79) 96 10/21/19 04:00 98.2 78 18 107/72 (84) 96 10/20/19 23:56 98.3 80 18 101/63 (76) 95 10/20/19 20:16 Room Air 10/20/19 20:00 98.6 76 18 113/72 (86) 94 Height (Feet): 5 Height (Inches): 5.00 Weight (Pounds): 130 Objective General: NAD HEENT: nc, at Neck: supple Chest: clear breath sounds bilaterally Cardiovascular: RRR, no s3, s4 Abdomen: soft, nontender, nd ++ abd pain Extremities: no cce, normal range of motion Back: back pain ttp Neuro: alert and oriented Laboratory Tests Test 10/21/19 05:30 White Blood Count 10.7 K/UL (4.8-10.8) Red Blood Count 4.28 M/UL (4.20-5.40) Hemoglobin 12.2 G/DL (12.0-16.0) Hematocrit 37.0 % (37.0-47.0) Mean Corpuscular Volume 87 FL (80-99) Mean Corpuscular Hemoglobin 28.5 PG (27.0-31.0) Mean Corpuscular Hemoglobin Concent 32.9 G/DL (32.0-36.0) Red Cell Distribution Width 11.8 % (11.6-14.8) Platelet Count 353 K/UL (150-450) Mean Platelet Volume 5.5 FL (6.5-10.1) L Neutrophils (%) (Auto) 71.6 % (45.0-75.0) Lymphocytes (%) (Auto) 17.3 % (20.0-45.0) L Monocytes (%) (Auto) 7.0 % (1.0-10.0) Eosinophils (%) (Auto) 3.0 % (0.0-3.0) Basophils (%) (Auto) 1.1 % (0.0-2.0) Sodium Level 137 MMOL/L (136-145) Potassium Level 3.9 MMOL/L (3.5-5.1) Chloride Level 102 MMOL/L (98-107) Carbon Dioxide Level 26 MMOL/L (21-32) Anion Gap 9 mmol/L (5-15) Blood Urea Nitrogen 6 mg/dL (7-18) L Creatinine 0.7 MG/DL (0.55-1.30) Estimat Glomerular Filtration Rate > 60 mL/min (>60) Glucose Level 85 MG/DL (74-106) Calcium Level 8.3 MG/DL (8.5-10.1) L Current Medications Medications (Trade) Dose Ordered Sig/Tiago Route PRN Reason Start Time Stop Time Status Last Admin Dose Admin Acetaminophen (Tylenol) 650 mg Q6H PRN ORAL 1-3 mild pain/fever > 100.4 10/10/19 21:00 11/09/19 20:59 10/19/19 05:12 Amylase/Lipase/ Protease (Zenpep) 2 ea PCHS ORAL 10/20/19 12:30 01/18/20 12:29 10/21/19 11:58 Docusate Sodium (Colace) 100 mg TID ORAL 10/15/19 13:00 11/14/19 12:59 10/21/19 13:13 Dronabinol (Marinol) 2.5 mg BID ORAL 10/19/19 10:00 01/17/20 09:59 10/21/19 08:33 Enoxaparin Sodium (Lovenox) 40 mg DAILY SUBQ 10/12/19 09:00 01/10/20 08:59 10/21/19 08:40 Famotidine (Pepcid) 20 mg Q6H PRN ORAL acid reflux 10/12/19 06:03 01/10/20 06:02 10/12/19 06:18 Levothyroxine Sodium (Synthroid) 25 mcg ACBREAKFAST ORAL 10/11/19 06:30 11/10/19 06:29 10/21/19 06:39 Lorazepam (Ativan) 2 mg Q6H PRN ORAL For Anxiety 10/20/19 23:45 10/27/19 23:44 Midodrine (Pro-Amatine) 5 mg TID ORAL 10/13/19 18:00 01/11/20 17:59 10/21/19 13:14 Ondansetron HCl (Zofran) 4 mg Q4H PRN IVP Nausea & Vomiting 10/11/19 05:45 11/10/19 05:44 10/18/19 22:18 Pantoprazole (Protonix) 40 mg DAILY ORAL 10/15/19 11:45 11/14/19 11:44 10/21/19 08:33 Sorbitol (sorbitoL) 45 ml BIDPRN PRN ORAL Constipation 10/15/19 20:15 11/14/19 20:14 10/17/19 22:37 Zolpidem Tartrate (Ambien) 5 mg HSPRN PRN ORAL Insomnia 10/17/19 21:00 10/24/19 20:59 10/20/19 23:23 Sabi Abbasi M.D. October 21, 2019 17:48
--- NOTE | 2019-10-21 19:30 | NUR ---
HAND-OFF: Report given to TRACEY Dupree.
--- NOTE | 2019-10-21 19:35 | NUR ---
NURSE NOTES: Pt. received from TRACEY Treviño. Pt. AAOx4, on room air, no indications of respiratory distress, no complaints of pain. IV right hand 22g intact and patent, saline locked. Bed is low and locked, side rails x2 up, bed alarm active, and call light in reach.
[2019-10-21 20:00] VITALS: BP 110/72
[2019-10-21] MEDS: Zolpidem 5mg tab ORAL PRN (22:48)
--- NOTE | 2019-10-21 23:45 | Progress Note ---
DATE: 10/21/2019 SUBJECTIVE: The patient is doing better. He is being transferred to the rehab for physical therapy. The patient has been on Ativan as needed. The patient is reluctant to take any other SSRI, compliant with medication. He is more pleasant. MENTAL STATUS EXAMINATION: The patient is alert and oriented times self, place, situation. Mood is depressed. Affect is constricted. Congruent with mood. Thought process is concrete. Thought content, no suicidal or homicidal ideation. Cognition is intact. Insight and judgment is fair. ASSESSMENT: Stable. PLAN: 1. Continue current psychotropic medications. 2. Provide the patient with reality orientation and supportive therapy. Nelson Roberts M.D. DR: Shelly JOB#: [id number] CC: HERNANDEZ
[2019-10-22] VITALS: BP 104/68
--- NOTE | 2019-10-22 01:47 | NUR ---
NURSE NOTES: Pt. assisted to bedside commode to void twice. Tolerated transfer to commode with assist; pt. still presents with generalized weakness in lower extremities.
[2019-10-22 04:00] VITALS: BP 97/63
[2019-10-22 05:44] LABS: BASOPHILS % (AUTO) 1.1 % (0.0-2.0); EOSINOPHILS % (AUTO) 3.7 % (0.0-3.0); HEMATOCRIT 37.8 % (37.0-47.0); HEMOGLOBIN 12.7 G/DL (12.0-16.0); LYMPHOCYTES % (AUTO) 15.7 % (20.0-45.0); MEAN CORPUSCULAR VOLUME 86 FL (80-99); MONOCYTES % (AUTO) 6.5 % (1.0-10.0); NEUTROPHILS % (AUTO) 73.1 % (45.0-75.0); PLATELET COUNT 362 K/UL (150-450); RED BLOOD COUNT 4.41 M/UL (4.20-5.40); RED CELL DISTRIBUTION WIDTH 11.5 % (11.6-14.8); WHITE BLOOD COUNT 10.7 K/UL (4.8-10.8)
[2019-10-22] MEDS: Levothyroxine 25mcg tab ORAL SCH (05:46)
[2019-10-22 06:12] LABS: ANION GAP 7 mmol/L (5-15); BLOOD UREA NITROGEN 5 mg/dL (7-18); CALCIUM 8.5 MG/DL (8.5-10.1); CARBON DIOXIDE 29 MMOL/L (21-32); CHLORIDE 101 MMOL/L (98-107); CREATININE 0.7 MG/DL (0.55-1.30); POTASSIUM 3.7 MMOL/L (3.5-5.1); SODIUM 137 MMOL/L (136-145)
[2019-10-22] MEDS: Pancrelipase Dr Cap ORAL SCH ×4 (06:43→22:29)
--- NOTE | 2019-10-22 07:41 | NUR ---
HAND-OFF: Report given to TRACEY Treviño.
--- NOTE | 2019-10-22 07:42 | General Progress Note ---
Assessment/Plan Problem List: (1) Pancreatic cancer ICD Codes: C25.9 - Malignant neoplasm of pancreas, unspecified SNOMED: 153506311 (2) Elevated cholesterol ICD Codes: E78.0 - Pure hypercholesterolemia SNOMED: 62823384 (3) Hypothyroid ICD Codes: E03.9 - Hypothyroidism, unspecified SNOMED: 21762877 (4) Depression ICD Codes: F32.9 - Major depressive disorder, single episode, unspecified SNOMED: 93362797 Status: stable, progressing Assessment/Plan: fu oncology s/p EUS and biopsy fu path>>> adeno ca confirmed ivf pain control zofran prn marinol creon push po's dc planning per primary team Subjective ROS Limited/Unobtainable: Yes Allergies: Coded Allergies: No Known Allergies (Unverified , 03/24/16) Objective Last 24 Hour Vital Signs Date Time Temp Pulse Resp B/P (MAP) Pulse Ox O2 Delivery O2 Flow Rate FiO2 10/22/19 04:00 97.3 78 20 97/63 (74) 94 10/22/19 00:00 97.9 83 14 104/68 (80) 95 10/21/19 21:00 Room Air 10/21/19 20:00 97.7 82 16 110/72 (85) 93 10/21/19 16:00 98.9 87 20 117/67 (84) 98 10/21/19 12:00 98.5 90 20 97/78 (84) 98 10/21/19 09:00 Room Air 10/21/19 08:00 98.6 82 20 100/69 (79) 96 Intake and Output 10/21/19 10/22/19 19:00 07:00 Intake Total 350 ml Output Total 920 ml Balance -570 ml Intake Oral 350 ml Output Urine Total 920 ml # Voids 3 4 # Bowel Movements 1 Laboratory Tests 10/22/19 04:40: White Blood Count 10.7, Red Blood Count 4.41, Hemoglobin 12.7, Hematocrit 37.8, Mean Corpuscular Volume 86, Mean Corpuscular Hemoglobin 28.8, Mean Corpuscular Hemoglobin Concent 33.6, Red Cell Distribution Width 11.5L, Platelet Count 362, Mean Platelet Volume 5.6L, Neutrophils (%) (Auto) 73.1, Lymphocytes (%) (Auto) 15.7L, Monocytes (%) (Auto) 6.5, Eosinophils (%) (Auto) 3.7H, Basophils (%) ( Auto) 1.1, Sodium Level 137, Potassium Level 3.7, Chloride Level 101, Carbon Dioxide Level 29, Anion Gap 7, Blood Urea Nitrogen 5L, Creatinine 0.7, Estimat Glomerular Filtration Rate > 60, Glucose Level 94, Calcium Level 8.5 Height (Feet): 5 Height (Inches): 5.00 Weight (Pounds): 130 General Appearance: no apparent distress EENT: normal ENT inspection Neck: supple Cardiovascular: normal rate Respiratory/Chest: decreased breath sounds Abdomen: normal bowel sounds, non tender, soft Extremities: non-tender Malcom Michael MD October 22, 2019 07:42
--- NOTE | 2019-10-22 07:45 | NUR ---
NURSE NOTES: Received report from Joon WEBB. Pt asleep in bed. No s/s acute distress noted. IV site intact. Bed in low position, locked. Call light within reach. Will continue to monitor.
[2019-10-22 08:00] VITALS: BP 99/83
[2019-10-22] MEDS: Dronabinol 2.5mg Cap ORAL SCH ×2 (08:26→18:26)
[2019-10-22] MEDS: Docusate 100mg cap ORAL SCH ×3 (08:26→18:00)
[2019-10-22] MEDS: Enoxaparin 40mg Inj SUBQ SCH (08:27)
--- NOTE | 2019-10-22 08:36 | Hematology/Onc Progress Note ---
Assessment/Plan Assessment/Plan Assessment/Recs # Stage IV pancreatic cacner - LARGE LEFT UPPER QUADRANT MASS LIKELY ARISING FROM THE PANCREAS WITH EXTENSION INTO THE LESSER SAC. 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 RETROPERITONEAL ADENOPATHY ENCASING THE SMA ARTERY AND ALONG THE LEFT PARA- AORTIC SPACE. LEFT ADRENAL METASTASIS. --> ct guided biop for 10/12/2019 cancelled as could not get a good [place] --> endoscopic us ordered 10/13-->RESULTS pending --> us of the ovaries --> APPARENT AMORPHOUS HYPOECHOIC MASSLIKE STRUCTURE SEEN ADJACENT TO THE URINARY BLADDER OF UNDETERMINED ORIGIN. SINCE THE OVARIES ARE NOT DISTINCTLY SEEN, AN OVARIAN MASS IS CONSIDERED. --> ca 19.9, 39,393, ca 125 is 523, cea 731 --> weight loss noted --> started on marinol --> as per gi care, they are aware --> to f/u as outpatient --> at this time very depressed, may consider psych eval --> outpatient chemo to consider v transfer to rehab unit at this time # Dehydration --> on ivfs as needed --> per renal # LEFT ADRENAL METASTASIS. --> likely c/w panc primary cancer # Leukocytosis --> urine cx+ x2 --> wbc trend: 7.8-->11.6 -->9.5-->10.7 --> 10/13 cxr: Trace bilateral pleural effusions # Weight loss --> related to ca # Dvt ppx ambulation The timing of this note does not necessarily reflect the time of the patient was seen. Greatly appreciate consultation. Subjective Allergies: Coded Allergies: No Known Allergies (Unverified , 03/24/16) Subjective 10/11 med surg, awake and alert, ct guided biop for today 10/[address] guided needle, endoscopic us ordered 10/13 us pelvis reviewed, no acute distress, room air 10/14 cxr abd labs reviewed, stable for dc 10/15 long discussion, feels depressed, no bleeding, meds noted 10/16 pending pathology report, no bleeding, meds reviewed 10/17 s/p eus with biopsy, report pending, dw gi 10/20 labs noted, no bleeding, with pancreatic cancer stage iv 10/21 no overnight events reported, dc planning per primary Objective Objective Current Medications Medications (Trade) Dose Ordered Sig/Tiago Route PRN Reason Start Time Stop Time Status Last Admin Dose Admin Acetaminophen (Tylenol) 650 mg Q6H PRN ORAL 1-3 mild pain/fever > 100.4 10/10/19 21:00 11/09/19 20:59 10/19/19 05:12 Amylase/Lipase/ Protease (Zenpep) 2 ea PCHS ORAL 10/20/19 12:30 01/18/20 12:29 10/22/19 06:43 Docusate Sodium (Colace) 100 mg TID ORAL 10/15/19 13:00 11/14/19 12:59 10/22/19 08:26 Dronabinol (Marinol) 2.5 mg BID ORAL 10/19/19 10:00 01/17/20 09:59 10/22/19 08:26 Enoxaparin Sodium (Lovenox) 40 mg DAILY SUBQ 10/12/19 09:00 01/10/20 08:59 10/22/19 08:27 Famotidine (Pepcid) 20 mg Q6H PRN ORAL acid reflux 10/12/19 06:03 01/10/20 06:02 10/12/19 06:18 Levothyroxine Sodium (Synthroid) 25 mcg ACBREAKFAST ORAL 10/11/19 06:30 11/10/19 06:29 10/22/19 05:46 Lorazepam (Ativan) 2 mg Q6H PRN ORAL For Anxiety 10/20/19 23:45 10/27/19 23:44 Midodrine (Pro-Amatine) 5 mg TID ORAL 10/13/19 18:00 01/11/20 17:59 10/22/19 08:26 Ondansetron HCl (Zofran) 4 mg Q4H PRN IVP Nausea & Vomiting 10/11/19 05:45 11/10/19 05:44 10/18/19 22:18 Pantoprazole (Protonix) 40 mg DAILY ORAL 10/15/19 11:45 11/14/19 11:44 10/22/19 08:26 Sorbitol (sorbitoL) 45 ml BIDPRN PRN ORAL Constipation 10/15/19 20:15 11/14/19 20:14 10/17/19 22:37 Zolpidem Tartrate (Ambien) 5 mg HSPRN PRN ORAL Insomnia 10/17/19 21:00 10/24/19 20:59 10/21/19 22:48 Last 24 Hour Vital Signs Date Time Temp Pulse Resp B/P (MAP) Pulse Ox O2 Delivery O2 Flow Rate FiO2 10/22/19 04:00 97.3 78 20 97/63 (74) 94 10/22/19 00:00 97.9 83 14 104/68 (80) 95 10/21/19 21:00 Room Air 10/21/19 20:00 97.7 82 16 110/72 (85) 93 10/21/19 16:00 98.9 87 20 117/67 (84) 98 10/21/19 12:00 98.5 90 20 97/78 (84) 98 10/21/19 09:00 Room Air 10/21/19 08:00 98.6 82 20 100/69 (79) 96 10/21/19 04:00 98.2 78 18 107/72 (84) 96 10/20/19 23:56 98.3 80 18 101/63 (76) 95 10/20/19 20:16 Room Air 10/20/19 20:00 98.6 76 18 113/72 (86) 94 10/20/19 16:00 98.4 94 20 106/78 (87) 95 10/20/19 12:45 Room Air 10/20/19 12:00 98.4 90 19 102/83 (89) 95 10/20/19 09:00 Room Air Intake and Output 10/21/19 10/22/19 19:00 07:00 Intake Total 350 ml Output Total 920 ml Balance -570 ml Intake Oral 350 ml Output Urine Total 920 ml # Voids 3 4 # Bowel Movements 1 Labs Test 10/20/19 05:40 10/21/19 05:30 10/22/19 04:40 White Blood Count 10.9 K/UL (4.8-10.8) 10.7 K/UL (4.8-10.8) 10.7 K/UL (4.8-10.8) Red Blood Count 3.97 M/UL (4.20-5.40) 4.28 M/UL (4.20-5.40) 4.41 M/UL (4.20-5.40) Hemoglobin 11.6 G/DL (12.0-16.0) 12.2 G/DL (12.0-16.0) 12.7 G/DL (12.0-16.0) Hematocrit 34.5 % (37.0-47.0) 37.0 % (37.0-47.0) 37.8 % (37.0-47.0) Mean Corpuscular Volume 87 FL (80-99) 87 FL (80-99) 86 FL (80-99) Mean Corpuscular Hemoglobin 29.3 PG (27.0-31.0) 28.5 PG (27.0-31.0) 28.8 PG (27.0-31.0) Mean Corpuscular Hemoglobin Concent 33.6 G/DL (32.0-36.0) 32.9 G/DL (32.0-36.0) 33.6 G/DL (32.0-36.0) Red Cell Distribution Width 11.8 % (11.6-14.8) 11.8 % (11.6-14.8) 11.5 % (11.6-14.8) Platelet Count 334 K/UL (150-450) 353 K/UL (150-450) 362 K/UL (150-450) Mean Platelet Volume 5.9 FL (6.5-10.1) 5.5 FL (6.5-10.1) 5.6 FL (6.5-10.1) Neutrophils (%) (Auto) 72.2 % (45.0-75.0) 71.6 % (45.0-75.0) 73.1 % (45.0-75.0) Lymphocytes (%) (Auto) 17.8 % (20.0-45.0) 17.3 % (20.0-45.0) 15.7 % (20.0-45.0) Monocytes (%) (Auto) 6.1 % (1.0-10.0) 7.0 % (1.0-10.0) 6.5 % (1.0-10.0) Eosinophils (%) (Auto) 3.2 % (0.0-3.0) 3.0 % (0.0-3.0) 3.7 % (0.0-3.0) Basophils (%) (Auto) 0.8 % (0.0-2.0) 1.1 % (0.0-2.0) 1.1 % (0.0-2.0) Sodium Level 139 MMOL/L (136-145) 137 MMOL/L (136-145) 137 MMOL/L (136-145) Potassium Level 3.4 MMOL/L (3.5-5.1) 3.9 MMOL/L (3.5-5.1) 3.7 MMOL/L (3.5-5.1) Chloride Level 101 MMOL/L (98-107) 102 MMOL/L (98-107) 101 MMOL/L (98-107) Carbon Dioxide Level 28 MMOL/L (21-32) 26 MMOL/L (21-32) 29 MMOL/L (21-32) Anion Gap 10 mmol/L (5-15) 9 mmol/L (5-15) 7 mmol/L (5-15) Blood Urea Nitrogen 7 mg/dL (7-18) 6 mg/dL (7-18) 5 mg/dL (7-18) Creatinine 0.7 MG/DL (0.55-1.30) 0.7 MG/DL (0.55-1.30) 0.7 MG/DL (0.55-1.30) Estimat Glomerular Filtration Rate > 60 mL/min (>60) > 60 mL/min (>60) > 60 mL/min (>60) Glucose Level 94 MG/DL (74-106) 85 MG/DL (74-106) 94 MG/DL (74-106) Calcium Level 8.5 MG/DL (8.5-10.1) 8.3 MG/DL (8.5-10.1) 8.5 MG/DL (8.5-10.1) Height (Feet): 5 Height (Inches): 5.00 Weight (Pounds): 130 Objective Physical Exam: Vitals: reviewed General: NAD HEENT: nc, at Neck: supple Chest: clear breath sounds bilaterally Cardiovascular: RRR, no s3, s4 Abdomen: soft, nontender, nd ++ abd pain Extremities: no cce, normal range of motion Back: back pain ttp Neuro: alert and oriented Ortiz Porter MD October 22, 2019 08:36
--- NOTE | 2019-10-22 09:44 | General Progress Note ---
Assessment/Plan Problem List: (1) UTI (urinary tract infection) ICD Codes: N39.0 - Urinary tract infection, site not specified SNOMED: 02299045 (2) Dehydration ICD Codes: E86.0 - Dehydration SNOMED: 46301943 (3) Dehydration ICD Codes: E86.0 - Dehydration SNOMED: 24547143 (4) Pancreatic cancer ICD Codes: C25.9 - Malignant neoplasm of pancreas, unspecified SNOMED: 974567670 (5) Metastasis ICD Codes: C79.9 - Secondary malignant neoplasm of unspecified site SNOMED: 461956175 (6) Hypothyroid ICD Codes: E03.9 - Hypothyroidism, unspecified SNOMED: 10399910 Status: stable, progressing Assessment/Plan: pt diet abx iv fluid cbc bmp am dc to [place] [facility] if clear Subjective Constitutional: Reports: weakness Allergies: Coded Allergies: No Known Allergies (Unverified , 03/24/16) All Systems: reviewed and negative except above Subjective sleepy calm Objective Last 24 Hour Vital Signs Date Time Temp Pulse Resp B/P (MAP) Pulse Ox O2 Delivery O2 Flow Rate FiO2 10/22/19 04:00 97.3 78 20 97/63 (74) 94 10/22/19 00:00 97.9 83 14 104/68 (80) 95 10/21/19 21:00 Room Air 10/21/19 20:00 97.7 82 16 110/72 (85) 93 10/21/19 16:00 98.9 87 20 117/67 (84) 98 10/21/19 12:00 98.5 90 20 97/78 (84) 98 Intake and Output 10/21/19 10/22/19 18:59 06:59 Intake Total 350 ml Output Total 920 ml Balance -570 ml Intake Oral 350 ml Output Urine Total 920 ml # Voids 3 4 # Bowel Movements 1 Laboratory Tests 10/22/19 04:40: White Blood Count 10.7, Red Blood Count 4.41, Hemoglobin 12.7, Hematocrit 37.8, Mean Corpuscular Volume 86, Mean Corpuscular Hemoglobin 28.8, Mean Corpuscular Hemoglobin Concent 33.6, Red Cell Distribution Width 11.5L, Platelet Count 362, Mean Platelet Volume 5.6L, Neutrophils (%) (Auto) 73.1, Lymphocytes (%) (Auto) 15.7L, Monocytes (%) (Auto) 6.5, Eosinophils (%) (Auto) 3.7H, Basophils (%) ( Auto) 1.1, Sodium Level 137, Potassium Level 3.7, Chloride Level 101, Carbon Dioxide Level 29, Anion Gap 7, Blood Urea Nitrogen 5L, Creatinine 0.7, Estimat Glomerular Filtration Rate > 60, Glucose Level 94, Calcium Level 8.5 Height (Feet): 5 Height (Inches): 5.00 Weight (Pounds): 130 General Appearance: lethargic EENT: normal ENT inspection Neck: normal alignment Cardiovascular: normal peripheral pulses, normal rate, regular rhythm Respiratory/Chest: chest wall non-tender, lungs clear, normal breath sounds Abdomen: soft, hypoactive bowel sounds Extremities: normal inspection Edema: no edema noted Arm (L), no edema noted Arm (R), no edema noted Leg (L), no edema noted Leg (R), no edema noted Pedal (L), no edema noted Pedal (R), no edema noted Generalized Neurologic: motor weakness Skin: normal pigmentation, warm/dry Matt Olmedo DO October 22, 2019 09:44
--- NOTE | 2019-10-22 11:00 | NUR ---
PT note Attempted to see patient for treatment but patient c/o fatigue; was not able to sleep well last night. Will check again later if time permits.
[2019-10-22 12:00] VITALS: BP 102/78
[2019-10-22 16:00] VITALS: BP 99/67
--- NOTE | 2019-10-22 19:51 | NUR ---
HAND-OFF: Report given to TRACEY Pierce.
--- NOTE | 2019-10-22 19:51 | NUR ---
NURSE NOTES: Received report from Kamila Luna Rn, rounds made, pt stable on R/A, no s/s of distress,pt denies any pain, Pt has a Rt hand 22G locked, skin other wallace intact. D/C planning to [facility]. Bed in low locked position, side rails [id number] , call light with in reach will continue with plan of care
[2019-10-22 20:00] VITALS: BP 114/77
[2019-10-22] MEDS: Zolpidem 5mg tab ORAL PRN (23:39)
[2019-10-23] VITALS: BP 104/63
[2019-10-23 04:00] VITALS: BP 109/67
[2019-10-23 05:39] LABS: BASOPHILS % (AUTO) 0.7 % (0.0-2.0); EOSINOPHILS % (AUTO) 3.4 % (0.0-3.0); HEMATOCRIT 36.3 % (37.0-47.0); HEMOGLOBIN 12.3 G/DL (12.0-16.0); LYMPHOCYTES % (AUTO) 16.1 % (20.0-45.0); MEAN CORPUSCULAR VOLUME 87 FL (80-99); MONOCYTES % (AUTO) 6.7 % (1.0-10.0); PLATELET COUNT 396 K/UL (150-450); RED BLOOD COUNT 4.18 M/UL (4.20-5.40); RED CELL DISTRIBUTION WIDTH 11.9 % (11.6-14.8); WHITE BLOOD COUNT 12.2 K/UL (4.8-10.8)
[2019-10-23] MEDS: Levothyroxine 25mcg tab ORAL SCH (06:00)
[2019-10-23 06:42] LABS: ANION GAP 8 mmol/L (5-15); BLOOD UREA NITROGEN 6 mg/dL (7-18); CALCIUM 8.3 MG/DL (8.5-10.1); CARBON DIOXIDE 28 MMOL/L (21-32); CHLORIDE 102 MMOL/L (98-107); CREATININE 0.7 MG/DL (0.55-1.30); POTASSIUM 4.1 MMOL/L (3.5-5.1); SODIUM 138 MMOL/L (136-145)
--- NOTE | 2019-10-23 06:48 | General Progress Note ---
Assessment/Plan Problem List: (1) Pancreatic cancer ICD Codes: C25.9 - Malignant neoplasm of pancreas, unspecified SNOMED: 750355214 (2) Elevated cholesterol ICD Codes: E78.0 - Pure hypercholesterolemia SNOMED: 04537213 (3) Hypothyroid ICD Codes: E03.9 - Hypothyroidism, unspecified SNOMED: 63725519 (4) Depression ICD Codes: F32.9 - Major depressive disorder, single episode, unspecified SNOMED: 25132009 Status: stable, progressing Assessment/Plan: fu oncology s/p EUS and biopsy fu path>>> adeno ca confirmed ivf pain control zofran prn marinol creon push po's dc planning per primary team Subjective ROS Limited/Unobtainable: Yes Allergies: Coded Allergies: No Known Allergies (Unverified , 03/24/16) Objective Last 24 Hour Vital Signs Date Time Temp Pulse Resp B/P (MAP) Pulse Ox O2 Delivery O2 Flow Rate FiO2 10/23/19 04:00 98.4 75 18 109/67 (81) 98 10/23/19 00:00 98.3 78 17 104/63 (77) 95 10/22/19 21:00 Room Air 10/22/19 20:00 98.1 64 16 114/77 (89) 94 10/22/19 16:00 98.4 81 17 99/67 (78) 100 10/22/19 12:00 98.6 86 19 102/78 (86) 97 10/22/19 09:00 Room Air 10/22/19 08:00 98.4 80 19 99/83 (88) 96 Intake and Output 10/22/19 10/23/19 18:59 06:59 Intake Total 237 ml Balance 237 ml Intake Oral 237 ml # Voids 3 2 Laboratory Tests 10/23/19 04:40: White Blood Count 12.2H, Red Blood Count 4.18L, Hemoglobin 12.3, Hematocrit 36.3L, Mean Corpuscular Volume 87, Mean Corpuscular Hemoglobin 29.5, Mean Corpuscular Hemoglobin Concent 33.9, Red Cell Distribution Width 11.9, Platelet Count 396, Mean Platelet Volume 5.8L, Neutrophils (%) (Auto) 73.0, Lymphocytes ( %) (Auto) 16.1L, Monocytes (%) (Auto) 6.7, Eosinophils (%) (Auto) 3.4H, Basophils (%) (Auto) 0.7, Sodium Level 138, Potassium Level 4.1, Chloride Level 102, Carbon Dioxide Level 28, Anion Gap 8, Blood Urea Nitrogen 6L, Creatinine 0.7, Estimat Glomerular Filtration Rate > 60, Glucose Level 94, Calcium Level 8.3L Height (Feet): 5 Height (Inches): 5.00 Weight (Pounds): 130 General Appearance: no apparent distress EENT: normal ENT inspection Neck: supple Cardiovascular: normal rate Respiratory/Chest: decreased breath sounds Abdomen: normal bowel sounds, non tender, soft Extremities: non-tender Malcom Michael MD October 23, 2019 06:48
--- NOTE | 2019-10-23 07:24 | Cardiac Electrophysiology PN ---
Assessment/Plan Assessment/Plan 1. Hypotension. On midodrine 5 mg t.i.d. Echo EF 65% 2. Hypothyroidism, on Synthroid. 3. Significant weight loss due to pancreatic cancer. S/P EUS and biopsy by Dr. Michael. Oncology. 4. Depression. 5. Debility. ARU pending insurance Auth JUVENTINO RN Subjective Subjective Alert in NAD. No CP or SOB. BP and HR stable. Covid negative and awaiting insurance authorization to transfer to [facility] Objective Last 24 Hour Vital Signs Date Time Temp Pulse Resp B/P (MAP) Pulse Ox O2 Delivery O2 Flow Rate FiO2 10/23/19 04:00 98.4 75 18 109/67 (81) 98 10/23/19 00:00 98.3 78 17 104/63 (77) 95 10/22/19 21:00 Room Air 10/22/19 20:00 98.1 64 16 114/77 (89) 94 10/22/19 16:00 98.4 81 17 99/67 (78) 100 10/22/19 12:00 98.6 86 19 102/78 (86) 97 10/22/19 09:00 Room Air 10/22/19 08:00 98.4 80 19 99/83 (88) 96 Intake and Output 10/22/19 10/23/19 19:00 07:00 Intake Total 237 ml Balance 237 ml Intake Oral 237 ml # Voids 3 2 Laboratory Tests Test 10/23/19 04:40 White Blood Count 12.2 K/UL (4.8-10.8) H Red Blood Count 4.18 M/UL (4.20-5.40) L Hemoglobin 12.3 G/DL (12.0-16.0) Hematocrit 36.3 % (37.0-47.0) L Mean Corpuscular Volume 87 FL (80-99) Mean Corpuscular Hemoglobin 29.5 PG (27.0-31.0) Mean Corpuscular Hemoglobin Concent 33.9 G/DL (32.0-36.0) Red Cell Distribution Width 11.9 % (11.6-14.8) Platelet Count 396 K/UL (150-450) Mean Platelet Volume 5.8 FL (6.5-10.1) L Neutrophils (%) (Auto) 73.0 % (45.0-75.0) Lymphocytes (%) (Auto) 16.1 % (20.0-45.0) L Monocytes (%) (Auto) 6.7 % (1.0-10.0) Eosinophils (%) (Auto) 3.4 % (0.0-3.0) H Basophils (%) (Auto) 0.7 % (0.0-2.0) Sodium Level 138 MMOL/L (136-145) Potassium Level 4.1 MMOL/L (3.5-5.1) Chloride Level 102 MMOL/L (98-107) Carbon Dioxide Level 28 MMOL/L (21-32) Anion Gap 8 mmol/L (5-15) Blood Urea Nitrogen 6 mg/dL (7-18) L Creatinine 0.7 MG/DL (0.55-1.30) Estimat Glomerular Filtration Rate > 60 mL/min (>60) Glucose Level 94 MG/DL (74-106) Calcium Level 8.3 MG/DL (8.5-10.1) L Objective HEAD AND NECK: No JVD. LUNGS: Clear. CARDIOVASCULAR: Regular S1 and S2 with no gallop or murmur. ABDOMEN: Soft. EXTREMITIES: No pitting edema. Trevor Bardales MD October 23, 2019 07:24
[2019-10-23] MEDS: Pancrelipase Dr Cap ORAL SCH ×4 (07:33→20:40)
--- NOTE | 2019-10-23 07:57 | Hematology/Onc Progress Note ---
Assessment/Plan Assessment/Plan Assessment/Recs # Stage IV pancreatic cacner - LARGE LEFT UPPER QUADRANT MASS LIKELY ARISING FROM THE PANCREAS WITH EXTENSION INTO THE LESSER SAC. 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 RETROPERITONEAL ADENOPATHY ENCASING THE SMA ARTERY AND ALONG THE LEFT PARA- AORTIC SPACE. LEFT ADRENAL METASTASIS. --> ct guided biop for 10/12/2019 cancelled as could not get a good [place] --> endoscopic us ordered 10/13-->RESULTS pending --> us of the ovaries --> APPARENT AMORPHOUS HYPOECHOIC MASSLIKE STRUCTURE SEEN ADJACENT TO THE URINARY BLADDER OF UNDETERMINED ORIGIN. SINCE THE OVARIES ARE NOT DISTINCTLY SEEN, AN OVARIAN MASS IS CONSIDERED. --> ca 19.9, 39,393, ca 125 is 523, cea 731 --> weight loss noted --> started on marinol --> as per gi care, they are aware --> to f/u as outpatient --> at this time very depressed, may consider psych eval --> outpatient chemo to consider v transfer to rehab unit at this time # Dehydration --> on ivfs as needed --> per renal # LEFT ADRENAL METASTASIS. --> likely c/w panc primary cancer # Leukocytosis --> urine cx+ x2 --> wbc trend: 7.8-->11.6 -->9.5-->10.7 --> 10/13 cxr: Trace bilateral pleural effusions # Weight loss --> related to ca # Dvt ppx ambulation The timing of this note does not necessarily reflect the time of the patient was seen. Greatly appreciate consultation. Subjective Allergies: Coded Allergies: No Known Allergies (Unverified , 03/24/16) Subjective 10/11 med surg, awake and alert, ct guided biop for today 10/[address] guided needle, endoscopic us ordered 10/13 us pelvis reviewed, no acute distress, room air 10/14 cxr abd labs reviewed, stable for dc 10/15 long discussion, feels depressed, no bleeding, meds noted 10/16 pending pathology report, no bleeding, meds reviewed 10/17 s/p eus with biopsy, report pending, dw gi 10/20 labs noted, no bleeding, with pancreatic cancer stage iv 10/21 no overnight events reported, dc planning per primary 10/22 no events, [facility] Objective Objective Current Medications Medications (Trade) Dose Ordered Sig/Tiago Route PRN Reason Start Time Stop Time Status Last Admin Dose Admin Acetaminophen (Tylenol) 650 mg Q6H PRN ORAL 1-3 mild pain/fever > 100.4 10/10/19 21:00 11/09/19 20:59 10/19/19 05:12 Amylase/Lipase/ Protease (Zenpep) 2 ea PCHS ORAL 10/20/19 12:30 01/18/20 12:29 10/23/19 07:33 Docusate Sodium (Colace) 100 mg TID ORAL 10/15/19 13:00 11/14/19 12:59 10/22/19 13:59 Dronabinol (Marinol) 2.5 mg BID ORAL 10/19/19 10:00 01/17/20 09:59 10/22/19 18:26 Enoxaparin Sodium (Lovenox) 40 mg DAILY SUBQ 10/12/19 09:00 01/10/20 08:59 10/22/19 08:27 Famotidine (Pepcid) 20 mg Q6H PRN ORAL acid reflux 10/12/19 06:03 01/10/20 06:02 10/12/19 06:18 Levothyroxine Sodium (Synthroid) 25 mcg ACBREAKFAST ORAL 10/11/19 06:30 11/10/19 06:29 10/23/19 06:00 Lorazepam (Ativan) 2 mg Q6H PRN ORAL For Anxiety 10/20/19 23:45 10/27/19 23:44 Midodrine (Pro-Amatine) 5 mg TID ORAL 10/13/19 18:00 01/11/20 17:59 10/22/19 18:26 Ondansetron HCl (Zofran) 4 mg Q4H PRN IVP Nausea & Vomiting 10/11/19 05:45 11/10/19 05:44 10/22/19 23:46 Pantoprazole (Protonix) 40 mg DAILY ORAL 10/15/19 11:45 11/14/19 11:44 10/22/19 08:26 Sorbitol (sorbitoL) 45 ml BIDPRN PRN ORAL Constipation 10/15/19 20:15 11/14/19 20:14 10/17/19 22:37 Zolpidem Tartrate (Ambien) 5 mg HSPRN PRN ORAL Insomnia 10/17/19 21:00 10/24/19 20:59 10/22/19 23:39 Last 24 Hour Vital Signs Date Time Temp Pulse Resp B/P (MAP) Pulse Ox O2 Delivery O2 Flow Rate FiO2 10/23/19 04:00 98.4 75 18 109/67 (81) 98 10/23/19 00:00 98.3 78 17 104/63 (77) 95 10/22/19 21:00 Room Air 10/22/19 20:00 98.1 64 16 114/77 (89) 94 10/22/19 16:00 98.4 81 17 99/67 (78) 100 10/22/19 12:00 98.6 86 19 102/78 (86) 97 10/22/19 09:00 Room Air 10/22/19 08:00 98.4 80 19 99/83 (88) 96 10/22/19 04:00 97.3 78 20 97/63 (74) 94 10/22/19 00:00 97.9 83 14 104/68 (80) 95 10/21/19 21:00 Room Air 10/21/19 20:00 97.7 82 16 110/72 (85) 93 10/21/19 16:00 98.9 87 20 117/67 (84) 98 10/21/19 12:00 98.5 90 20 97/78 (84) 98 10/21/19 09:00 Room Air 10/21/19 08:00 98.6 82 20 100/69 (79) 96 Intake and Output 10/22/19 10/23/19 19:00 07:00 Intake Total 237 ml Balance 237 ml Intake Oral 237 ml # Voids 3 2 Labs Test 10/21/19 05:30 10/22/19 04:40 10/23/19 04:40 White Blood Count 10.7 K/UL (4.8-10.8) 10.7 K/UL (4.8-10.8) 12.2 K/UL (4.8-10.8) Red Blood Count 4.28 M/UL (4.20-5.40) 4.41 M/UL (4.20-5.40) 4.18 M/UL (4.20-5.40) Hemoglobin 12.2 G/DL (12.0-16.0) 12.7 G/DL (12.0-16.0) 12.3 G/DL (12.0-16.0) Hematocrit 37.0 % (37.0-47.0) 37.8 % (37.0-47.0) 36.3 % (37.0-47.0) Mean Corpuscular Volume 87 FL (80-99) 86 FL (80-99) 87 FL (80-99) Mean Corpuscular Hemoglobin 28.5 PG (27.0-31.0) 28.8 PG (27.0-31.0) 29.5 PG (27.0-31.0) Mean Corpuscular Hemoglobin Concent 32.9 G/DL (32.0-36.0) 33.6 G/DL (32.0-36.0) 33.9 G/DL (32.0-36.0) Red Cell Distribution Width 11.8 % (11.6-14.8) 11.5 % (11.6-14.8) 11.9 % (11.6-14.8) Platelet Count 353 K/UL (150-450) 362 K/UL (150-450) 396 K/UL (150-450) Mean Platelet Volume 5.5 FL (6.5-10.1) 5.6 FL (6.5-10.1) 5.8 FL (6.5-10.1) Neutrophils (%) (Auto) 71.6 % (45.0-75.0) 73.1 % (45.0-75.0) 73.0 % (45.0-75.0) Lymphocytes (%) (Auto) 17.3 % (20.0-45.0) 15.7 % (20.0-45.0) 16.1 % (20.0-45.0) Monocytes (%) (Auto) 7.0 % (1.0-10.0) 6.5 % (1.0-10.0) 6.7 % (1.0-10.0) Eosinophils (%) (Auto) 3.0 % (0.0-3.0) 3.7 % (0.0-3.0) 3.4 % (0.0-3.0) Basophils (%) (Auto) 1.1 % (0.0-2.0) 1.1 % (0.0-2.0) 0.7 % (0.0-2.0) Sodium Level 137 MMOL/L (136-145) 137 MMOL/L (136-145) 138 MMOL/L (136-145) Potassium Level 3.9 MMOL/L (3.5-5.1) 3.7 MMOL/L (3.5-5.1) 4.1 MMOL/L (3.5-5.1) Chloride Level 102 MMOL/L (98-107) 101 MMOL/L (98-107) 102 MMOL/L (98-107) Carbon Dioxide Level 26 MMOL/L (21-32) 29 MMOL/L (21-32) 28 MMOL/L (21-32) Anion Gap 9 mmol/L (5-15) 7 mmol/L (5-15) 8 mmol/L (5-15) Blood Urea Nitrogen 6 mg/dL (7-18) 5 mg/dL (7-18) 6 mg/dL (7-18) Creatinine 0.7 MG/DL (0.55-1.30) 0.7 MG/DL (0.55-1.30) 0.7 MG/DL (0.55-1.30) Estimat Glomerular Filtration Rate > 60 mL/min (>60) > 60 mL/min (>60) > 60 mL/min (>60) Glucose Level 85 MG/DL (74-106) 94 MG/DL (74-106) 94 MG/DL (74-106) Calcium Level 8.3 MG/DL (8.5-10.1) 8.5 MG/DL (8.5-10.1) 8.3 MG/DL (8.5-10.1) Height (Feet): 5 Height (Inches): 5.00 Weight (Pounds): 130 Objective Physical Exam: Vitals: reviewed General: NAD HEENT: nc, at Neck: supple Chest: clear breath sounds bilaterally Cardiovascular: RRR, no s3, s4 Abdomen: soft, nontender, nd ++ abd pain Extremities: no cce, normal range of motion Back: back pain ttp Neuro: alert and oriented Ortiz Porter MD October 23, 2019 07:57
[2019-10-23 08:00] VITALS: BP 102/67
--- NOTE | 2019-10-23 08:02 | NUR ---
NURSE NOTES: Patient alert x4; on room air, no sing of distress and shortness of breath; no sing of chest pain; IV Right-Hand flushes well; Commode within reach; side rails up x2, breaks engaged, bed at lowest position; call light within reach; will keep monitoring.
--- NOTE | 2019-10-23 08:45 | Progress Note ---
DATE: 10/22/2019 SUBJECTIVE: The patient was calm,anxiety. She does not have any pain depressed, fatigue, and low energy. MENTAL STATUS EXAMINATION: The patient is alert and oriented to times, self, place, situation, and date. Mood is depressed. Affect is constricted, congruent with mood. Thought process is concrete. Thought content, no suicidal or homicidal ideations. Cognition is impaired. Insight and judgment are impaired. ASSESSMENT: 1. Major depressive disorder. 2. Anxiety disorder. PLAN: 1. The patient is on Ambien. 2. Ativan p.r.n. 3. Reluctant to take any medications Nelson Roberts M.D. DR: Jayden JOB#: [id number] CC: HERNANDEZ
--- NOTE | 2019-10-23 08:56 | General Progress Note ---
Assessment/Plan Problem List: (1) UTI (urinary tract infection) ICD Codes: N39.0 - Urinary tract infection, site not specified SNOMED: 20702222 (2) Dehydration ICD Codes: E86.0 - Dehydration SNOMED: 82667947 (3) Dehydration ICD Codes: E86.0 - Dehydration SNOMED: 82979618 (4) Pancreatic cancer ICD Codes: C25.9 - Malignant neoplasm of pancreas, unspecified SNOMED: 690403803 (5) Metastasis ICD Codes: C79.9 - Secondary malignant neoplasm of unspecified site SNOMED: 284195995 (6) Hypothyroid ICD Codes: E03.9 - Hypothyroidism, unspecified SNOMED: 86372164 Status: stable, progressing Assessment/Plan: pt diet abx iv fluid cbc bmp am dc to [facility] if clear Subjective Constitutional: Reports: weakness Allergies: Coded Allergies: No Known Allergies (Unverified , 03/24/16) All Systems: reviewed and negative except above Subjective sleepy calm Objective Last 24 Hour Vital Signs Date Time Temp Pulse Resp B/P (MAP) Pulse Ox O2 Delivery O2 Flow Rate FiO2 10/23/19 04:00 98.4 75 18 109/67 (81) 98 10/23/19 00:00 98.3 78 17 104/63 (77) 95 10/22/19 21:00 Room Air 10/22/19 20:00 98.1 64 16 114/77 (89) 94 10/22/19 16:00 98.4 81 17 99/67 (78) 100 10/22/19 12:00 98.6 86 19 102/78 (86) 97 10/22/19 09:00 Room Air Intake and Output 10/22/19 10/23/19 19:00 07:00 Intake Total 237 ml Balance 237 ml Intake Oral 237 ml # Voids 3 2 Laboratory Tests 10/23/19 04:40: White Blood Count 12.2H, Red Blood Count 4.18L, Hemoglobin 12.3, Hematocrit 36.3L, Mean Corpuscular Volume 87, Mean Corpuscular Hemoglobin 29.5, Mean Corpuscular Hemoglobin Concent 33.9, Red Cell Distribution Width 11.9, Platelet Count 396, Mean Platelet Volume 5.8L, Neutrophils (%) (Auto) 73.0, Lymphocytes ( %) (Auto) 16.1L, Monocytes (%) (Auto) 6.7, Eosinophils (%) (Auto) 3.4H, Basophils (%) (Auto) 0.7, Sodium Level 138, Potassium Level 4.1, Chloride Level 102, Carbon Dioxide Level 28, Anion Gap 8, Blood Urea Nitrogen 6L, Creatinine 0.7, Estimat Glomerular Filtration Rate > 60, Glucose Level 94, Calcium Level 8.3L Height (Feet): 5 Height (Inches): 5.00 Weight (Pounds): 130 General Appearance: lethargic EENT: normal ENT inspection Neck: normal alignment Cardiovascular: normal peripheral pulses, normal rate, regular rhythm Respiratory/Chest: chest wall non-tender, lungs clear, normal breath sounds Abdomen: soft, hypoactive bowel sounds Extremities: normal inspection Edema: no edema noted Arm (L), no edema noted Arm (R), no edema noted Leg (L), no edema noted Leg (R), no edema noted Pedal (L), no edema noted Pedal (R), no edema noted Generalized Neurologic: motor weakness Skin: normal pigmentation, warm/dry Matt Olmedo DO October 23, 2019 08:56
[2019-10-23] MEDS: Dronabinol 2.5mg Cap ORAL SCH ×2 (10:13→17:07)
[2019-10-23] MEDS: Docusate 100mg cap ORAL SCH ×3 (10:13→17:06)
[2019-10-23] MEDS: Enoxaparin 40mg Inj SUBQ SCH (10:14)
[2019-10-23 12:00] VITALS: BP 106/70
[2019-10-23 16:00] VITALS: BP 100/64
--- NOTE | 2019-10-23 16:35 | Infectious Diseases Prog Note ---
Assessment/Plan Assessment/Plan Assessment: COVID neg 19 x1 -10/17 SARS-COV2 pCR neg Unintentional weight loss Metastatic Pancreatic mass w/ peritoneal carcinomatosis (mets to adrenal, intraabdominal, lymph nodes) -10/13 SP EUS with pancreatic mass Bx --pathology adenocarcinoma likely of pancreatic origin -Pelvic US: SMALL POSTMENOPAUSAL UTERUS. ENDOMETRIAL STRIPE NOT WELL SEEN. OVARIES ALSO NOT VISUALIZED. APPARENT AMORPHOUS HYPOECHOIC MASSLIKE STRUCTURE SEEN ADJACENT TO THE URINARY BLADDER OF UNDETERMINED ORIGIN. SINCE THE OVARIES ARE NOT DISTINCTLY SEEN, AN OVARIAN MASS ISCONSIDERED. -10/09 CT abd/p: LARGE LEFT UPPER QUADRANT MASS LIKELY ARISING FROM THE PANCREAS WITH EXTENSION INTO THE LESSER SAC. 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 RETROPERITONEAL ADENOPATHY ENCASING THE SMA ARTERY AND ALONG THE LEFT PARA- AORTIC SPACE. LEFT ADRENAL METASTASIS. NO METASTATIC DISEASE TO THE CHEST PRESENTLY. INCIDENTAL FINDING OF BILATERAL MAMMARY PROSTHESIS IMPLANT INTRACAPSULAR RUPTURE. -10/02 SP EGD/COlo:: gastritis, hemorrhoids --of note, patient had negative COvid testing as an outpatient prior to the procedure Afebrile Mild leukocytosis, recurrent -10/13 CXR: Trace bilateral pleural effusions with adjacent streaky opacities in the lung bases which may be related to subsegmental atelectasis. Possibility of developing infiltrate however is not excluded given history of cough. Correlation with clinical findings and follow-up recommended. -u/a no pyuria, nit neg, leuk +1; ucx 40-50k mixed gram positive growth- Patient with no UTI symptoms hypothyroidism MDD sp breast augmentation Plan: -Continue to monitor off abx -f/u cx -Monitor CBC/CMP, temperature -GI, heme/onc f/u -COVID neg x1 -discharge planning to Rehab Thank you for consulting [facility]. Will continue to follow along with you. Subjective Allergies: Coded Allergies: No Known Allergies (Unverified , 03/24/16) Subjective afebrile mild leukocytosis COVID neg discharge planning Objective Vital Signs Last 24 Hour Vital Signs Date Time Temp Pulse Resp B/P (MAP) Pulse Ox O2 Delivery O2 Flow Rate FiO2 10/23/19 16:00 98.5 80 18 100/64 (76) 94 5/31/20 12:00 98.7 74 18 106/70 (82) 95 10/23/19 09:00 Room Air 10/23/19 08:00 98.8 79 17 102/67 (79) 96 10/23/19 04:00 98.4 75 18 109/67 (81) 98 10/23/19 00:00 98.3 78 17 104/63 (77) 95 10/22/19 21:00 Room Air 10/22/19 20:00 98.1 64 16 114/77 (89) 94 Height (Feet): 5 Height (Inches): 5.00 Weight (Pounds): 130 Objective General: NAD HEENT: nc, at Neck: supple Chest: clear breath sounds bilaterally Cardiovascular: RRR, no s3, s4 Abdomen: soft, nontender, nd ++ abd pain Extremities: no cce, normal range of motion Back: back pain ttp Neuro: alert and oriented Laboratory Tests Test 10/23/19 04:40 White Blood Count 12.2 K/UL (4.8-10.8) H Red Blood Count 4.18 M/UL (4.20-5.40) L Hemoglobin 12.3 G/DL (12.0-16.0) Hematocrit 36.3 % (37.0-47.0) L Mean Corpuscular Volume 87 FL (80-99) Mean Corpuscular Hemoglobin 29.5 PG (27.0-31.0) Mean Corpuscular Hemoglobin Concent 33.9 G/DL (32.0-36.0) Red Cell Distribution Width 11.9 % (11.6-14.8) Platelet Count 396 K/UL (150-450) Mean Platelet Volume 5.8 FL (6.5-10.1) L Neutrophils (%) (Auto) 73.0 % (45.0-75.0) Lymphocytes (%) (Auto) 16.1 % (20.0-45.0) L Monocytes (%) (Auto) 6.7 % (1.0-10.0) Eosinophils (%) (Auto) 3.4 % (0.0-3.0) H Basophils (%) (Auto) 0.7 % (0.0-2.0) Sodium Level 138 MMOL/L (136-145) Potassium Level 4.1 MMOL/L (3.5-5.1) Chloride Level 102 MMOL/L (98-107) Carbon Dioxide Level 28 MMOL/L (21-32) Anion Gap 8 mmol/L (5-15) Blood Urea Nitrogen 6 mg/dL (7-18) L Creatinine 0.7 MG/DL (0.55-1.30) Estimat Glomerular Filtration Rate > 60 mL/min (>60) Glucose Level 94 MG/DL (74-106) Calcium Level 8.3 MG/DL (8.5-10.1) L Current Medications Medications (Trade) Dose Ordered Sig/Tiago Route PRN Reason Start Time Stop Time Status Last Admin Dose Admin Acetaminophen (Tylenol) 650 mg Q6H PRN ORAL 1-3 mild pain/fever > 100.4 10/10/19 21:00 11/09/19 20:59 10/19/19 05:12 Amylase/Lipase/ Protease (Zenpep) 2 ea PCHS ORAL 10/20/19 12:30 01/18/20 12:29 10/23/19 12:13 Docusate Sodium (Colace) 100 mg TID ORAL 10/15/19 13:00 11/14/19 12:59 10/23/19 12:13 Dronabinol (Marinol) 2.5 mg BID ORAL 10/19/19 10:00 01/17/20 09:59 10/23/19 10:13 Enoxaparin Sodium (Lovenox) 40 mg DAILY SUBQ 10/12/19 09:00 01/10/20 08:59 10/23/19 10:14 Famotidine (Pepcid) 20 mg Q6H PRN ORAL acid reflux 10/12/19 06:03 01/10/20 06:02 10/12/19 06:18 Levothyroxine Sodium (Synthroid) 25 mcg ACBREAKFAST ORAL 10/11/19 06:30 11/10/19 06:29 10/23/19 06:00 Lorazepam (Ativan) 2 mg Q6H PRN ORAL For Anxiety 10/20/19 23:45 10/27/19 23:44 Midodrine (Pro-Amatine) 5 mg TID ORAL 10/13/19 18:00 01/11/20 17:59 10/23/19 12:14 Ondansetron HCl (Zofran) 4 mg Q4H PRN IVP Nausea & Vomiting 10/11/19 05:45 11/10/19 05:44 10/22/19 23:46 Pantoprazole (Protonix) 40 mg DAILY ORAL 10/15/19 11:45 11/14/19 11:44 10/23/19 10:13 Sorbitol (sorbitoL) 45 ml BIDPRN PRN ORAL Constipation 10/15/19 20:15 11/14/19 20:14 10/17/19 22:37 Zolpidem Tartrate (Ambien) 5 mg HSPRN PRN ORAL Insomnia 10/17/19 21:00 10/24/19 20:59 10/22/19 23:39 Sabi Abbasi M.D. October 23, 2019 16:35
--- NOTE | 2019-10-23 19:40 | NUR ---
NURSE NOTES: Received report from TRACEY Raines. Rounded and seen pt, AAOX4, resting in bed, resp even. appears calm and no signs of pain noted. went over with plan of care/meds for tonight. no further request at this time. instructed to call for assistance anytime.
[2019-10-23 20:00] VITALS: BP 101/69
[2019-10-23] MEDS: Zolpidem 5mg tab ORAL PRN (22:21)
[2019-10-24] VITALS: BP 98/64
[2019-10-24 04:00] VITALS: BP 107/67
--- NOTE | 2019-10-24 05:30 | Progress Note ---
DATE: 10/23/2019 SUBJECTIVE: The patient is doing better. Complained of depressed mood, anhedonia, worthlessness, and hopelessness. She is unable to sleep more than three and a half hours. The patient is having anhedonia, worthlessness, and hopelessness. MENTAL STATUS EXAMINATION: The patient is alert and oriented times self, place, and situation. Mood is depressed. Affect is constricted. Congruent with mood. Thought process is linear and goal oriented. Thought content, no suicidal or homicidal ideation. Cognition is intact. Insight and judgment are intact. ASSESSMENT: 1. Major depressive disorder. 2. Dementia. PLAN: 1. Continue current psychotropic medications. 2. Provide the patient with reality orientation and supportive therapy. Nelson Roberts M.D. DR: LISY JOB#: [id number] CC:
[2019-10-24] MEDS: Levothyroxine 25mcg tab ORAL SCH (06:14)
[2019-10-24] MEDS: Pancrelipase Dr Cap ORAL SCH ×4 (06:48→21:25)
[2019-10-24 07:20] LABS: ANION GAP 8 mmol/L (5-15); BLOOD UREA NITROGEN 5 mg/dL (7-18); CALCIUM 8.3 MG/DL (8.5-10.1); CARBON DIOXIDE 27 MMOL/L (21-32); CHLORIDE 103 MMOL/L (98-107); CREATININE 0.8 MG/DL (0.55-1.30); HEMATOCRIT 35.8 % (37.0-47.0); HEMOGLOBIN 11.8 G/DL (12.0-16.0); MEAN CORPUSCULAR VOLUME 87 FL (80-99); PLATELET COUNT 395 K/UL (150-450); RED BLOOD COUNT 4.09 M/UL (4.20-5.40); SODIUM 138 MMOL/L (136-145); WHITE BLOOD COUNT 12.8 K/UL (4.8-10.8)
--- NOTE | 2019-10-24 08:00 | NUR ---
NURSE NOTES:handoff by linda pate.re:continuity of care.
[2019-10-24 08:18] VITALS: BP 97/61
[2019-10-24] MEDS: Dronabinol 2.5mg Cap ORAL SCH ×2 (08:28→18:13)
[2019-10-24] MEDS: Enoxaparin 40mg Inj SUBQ SCH (08:29)
--- NOTE | 2019-10-24 08:30 | NUR ---
NURSE NOTES:pt.eating breakfast,looks more alert and physically active as compared 3 days ago.claims her appetite is improving.heplock patent on left ac.no c/o pain.will continue plan of care.
[2019-10-24] MEDS: Docusate 100mg cap ORAL SCH ×3 (08:33→18:00)
--- NOTE | 2019-10-24 08:39 | General Progress Note ---
Assessment/Plan Problem List: (1) Pancreatic cancer ICD Codes: C25.9 - Malignant neoplasm of pancreas, unspecified SNOMED: 700546694 (2) Elevated cholesterol ICD Codes: E78.0 - Pure hypercholesterolemia SNOMED: 98134143 (3) Hypothyroid ICD Codes: E03.9 - Hypothyroidism, unspecified SNOMED: 16447606 (4) Depression ICD Codes: F32.9 - Major depressive disorder, single episode, unspecified SNOMED: 07786193 Status: stable, progressing Assessment/Plan: fu oncology s/p EUS and biopsy fu path>>> adeno ca confirmed ivf pain control zofran prn marinol creon push po's dc planning per primary team Subjective ROS Limited/Unobtainable: No Allergies: Coded Allergies: No Known Allergies (Unverified , 03/24/16) Objective Last 24 Hour Vital Signs Date Time Temp Pulse Resp B/P (MAP) Pulse Ox O2 Delivery O2 Flow Rate FiO2 10/24/19 08:18 98.1 98 18 97/61 (73) 97 10/24/19 04:00 98.5 90 18 107/67 (80) 96 10/24/19 00:00 98.6 76 18 98/64 (75) 96 10/23/19 21:00 Room Air 10/23/19 20:00 98.4 76 18 101/69 (80) 95 10/23/19 16:00 98.5 80 18 100/64 (76) 94 10/23/19 12:00 98.7 74 18 106/70 (82) 95 10/23/19 09:00 Room Air Intake and Output 10/23/19 10/24/19 18:59 06:59 Intake Total 500 ml Output Total 300 ml Balance 500 ml -300 ml Other 500 ml Output Urine Total 300 ml # Voids 2 Laboratory Tests 10/24/19 05:35: White Blood Count 12.8H, Red Blood Count 4.09L, Hemoglobin 11.8L, Hematocrit 35.8L, Mean Corpuscular Volume 87, Mean Corpuscular Hemoglobin 28.9, Mean Corpuscular Hemoglobin Concent 33.0, Red Cell Distribution Width 12.0, Platelet Count 395, Mean Platelet Volume 5.5L, Neutrophils (%) (Auto) , Lymphocytes (%) ( Auto) , Monocytes (%) (Auto) , Eosinophils (%) (Auto) , Basophils (%) (Auto) , Neutrophils % (Manual) [Pending], Lymphocytes % (Manual) [Pending], Platelet Estimate [Pending], Platelet Morphology [Pending], Sodium Level 138, Potassium Level 4.0, Chloride Level 103, Carbon Dioxide Level 27, Anion Gap 8, Blood Urea Nitrogen 5L, Creatinine 0.8, Estimat Glomerular Filtration Rate > 60, Glucose Level 90, Calcium Level 8.3L Height (Feet): 5 Height (Inches): 5.00 Weight (Pounds): 130 General Appearance: no apparent distress EENT: normal ENT inspection Neck: supple Cardiovascular: normal rate Respiratory/Chest: decreased breath sounds Abdomen: normal bowel sounds, non tender, soft Extremities: non-tender Malcom Michael MD Oct 24, 2019 08:39
--- NOTE | 2019-10-24 09:16 | General Progress Note ---
Assessment/Plan Problem List: (1) UTI (urinary tract infection) ICD Codes: N39.0 - Urinary tract infection, site not specified SNOMED: 05198665 (2) Dehydration ICD Codes: E86.0 - Dehydration SNOMED: 35648335 (3) Dehydration ICD Codes: E86.0 - Dehydration SNOMED: 78329570 (4) Pancreatic cancer ICD Codes: C25.9 - Malignant neoplasm of pancreas, unspecified SNOMED: 154285597 (5) Metastasis ICD Codes: C79.9 - Secondary malignant neoplasm of unspecified site SNOMED: 758984083 (6) Hypothyroid ICD Codes: E03.9 - Hypothyroidism, unspecified SNOMED: 80003304 Status: stable, progressing Assessment/Plan: pt diet abx iv fluid cbc bmp am dc to [facility] if clear Subjective Constitutional: Reports: weakness Allergies: Coded Allergies: No Known Allergies (Unverified , 03/24/16) All Systems: reviewed and negative except above Subjective sleepy calm Objective Last 24 Hour Vital Signs Date Time Temp Pulse Resp B/P (MAP) Pulse Ox O2 Delivery O2 Flow Rate FiO2 10/24/19 08:18 98.1 98 18 97/61 (73) 97 10/24/19 04:00 98.5 90 18 107/67 (80) 96 10/24/19 00:00 98.6 76 18 98/64 (75) 96 10/23/19 21:00 Room Air 10/23/19 20:00 98.4 76 18 101/69 (80) 95 10/23/19 16:00 98.5 80 18 100/64 (76) 94 10/23/19 12:00 98.7 74 18 106/70 (82) 95 Intake and Output 10/23/19 10/24/19 19:00 07:00 Intake Total 500 ml Output Total 300 ml Balance 500 ml -300 ml Other 500 ml Output Urine Total 300 ml # Voids 2 Laboratory Tests 10/24/19 05:35: White Blood Count 12.8H, Red Blood Count 4.09L, Hemoglobin 11.8L, Hematocrit 35.8L, Mean Corpuscular Volume 87, Mean Corpuscular Hemoglobin 28.9, Mean Corpuscular Hemoglobin Concent 33.0, Red Cell Distribution Width 12.0, Platelet Count 395, Mean Platelet Volume 5.5L, Neutrophils (%) (Auto) , Lymphocytes (%) ( Auto) , Monocytes (%) (Auto) , Eosinophils (%) (Auto) , Basophils (%) (Auto) , Neutrophils % (Manual) [Pending], Lymphocytes % (Manual) [Pending], Platelet Estimate [Pending], Platelet Morphology [Pending], Sodium Level 138, Potassium Level 4.0, Chloride Level 103, Carbon Dioxide Level 27, Anion Gap 8, Blood Urea Nitrogen 5L, Creatinine 0.8, Estimat Glomerular Filtration Rate > 60, Glucose Level 90, Calcium Level 8.3L Height (Feet): 5 Height (Inches): 5.00 Weight (Pounds): 130 General Appearance: lethargic EENT: normal ENT inspection Neck: normal alignment Cardiovascular: normal peripheral pulses, normal rate, regular rhythm Respiratory/Chest: chest wall non-tender, lungs clear, normal breath sounds Abdomen: soft, hypoactive bowel sounds Extremities: normal inspection Edema: no edema noted Arm (L), no edema noted Arm (R), no edema noted Leg (L), no edema noted Leg (R), no edema noted Pedal (L), no edema noted Pedal (R), no edema noted Generalized Neurologic: responsive, motor weakness Skin: normal pigmentation, warm/dry Matt Olmedo DO Oct 24, 2019 09:16
--- NOTE | 2019-10-24 11:13 | NUR ---
RD ASSESSMENT & RECOMMENDATIONS SEE CARE ACTIVITY FOR COMPLETE ASSESSMENT DAILY ESTIMATED NEEDS: Needs based on WT loss, CA 59.2kg 30-35 kcals/kg 2168-6720 total kcals 1-2 g protein/kg 59-118 g total protein 25-30 mL/kg 3338-0188 total fluid mLs NUTRITION DIAGNOSIS: Increase kcal needs r/t significant wt loss as evidenced by 22% wt change, w/ unintentional est 39 lbs wt loss in 7 weeks, w/ variable intake. CURRENT DIET: regular PO DIET RECOMMENDATIONS: Maintain liberalized REGULAR diet ADDITIONAL RECOMMENDATIONS: 1) Weekly standing or calibrated bedscale wts -> close wt monitoring given admitted w/ wt loss 2) Snacks in b/w meals as tolerated 3) Pt refusing both Ensure Enlive and Ensure Clear 4) Allow outside foods of pt's preference 5) Consider appetite stimulant: Marinol BID added 10/18
[2019-10-24 12:00] VITALS: BP 100/69
--- NOTE | 2019-10-24 13:36 | Cardiac Electrophysiology PN ---
Assessment/Plan Assessment/Plan 1. Hypotension. On midodrine 5 mg t.i.d. Echo EF 65% 2. Hypothyroidism, on Synthroid. 3. Significant weight loss due to pancreatic cancer. S/P EUS and biopsy by Dr. Michael. Oncology. 4. Depression. 5. Debility. ARU pending insurance Auth JUVENTINO RN Subjective Subjective Alert in NAD. No CP or SOB. Awaiting insurance authorization to transfer to [facility] ARU Objective Last 24 Hour Vital Signs Date Time Temp Pulse Resp B/P (MAP) Pulse Ox O2 Delivery O2 Flow Rate FiO2 10/24/19 12:00 97.8 75 18 100/69 (79) 98 10/24/19 09:00 Room Air 10/24/19 08:18 98.1 80 18 97/61 (73) 97 10/24/19 04:00 98.5 90 18 107/67 (80) 96 10/24/19 00:00 98.6 76 18 98/64 (75) 96 10/23/19 21:00 Room Air 10/23/19 20:00 98.4 76 18 101/69 (80) 95 10/23/19 16:00 98.5 80 18 100/64 (76) 94 Intake and Output 10/23/19 10/24/19 19:00 07:00 Intake Total 500 ml Output Total 300 ml Balance 500 ml -300 ml Other 500 ml Output Urine Total 300 ml # Voids 2 Laboratory Tests Test 10/24/19 05:35 White Blood Count 12.8 K/UL (4.8-10.8) H Red Blood Count 4.09 M/UL (4.20-5.40) L Hemoglobin 11.8 G/DL (12.0-16.0) L Hematocrit 35.8 % (37.0-47.0) L Mean Corpuscular Volume 87 FL (80-99) Mean Corpuscular Hemoglobin 28.9 PG (27.0-31.0) Mean Corpuscular Hemoglobin Concent 33.0 G/DL (32.0-36.0) Red Cell Distribution Width 12.0 % (11.6-14.8) Platelet Count 395 K/UL (150-450) Mean Platelet Volume 5.5 FL (6.5-10.1) L Neutrophils (%) (Auto) % (45.0-75.0) Lymphocytes (%) (Auto) % (20.0-45.0) Monocytes (%) (Auto) % (1.0-10.0) Eosinophils (%) (Auto) % (0.0-3.0) Basophils (%) (Auto) % (0.0-2.0) Differential Total Cells Counted 100 Neutrophils % (Manual) 77 % (45-75) H Lymphocytes % (Manual) 15 % (20-45) L Monocytes % (Manual) 6 % (1-10) Eosinophils % (Manual) 2 % (0-3) Basophils % (Manual) 0 % (0-2) Band Neutrophils 0 % (0-8) Platelet Estimate Adequate Platelet Morphology Normal Red Blood Cell Morphology Normal Sodium Level 138 MMOL/L (136-145) Potassium Level 4.0 MMOL/L (3.5-5.1) Chloride Level 103 MMOL/L (98-107) Carbon Dioxide Level 27 MMOL/L (21-32) Anion Gap 8 mmol/L (5-15) Blood Urea Nitrogen 5 mg/dL (7-18) L Creatinine 0.8 MG/DL (0.55-1.30) Estimat Glomerular Filtration Rate > 60 mL/min (>60) Glucose Level 90 MG/DL (74-106) Calcium Level 8.3 MG/DL (8.5-10.1) L Objective HEAD AND NECK: No JVD. LUNGS: Clear. CARDIOVASCULAR: Regular S1 and S2 with no gallop or murmur. ABDOMEN: Soft. EXTREMITIES: No pitting edema. Trevor Bardales MD Oct 24, 2019 13:36
--- NOTE | 2019-10-24 14:35 | Diagnostic Imaging Report ---
Indication: Shortness of breath Technique: One view of the chest Comparison: 10/14/2019 Findings: The left hemidiaphragm is obscured. There is evidence of pleural fluid at the left lung base as well as some retrocardiac consolidation. This appears increased from the previous study. The heart size is normal. The upper lungs are clear. Impression: Increasing left pleural fluid and basilar consolidation/atelectasis, since prior exam of 10/14/2019
--- NOTE | 2019-10-24 15:05 | NUR ---
*-* INSURANCE *-* UPDATED CLINICALS HAVE BEEN FAXED TO: [facility] P: [phone] F: [phone] Addendum: 10/27/19 at 0913 by AUSTYN CARNES CM FAX FAILED RE-FAXED
[2019-10-24 16:00] VITALS: BP 107/70
--- NOTE | 2019-10-24 16:59 | NUR ---
CASE MANAGEMENT:REVIEW 10/22/19 SI:S/P EUS WITH BIOPSY . HYPOTENSIVE METASTASIS . PANCREASE CANCER . DEHYDRATION 98.4 80 19 99/83 96% ON RA BUN 5 IS: SYNTHROID PO QAM NORCO PO Q4HR/PRN IV ZOFRAN Q4HR/PRN PROTONIX PO QD LOVENOX SQ QD MARINOL PO BID \: 3E MED SURG UNIT DCP: HOME WHEN STABLE CASE MANAGEMENT:REVIEW 10/23/19 SI:S/P EUS WITH BIOPSY . HYPOTENSIVE METASTASIS . PANCREASE CANCER . DEHYDRATION 98.8 79 17 102/67 96% ON RA BUN 6 CA+ 8.3 WBC 12.2 IS: SYNTHROID PO QAM NORCO PO Q4HR/PRN IV ZOFRAN Q4HR/PRN PROTONIX PO QD LOVENOX SQ QD MARINOL PO BID \: 3E MED SURG UNIT DCP: HOME WHEN STABLE CASE MANAGEMENT:REVIEW 10/24/19 SI:S/P EUS WITH BIOPSY . HYPOTENSIVE METASTASIS . PANCREASE CANCER . DEHYDRATION 98.0 78 19 107/70 99% ON RA WBC 12.8 BUN 5 CA+ 8.3 IS: SYNTHROID PO QAM NORCO PO Q4HR/PRN IV ZOFRAN Q4HR/PRN PROTONIX PO QD LOVENOX SQ QD MARINOL PO BID XRAY Chest 1v- Increasing left pleural fluid and basilar consolidation/atelectasis,since prior exam of 10/14/2019 \: 3E MED SURG UNIT DCP: HOME WHEN STABLE PLAN: BED AVAILABLE FOR REHAB IN AM
--- NOTE | 2019-10-24 19:26 | NUR ---
NURSE NOTES: Received report from Rosendo Hughes RN. Pt is awake, lying semi-sesay's; comfortably resting. No signs of acute distress noted. Pt denies any pain at this time. AOx4; able to make needs known. Checked IV site; patent and flushed. No erythema, bleeding, of infiltration noted. Bed at lowest position. Brakes on. Siderails up x3. Call light within reach. Will continue to monitor.
[2019-10-24 20:00] VITALS: BP 108/70
--- NOTE | 2019-10-24 20:33 | Hematology/Onc Progress Note ---
Assessment/Plan Assessment/Plan Assessment/Recs # Stage IV pancreatic cacner - LARGE LEFT UPPER QUADRANT MASS LIKELY ARISING FROM THE PANCREAS WITH EXTENSION INTO THE LESSER SAC. 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 RETROPERITONEAL ADENOPATHY ENCASING THE SMA ARTERY AND ALONG THE LEFT PARA- AORTIC SPACE. LEFT ADRENAL METASTASIS. --> ct guided biop for 10/12/2019 cancelled as could not get a good [place] --> endoscopic us ordered 10/13-->RESULTS pending --> us of the ovaries --> APPARENT AMORPHOUS HYPOECHOIC MASSLIKE STRUCTURE SEEN ADJACENT TO THE URINARY BLADDER OF UNDETERMINED ORIGIN. SINCE THE OVARIES ARE NOT DISTINCTLY SEEN, AN OVARIAN MASS IS CONSIDERED. --> ca 19.9, 39,393, ca 125 is 523, cea 731 --> weight loss noted --> started on marinol --> also on lexapro --> as per gi care, they are aware --> to f/u as outpatient --> per psych --> outpatient chemo to consider v transfer to rehab unit at this time # Dehydration --> on ivfs as needed --> per renal # LEFT ADRENAL METASTASIS. --> likely c/w panc primary cancer # Leukocytosis --> urine cx+ x2 --> wbc trend: 7.8-->11.6 -->9.5-->10.7-->3 --> 10/13 cxr: Trace bilateral pleural effusions # Weight loss --> related to ca # Dvt ppx ambulation The timing of this note does not necessarily reflect the time of the patient was seen. Greatly appreciate consultation. Subjective Respiratory: Denies: no symptoms, cough, shortness of breath, SOB with excertion, SOB at rest, sputum, wheezing, other Gastrointestinal/Abdominal: Denies: no symptoms, abdomen distended, abdominal pain, black stools, tarry stools, blood in stool, constipated, diarrhea, difficulty swallowing, nausea, poor appetite, poor fluid intake, rectal bleeding , vomiting, other Genitourinary: Denies: no symptoms, burning, discharge, frequency, flank pain, hematuria, incontinence, pain, urgency, other Neurologic/Psychiatric: Denies: no symptoms, anxiety, depressed, emotional problems, headache, numbness, paresthesia, pre-existing deficit, seizure, tingling, tremors, weakness, other Endocrine: Denies: no symptoms, excessive sweating, flushing, intolerance to cold, intolerance to heat, increased hunger, increased thirst, increased urine, unexplained weight gain, unexplained weight loss, other Allergies: Coded Allergies: No Known Allergies (Unverified , 03/24/16) Subjective 10/11 med surg, awake and alert, ct guided biop for today 10/[address] guided needle, endoscopic us ordered 10/13 us pelvis reviewed, no acute distress, room air 10/14 cxr abd labs reviewed, stable for dc 10/15 long discussion, feels depressed, no bleeding, meds noted 10/16 pending pathology report, no bleeding, meds reviewed 10/17 s/p eus with biopsy, report pending, dw gi 10/20 labs noted, no bleeding, with pancreatic cancer stage iv 10/21 no overnight events reported, dc planning per primary 10/22 no events, awaiting transfer to [facility], [facility] 19 negative 10/23 labs have been noted, no bleeding, hgb 9.5, no hemolysis Objective Objective Current Medications Medications (Trade) Dose Ordered Sig/Tiago Route PRN Reason Start Time Stop Time Status Last Admin Dose Admin Acetaminophen (Tylenol) 650 mg Q6H PRN ORAL 1-3 mild pain/fever > 100.4 10/10/19 21:00 11/09/19 20:59 10/19/19 05:12 Amylase/Lipase/ Protease (Zenpep) 2 ea PCHS ORAL 10/20/19 12:30 01/18/20 12:29 10/24/19 18:13 Docusate Sodium (Colace) 100 mg TID ORAL 10/15/19 13:00 11/14/19 12:59 10/23/19 17:06 Dronabinol (Marinol) 2.5 mg BID ORAL 10/19/19 10:00 01/17/20 09:59 10/24/19 18:13 Enoxaparin Sodium (Lovenox) 40 mg DAILY SUBQ 10/12/19 09:00 01/10/20 08:59 10/24/19 08:29 Escitalopram Oxalate (Lexapro) 10 mg DAILY ORAL 10/24/19 09:00 11/23/19 08:59 10/24/19 08:27 Famotidine (Pepcid) 20 mg Q6H PRN ORAL acid reflux 10/12/19 06:03 01/10/20 06:02 10/12/19 06:18 Levothyroxine Sodium (Synthroid) 25 mcg ACBREAKFAST ORAL 10/11/19 06:30 11/10/19 06:29 10/24/19 06:14 Lorazepam (Ativan) 2 mg Q6H PRN ORAL For Anxiety 10/20/19 23:45 10/27/19 23:44 Midodrine (Pro-Amatine) 5 mg TID ORAL 10/13/19 18:00 01/11/20 17:59 10/24/19 18:13 Mirtazapine (Remeron) 15 mg BEDTIME ORAL 10/24/19 21:00 01/22/20 20:59 Ondansetron HCl (Zofran) 4 mg Q4H PRN IVP Nausea & Vomiting 10/11/19 05:45 11/10/19 05:44 10/24/19 13:06 Pantoprazole (Protonix) 40 mg DAILY ORAL 10/15/19 11:45 11/14/19 11:44 10/24/19 08:28 Sorbitol (sorbitoL) 45 ml BIDPRN PRN ORAL Constipation 10/15/19 20:15 11/14/19 20:14 10/17/19 22:37 Last 24 Hour Vital Signs Date Time Temp Pulse Resp B/P (MAP) Pulse Ox O2 Delivery O2 Flow Rate FiO2 10/24/19 20:00 98.0 76 15 108/70 (83) 95 10/24/19 16:00 98.0 78 19 107/70 (82) 99 10/24/19 12:00 97.8 75 18 100/69 (79) 98 10/24/19 09:00 Room Air 10/24/19 08:18 98.1 80 18 97/61 (73) 97 10/24/19 04:00 98.5 90 18 107/67 (80) 96 10/24/19 00:00 98.6 76 18 98/64 (75) 96 10/23/19 21:00 Room Air 10/23/19 20:00 98.4 76 18 101/69 (80) 95 10/23/19 16:00 98.5 80 18 100/64 (76) 94 10/23/19 12:00 98.7 74 18 106/70 (82) 95 10/23/19 09:00 Room Air 10/23/19 08:00 98.8 79 17 102/67 (79) 96 10/23/19 04:00 98.4 75 18 109/67 (81) 98 10/23/19 00:00 98.3 78 17 104/63 (77) 95 10/22/19 21:00 Room Air Intake and Output 10/23/19 10/24/19 18:59 06:59 Intake Total 500 ml Output Total 300 ml Balance 500 ml -300 ml Other 500 ml Output Urine Total 300 ml # Voids 2 Labs Test 10/22/19 04:40 10/23/19 04:40 10/24/19 05:35 White Blood Count 10.7 K/UL (4.8-10.8) 12.2 K/UL (4.8-10.8) 12.8 K/UL (4.8-10.8) Red Blood Count 4.41 M/UL (4.20-5.40) 4.18 M/UL (4.20-5.40) 4.09 M/UL (4.20-5.40) Hemoglobin 12.7 G/DL (12.0-16.0) 12.3 G/DL (12.0-16.0) 11.8 G/DL (12.0-16.0) Hematocrit 37.8 % (37.0-47.0) 36.3 % (37.0-47.0) 35.8 % (37.0-47.0) Mean Corpuscular Volume 86 FL (80-99) 87 FL (80-99) 87 FL (80-99) Mean Corpuscular Hemoglobin 28.8 PG (27.0-31.0) 29.5 PG (27.0-31.0) 28.9 PG (27.0-31.0) Mean Corpuscular Hemoglobin Concent 33.6 G/DL (32.0-36.0) 33.9 G/DL (32.0-36.0) 33.0 G/DL (32.0-36.0) Red Cell Distribution Width 11.5 % (11.6-14.8) 11.9 % (11.6-14.8) 12.0 % (11.6-14.8) Platelet Count 362 K/UL (150-450) 396 K/UL (150-450) 395 K/UL (150-450) Mean Platelet Volume 5.6 FL (6.5-10.1) 5.8 FL (6.5-10.1) 5.5 FL (6.5-10.1) Neutrophils (%) (Auto) 73.1 % (45.0-75.0) 73.0 % (45.0-75.0) % (45.0-75.0) Lymphocytes (%) (Auto) 15.7 % (20.0-45.0) 16.1 % (20.0-45.0) % (20.0-45.0) Monocytes (%) (Auto) 6.5 % (1.0-10.0) 6.7 % (1.0-10.0) % (1.0-10.0) Eosinophils (%) (Auto) 3.7 % (0.0-3.0) 3.4 % (0.0-3.0) % (0.0-3.0) Basophils (%) (Auto) 1.1 % (0.0-2.0) 0.7 % (0.0-2.0) % (0.0-2.0) Sodium Level 137 MMOL/L (136-145) 138 MMOL/L (136-145) 138 MMOL/L (136-145) Potassium Level 3.7 MMOL/L (3.5-5.1) 4.1 MMOL/L (3.5-5.1) 4.0 MMOL/L (3.5-5.1) Chloride Level 101 MMOL/L (98-107) 102 MMOL/L (98-107) 103 MMOL/L (98-107) Carbon Dioxide Level 29 MMOL/L (21-32) 28 MMOL/L (21-32) 27 MMOL/L (21-32) Anion Gap 7 mmol/L (5-15) 8 mmol/L (5-15) 8 mmol/L (5-15) Blood Urea Nitrogen 5 mg/dL (7-18) 6 mg/dL (7-18) 5 mg/dL (7-18) Creatinine 0.7 MG/DL (0.55-1.30) 0.7 MG/DL (0.55-1.30) 0.8 MG/DL (0.55-1.30) Estimat Glomerular Filtration Rate > 60 mL/min (>60) > 60 mL/min (>60) > 60 mL/min (>60) Glucose Level 94 MG/DL (74-106) 94 MG/DL (74-106) 90 MG/DL (74-106) Calcium Level 8.5 MG/DL (8.5-10.1) 8.3 MG/DL (8.5-10.1) 8.3 MG/DL (8.5-10.1) Differential Total Cells Counted 100 Neutrophils % (Manual) 77 % (45-75) Lymphocytes % (Manual) 15 % (20-45) Monocytes % (Manual) 6 % (1-10) Eosinophils % (Manual) 2 % (0-3) Basophils % (Manual) 0 % (0-2) Band Neutrophils 0 % (0-8) Platelet Estimate Adequate Platelet Morphology Normal Red Blood Cell Morphology Normal Height (Feet): 5 Height (Inches): 5.00 Weight (Pounds): 130 Objective Physical Exam: Vitals: reviewed General: NAD HEENT: nc, at Neck: supple Chest: clear breath sounds bilaterally Cardiovascular: RRR, no s3, s4 Abdomen: soft, nontender, nd ++ abd pain Extremities: no cce, normal range of motion Back: back pain ttp Neuro: alert and oriented Ortiz Porter MD Oct 24, 2019 20:33
--- NOTE | 2019-10-24 22:56 | Psych Consult Progress Note ---
Psychiatry Progress Note Psychiatry Progress Note Medications Current Medications Medications (Trade) Dose Ordered Sig/Tiago Route PRN Reason Start Time Stop Time Status Last Admin Dose Admin Acetaminophen (Tylenol) 650 mg Q6H PRN ORAL 1-3 mild pain/fever > 100.4 10/10/19 21:00 11/09/19 20:59 10/24/19 22:34 Amylase/Lipase/ Protease (Zenpep) 2 ea PCHS ORAL 10/20/19 12:30 01/18/20 12:29 10/24/19 21:25 Docusate Sodium (Colace) 100 mg TID ORAL 10/15/19 13:00 11/14/19 12:59 10/23/19 17:06 Dronabinol (Marinol) 2.5 mg BID ORAL 10/19/19 10:00 01/17/20 09:59 10/24/19 18:13 Enoxaparin Sodium (Lovenox) 40 mg DAILY SUBQ 10/12/19 09:00 01/10/20 08:59 10/24/19 08:29 Escitalopram Oxalate (Lexapro) 10 mg DAILY ORAL 10/24/19 09:00 11/23/19 08:59 10/24/19 08:27 Famotidine (Pepcid) 20 mg Q6H PRN ORAL acid reflux 10/12/19 06:03 01/10/20 06:02 10/12/19 06:18 Levothyroxine Sodium (Synthroid) 25 mcg ACBREAKFAST ORAL 10/11/19 06:30 11/10/19 06:29 10/24/19 06:14 Lorazepam (Ativan) 2 mg Q6H PRN ORAL For Anxiety 10/20/19 23:45 10/27/19 23:44 Midodrine (Pro-Amatine) 5 mg TID ORAL 10/13/19 18:00 01/11/20 17:59 10/24/19 18:13 Mirtazapine (Remeron) 15 mg BEDTIME ORAL 10/24/19 21:00 01/22/20 20:59 10/24/19 21:25 Ondansetron HCl (Zofran) 4 mg Q4H PRN IVP Nausea & Vomiting 10/11/19 05:45 11/10/19 05:44 6/1/20 13:06 Pantoprazole (Protonix) 40 mg DAILY ORAL 10/15/19 11:45 11/14/19 11:44 10/24/19 08:28 Sorbitol (sorbitoL) 45 ml BIDPRN PRN ORAL Constipation 10/15/19 20:15 11/14/19 20:14 10/17/19 22:37 Neurological/Psychiatric: Reports: anxiety, depressed, emotional problems Allergies: Coded Allergies: No Known Allergies (Unverified , 03/24/16) Objective Data Height (Feet): 5 Height (Inches): 5.00 Weight (Pounds): 130 General Appearance: no apparent distress, alert Additional Comments: alert and oriented times self, place, and situation. Mood is depressed. Affect is constricted. Congruent with mood. Thought process is linear and goal oriented. Thought content, no suicidal or homicidal ideation. Cognition is intact. Insight and judgment are intact. Assessment/Plan Status: stable, progressing Assessment/Plan: ASSESSMENT: 1. Major depressive disorder. 2. Dementia. PLAN: 1. Continue current psychotropic medications. 2. Provide the patient with reality orientation and supportive tx 3. Nelson Rees MD Oct 24, 2019 22:56
[2019-10-25] VITALS: BP 137/78
[2019-10-25 04:00] VITALS: BP 117/75
[2019-10-25] MEDS: Levothyroxine 25mcg tab ORAL SCH ×2 (05:39→06:08)
[2019-10-25 07:15] LABS: ANION GAP 10 mmol/L (5-15); BLOOD UREA NITROGEN 5 mg/dL (7-18); CALCIUM 8.6 MG/DL (8.5-10.1); CARBON DIOXIDE 27 MMOL/L (21-32); CHLORIDE 102 MMOL/L (98-107); CREATININE 0.7 MG/DL (0.55-1.30); POTASSIUM 4.2 MMOL/L (3.5-5.1); SODIUM 139 MMOL/L (136-145)
--- NOTE | 2019-10-25 07:15 | NUR ---
HAND-OFF: Report given to TRACEY Esqueda. Pt is sleeping and in stable condition. Plan of care endorsed.
[2019-10-25 07:18] LABS: EOSINOPHILS % (AUTO) 3.6 % (0.0-3.0); HEMOGLOBIN 13.5 G/DL (12.0-16.0); LYMPHOCYTES % (AUTO) 16.2 % (20.0-45.0); MEAN CORPUSCULAR VOLUME 88 FL (80-99); MONOCYTES % (AUTO) 6.8 % (1.0-10.0); NEUTROPHILS % (AUTO) 72.4 % (45.0-75.0); PLATELET COUNT 441 K/UL (150-450); RED BLOOD COUNT 4.57 M/UL (4.20-5.40); RED CELL DISTRIBUTION WIDTH 12.3 % (11.6-14.8); WHITE BLOOD COUNT 13.4 K/UL (4.8-10.8)
[2019-10-25] MEDS: Pancrelipase Dr Cap ORAL SCH ×2 (07:30→12:30)
[2019-10-25 08:00] VITALS: BP 101/68
--- NOTE | 2019-10-25 08:04 | NUR ---
NURSE NOTES: RN made am rounds, patient is in the bed asleep and able to wake up. no difficulty breathing noted. denies any pain at this time. RAC IV site 22 gauge in-place and intact. no bleeding, redness and warmth noted. no acute distress noted. call light is placed within reach, will follow plan of care.
[2019-10-25] MEDS: Docusate 100mg cap ORAL SCH ×2 (09:00→13:00)
[2019-10-25] MEDS: Enoxaparin 40mg Inj SUBQ SCH (09:00)
[2019-10-25] MEDS: Dronabinol 2.5mg Cap ORAL SCH (09:00)
--- NOTE | 2019-10-25 10:20 | NUR ---
*-* INSURANCE *-* UPDATED CLINICALS HAVE BEEN FAXED TO: [facility] P: [phone] F: [phone] Addendum: 10/25/19 at 1021 by AUSTYN CARNES CM REVIEWS ALSO FAXED
[2019-10-25 12:00] VITALS: BP 108/75
--- NOTE | 2019-10-25 12:02 | General Progress Note ---
Assessment/Plan Problem List: (1) Pancreatic cancer ICD Codes: C25.9 - Malignant neoplasm of pancreas, unspecified SNOMED: 768918995 (2) Elevated cholesterol ICD Codes: E78.0 - Pure hypercholesterolemia SNOMED: 50396091 (3) Hypothyroid ICD Codes: E03.9 - Hypothyroidism, unspecified SNOMED: 22612395 (4) Depression ICD Codes: F32.9 - Major depressive disorder, single episode, unspecified SNOMED: 54371250 Status: stable, progressing Assessment/Plan: fu oncology s/p EUS and biopsy fu path>>> adeno ca confirmed ivf pain control zofran prn marinol creon push po's dc planning per primary team Subjective ROS Limited/Unobtainable: Yes Allergies: Coded Allergies: No Known Allergies (Unverified , 03/24/16) Objective Last 24 Hour Vital Signs Date Time Temp Pulse Resp B/P (MAP) Pulse Ox O2 Delivery O2 Flow Rate FiO2 10/25/19 09:00 Room Air 10/25/19 08:00 98.3 80 20 101/68 (79) 95 10/25/19 04:00 98.2 79 15 117/75 (89) 98 10/25/19 00:00 98.0 81 18 137/78 (97) 97 10/24/19 21:00 Room Air 10/24/19 20:00 98.0 76 15 108/70 (83) 95 10/24/19 16:00 98.0 78 19 107/70 (82) 99 Intake and Output 10/24/19 10/25/19 18:59 06:59 Intake Total 780 ml 360 ml Balance 780 ml 360 ml Intake Oral 480 ml 360 ml Other 300 ml # Voids 3 3 # Bowel Movements 2 Laboratory Tests 10/25/19 05:45: White Blood Count 13.4H, Red Blood Count 4.57, Hemoglobin 13.5, Hematocrit 40.0 , Mean Corpuscular Volume 88, Mean Corpuscular Hemoglobin 29.5, Mean Corpuscular Hemoglobin Concent 33.6, Red Cell Distribution Width 12.3, Platelet Count 441, Mean Platelet Volume 5.5L, Neutrophils (%) (Auto) 72.4, Lymphocytes ( %) (Auto) 16.2L, Monocytes (%) (Auto) 6.8, Eosinophils (%) (Auto) 3.6H, Basophils (%) (Auto) 1.0, Sodium Level 139, Potassium Level 4.2, Chloride Level 102, Carbon Dioxide Level 27, Anion Gap 10, Blood Urea Nitrogen 5L, Creatinine 0.7, Estimat Glomerular Filtration Rate > 60, Glucose Level 85, Calcium Level 8.6 Height (Feet): 5 Height (Inches): 5.00 Weight (Pounds): 130 General Appearance: no apparent distress EENT: normal ENT inspection Neck: supple Cardiovascular: normal rate Respiratory/Chest: decreased breath sounds Abdomen: normal bowel sounds, non tender, soft Extremities: non-tender Malcom Michael MD Oct 25, 2019 12:02
--- NOTE | 2019-10-25 12:28 | Hematology/Onc Progress Note ---
Assessment/Plan Assessment/Plan Assessment/Recs # Stage IV pancreatic cacner - LARGE LEFT UPPER QUADRANT MASS LIKELY ARISING FROM THE PANCREAS WITH EXTENSION INTO THE LESSER SAC. 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 RETROPERITONEAL ADENOPATHY ENCASING THE SMA ARTERY AND ALONG THE LEFT PARA- AORTIC SPACE. LEFT ADRENAL METASTASIS. --> ct guided biop for 10/12/2019 cancelled as could not get a good [place] --> endoscopic us ordered 10/13-->RESULTS pending --> us of the ovaries --> APPARENT AMORPHOUS HYPOECHOIC MASSLIKE STRUCTURE SEEN ADJACENT TO THE URINARY BLADDER OF UNDETERMINED ORIGIN. SINCE THE OVARIES ARE NOT DISTINCTLY SEEN, AN OVARIAN MASS IS CONSIDERED. --> ca 19.9, 39,393, ca 125 is 523, cea 731 --> weight loss noted --> started on marinol --> also on lexapro --> as per gi care, they are aware --> to f/u as outpatient --> per psych --> outpatient chemo to consider v transfer to rehab unit at this time # Dehydration --> on ivfs as needed --> per renal # LEFT ADRENAL METASTASIS. --> likely c/w panc primary cancer # Leukocytosis --> urine cx+ x2 --> wbc trend: 7.8-->11.6 -->9.5-->10.7-->3 --> 10/13 cxr: Trace bilateral pleural effusions # Weight loss --> related to ca # Dvt ppx ambulation The timing of this note does not necessarily reflect the time of the patient was seen. Greatly appreciate consultation. Subjective Constitutional: Denies: no symptoms, chills, fever, malaise, weakness, other HEENT: Denies: no symptoms, eye pain, blurred vision, tearing, double vision, ear pain, ear discharge, nose pain, nose congestion, throat pain, throat swelling, mouth pain, mouth swelling, other Cardiovascular: Denies: no symptoms, chest pain, edema, irregular heart rate, lightheadedness, palpitations, syncope, other Respiratory: Denies: no symptoms, cough, shortness of breath, SOB with excertion, SOB at rest, sputum, wheezing, other Gastrointestinal/Abdominal: Denies: no symptoms, abdomen distended, abdominal pain, black stools, tarry stools, blood in stool, constipated, diarrhea, difficulty swallowing, nausea, poor appetite, poor fluid intake, rectal bleeding , vomiting, other Neurologic/Psychiatric: Denies: no symptoms, anxiety, depressed, emotional problems, headache, numbness, paresthesia, pre-existing deficit, seizure, tingling, tremors, weakness, other Endocrine: Denies: no symptoms, excessive sweating, flushing, intolerance to cold, intolerance to heat, increased hunger, increased thirst, increased urine, unexplained weight gain, unexplained weight loss, other Allergies: Coded Allergies: No Known Allergies (Unverified , 03/24/16) Subjective 10/11 med surg, awake and alert, ct guided biop for today 10/[address] guided needle, endoscopic us ordered 10/13 us pelvis reviewed, no acute distress, room air 10/14 cxr abd labs reviewed, stable for dc 10/15 long discussion, feels depressed, no bleeding, meds noted 10/16 pending pathology report, no bleeding, meds reviewed 10/17 s/p eus with biopsy, report pending, dw gi 10/20 labs noted, no bleeding, with pancreatic cancer stage iv 10/21 no overnight events reported, dc planning per primary 10/22 no events, awaiting transfer to [facility] aru, covid 19 negative 10/23 labs have been noted, no bleeding, hgb 9.5, no hemolysis 10/24 she is feeling better, potential dc to rehab at [facility] Objective Objective Current Medications Medications (Trade) Dose Ordered Sig/Tiago Route PRN Reason Start Time Stop Time Status Last Admin Dose Admin Acetaminophen (Tylenol) 650 mg Q6H PRN ORAL 1-3 mild pain/fever > 100.4 10/10/19 21:00 11/09/19 20:59 10/24/19 22:34 Amylase/Lipase/ Protease (Zenpep) 2 ea PCHS ORAL 10/20/19 12:30 01/18/20 12:29 10/25/19 07:30 Docusate Sodium (Colace) 100 mg TID ORAL 10/15/19 13:00 11/14/19 12:59 10/25/19 09:00 Dronabinol (Marinol) 2.5 mg BID ORAL 10/19/19 10:00 01/17/20 09:59 10/25/19 09:00 Enoxaparin Sodium (Lovenox) 40 mg DAILY SUBQ 10/12/19 09:00 01/10/20 08:59 10/24/19 08:29 Escitalopram Oxalate (Lexapro) 10 mg DAILY ORAL 10/24/19 09:00 11/23/19 08:59 10/25/19 09:00 Famotidine (Pepcid) 20 mg Q6H PRN ORAL acid reflux 10/12/19 06:03 01/10/20 06:02 10/12/19 06:18 Levothyroxine Sodium (Synthroid) 25 mcg ACBREAKFAST ORAL 10/11/19 06:30 11/10/19 06:29 10/25/19 06:08 Lorazepam (Ativan) 2 mg Q6H PRN ORAL For Anxiety 10/20/19 23:45 10/27/19 23:44 Midodrine (Pro-Amatine) 5 mg TID ORAL 10/13/19 18:00 01/11/20 17:59 10/25/19 09:00 Mirtazapine (Remeron) 15 mg BEDTIME ORAL 10/24/19 21:00 01/22/20 20:59 10/24/19 21:25 Ondansetron HCl (Zofran) 4 mg Q4H PRN IVP Nausea & Vomiting 10/11/19 05:45 11/10/19 05:44 10/24/19 13:06 Pantoprazole (Protonix) 40 mg DAILY ORAL 10/15/19 11:45 11/14/19 11:44 10/25/19 09:00 Sorbitol (sorbitoL) 45 ml BIDPRN PRN ORAL Constipation 10/15/19 20:15 11/14/19 20:14 10/17/19 22:37 Last 24 Hour Vital Signs Date Time Temp Pulse Resp B/P (MAP) Pulse Ox O2 Delivery O2 Flow Rate FiO2 10/25/19 12:00 97.6 88 18 108/75 (86) 94 10/25/19 09:00 Room Air 10/25/19 08:00 98.3 80 20 101/68 (79) 95 10/25/19 04:00 98.2 79 15 117/75 (89) 98 10/25/19 00:00 98.0 81 18 137/78 (97) 97 10/24/19 21:00 Room Air 10/24/19 20:00 98.0 76 15 108/70 (83) 95 10/24/19 16:00 98.0 78 19 107/70 (82) 99 10/24/19 12:00 97.8 75 18 100/69 (79) 98 10/24/19 09:00 Room Air 10/24/19 08:18 98.1 80 18 97/61 (73) 97 10/24/19 04:00 98.5 90 18 107/67 (80) 96 10/24/19 00:00 98.6 76 18 98/64 (75) 96 10/23/19 21:00 Room Air 10/23/19 20:00 98.4 76 18 101/69 (80) 95 10/23/19 16:00 98.5 80 18 100/64 (76) 94 Intake and Output 10/24/19 10/25/19 18:59 06:59 Intake Total 780 ml 360 ml Balance 780 ml 360 ml Intake Oral 480 ml 360 ml Other 300 ml # Voids 3 3 # Bowel Movements 2 Labs Test 10/23/19 04:40 10/24/19 05:35 10/25/19 05:45 White Blood Count 12.2 K/UL (4.8-10.8) 12.8 K/UL (4.8-10.8) 13.4 K/UL (4.8-10.8) Red Blood Count 4.18 M/UL (4.20-5.40) 4.09 M/UL (4.20-5.40) 4.57 M/UL (4.20-5.40) Hemoglobin 12.3 G/DL (12.0-16.0) 11.8 G/DL (12.0-16.0) 13.5 G/DL (12.0-16.0) Hematocrit 36.3 % (37.0-47.0) 35.8 % (37.0-47.0) 40.0 % (37.0-47.0) Mean Corpuscular Volume 87 FL (80-99) 87 FL (80-99) 88 FL (80-99) Mean Corpuscular Hemoglobin 29.5 PG (27.0-31.0) 28.9 PG (27.0-31.0) 29.5 PG (27.0-31.0) Mean Corpuscular Hemoglobin Concent 33.9 G/DL (32.0-36.0) 33.0 G/DL (32.0-36.0) 33.6 G/DL (32.0-36.0) Red Cell Distribution Width 11.9 % (11.6-14.8) 12.0 % (11.6-14.8) 12.3 % (11.6-14.8) Platelet Count 396 K/UL (150-450) 395 K/UL (150-450) 441 K/UL (150-450) Mean Platelet Volume 5.8 FL (6.5-10.1) 5.5 FL (6.5-10.1) 5.5 FL (6.5-10.1) Neutrophils (%) (Auto) 73.0 % (45.0-75.0) % (45.0-75.0) 72.4 % (45.0-75.0) Lymphocytes (%) (Auto) 16.1 % (20.0-45.0) % (20.0-45.0) 16.2 % (20.0-45.0) Monocytes (%) (Auto) 6.7 % (1.0-10.0) % (1.0-10.0) 6.8 % (1.0-10.0) Eosinophils (%) (Auto) 3.4 % (0.0-3.0) % (0.0-3.0) 3.6 % (0.0-3.0) Basophils (%) (Auto) 0.7 % (0.0-2.0) % (0.0-2.0) 1.0 % (0.0-2.0) Sodium Level 138 MMOL/L (136-145) 138 MMOL/L (136-145) 139 MMOL/L (136-145) Potassium Level 4.1 MMOL/L (3.5-5.1) 4.0 MMOL/L (3.5-5.1) 4.2 MMOL/L (3.5-5.1) Chloride Level 102 MMOL/L (98-107) 103 MMOL/L (98-107) 102 MMOL/L (98-107) Carbon Dioxide Level 28 MMOL/L (21-32) 27 MMOL/L (21-32) 27 MMOL/L (21-32) Anion Gap 8 mmol/L (5-15) 8 mmol/L (5-15) 10 mmol/L (5-15) Blood Urea Nitrogen 6 mg/dL (7-18) 5 mg/dL (7-18) 5 mg/dL (7-18) Creatinine 0.7 MG/DL (0.55-1.30) 0.8 MG/DL (0.55-1.30) 0.7 MG/DL (0.55-1.30) Estimat Glomerular Filtration Rate > 60 mL/min (>60) > 60 mL/min (>60) > 60 mL/min (>60) Glucose Level 94 MG/DL (74-106) 90 MG/DL (74-106) 85 MG/DL (74-106) Calcium Level 8.3 MG/DL (8.5-10.1) 8.3 MG/DL (8.5-10.1) 8.6 MG/DL (8.5-10.1) Differential Total Cells Counted 100 Neutrophils % (Manual) 77 % (45-75) Lymphocytes % (Manual) 15 % (20-45) Monocytes % (Manual) 6 % (1-10) Eosinophils % (Manual) 2 % (0-3) Basophils % (Manual) 0 % (0-2) Band Neutrophils 0 % (0-8) Platelet Estimate Adequate Platelet Morphology Normal Red Blood Cell Morphology Normal Height (Feet): 5 Height (Inches): 5.00 Weight (Pounds): 130 Objective Physical Exam: Vitals: reviewed General: NAD HEENT: nc, at Neck: supple Chest: clear breath sounds bilaterally Cardiovascular: RRR, no s3, s4 Abdomen: soft, nontender, nd ++ abd pain Extremities: no cce, normal range of motion Back: back pain ttp Neuro: alert and oriented Ortiz Porter MD Oct 25, 2019 12:28
--- NOTE | 2019-10-25 12:30 | NUR ---
NURSE NOTES: Called [facility] [phone]. Report given to nurseTheresa.
[2019-10-25] MEDS ORDERED: ACETAMINOPHEN325 M1 ORAL (12:43)
--- NOTE | 2019-10-25 12:47 | Cardiac Electrophysiology PN ---
Assessment/Plan Assessment/Plan 1. Hypotension. On midodrine 5 mg t.i.d. EF 65% 2. Hypothyroidism, on Synthroid. 3. Significant weight loss due to pancreatic cancer. S/P EUS and biopsy by Dr. Michael. Oncology. 4. Depression. 5. Debility. ARU at [facility] pending today JUVENTION RN Subjective Subjective Alert in NAD. No CP or SOB. Awaiting transfer to [facility] ARU Objective Last 24 Hour Vital Signs Date Time Temp Pulse Resp B/P (MAP) Pulse Ox O2 Delivery O2 Flow Rate FiO2 10/25/19 12:00 97.6 88 18 108/75 (86) 94 10/25/19 09:00 Room Air 10/25/19 08:00 98.3 80 20 101/68 (79) 95 10/25/19 04:00 98.2 79 15 117/75 (89) 98 10/25/19 00:00 98.0 81 18 137/78 (97) 97 10/24/19 21:00 Room Air 10/24/19 20:00 98.0 76 15 108/70 (83) 95 10/24/19 16:00 98.0 78 19 107/70 (82) 99 Intake and Output 10/24/19 10/25/19 18:59 06:59 Intake Total 780 ml 360 ml Balance 780 ml 360 ml Intake Oral 480 ml 360 ml Other 300 ml # Voids 3 3 # Bowel Movements 2 Laboratory Tests Test 10/25/19 05:45 White Blood Count 13.4 K/UL (4.8-10.8) H Red Blood Count 4.57 M/UL (4.20-5.40) Hemoglobin 13.5 G/DL (12.0-16.0) Hematocrit 40.0 % (37.0-47.0) Mean Corpuscular Volume 88 FL (80-99) Mean Corpuscular Hemoglobin 29.5 PG (27.0-31.0) Mean Corpuscular Hemoglobin Concent 33.6 G/DL (32.0-36.0) Red Cell Distribution Width 12.3 % (11.6-14.8) Platelet Count 441 K/UL (150-450) Mean Platelet Volume 5.5 FL (6.5-10.1) L Neutrophils (%) (Auto) 72.4 % (45.0-75.0) Lymphocytes (%) (Auto) 16.2 % (20.0-45.0) L Monocytes (%) (Auto) 6.8 % (1.0-10.0) Eosinophils (%) (Auto) 3.6 % (0.0-3.0) H Basophils (%) (Auto) 1.0 % (0.0-2.0) Sodium Level 139 MMOL/L (136-145) Potassium Level 4.2 MMOL/L (3.5-5.1) Chloride Level 102 MMOL/L (98-107) Carbon Dioxide Level 27 MMOL/L (21-32) Anion Gap 10 mmol/L (5-15) Blood Urea Nitrogen 5 mg/dL (7-18) L Creatinine 0.7 MG/DL (0.55-1.30) Estimat Glomerular Filtration Rate > 60 mL/min (>60) Glucose Level 85 MG/DL (74-106) Calcium Level 8.6 MG/DL (8.5-10.1) Objective HEAD AND NECK: No JVD. LUNGS: Clear. CARDIOVASCULAR: Regular S1 and S2 with no gallop or murmur. ABDOMEN: Soft. EXTREMITIES: No pitting edema. Trevor Bardales MD Oct 25, 2019 12:47
[2019-10-25] MEDS ORDERED: DRONABINOL10 MG PO (12:57)
[2019-10-25] MEDS ORDERED: DOCUSATE SODIU100 MG ORAL (12:59)
[2019-10-25] MEDS ORDERED: LOVENOX10 M4 SUBQ (13:00)
--- NOTE | 2019-10-25 13:00 | General Progress Note ---
Assessment/Plan Problem List: (1) UTI (urinary tract infection) ICD Codes: N39.0 - Urinary tract infection, site not specified SNOMED: 81408507 (2) Dehydration ICD Codes: E86.0 - Dehydration SNOMED: 36288322 (3) Dehydration ICD Codes: E86.0 - Dehydration SNOMED: 75768205 (4) Pancreatic cancer ICD Codes: C25.9 - Malignant neoplasm of pancreas, unspecified SNOMED: 608113162 (5) Metastasis ICD Codes: C79.9 - Secondary malignant neoplasm of unspecified site SNOMED: 420437474 (6) Hypothyroid ICD Codes: E03.9 - Hypothyroidism, unspecified SNOMED: 42038907 Status: stable, progressing Assessment/Plan: pt diet abx iv fluid cbc bmp am dc to [facility] if clear Subjective Constitutional: Reports: weakness Allergies: Coded Allergies: No Known Allergies (Unverified , 03/24/16) All Systems: reviewed and negative except above Subjective sleepy calm Objective Last 24 Hour Vital Signs Date Time Temp Pulse Resp B/P (MAP) Pulse Ox O2 Delivery O2 Flow Rate FiO2 10/25/19 12:00 97.6 88 18 108/75 (86) 94 10/25/19 09:00 Room Air 10/25/19 08:00 98.3 80 20 101/68 (79) 95 10/25/19 04:00 98.2 79 15 117/75 (89) 98 10/25/19 00:00 98.0 81 18 137/78 (97) 97 10/24/19 21:00 Room Air 10/24/19 20:00 98.0 76 15 108/70 (83) 95 10/24/19 16:00 98.0 78 19 107/70 (82) 99 Intake and Output 10/24/19 10/25/19 19:00 07:00 Intake Total 780 ml 360 ml Balance 780 ml 360 ml Intake Oral 480 ml 360 ml Other 300 ml # Voids 3 3 # Bowel Movements 2 Laboratory Tests 10/25/19 05:45: White Blood Count 13.4H, Red Blood Count 4.57, Hemoglobin 13.5, Hematocrit 40.0 , Mean Corpuscular Volume 88, Mean Corpuscular Hemoglobin 29.5, Mean Corpuscular Hemoglobin Concent 33.6, Red Cell Distribution Width 12.3, Platelet Count 441, Mean Platelet Volume 5.5L, Neutrophils (%) (Auto) 72.4, Lymphocytes ( %) (Auto) 16.2L, Monocytes (%) (Auto) 6.8, Eosinophils (%) (Auto) 3.6H, Basophils (%) (Auto) 1.0, Sodium Level 139, Potassium Level 4.2, Chloride Level 102, Carbon Dioxide Level 27, Anion Gap 10, Blood Urea Nitrogen 5L, Creatinine 0.7, Estimat Glomerular Filtration Rate > 60, Glucose Level 85, Calcium Level 8.6 Height (Feet): 5 Height (Inches): 5.00 Weight (Pounds): 130 General Appearance: lethargic EENT: normal ENT inspection Neck: normal alignment Cardiovascular: normal peripheral pulses, normal rate, regular rhythm Respiratory/Chest: chest wall non-tender, lungs clear, normal breath sounds Abdomen: soft, hypoactive bowel sounds Extremities: normal inspection Edema: no edema noted Arm (L), no edema noted Arm (R), no edema noted Leg (L), no edema noted Leg (R), no edema noted Pedal (L), no edema noted Pedal (R), no edema noted Generalized Neurologic: responsive, motor weakness Skin: normal pigmentation, warm/dry Matt Olmedo DO Oct 25, 2019 13:00
[2019-10-25] MEDS ORDERED: LEXAPRO10 MG ORAL (13:01)
[2019-10-25] MEDS ORDERED: FAMOTIDINE20 MG ORAL (13:02)
[2019-10-25] MEDS ORDERED: ATIVAN2 MG ORAL (13:03)
[2019-10-25] MEDS ORDERED: MIDODRINE HCL5 MG ORAL (13:04)
[2019-10-25] MEDS ORDERED: MIRTAZAPINE15 M3 ORAL (13:06)
[2019-10-25] MEDS ORDERED: PANCREASE1 EA ORAL (13:09)
[2019-10-25] MEDS ORDERED: PROTONIX40 MG ORAL (13:09)
--- NOTE | 2019-10-25 13:50 | NUR ---
NURSE NOTES: Patient is discharged to [facility] without any signs of distress. Patient is alert and awake. A&O X4. Respiration is even and unlabored on room air. pt denies any pain at this time. Belongings checked; inventory paper signed by patient. Patient left with no home medication. Skin is clean and intact. Patient is provided with after-care instructions, provided medication teaching, and to follow-up with any MD's appointment; patient verbalized understanding of after-care instructions. IV site and wrist band removed. Patient transported via [facility] unit [id number], placed in a gurney, accompanied by 2 [employer]. Patient left with all belongings at this time.
--- NOTE | 2019-10-25 14:09 | Infectious Diseases Prog Note ---
Assessment/Plan Assessment/Plan Assessment: COVID neg 19 x1 -10/17 SARS-COV2 pCR neg Unintentional weight loss Metastatic Pancreatic mass w/ peritoneal carcinomatosis (mets to adrenal, intraabdominal, lymph nodes) -10/13 SP EUS with pancreatic mass Bx --pathology adenocarcinoma likely of pancreatic origin -Pelvic US: SMALL POSTMENOPAUSAL UTERUS. ENDOMETRIAL STRIPE NOT WELL SEEN. OVARIES ALSO NOT VISUALIZED. APPARENT AMORPHOUS HYPOECHOIC MASSLIKE STRUCTURE SEEN ADJACENT TO THE URINARY BLADDER OF UNDETERMINED ORIGIN. SINCE THE OVARIES ARE NOT DISTINCTLY SEEN, AN OVARIAN MASS ISCONSIDERED. -10/09 CT abd/p: LARGE LEFT UPPER QUADRANT MASS LIKELY ARISING FROM THE PANCREAS WITH EXTENSION INTO THE LESSER SAC. 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 RETROPERITONEAL ADENOPATHY ENCASING THE SMA ARTERY AND ALONG THE LEFT PARA- AORTIC SPACE. LEFT ADRENAL METASTASIS. NO METASTATIC DISEASE TO THE CHEST PRESENTLY. INCIDENTAL FINDING OF BILATERAL MAMMARY PROSTHESIS IMPLANT INTRACAPSULAR RUPTURE. -10/02 SP EGD/COlo:: gastritis, hemorrhoids --of note, patient had negative COvid testing as an outpatient prior to the procedure Afebrile Mild leukocytosis, recurrent -10/23 CXR Increasing left pleural fluid and basilar consolidation/atelectasis , since prior exam of 10/14/2019 -10/13 CXR: Trace bilateral pleural effusions with adjacent streaky opacities in the lung bases which may be related to subsegmental atelectasis. Possibility of developing infiltrate however is not excluded given history of cough. Correlation with clinical findings and follow-up recommended. -u/a no pyuria, nit neg, leuk +1; ucx 40-50k mixed gram positive growth- Patient with no UTI symptoms hypothyroidism MDD sp breast augmentation Plan: -Continue to monitor off abx -f/u cx -Monitor CBC/CMP, temperature -GI, heme/onc f/u -COVID neg x1 -discharge planning to Rehab Thank you for consulting [facility]. Will continue to follow along with you. Subjective Allergies: Coded Allergies: No Known Allergies (Unverified , 03/24/16) Subjective afebrile mild leukocytosis for discharge today Objective Vital Signs Last 24 Hour Vital Signs Date Time Temp Pulse Resp B/P (MAP) Pulse Ox O2 Delivery O2 Flow Rate FiO2 10/25/19 12:00 97.6 88 18 108/75 (86) 94 10/25/19 09:00 Room Air 10/25/19 08:00 98.3 80 20 101/68 (79) 95 10/25/19 04:00 98.2 79 15 117/75 (89) 98 10/25/19 00:00 98.0 81 18 137/78 (97) 97 10/24/19 21:00 Room Air 10/24/19 20:00 98.0 76 15 108/70 (83) 95 10/24/19 16:00 98.0 78 19 107/70 (82) 99 Height (Feet): 5 Height (Inches): 5.00 Weight (Pounds): 130 Objective General: NAD HEENT: nc, at Neck: supple Chest: clear breath sounds bilaterally Cardiovascular: RRR, no s3, s4 Abdomen: soft, nontender, nd ++ abd pain Extremities: no cce, normal range of motion Back: back pain ttp Neuro: alert and oriented Laboratory Tests Test 10/25/19 05:45 White Blood Count 13.4 K/UL (4.8-10.8) H Red Blood Count 4.57 M/UL (4.20-5.40) Hemoglobin 13.5 G/DL (12.0-16.0) Hematocrit 40.0 % (37.0-47.0) Mean Corpuscular Volume 88 FL (80-99) Mean Corpuscular Hemoglobin 29.5 PG (27.0-31.0) Mean Corpuscular Hemoglobin Concent 33.6 G/DL (32.0-36.0) Red Cell Distribution Width 12.3 % (11.6-14.8) Platelet Count 441 K/UL (150-450) Mean Platelet Volume 5.5 FL (6.5-10.1) L Neutrophils (%) (Auto) 72.4 % (45.0-75.0) Lymphocytes (%) (Auto) 16.2 % (20.0-45.0) L Monocytes (%) (Auto) 6.8 % (1.0-10.0) Eosinophils (%) (Auto) 3.6 % (0.0-3.0) H Basophils (%) (Auto) 1.0 % (0.0-2.0) Sodium Level 139 MMOL/L (136-145) Potassium Level 4.2 MMOL/L (3.5-5.1) Chloride Level 102 MMOL/L (98-107) Carbon Dioxide Level 27 MMOL/L (21-32) Anion Gap 10 mmol/L (5-15) Blood Urea Nitrogen 5 mg/dL (7-18) L Creatinine 0.7 MG/DL (0.55-1.30) Estimat Glomerular Filtration Rate > 60 mL/min (>60) Glucose Level 85 MG/DL (74-106) Calcium Level 8.6 MG/DL (8.5-10.1) Current Medications Medications (Trade) Dose Ordered Sig/Tiago Route PRN Reason Start Time Stop Time Status Last Admin Dose Admin Acetaminophen (Tylenol) 650 mg Q6H PRN ORAL 1-3 mild pain/fever > 100.4 10/10/19 21:00 11/09/19 20:59 10/24/19 22:34 Amylase/Lipase/ Protease (Zenpep) 2 ea PCHS ORAL 10/20/19 12:30 01/18/20 12:29 10/25/19 12:30 Docusate Sodium (Colace) 100 mg TID ORAL 10/15/19 13:00 11/14/19 12:59 10/25/19 13:00 Dronabinol (Marinol) 2.5 mg BID ORAL 10/19/19 10:00 01/17/20 09:59 10/25/19 09:00 Enoxaparin Sodium (Lovenox) 40 mg DAILY SUBQ 10/12/19 09:00 01/10/20 08:59 10/24/19 08:29 Escitalopram Oxalate (Lexapro) 10 mg DAILY ORAL 10/24/19 09:00 11/23/19 08:59 10/25/19 09:00 Famotidine (Pepcid) 20 mg Q6H PRN ORAL acid reflux 10/12/19 06:03 01/10/20 06:02 10/12/19 06:18 Levothyroxine Sodium (Synthroid) 25 mcg ACBREAKFAST ORAL 10/11/19 06:30 11/10/19 06:29 10/25/19 06:08 Lorazepam (Ativan) 2 mg Q6H PRN ORAL For Anxiety 10/20/19 23:45 10/27/19 23:44 Midodrine (Pro-Amatine) 5 mg TID ORAL 10/13/19 18:00 01/11/20 17:59 10/25/19 13:00 Mirtazapine (Remeron) 15 mg BEDTIME ORAL 10/24/19 21:00 01/22/20 20:59 10/24/19 21:25 Ondansetron HCl (Zofran) 4 mg Q4H PRN IVP Nausea & Vomiting 10/11/19 05:45 11/10/19 05:44 10/25/19 12:45 Pantoprazole (Protonix) 40 mg DAILY ORAL 10/15/19 11:45 11/14/19 11:44 10/25/19 09:00 Sorbitol (sorbitoL) 45 ml BIDPRN PRN ORAL Constipation 10/15/19 20:15 11/14/19 20:14 10/17/19 22:37 Sabi Abbasi M.D. Oct 25, 2019 14:09
--- NOTE | 2019-10-26 02:30 | Progress Note ---
DATE: 10/25/2019 SUBJECTIVE: The patient is in bed, depressed, anhedonia, and sleeping better, calm, and manageable. No behavioral issues. MENTAL STATUS EXAMINATION: The patient is alert, oriented times self, place, situation, and date. Mood is depressed and anxious. Affect is constricted, congruent with mood. Thought process is concrete. Thought content, no suicidal or homicidal ideation. ASSESSMENT: 1. Major depressive disorder. 2. Anxiety disorder. PLAN: 1. Continue the Lexapro. 2. Continue Remeron. 3. Provide the patient with reality orientation and supportive therapy. Nelson Roberts M.D. DR: ERIC JOB#: [id number] CC:
--- NOTE | 2019-10-27 09:12 | NUR ---
*-* INSURANCE *-* NO DISCHARGE SUMMARY IN THE SYSTEM UNABLE TO FAX TO: [facility] P: [phone] F: [phone]
--- NOTE | 2019-10-27 10:55 | Discharge Summary ---
Discharge Summary Discharge Summary _ DATE OF ADMISSION: 10/10/2019 DATE OF DISCHARGE: 10/25/2019 DISCHARGED BY: Dr Olmedo REASON FOR ADMISSION: 64 years old female with past medical history of hypothyroidism, depression, presented for evaluation due to rapid weight loss. Patient reported over one and a half month she lost about 50 pounds. Patient reported decreased appetite with persistent nausea and intermittent vomiting. Patient reported feeling dehydrated despite drinking water as much as she can. She denied fevers, or chills. She denied chest pain or shortness of breath. She reported episodic epigastric discomfort. No alcohol use. Patient had EGD and colonoscopy done last week, which revealed gastritis. CT of the chest, abdomen, pelvis ,was done earlier that day and revealed large left upper quadrant mass, likely arising from the pancreas with extension into the lesser sac. Evidence of peritoneal carcinomatosis and serosal metastasis with a small amount of ascites and mesenteric masses in the left upper to mid abdomen as well as in the pelvis. Retroperitoneal adenopathy, encasing the SMA artery and along the left para- aortic space. Left adrenal metastasis. No metastatic disease to the chest. Patient was sent for the hospital admission due to rapid weight loss and CT findings. Upon evaluation patient was slightly tachycardic , otherwise vital signs were stable. Laboratory work-up revealed no leukocytosis , stable hemoglobin ,hematocrit and platelet count. Urinalysis revealed +2 protein, +3 ketones, +1 leukocyte esterase ,borderline pyuria and moderate bacteria. Electrolytes were stable . BUN 33, creatinine 0.9. Glucose 109. Stable LFT and lipase. TSH elevated 11.5 . In emergency department patient received IV fluids and admitted for further management. Patient was swabbed for COVID-19. CONSULTANTS: rehabilitation aide Dr. Flanagan ID specialist Dr. Abbasi GI specialist Dr. Michael manager privacy/oncologist Dr. Porter psychiatrist [facility] COURSE: Patient admitted and started on the IV hydration.. Patient initially was on isolation. SARS COV2 by PCR on 10/17 was not detected,. Isolation discontinued. Urine culture revealed mixed gram-positive organism. Patient was kept off antibiotics. Patient remained afebrile mild leukocytosis resolved. Leukocytosis was probably reactive due to malignancy . Patient was attempted CT-guided needle biopsy of pancreatic mass . However no safe window for percutaneous biopsy , instead radiologist recommended EUS biopsy . Pelvic ultrasound revealed small postmenopausal uterus. Endometrial stripe not well seen, ovaries not visualized , apparent amorphus hypoechoic masslike structure ,adjacent to the urinary bladder of undetermined origin. Consider ovarian mass. Tumor markers all elevated: CEA -741, CA-15-3 -184, CA-19-9 -44694, and Ca125 -532. Patient subsequently undergone on 10/13 endoscopic ultrasound with fine-needle aspiration of pancreatic mass. Findings revealed large pancreatic mass with carcinomatosis, ascites, lymphadenopathy, highly suspicious for malignancy , status post fine-needle aspiration x4. Biopsy of pancreatic mass revealed adenocarcinoma. Oncologist recommended consider outpatient chemotherapy Hemodynamic status was closely monitored. Patient was hypotensive. Patient started on midodrine to support blood pressure. Echocardiogram revealed preserved ejection fraction. Prior to discharge blood pressure 108/75 Synthroid dose was uptitrated d due to elevated TSH. Pain management was addressed. Antiemetic were provided as needed. Patient started on Creon. Oral fluids were pushed. Patient started on appetite stimulants. GI prophylaxis provided. Patient was working with physical therapist. Fall precaution maintained. Supplemental oxygen was on board as needed to keep pulse oximetry above 92%. Electrolytes and renal parameters remained stable. Psychiatric medication regimen optimized as per psychiatrist. Reality orientation and supportive therapy provided. Patient clinically stabilized and was ready for transfer to acute rehabilitation unit at [facility] . 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 DISCHARGE INSTRUCTIONS: Patient was discharged to [facility] acute rehabilitation unit. Follow-up with the medical doctor at the accepting facility. I have been assigned to dictate discharge summary for this account. I was not involved in the patient's management. Fiona Zaragoza NP Oct 27, 2019 10:55
== END 2019-10-25 14:00 | disposition short-term general hospital (02) | DRG 641 ==
LOC: EMR 15:40 → 3E 16:03 → EDBEDREQ 18:13 → 3E 10-23 06:29
PROC: 0FBG8ZX Excision of Pancreas, Via Natural or Artificial Opening Endoscopic, Diagnostic (ICD-10-PCS; principal; 2019-10-14 08:36)
DX: E86.0 Dehydration (principal); C25.9 Malignant neoplasm of pancreas, unspecified; C78.6 Secondary malignant neoplasm of retroperitoneum and peritoneum; C79.72 Secondary malignant neoplasm of left adrenal gland; N39.0 Urinary tract infection, site not specified; E44.0 Moderate protein-calorie malnutrition; E03.9 Hypothyroidism, unspecified; R62.7 Adult failure to thrive; F32.9 Major depressive disorder, single episode, unspecified; R63.4 Abnormal weight loss; F41.9 Anxiety disorder, unspecified
CPT/HCPCS: 36415; 71045; 76830; 76856; 77012; 80048; 80053; 81003; 82378; 83690; 83735; 83880; 84100; 84443; 85007; 85025; 85610; 85730; 86300; 86304; 87086; 87635; 93306; 94003; 94150; 96361; 96374; 99285; J2405; J7030; J8499

== ENCOUNTER → 2019-10-10 | Outpatient (CLI) | payer BC ==
[~2019-10-10] MED LIST changes: +CARAFATE1 G1 ORAL
--- NOTE | 2019-10-10 10:50 | Diagnostic Imaging Report ---
EXAM: CT CT Chest Abdomen Pelvis w/Cont INDICATION: Chest and abdominal pain. Weight loss. Elevated CEA/CA 19-9. COMPARISON: None TECHNIQUE: Axial images were obtained through the chest, abdomen and pelvis with intravenous contrast. Sagittal and coronal reformats are generated. All CT scans at this facility are performed using dose modulation techniques as appropriate to a performed exam including the following: automated exposure control with adjustment of the mA and/or kV according to patient size. RADIATION DOSE: CTDIvol: 39.9 mGy DLP: 385.1 mGy-cm Dose information generated by the CT scanner is available in PACS. CHEST FINDINGS: The lungs are clear bilaterally. Cardiac and mediastinal structures are within normal limits. There is no pathologic size adenopathy. There is no effusion. There are bilateral breast implants with apparent intracapsular rupture. ABDOMEN/PELVIS FINDINGS: The liver and spleen are homogeneous. Gallbladder is without sludge or stone and there is no wall thickening. The dominant abnormality is a large left upper quadrant mass likely of pancreatic origin. There is only normal appearing pancreatic tissue at the pancreatic head/neck region but otherwise the rest of the pancreas appears involved by the mass. The mass extends into the lesser sac and seen along the lesser curvature of the stomach. There is some extension to the left upper to mid abdominal mesentery as well. It measures at least 10 x 5.4 cm. Right adrenal is normal. Left adrenal is grossly enlarged representing focal metastatic disease. The kidneys are normal in size, shape and axis. Small bowel loops are nondistended. The colon is also nondistended with average amount of stool. The appendix is normal. There is a small amount of ascites adjacent to the liver. A dropped metastasis identified in the right retroperitoneal space on image 27 of series 8. There is also retroperitoneal adenopathy encasing the SMA artery and along the left para-aortic space. There is free fluid in the pelvis. Lobulated mesenteric mass identified in the anterior pelvis measuring 5.8 x 3.5 cm. Small uterus contains calcifications likely small calcified fibroids. There are no suspicious superficial soft tissue or osseous abnormality. IMPRESSION: LARGE LEFT UPPER QUADRANT MASS LIKELY ARISING FROM THE PANCREAS WITH EXTENSION INTO THE LESSER SAC. 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 RETROPERITONEAL ADENOPATHY ENCASING THE SMA ARTERY AND ALONG THE LEFT PARA-AORTIC SPACE. LEFT ADRENAL METASTASIS. NO METASTATIC DISEASE TO THE CHEST PRESENTLY. INCIDENTAL FINDING OF BILATERAL MAMMARY PROSTHESIS IMPLANT INTRACAPSULAR RUPTURE.
== END | disposition home or self-care (01) ==
LOC: CAT 09:36
DX: R07.9 Chest pain, unspecified (principal); R10.9 Unspecified abdominal pain; R63.4 Abnormal weight loss; R97.0 Elevated carcinoembryonic antigen [CEA]; C78.6 Secondary malignant neoplasm of retroperitoneum and peritoneum; R19.02 Left upper quadrant abdominal swelling, mass and lump; Z98.82 Breast implant status
CPT/HCPCS: 71260; 74177; Q9967